=== PATIENT | male | born 1965 | race Caucasian/White ===

== ENCOUNTER 2023-04-11 10:59 | Outpatient (OUT) | payer OTHER, SELFPAY ==
[2023-04-11 11:26] LABS: Basophils Percent Auto 0.7 % (0.2-2.0); Eosinophils Absolute Auto 0.4 10^3/uL (0.0-0.7); Eosinophils Percent Auto 8.4 % (0.9-7.0); Hematocrit 41.4 % (42.0-54.0); Hemoglobin 13.7 g/dL (14.0-18.0); Immature Granulocytes Abs Auto 0.01 10^3/uL (0.00-0.03); Immature Granulocytes Pct Auto 0.2 % (0.0-0.5); Lymphocytes Absolute Auto 1.4 10^3/uL (1.2-3.8); Lymphocytes Percent Auto 31.9 % (20.5-60.0); Mean Corpuscular HGB Conc 33.1 g/dL (29.9-35.2); Mean Corpuscular Hemoglobin 31.8 pg (25.9-34.0); Mean Corpuscular Volume 96.1 fL (80.0-94.0); Mean Platelet Volume 9.3 fL (9.5-13.5); Monocytes Absolute Auto 0.9 10^3/uL (0.3-0.8); Monocytes Percent Auto 20.1 % (1.7-12.0); Neutrophils Absolute Auto 1.7 10^3/uL (1.4-6.5); Neutrophils Percent Auto 38.7 % (43.0-75.0); Platelet Count 221 10^3/uL (150-450); Red Blood Count 4.31 10^6/uL (4.70-6.10); Red Cell Distribution Width 12.8 % (11.0-15.0); White Blood Count 4.3 10^3/uL (4.0-11.0)
[2023-04-11 12:05] LABS: Alanine Aminotransferase 42 U/L (16-63); Albumin Level 4.1 g/dL (3.4-5.0); Alkaline Phosphatase 135 U/L (46-116); Aspartate Amino Transferase 42 U/L (15-37); BUN Creatinine Ratio 13.7; Bilirubin Total 0.2 mg/dL (0.2-1.0); Calcium 9.4 mg/dL (8.5-10.1); Carbon Dioxide 31.5 mmol/L (21.0-32.0); Chloride 101 mmol/L (98-107); Estimated GFR (African America >60 (>=60); Estimated GFR (Non-African Ame >60 (>=60); Globulin 4.1 g/dL; Glucose 127 mg/dL (74-106); Potassium 3.5 mmol/L (3.5-5.1); Sodium 140 mmol/L (136-145); Thyroid Stimulating Hormone 0.505 uIU/mL (0.358-3.740); Total Protein 8.2 g/dL (6.4-8.2)
[2023-04-11 12:14] LABS: Prostate Specific Antigen Scrn 0.55 ng/mL (<=4.00)
== END 2023-04-11 11:00 ==
LOC: LAB 11:03
PROVIDERS: PCP Family Medicine; Visit Provider Family Medicine
DX: I10 Essential (primary) hypertension (principal); R53.83 Other fatigue; Z12.5 Encounter for screening for malignant neoplasm of prostate
CPT/HCPCS: 36415; 80053; 84439; 84443; 85025; G0103

== ENCOUNTER 2023-06-22 15:00 | Emergency (ER) | payer OTHER, SELFPAY ==
[2023-06-22] VITALS (12 sets, daily range): BP systolic 163–193; BP diastolic 104–114; PULSE 72–91; RESP 8–24; TEMP 36.8; O2SAT 94–98; BMI 21.2
--- NOTE | 2023-06-22 15:19 | ECG_ITS ---
[facility] Test Date: 2023-06-22 Pat Name: WILMER PASTRANA Department: Room: - Gender: Male Medical Coding Manager: : 1965 Requested By: EDEN CONROY Order Number: [id number] Reading MD: GERSON WALL Measurements Intervals [place] Rate: 78 P: 80 MO: 194 QRS: -35 QRSD: 94 T: 61 QT: 384 QTc: 417 Interpretive Statements 1100 Sinus rhythm 7200 Abnormal left axis deviation 9130 borderline ECG No previous ECG available for comparison Electronically Signed On 06-23-2023 7:11:00 EDT by GERSON WALL
--- NOTE | 2023-06-22 15:20 | ED.GENADUL1 ---
HPI - General Adult General Chief complaint: Nausea/Vomiting/Diarrhea Stated complaint: VOMITING/NAUSEA/SWEATY/CLAMMY Time Seen by Provider: 06/22/23 15:12 Source: patient Mode of arrival: walk-in History of Present Illness HPI narrative: patient is a 57-year-old male who presents the emergency department for a one-day history of nausea and vomiting. Patient states yesterday he developed multiple episodes of emesis, he is unable to hold anything down, he denies diarrhea. He states he has some abdominal discomfort when he vomits but no severe abdominal pain. He believes he may have had acid reflux many years ago but does not take any medications for this. He has not had any objective fevers but states he feels very hot and sweaty when he vomits. He has no complaints of upper respiratory symptoms, chest pain or shortness of breath. No sick contacts in the home. He reports decreased urination due to decreased oral intake but denies any dysuria or hematuria. Related Data Previous Rx's Medication Instructions Recorded famotidine 20 mg tablet (Pepcid) 20 mg PO BID #10 tabs 06/22/23 ondansetron 4 mg disintegrating 4 mg PO Q6H PRN nausea and 06/22/23 tablet vomiting #12 tabs Allergies Allergy/AdvReac Type Severity Reaction Status Date / Time No Known Drug Allergies Allergy Verified 06/22/23 15:06 Review of Systems ROS Constitutional Denies: fever or chills Ears, nose, mouth, and throat Denies: throat pain Cardiovascular Denies: chest pain Respiratory Denies: shortness of breath or cough Gastrointestinal Reports: nausea and vomiting; Denies: abdominal pain or diarrhea Musculoskeletal Denies: back pain Integumentary/Breast Denies: rash Neurological Denies: headache Hematologic/Lymphatic Denies: easy bruising Exam Narrative Exam Narrative: Gen.: Awake, alert, in no distress Head: Normocephalic, atraumatic ENT: Moist mucous membranes Respiratory: No respiratory distress, lungs clear bilaterally Cardio: Regular rate and rhythm Gastrointestinal: Abdomen is soft, nondistended and nontender to palpation Extremities: Moves extremities equally Psych: Normal mood and affect Neuro: No focal neuro deficit Skin: Warm, dry, intact Constitutional Vital Signs, click to edit/add: Last Vital Signs Temp 98.2 F 06/22/23 15:06 Pulse 72 06/22/23 17:00 Resp 10 L 06/22/23 17:00 BP 184/111 H 06/22/23 17:00 Pulse Ox 94 L 06/22/23 15:50 O2 Del Method Room Air 06/22/23 15:06 Course Vital Signs Vital signs: Vital Signs Temperature 98.2 F 06/22/23 15:06 Pulse Rate 88 06/22/23 15:06 Respiratory Rate 16 06/22/23 15:06 Blood Pressure 184/110 H 06/22/23 15:06 Pulse Oximetry 98 06/22/23 15:06 Oxygen Delivery Method Room Air 06/22/23 15:06 Temperature 98.2 F 06/22/23 15:06 Pulse Rate 72 06/22/23 17:00 Respiratory Rate 10 L 06/22/23 17:00 Blood Pressure 184/111 H 06/22/23 17:00 Pulse Oximetry 94 L 06/22/23 15:50 Oxygen Delivery Method Room Air 06/22/23 15:06 Medical Decision Making MDM Narrative Medical decision making narrative: lab studies, EKG, x-rays obtained. Patient was treated with IV fluids, Zofran. He had no complaints of abdominal pain in the Emergency Room. He was noted to continue to have hypertension, he was treated with IV labetalol was given a dose of his regular oxycodone as he has had trouble keeping his medications for his chronic back pain down. Blood pressure on recheck is 153/102. Patient reports feeling much better and was able to tolerate ice chips and sips of water with no feelings of nausea or dry heaving. EKG, troponin and lab studies are unremarkable. X-rays with no evidence of bowel obstruction. Patient discharged home with treatment for nausea and vomiting and possible gastritis with Pepcid and Zofran. Follow-up with PCP and return to the Emergency Room if symptoms change or worsen. Patient and family at bedside in agreement with treatment plan. It was recommended to follow a clear liquid diet over the next 24-48 hours. Medical Records Medical records reviewed: Yes I reviewed the patient's medical records Lab Data Lab results reviewed: Yes I reviewed the patient's lab results Labs: Lab Results 06/22/23 Range/Units 15:26 WBC 7.6 (4.0-11.0) 10^3/uL RBC 4.67 L (4.70-6.10) 10^6/uL Hgb 14.8 (14.0-18.0) g/dL Hct 42.5 (42.0-54.0) % MCV 91.0 (80.0-94.0) fL MCH 31.7 (25.9-34.0) pg MCHC 34.8 (29.9-35.2) g/dL RDW 12.2 (11.0-15.0) % Plt Count 288 (150-450) 10^3/uL MPV 9.5 (9.5-13.5) fL Neut % (Auto) 74.7 (43.0-75.0) % Lymph % (Auto) 14.1 L (20.5-60.0) % [place] % (Auto) 10.4 (1.7-12.0) % Eos % (Auto) 0.1 L (0.9-7.0) % Baso % (Auto) 0.4 (0.2-2.0) % Neut # (Auto) 5.7 (1.4-6.5) 10^3/uL Lymph # (Auto) 1.1 L (1.2-3.8) 10^3/uL [place] # (Auto) 0.8 (0.3-0.8) 10^3/uL Eos # (Auto) 0.0 (0.0-0.7) 10^3/uL Baso # (Auto) 0.0 (0.0-0.1) 10^3/uL Abs Immat Gran (auto) 0.02 (0.00-0.03) 10^3/uL Imm/Tot Granulo (auto) 0.3 (0.0-0.5) % Sodium 138 (136-145) mmol/L Potassium 4.0 (3.5-5.1) mmol/L Chloride 99 (98-107) mmol/L Carbon Dioxide 32.5 H (21.0-32.0) mmol/L Anion Gap 10.5 BUN 14.0 (7.0-18.0) mg/dL Creatinine 1.22 (0.70-1.30) mg/dL Est GFR ( Amer) >60 (>=60) Est GFR (Non-Af Amer) >60 (>=60) BUN/Creatinine Ratio 11.5 Glucose 154 H (74-106) mg/dL Lactate 1.1 (0.4-2.0) mmol/L Calcium 9.5 (8.5-10.1) mg/dL Total Bilirubin 0.5 (0.2-1.0) mg/dL AST 32 (15-37) U/L ALT 40 (16-63) U/L Alkaline Phosphatase 116 (46-116) U/L Troponin I High Sens 6.6 (4.0-76.1) pg/mL Total Protein 8.7 H (6.4-8.2) g/dL Albumin 4.7 (3.4-5.0) g/dL Globulin 4.0 g/dL Albumin/Globulin Ratio 1.2 Lipase 46.0 L (73.0-393.0) U/L Imaging Data Abdominal x-ray: Attestation: I have reviewed the pertinent imaging results. Radiologist's impression: Procedure: XR acute abdomen series EXAM: XR acute abdomen series HISTORY: Nausea and vomiting COMPARISON: None. TECHNIQUE: Chest X-ray AP, 1 view and 2 views of the abdomen FINDINGS: Support devices: None. Lungs/pleura: No consolidation, effusion, or pneumothorax. Heart and mediastinum: Normal contours. Bones: No acute abnormality identified. Bowel: Unremarkable bowel gas pattern. No bowel dilatation. No gross pneumoperitoneum on exam of limited sensitivity for that finding. IMPRESSION: No bowel obstruction. Electronically authenticated by: KEON ROSE Date: 06/22/2023 16:22 ECG Data Attestation: I personally reviewed and interpreted this ECG as follows: (normal sinus rhythm at a rate of seventy-eight, no acute ST elevation or ectopy. EKG reviewed by attending physician) Discharge Plan Discharge Chief Complaint: Nausea/Vomiting/Diarrhea Clinical Impression: Gastritis, Nausea and vomiting Patient Disposition: Home, Self-Care Time of Disposition Decision: 17:36 Condition: Good Prescriptions / Home Meds: New famotidine [Pepcid] 20 mg tablet 20 mg PO BID Qty: 10 0RF ondansetron 4 mg tablet,disintegrating 4 mg PO Q6H PRN (Reason: nausea and vomiting) Qty: 12 0RF Instructions: Acute Nausea and Vomiting (DC) Stand Alone Forms: Portal Instructions Referrals: Itzel Nair MD [Primary Care Provider] - 1 week
[2023-06-22] MEDS: 0.9 % SODIUM CHLORIDE 1,000 ML 999 ML IV (15:30)
[2023-06-22] MEDS: FAMOTIDINE/PF 20 MG/2 ML VIAL IV (15:30)
[2023-06-22] MEDS: ONDANSETRON PF 4 MG/2 ML VIAL IV (15:30)
--- NOTE | 2023-06-22 16:02 | XR_ITS ---
The [address] [address] Patient Name: WILMER PASTRANA MRN: [id number] date: 1965 Sex: M Assigned Patient Location: ER Current Patient Location: ER Accession/Order Number: [id number] Exam Date: 06/22/2023 15:58 Report Date: 06/22/2023 16:22 At the request of: ESTRELLITA ZAMAN Procedure: XR acute abdomen series EXAM: XR acute abdomen series HISTORY: Nausea and vomiting COMPARISON: None. TECHNIQUE: Chest X-ray AP, 1 view and 2 views of the abdomen FINDINGS: Support devices: None. Lungs/pleura: No consolidation, effusion, or pneumothorax. Heart and mediastinum: Normal contours. Bones: No acute abnormality identified. Bowel: Unremarkable bowel gas pattern. No bowel dilatation. No gross pneumoperitoneum on exam of limited sensitivity for that finding. XR/XR acute abdomen series IMPRESSION: No bowel obstruction. Electronically authenticated by: KEON ORSE Date: 06/22/2023 16:22
[2023-06-22 16:06] LABS: Basophils Percent Auto 0.4 % (0.2-2.0); Eosinophils Percent Auto 0.1 % (0.9-7.0); Hematocrit 42.5 % (42.0-54.0); Hemoglobin 14.8 g/dL (14.0-18.0); Immature Granulocytes Abs Auto 0.02 10^3/uL (0.00-0.03); Immature Granulocytes Pct Auto 0.3 % (0.0-0.5); Lymphocytes Absolute Auto 1.1 10^3/uL (1.2-3.8); Lymphocytes Percent Auto 14.1 % (20.5-60.0); Mean Corpuscular HGB Conc 34.8 g/dL (29.9-35.2); Mean Corpuscular Hemoglobin 31.7 pg (25.9-34.0); Mean Platelet Volume 9.5 fL (9.5-13.5); Monocytes Absolute Auto 0.8 10^3/uL (0.3-0.8); Monocytes Percent Auto 10.4 % (1.7-12.0); Neutrophils Absolute Auto 5.7 10^3/uL (1.4-6.5); Neutrophils Percent Auto 74.7 % (43.0-75.0); Platelet Count 288 10^3/uL (150-450); Red Blood Count 4.67 10^6/uL (4.70-6.10); Red Cell Distribution Width 12.2 % (11.0-15.0); White Blood Count 7.6 10^3/uL (4.0-11.0)
[2023-06-22 16:20] LABS: Alanine Aminotransferase 40 U/L (16-63); Albumin Globulin Ratio 1.2; Albumin Level 4.7 g/dL (3.4-5.0); Alkaline Phosphatase 116 U/L (46-116); Anion Gap 10.5; Aspartate Amino Transferase 32 U/L (15-37); BUN Creatinine Ratio 11.5; Bilirubin Total 0.5 mg/dL (0.2-1.0); Calcium 9.5 mg/dL (8.5-10.1); Carbon Dioxide 32.5 mmol/L (21.0-32.0); Chloride 99 mmol/L (98-107); Estimated GFR (African America >60 (>=60); Estimated GFR (Non-African Ame >60 (>=60); Glucose 154 mg/dL (74-106); Sodium 138 mmol/L (136-145); Total Protein 8.7 g/dL (6.4-8.2); Troponin I High Sensitivity 6.6 pg/mL (4.0-76.1)
[2023-06-22 16:21] LABS: Lactate/Lactic Acid 1.1 mmol/L (0.4-2.0)
[2023-06-22] MEDS: LABETALOL HCL 20 MG/4 ML SYRINGE 10 MG IVP (16:47)
== END 2023-06-22 17:47 | disposition home or self-care (01) ==
PROVIDERS: Physician Assistant; Emergency Provider Emergency Medicine; PCP Family Medicine
DX: K29.70 Gastritis, unspecified, without bleeding (principal)
CPT/HCPCS: 36415; 74022; 80053; 83605; 83690; 84484; 85025; 93005; 96374; 96375; 99285

== ENCOUNTER 2024-09-07 11:20 | Outpatient (OUT) | payer MEDICARE, SELFPAY ==
[2024-09-07 11:51] LABS: Basophils Absolute Auto 0.1 10^3/uL (0.0-0.1); Basophils Percent Auto 1.6 % (0.2-2.0); Eosinophils Absolute Auto 0.5 10^3/uL (0.0-0.7); Eosinophils Percent Auto 10.9 % (0.9-7.0); Hematocrit 39.4 % (42.0-54.0); Hemoglobin 13.3 g/dL (14.0-18.0); Lymphocytes Absolute Auto 1.9 10^3/uL (1.2-3.8); Lymphocytes Percent Auto 37.2 % (20.5-60.0); Mean Corpuscular HGB Conc 33.8 g/dL (29.9-35.2); Mean Corpuscular Hemoglobin 30.1 pg (25.9-34.0); Mean Corpuscular Volume 89.1 fL (80.0-94.0); Mean Platelet Volume 9.4 fL (9.5-13.5); Monocytes Absolute Auto 0.7 10^3/uL (0.3-0.8); Monocytes Percent Auto 14.5 % (1.7-12.0); Neutrophils Absolute Auto 1.8 10^3/uL (1.4-6.5); Neutrophils Percent Auto 35.8 % (43.0-75.0); Platelet Count 311 10^3/uL (150-450); Red Blood Count 4.42 10^6/uL (4.70-6.10)
[2024-09-07 12:50] LABS: Alanine Aminotransferase 26 U/L (16-63); Albumin Globulin Ratio 1.2; Albumin Level 4.3 g/dL (3.4-5.0); Alkaline Phosphatase 105 U/L (46-116); Anion Gap 10.6; Aspartate Amino Transferase 25 U/L (15-37); BUN Creatinine Ratio 13.6; Bilirubin Total 0.4 mg/dL (0.2-1.0); Calcium 9.5 mg/dL (8.5-10.1); Carbon Dioxide 33.4 mmol/L (21.0-32.0); Chloride 103 mmol/L (98-107); Estimated GFR (African America >60 (>=60 mL/min/1.73m^2); Estimated GFR (Non-African Ame >60 (>=60 mL/min/1.73m^2); Globulin 3.7 g/dL; Glucose 115 mg/dL (74-106); Sodium 143 mmol/L (136-145)
[2024-09-08 04:08] LABS: Testosterone 556 ng/dL (264-916)
== END 2024-09-07 11:21 | disposition home or self-care (01) ==
LOC: LAB 11:23
PROVIDERS: PCP Family Medicine; Visit Provider Family Medicine
DX: R53.83 Other fatigue (principal); R10.13 Epigastric pain; I10 Essential (primary) hypertension; R11.2 Nausea with vomiting, unspecified
CPT/HCPCS: 36415; 80053; 83690; 84403; 85025

== ENCOUNTER 2025-01-03 11:34 | Outpatient (OUT) | payer MEDICARE, SELFPAY ==
--- OUTSIDE RECORDS SUMMARY | 2025-01-03 11:52 | XMS_ITS | CCD ---
Author Organization [facility] Care Team Providers Care Object Oriented Developer Name Role Phone Manan Watson Unavailable FRANCES STRONG Attending Unavailable FRANCES STRONG Admitting Unavailable Unavailable Primary Care Provider UnavailEden Burrell MD Primary Care Provider Unavailable Primary Care Provider UnavailPUNEET Ac Referring Unavailable DEBRA, PUNEET Referring Unavailable DUGLAS FRYE Referring Unavailable PUNEET BLAIR MD Attending Unavailable PUNEET BLAIR Referring Unavailable PUNEET BLAIR Referring Unavailable DEBRA, PUNEET Referring Unavailable PUNEET BLAIR Referring Unavailable Manan Watson Admitting Unavailable Manan Watson Attending Unavailable Eden Conroy Primary Care Unavailable Eden Conroy Unavailable MISC, DR FREEMAN Admitting Unavailable MISC, DR FREEMAN Attending Unavailable RAFIQ, DR EDEN Lujan Primary Care Unavailable RAFIQ, DR EDEN Lujan Primary Care Unavailable PAY ., DR MENDOZA Admitting Unavailable PAY ., DR MENDOZA Attending Unavailable ROBERT .HEBER Consulting Unavailable RAFIQ, DR EDEN Lujan Primary Care Unavailable JOSE GRAMAJO Admitting Unavailable AMADOU Burns, JOSE Attending Unavailable MARNI VALENCIA Consulting Unavailable JOSE GRAMAJO Consulting Unavailable MISC, DR FREEMAN Admitting Unavailable MISC, DR FREEMAN Attending Unavailable RAFIQ, DR EDEN Lujan Primary Care Unavailable MISC, DR FREEMAN Consulting Unavailable RAFIQ, DR EDEN Lujan Admitting Unavailable CONROY, DR EDEN Lujan Attending Unavailable RAFIQ, DR EDEN Lujan Primary Care Unavailable RAFIQ, DR EDEN Lujan Consulting Unavailable EDEN CONROY Referring Unavailable WALT WEST Attending Unavailable WALT WEST Admitting Unavailable EDEN CONROY Primary Care Unavailable PUNEET BLAIR Referring Unavailable PUNEET BLAIR Attending Unavailable EDEN CONROY Primary Care Unavailable EDEN CONROY Primary Care Unavailable BINA JEROME Attending Unavailable CONROY, EDEN Primary Care Unavailable CHANELL HART Referring Unavailable CONSULT, SURGERY - ORTHOPAEDICS Consulting Unavailable NURYSNicolePAO NICOLAS Mosley Referring Unavailable CHANELL HART Attending Unavailable ELSY MAURER Admitting Unavailable CONROY, EDEN Primary Care Unavailable SELF, SELF Referring Unavailable BRETT, WALT Dias Attending Unavailable BINA JEROME Attending Unavailable BINA JEROME Referring Unavailable CONROY, EDEN Primary Care Unavailable TA, BINA Purvis Attending Unavailable BINA JEROME Referring Unavailable CONROY, EDEN Primary Care Unavailable CONROY, EDEN Primary Care Unavailable CONROY, EDEN Referring Unavailable WEST, WALT Dias Attending Unavailable CONROY, EDEN Primary Care Unavailable CONROY, EDEN Primary Care Unavailable CONROY, EDEN Referring Unavailable WEST, WALT Dias Attending Unavailable CONROY, EDEN Primary Care Unavailable SELF, SELF Referring Unavailable WEST, WALT Dias Attending Unavailable TA, BINA Purvis Attending Unavailable CONROY, EDEN Primary Care Unavailable SELF, SELF Referring Unavailable CONROY, EDEN Primary Care Unavailable CONROY, EDEN Primary Care Unavailable CONROY, EDEN Referring Unavailable WEST, WALT Dias Attending Unavailable CONROY, EDEN Primary Care Unavailable SELF, SELF Referring Unavailable WEST, WALT Dias Attending Unavailable CONROY, EDEN Primary Care Unavailable CONROY, EDEN Primary Care Unavailable SELF, SELF Referring Unavailable WEST, WALT Dias Attending Unavailable CONROY, EDEN Primary Care Unavailable BINA JEROME Attending Unavailable TA, BINA uPrvis Referring Unavailable CONROY, EDEN Primary Care Unavailable CONROY, EDEN Primary Care Unavailable CONSULT, GENERAL MEDICINE Consulting BINA Wise Attending Unavailable BINA JEROME Admitting Unavailable BINA JEROME Referring Unavailable CONROY, EDEN Primary Care Unavailable CONROY, EDEN Referring Unavailable BRETT, WALT Dias Admitting Unavailable BRETT, WALT Dias Attending Unavailable CONROY, EDEN Primary Care Unavailable CONROY, EDEN Primary Care Unavailable CONROY, EDEN Primary Care Unavailable CONROY, EDEN Primary Care Unavailable RADHA RABAGO Referring Unavailable CONSULT, GENERAL MEDICINE Consulting BINA Wise Admitting Unavailable BINA JEROME Attending Unavailable CONROY, EDEN Primary Care Unavailable Conroy Eden OROSCO Primary Care Provider Allergies Allergy Classification Reported Allergen(s) Allergy Type Date of Onset Reaction(s) Facility (1 source) DULoxetine Drug Allergy [address] [place] [address] Repository (8 sources) DULoxetine Drug Allergy Unknown [facility] Other (2 sources) patient allergy list reviewed by nurse or physicia Propensity to adverse reactions Comment:Done [facility] Other (2 sources) Allergies Reconciled Propensity to adverse reactions Unknown [facility] Other Medications Current Medications Medication Drug Class(es) Dates Sig (Normalized) Sig (Original) acetaminophen 325 mg / oxyCODONE hydrochloride 5 mg oral tablet (20 sources) Opioid Agonist Start: 03-04-2023 take 1 tablet by mouth every six hours as needed oxyCODONE-Acetami nophen 5-325 MG TAKE 1 TABLET BY MOUTH EVERY 6 HOURS NEEDED for 30 February, Active Start: 11-23-2021 End: 12-16-2023 take 1 tablet by mouth every eight hours as needed for pain Oxycodone-Acetaminophen (Percocet) 5-325 mg tablet Discontinued 1 TAB PO Q8H as needed for pain 6 2 November 23, 2021 December 16, 2023 11:54am Start: 11-06-2021 End: 11-23-2021 take 1 tablet by mouth every four to six hours as needed for pain Oxycodone-Acetaminophen 5-325 mg Tablet Discontinued 1 TAB PO EVERY 4-6 HOURS as needed for Pain 70 November 06, 2021 November 23, 2021 10:15am Start: 11-03-2021 End: 01-04-2023 take 1 tablet by mouth every six hours as needed for pain Oxycodone-Acetaminophen 5-325 mg tablet Discontinued 1 TAB PO Q6H as needed for Pain November 03, 2021 12:00am November 23, 2021 10:15am take 1 tablet by catherine th once oxyCODONE-acetaminophen (PERCOCET) 10-32 5 mg per tablet Take 1 tablet by mouth. Active alteplase 2 MG Recon Soln (5 sources) Start: 10-01-2022 alteplase 2 MG Recon Soln 2 mg by Intracatheter route once as needed for Catheter Clearance (For an occluded line) for up to 1 dose. 1 Each 0 10/01/2022 Active ascorbic acid 500 mg / ferrous sulfate 525 mg / folic acid 0.8 mg extended release oral tablet (7 sources) Vitamin C Start: 08-06-2022 take 1 tablet by mouth once daily FoliTab 500 105-500-0.8 MG Tab CR Take 1 tablet by mouth daily. 0 08/06/2022 Active B Complex Vitamins (Vitamin B-Complex) tablet (5 sources) B Complex Vitami ns (Vitamin B-Complex) tablet Take by mouth. 0 Active cephalexin 500 mg oral capsule (1 source) Cephalosporin Antibacterial Start: 09-06-2022 End: 09-13-2022 take 1 capsule by mouth every six hours cephALEXin 500 MG capsule Take 1 capsule by mouth every 6 hours for 7 days. 28 capsule 0 09/06/2022 09/13/2022 Active cholecalciferol 0.05 mg oral tablet (9 sources) Vitamin D Start: 10-02-2022 End: 11-01-2022 take 1 tablet by mouth once daily cholecalciferol 50 MCG (2000 UNIT) tablet Take 1 tablet by mouth daily. 30 tablet 0 10/02/2022 Active ergocalciferol 0.01 mg oral tablet (7 sources) Provitamin D2 Compound Start: 11-03-2021 take 1 tablet by mouth once daily Ergocalciferol (Vitamin D2) (Vitamin D2) 10 mcg (400 unit) Tablet Active 10 MCG PO Daily November 03, 2021 12:00am ferrous sulfate 250 mg extended release oral tablet (1 source) take 1 tablet by mouth once daily at breakfast ferrous sulfate 250 mg (50 mg iron) tablet extended release Take 500 mg by mouth daily with breakfast. Active folic acid 0.4 mg / vitamin b12 0.5 mg oral tablet (7 sources) Vitamin B12 Start: 11-03-2021 take 1 tablet by mouth once daily Vitamin G40-Wqsml Acid 500-400 mcg Tablet Active 1 TAB PO Daily November 03, 2021 12:00am 1 ml heparin sodium, porcine 5000 unt/ml injection (1 source) Unfractionated Heparin, Anti-coagulant Start: 08-19-2022 inject 1 mL by subcutaneous injection every eight hours heparin sodium,porcine (heparin, porcine,) 5,000 unit/mL injection Inject 1 mL (5,000 Units total) under the skin every 8 (eight) hours. 08/19/2022 Active ibuprofen 600 mg oral tablet (5 sources) Nonsteroidal Anti-inflammatory Drug Start: 01-03-2023 End: 01-11-2023 take 1 tablet by mouth every six hours as needed Ibuprofen 600 MG tablet Take 1 tablet by mouth every 6 hours as needed for mild pain for up to 7 days. 28 tablet 0 01/04/2023 Active losartan potassium 50 mg oral tablet (20 sources) Angiotensin 2 Receptor Doc Start: 12-16-2023 End: 12-22-2023 take 1 tablet by mouth once daily Losartan 50 mg tablet Active 50 MG PO Daily December 22, 2023 1:44pm FreeTextSi tablet Orally Once a day; Note: Source Status: Start; Refills: 3; Provider: Rafiq Robbins ( ) Start: 01-05-2023 take 1 tablet by catherine th every twenty-four hours Losartan Potassium 50 MG 1 tablet Orally Once a day for 30 days Dec, Active meloxicam 15 mg oral tablet (3 sources) Nonsteroidal Anti-inflammatory Drug Start: 09-03-2024 take 1 tablet by mouth once daily Meloxicam 15 mg tablet Active 15 MG PO Daily September 03, 2024 12:00am MEPILEX BORDER DRESSING (5 sources) Start: 11-26-2022 MEPILEX BORDER DRESSING Apply 1 each topically every three days 10 patch 0 11/26/2022 Active Start: 11-24-2022 MEPILEX BORDER DRESSING Apply 1 Each topically every 3 days. 10 Application 0 11/24/2022 Active methylPREDNISolone 4 mg oral tablet (1 source) Corticosteroid Start: 11-16-2021 Medrol 4 MG as directed Orally for 6 days Oct, Active naloxone hydrochloride 40 mg/ml nasal spray (6 sources) Opioid Antagonist Start: 10-01-2022 End: 10-01-2023 naloxone 4 MG/0.1ML 1 spray by Nasal route As directed PRN for Opioid Reversal. [place] into the nose as directed. Call 911. If no response in 2 minutes use a new nasal spray in other nostril. Repeat until help arrives. 2 Each 0 10/01/2022 10/01/2023 Active omeprazole 20 mg delayed release oral capsule (1 source) Proton Pump Inhibitor Start: 09-07-2024 take 1 capsule by mouth once daily Omeprazole 20 mg capsule,delayed release(DR/EC) Active 20 MG PO Daily September 07, 2024 12:00am Selenium 200 MCG tablet (9 sources) Start: 10-04-2022 take 1 tablet by mouth once daily Selenium 200 MCG tablet Take 1 tablet by mouth daily. 30 tablet 0 10/04/2022 Active Start: 10-04-2022 End: 11-03-2022 take 1 tablet by mouth once daily Selenium 200 MCG tablet Take 1 tablet by mouth daily. 30 tablet 0 10/04/2022 11/03/2022 Active sulfamethoxazole 800 mg / trimethoprim 160 mg oral tablet (9 sources) Dihydrofolate Reductase Inhibitor Antibacterial, Sulfonamide Antimicrobial Start: 11-02-2022 End: 02-02-2023 take 1 tablet by mouth twice daily Sulfamethoxazole-trimethoprim 800-160 MG per tablet Take 1 tablet by mouth 2 times daily for 7 days. 14 tablet 0 01/26/2023 02/02/2023 Active tiZANidine 4 mg oral tablet (20 sources) Central alpha-2 Adrenergic Agonist Start: 07-16-2024 End: 08-29-2024 take 1 tablet by mouth at bedtime as needed Tizanidine 4 mg tablet Active 0 .ROUTE .COMPLEX August 29, 2024 10:28am TAKE 1 TABLET BY MOUTH AT BEDTIME NEEDED Start: 03-22-2024 End: 07-16-2024 take 1 tablet by mouth once daily at bedtime as needed Tizanidine 4 mg tablet Discontinued 4 MG PO Daily at bedtime as needed for muscle spasticity June 14, 2024 1:35pm July 16, 2024 12:10pm trihexyphenidyl hydrochloride 2 mg oral tablet (1 source) Start: 08-19-2022 take 1 tablet by mouth in the morning, then take 1 tablet by mouth at mealtime trihexyphenidyL (ARTANE) 2 mg tablet Take 1 tablet (2 mg total) by mouth in the morning and 1 tablet (2 mg total) in the evening. Take with meals. 08/19/2022 Active vancomycin 500 mg injection (3 sources) Glycopeptide Antibacterial Start: 10-01-2022 End: 11-03-2022 take 1500 mg intravenously every twelve hours vancomycin injection 1,500 mg by Intravenous route every 12 hours. 1,500 mg per dose, IV infusion every 12 hours. *diluent and final concentration at discretion of receiving pharmacy* 66 Each 0 10/01/2022 11/03/2022 Active vitamin a 19401 unt oral capsule (9 sources) Vitamin A Start: 10-02-2022 take 2 capsules by mouth once daily vitamin A 3 MG (44229 UT) capsule Take 2 capsules by mouth daily for 5 days. 10 capsule 0 10/02/2022 Active Vitamin B Complex (1 source) b complex vitami ns tablet Take by mouth. Active vitamin e 90 mg oral capsule (7 sources) Start: 11-03-2021 take 1 capsule by mouth once daily Vitamin E 200 unit Capsule Active 200 UNIT PO Daily November 03, 2021 12:00am zinc sulfate 220 mg oral capsule (9 sources) Start: 10-02-2022 End: 11-01-2022 take 1 capsule by mouth once daily before breakfast zinc sulfate 220 MG capsule Take 1 capsule by mouth every morning before breakfast. 30 capsule 0 10/02/2022 Active Completed/Discontinued Medications Medication Drug Class(es) Dates Sig (Normalized) Sig (Original) acetaminophen 325 mg oral tablet (11 sources) Start: 01-03-2023 End: 01-04-2023 take 1 tablet by mouth every four hours as needed 650 mg, Oral, EVERY 4 HOURS NEEDED, 6 doses, Starting on Tue01/03/23 at 1201, Until Tue01/04/23 at 1353, Mild Pain Administer as first line for mild pain. If pain unrelieved one hour after administration may administer ibuprofen if ordered. Post-op/Post-Proc Start: 10-01-2022 End: 01-04-2023 take 2 tablets by mouth every four hours acetaminophen 325 MG tablet Take 2 tablets by mouth every 4 hours. 0 10/01/2022 01/04/2023 Discontinued (Stop Taking at Discharge) Start: 08-19-2022 End: 08-27-2022 acetaminophen (TYLENOL) tabl et 975 mg acetaminophen 325 mg / HYDROcodone bitartrate 5 mg oral tablet (1 source) Opioid Agonist Start: 09-06-2022 End: 09-06-2022 take 1 tablet by mouth every four hours as needed hydroCODone-acetaminophen 5-325 MG tablet Indications: S/P cervical spinal fusion Take 1 tablet by mouth every 4 hours as needed for up to 7 days. 42 tablet 0 09/06/2022 09/06/2022 Discontinued ALPRAZolam 0.25 mg oral tablet (17 sources) Benzodiazepine Start: 05-03-2024 End: 09-07-2024 take 1 tablet by mouth three times daily as needed for anxiety Alprazolam 0.25 mg tablet Discontinued 0.25 MG PO Three times daily as needed for anxiety 12 05May 03, 2024 1:59pm May 14, 2024 8:04am aluminum hydroxide 40 mg/ml / magnesium hydroxide 40 mg/ml / simethicone 4 mg/ml oral suspension (2 sources) Start: 01-03-2023 End: 01-04-2023 take 30 mL by mouth every six hours as needed 30 mL, Oral, EVERY 6 HOURS NEEDED, Starting on Tue01/03/23 at 1201, Until Tue01/04/23 at 1353, Indigestion Per 5 mL is equivalent to: (Alum-Mag Hydroxide 200-225 mg and Simethicone 20 mg) and (Alum-Mag Hydroxide 200-200 mg and Simethicone 20 mg) Post-op/Post-Proc Start: 08-19-2022 End: 08-27-2022 take 30 mL by mouth every six hours as needed 30 mL, Oral, EVERY 6 HOURS NEEDED, Starting on Ирина 08/19/22 at 1702, Until Tue08/27/22 at 1414, Indigestion Per 5 mL is equivalent to: (Alum-Mag Hydroxide 200-225 mg and Simethicone 20 mg) and (Alum-Mag Hydroxide 200-200 mg and Simethicone 20 mg) amLODIPine 5 mg oral tablet (20 sources) Dihydropyridine Calcium Channel Doc Start: 03-12-2024 End: 08-14-2024 take 1 tablet by mouth once daily Amlodipine 5 mg tablet Discontinued 0 .ROUTE .COMPLEX June 27, 2024 7:23am August 14, 2024 9:07pm TAKE 1 TABLET BY MOUTH ONCE DAILY Start: 12-16-2023 End: 03-12-2024 take 1 tablet by mouth once daily Amlodipine 5 mg tablet Discontinued 5 MG PO Daily December 22, 2023 1:44pm March 12, 2024 2:03pm FreeTextSi tablet Orally Once a day; Note: Source Status: Start; Provider: Rafiq Lujan Start: 11-28-2023 take 1 tablet by catherine th every twenty-four hours amLODIPine Besylate 5 MG 1 tablet Orally Once a day for 30 day(s) Aug, Active Start: 10-02-2022 End: 11-01-2022 take 1 tablet by mouth once daily amLODIPine 2.5 MG tablet Take 1 tablet by mouth daily. 30 tablet 0 10/02/2022 Active Start: 08-19-2022 take 1 tablet by catherine th in the morning amLODIPine (NORVASC) 10 mg tablet Take 1 tablet (10 mg total) by mouth in the morning. 08/19/2022 Active bisacodyl 10 mg rectal suppository (1 source) Stimulant Laxative Start: 01-03-2023 End: 01-04-2023 take 10 mg rectal route once daily as needed for constipation 10 mg, Rectal, DAILY NEEDED, Starting on Tue01/03/23 at 1201, Until Tue01/04/23 at 1353, Constipation 1st Line, Post-op/Post-Proc calcium chloride 0.0014 meq/ml / potassium chloride 0.004 meq/ml / sodium chloride 0.103 meq/ml / sodium lactate 0.028 meq/ml injectable solution (2 sources) Start: 01-03-2023 End: 01-04-2023 Intravenous, at 50 mL/hr, CONTINUOUS, Starting on Tue01/03/23 at 1000, Until Tue01/04/23 at 1353, Post-op/Post-Proc Start: 01-03-2023 End: 01-03-2023 Lactated ringers IV solution ceFAZolin 2000 mg injection (1 source) Cephalosporin Antibacterial Start: 08-21-2022 End: 08-24-2022 take 2 g intravenously every eight hours 2 g, Intravenous, Administer over 30 Minutes, EVERY 8 HOURS NON-STANDARD, First dose on 08/21/22 at 1930, Until Discontinued cyclobenzaprine hydrochloride 10 mg oral tablet (1 source) Muscle Relaxant Start: 08-23-2022 End: 08-24-2022 cyclobenzaprine (FLEXERIL) tablet 10 mg diazePAM 5 mg oral tablet (20 sources) Benzodiazepine Start: 10-31-2022 take 1 tablet by mouth twice daily as needed diazePAM 5 mg TAKE 1 TABLET BY MOUTH TWICE DAILY NEEDED for 5 Oct, Not-Taking/PRN Start: 10-01-2022 take 1 tablet by catherine th every eight hours as needed for muscle spasms diazepam 5 MG tablet Indications: S/P spinal surgery Take 1 tablet by mouth every 8 hours as needed for Muscle spasms (Hold for sedation.) for up to 7 days. 21 tablet 0 10/01/2022 Active Start: 08-24-2022 End: 08-27-2022 take 1 tablet by mouth every eight hours as needed diazepam (VALIUM) tablet 5 mg Start: 08-21-2022 End: 08-21-2022 diazepam (VALIUM) tablet 5 m g Start: 11-06-2021 End: 01-22-2024 take 1 tablet by mouth four times daily as needed for muscle spasms Diazepam 5 mg Tablet Discontinued 5 MG PO Four times daily as needed for Muscle Spasm 40 10 November 06, 2021 12:00am January 22, 2024 8:34pm docusate sodium 100 mg oral capsule (2 sources) Start: 01-03-2023 End: 01-04-2023 Docusate (COLACE) capsule doxycycline hyclate 100 mg oral capsule (8 sources) Tetracycline-cl ass Drug Start: 11-02-2022 End: 01-31-2023 take 1 capsule by mouth twice daily doxycycline hyclate 100 MG capsule Take 1 capsule by mouth 2 times daily. 60 capsule 2 11/02/2022 01/26/2023 Discontinued (Therapy completed) 0.4 ml enoxaparin sodium 100 mg/ml prefilled syringe (7 sources) Low Molecular Weight Heparin Start: 01-04-2023 End: 01-04-2023 inject 40 mg by subcutaneous injection every twenty-four hours 40 mg, Subcutaneous, EVERY 24 HOURS, First dose on Tue01/04/23 at 0000, Until Discontinued Indications: DVT/PE prophylaxis, Post-op/Post-Proc Start: 10-02-2022 End: 11-01-2022 inject 0.4 mL by subcutaneous injection once daily Enoxaparin Sodium 40 MG/0.4ML injection Indications: DVT/PE prophylaxis Inject 0.4 mL under the skin daily. 12 mL 0 10/02/2022 Active Start: 08-19-2022 End: 08-23-2022 Enoxaparin Sodium (LOVENOX) injection 40 mg gabapentin 600 mg oral tablet (20 sources) Anti-epileptic Agent Start: 02-20-2024 End: 03-22-2024 take 1 tablet by mouth three times daily Gabapentin 600 mg tablet Discontinued 0 .ROUTE .COMPLEX 90 February 20, 2024 3:00pm March 22, 2024 12:26pm TAKE 1 TABLET BY MOUTH THREE TIMES DAILY FOR 30 DAYS Start: 12-16-2023 End: 02-20-2024 take 1 tablet by mouth three times daily Gabapentin 600 mg tablet Discontinued 600 MG PO Three times daily December 16, 2023 12:00am February 20, 2024 3:00pm FreeTextSig: TAKE 1 TABLET BY MOUTH THREE TIMES DAILY for 30 days; Note: Source Status: Start; Refills: 2; Qty: 90 Tablet; Provider: Rafiq Robbins ( ) Start: 01-03-2023 End: 01-04-2023 take 600 mg by mouth three times daily 600 mg, Oral, 3 TIMES DAILY, First dose on Tue01/03/23 at 1400, Until Discontinued, Post-op/Post-Proc Start: 12-09-2022 take 1 tablet by catherine th three times daily gabapentin 600 MG tablet Take 1 tablet by mouth 3 times daily. 0 12/09/2022 Active Start: 10-01-2022 take 1 capsule by mo uth three times daily gabapentin 100 MG capsule Take 1 capsule by mouth 3 times daily for 7 days. 21 capsule 0 10/01/2022 Active Start: 08-27-2022 End: 09-26-2022 take 2 capsules by mouth three times daily gabapentin 100 MG capsule Take 2 capsules by mouth 3 times daily. 180 capsule 0 08/27/2022 09/26/2022 Active Start: 08-21-2022 End: 08-27-2022 gabapentin (NEURONTIN) capsu le 100 mg Start: 08-21-2022 End: 08-21-2022 gabapentin (NEURONTIN) capsu le 300 mg guaiFENesin 20 mg/ml oral solution (1 source) Start: 08-20-2022 End: 08-27-2022 take 200 mg by mouth every six hours as needed guaiFENesin (ROBITUSSIN) oral solution 200 mg 1 ml haloperidol 5 mg/ml injection (1 source) Typical Antipsychotic Start: 08-21-2022 End: 08-21-2022 haloperidol lactate (HALDOL) injection 5 mg 1 ml hydrALAZINE hydrochloride 20 mg/ml injection (2 sources) Arteriolar Vasodilator Start: 01-03-2023 End: 01-04-2023 take 5 mg intravenously every six hours as needed hydrALAZINE (APRESOLINE) injection 5 mg Start: 08-22-2022 End: 08-27-2022 take 1 tablet by mouth every eight hours as needed hydrALAZINE (APRESOLINE) tablet 25 mg 1 ml HYDROmorphone hydrochloride 1 mg/ml cartridge (2 sources) Opioid Agonist Start: 08-25-2022 End: 08-25-2022 HYDROmorphone (DILAUDID) injection 0.5 mg Start: 08-22-2022 End: 08-22-2022 HYDROmorphone (DILAUDID) inj ection 0.5 mg HYDROmorphone (DILAUDID) injection 0.5 mg (1 source) Start: 08-26-2022 End: 08-27-2022 take 0.5 mg intravenously every six hours as needed HYDROmorphone (DILAUDID) injection 0.5 mg hydrOXYzine hydrochloride 10 mg oral tablet (1 source) Antihistamine Start: 08-20-2022 End: 08-27-2022 hydrOXYzine hcl (ATARAX) tablet 10 mg labetalol hydrochloride 5 mg/ml injectable solution (1 source) beta-Adrenergic Doc Start: 01-03-2023 End: 01-04-2023 take 10 mg intravenously every six hours as needed Labetalol (NORMODYNE) injection 10 mg Magnesium Oxide (1 source) Start: 08-19-2022 End: 08-27-2022 magnesium oxide (MAG-OX) tablet 800 mg melatonin 3 mg oral tablet (1 source) Start: 08-19-2022 End: 08-27-2022 take 6 mg by mouth once daily at bedtime as needed 6 mg, Oral, DAILY AT BEDTIME NEEDED, Starting on Ирина 08/19/22 at 1702, Until Tue08/27/22 at 1414, Insomnia ondansetron 4mg/2ml (ZOFRAN) injection 4 mg (1 source) Start: 08-19-2022 End: 08-27-2022 take 4 mg intravenously every six hours as needed ondansetron 4mg/2ml (ZOFRAN) injection 4 mg Ondansetron 4mg/2ml (ZOFRAN) injection 4 mg (1 source) Start: 01-03-2023 End: 01-04-2023 take 4 mg intravenously every six hours as needed Ondansetron 4mg/2ml (ZOFRAN) injection 4 mg oxyCODONE hydrochloride 5 mg oral tablet (20 sources) Opioid Agonist Start: 05-23-2024 End: 08-22-2024 take 1 tablet by mouth twice daily as needed for pain Oxycodone 5 mg tablet Discontinued 5 MG PO Twice daily as needed for pain 60 July 23, 2024 August 22, 2024 7:18am Start: 04-23-2024 End: 04-23-2024 take 1 tablet by mouth twice daily as needed for pain Oxycodone 5 mg tablet Discontinued 5 MG PO Twice daily as needed for pain 60 April 23, 2024 April 23, 2024 8:49am Start: 02-16-2024 End: 05-23-2024 take 1 tablet by mouth twice daily as needed for pain Oxycodone 5 mg tablet Discontinued 5 MG PO Twice daily as needed for pain 60 March 22, 2024 April 23, 2024 7:32am Start: 01-16-2024 End: 02-15-2024 take 1 tablet by mouth twice daily as needed for pain Oxycodone 5 mg tablet Discontinued 5 MG PO Twice daily as needed for pain 60 January 16, 2024 February 15, 2024 9:31am Start: 12-16-2023 End: 01-16-2024 take 1 tablet by mouth three times daily as needed for pain Oxycodone 5 mg tablet Discontinued 5 MG PO Three times daily as needed for pain 90 December 22, 2023 January 16, 2024 1:49pm Start: 11-17-2023 take 1 tablet by catherine th three times daily as needed oxyCODONE HCl 5 MG 1 tablet as needed Orally tid prn for 30 days Oct, Active Start: 10-19-2023 take 1 tablet by catherine th three times daily as needed oxyCODONE HCl 5 MG 1 tablet as needed Orally tid prn for 30 days Sep, Active Start: 09-19-2023 take 1 tablet by catherine th three times daily as needed oxyCODONE HCl 10 MG 1 tablet as needed Orally tid prn Aug, Active Start: 08-19-2023 take 1 tablet by catherine th three times daily as needed oxyCODONE HCl 10 MG 1 tablet as needed Orally tid prn for 30 days Jul, Active Start: 07-22-2023 take 1 tablet by catherine th three times daily as needed oxyCODONE HCl 10 MG 1 tablet as needed Orally tid prn for 30 days Jun, Active Start: 06-24-2023 take 1 tablet by catherine th three times daily as needed oxyCODONE HCl 10 MG 1 tablet as needed Orally tid prn for 30 days Due around 04/26Jun, Active Start: 05-26-2023 take 1 tablet by catherine three times daily as needed oxyCODONE HCl 10 MG 1 tablet as needed Orally tid prn for 30 days Due around 04/26May, Active Start: 04-22-2023 take 1 tablet by catherine three times daily as needed oxyCODONE HCl 10 MG 1 tablet as needed Orally tid prn for 30 days Due around 04/26Mar, Active Start: 03-28-2023 Start: 02-25-2023 take 1 tablet by catherine th every six hours oxyCODONE HCl 10 MG 1 tablet as needed Orally every 6 hrs for 30 days February, Active Start: 01-27-2023 take 1 tablet by catherine th every six hours oxyCODONE HCl 10 MG 1 tablet as needed Orally every 6 hrs for 30 days Jan, Active Start: 01-04-2023 End: 01-04-2023 take 1 tablet by mouth every six hours as needed for pain oxyCODONE 5 MG tablet Indications: Wound of back, unspecified laterality, sequela Take 1 tablet by mouth every 6 hours as needed for Severe Pain for up to 5 days. 12 tablet 0 01/04/2023 01/04/2023 Discontinued (Stop Taking at Discharge) Start: 01-03-2023 End: 01-04-2023 take 1 tablet by mouth every three hours as needed 5 mg, Oral, EVERY 3 HOURS NEEDED, Starting on Tue01/03/23 at 1201, Until Tue01/04/23 at 1353, Severe Pain, Post-op/Post-Proc Start: 12-02-2022 take 1 tablet by catherine th every four hours as needed oxyCODONE HCl 10 MG 1 tablet Orally every 4 hours, as needed for 30 days Dec, Active Start: 10-01-2022 take 1 tablet by catherine th every four hours as needed for pain, then take 4 tablets by mouth once daily as needed for pain oxyCODONE 15 MG tablet Indications: S/P spinal surgery Take 1 tablet by mouth every 4 hours as needed for Moderate Pain or Severe Pain (Hold for sedation. Max 4 tabs per day.) for up to 7 days. 28 tablet 0 10/01/2022 Active Start: 08-27-2022 End: 08-31-2022 take 1 tablet by mouth every four hours as needed oxyCODONE 30 MG tablet Indications: Spinal stenosis of cervical region Take 1 tablet by mouth every 4 hours as needed for up to 4 days. 24 tablet 0 08/27/2022 Active Start: 08-26-2022 End: 08-27-2022 take 1 tablet by mouth every four hours as needed oxyCODONE HCl (ROXICODONE) tablet 10 mg Start: 08-22-2022 End: 08-24-2022 take 1 tablet by mouth every four hours as needed oxyCODONE HCl (ROXICODONE) tablet 10 mg Start: 08-19-2022 End: 08-22-2022 take 1 tablet by mouth every four hours as needed oxyCODONE (ROXICODONE) tablet 5 mg petrolatum 1 mg/mg topical ointment (1 source) Start: 08-26-2022 End: 08-27-2022 hydrophil petrolatum-mineral oil (AQUAPHOR) ointment 1 Application phenol 14 mg/ml mouthwash (1 source) Start: 01-03-2023 End: 01-04-2023 1-2 spray, Mouth/Throat, NEEDED, Starting on Tue01/03/23 at 1201, Until Tue01/04/23 at 1353, Sore Throat Patient may self-administer. Post-op/Post-Proc polyethylene glycol 3350 [id number] mg powder for oral solution (1 source) Osmotic Laxative Start: 08-22-2022 End: 08-27-2022 polyethylene glycol (MIRALAX) packet 17 g Potassium Chloride (1 source) Start: 08-19-2022 End: 08-27-2022 potassium chloride (K-DUR) tablet ER 40-60 mEq pregabalin 100 mg oral capsule (16 sources) Start: 11-03-2021 End: 01-16-2024 take 1 capsule by mouth twice daily Pregabalin 100 mg capsule Discontinued 100 MG PO Twice daily November 03, 2021 12:00am January 16, 2024 1:33pm take 1 capsule by mouth every tw elve hours Lyrica 50 MG 1 capsule Orally Twice a day Active Prochlorperazine (COMPAZINE) injection 10 mg (1 source) Start: 01-03-2023 End: 01-04-2023 take 10 mg intravenously every six hours as needed Prochlorperazine (COMPAZINE) injection 10 mg sennosides, long-term 8.6 mg oral tablet (2 sources) Start: 01-03-2023 End: 01-04-2023 take 8.6 mg by mouth once daily at dinner 8.6 mg, Oral, DAILY WITH DINNER, First dose on 01/03/23 at 1700, Until Discontinued, Post-op/Post-Proc Start: 08-19-2022 End: 08-27-2022 senna (SENOKOT) tablet 8.6 m g 1000 ml sodium chloride 9 mg/ml injection (1 source) Start: 08-19-2022 End: 08-27-2022 Intravenous, at 20 mL/hr, NEEDED, Starting on Tue08/19/22 at 1701, Until Tue08/27/22 at 1414, Carrier Fluid - See Admin. Inst 250mL 0.9NS to be used as carrier fluid for intermittent small volume or piggyback medication administration as needed. Infusion rate of the carrier fluid should be set at 20 mL/hr unless the rate as the intermittent medication is less than 20 mL/hr. For intermittent medications with a rate less than 20 mL/hr set the carrier fluid at that rate of the intermittent or piggy back medication. Problems Active Problems Problem Classification Problem Date Documented Da te Episodic/Chronic Abdominal pain (2 sources) Epigastric pain; Translations: [Epigastric pain] 09-07-2024 Episodic Alcohol-related disorders (14 sources) Alcohol dependence; Translations: [Alcohol dependence, uncomplicated] Chronic Anxiety disorders (12 sources) Anxiety state; Translations: [Anxiety state, unspecified] Onset: 05-01-2019 05-03-2024 Chronic Bacterial infection; unspecified site (4 sources) Other staphylococcus as the cause of diseases classified elsewhere; Translations: [Other staphylococcus as the cause of diseases classified elsewhere] Onset: 10-19-2022 Episodic Chronic obstructive pulmonary disease and bronchiectasis (3 sources) Bronchitis, not specified as acute or chronic; Translations: [Bronchitis] Onset: 08-10-2022 Episodic E Codes: Fall (14 sources) Fall; Translations: [Unspecified fall, initial encounter] Episodic Esophageal disorders (2 sources) Esophageal reflux finding; Translations: [Esophageal reflux] Onset: 10-13-2015 Chronic Essential hypertension (20 sources) Essential hypertension; Translations: [Essential (primary) hypertension] Chronic Malaise and fatigue (7 sources) Other fatigue; Translations: [Fatigue] Onset: 08-13-2022 Episodic Miscellaneous mental health disorders (2 sources) Psychosexual dysfunction with inhibited sexual excitement; Translations: [Psychosexual dysfunction associated with inhibited sexual excitement] Onset: 08-14-2015 Chronic Miscellaneous mental health disorders (2 sources) Other symptoms and signs involving emotional state; Translations: [Emotional state finding] Episodic Mood disorders (2 sources) Dysthymic disorder; Translations: [Dysthymia] Onset: 11-08-2016 Chronic Nausea and vomiting (20 sources) Vomiting; Translations: [Vomiting, unspecified] 09-07-2024 Episodic Nonmalignant breast conditions (2 sources) Lump in left breast; Translations: [Unspecified lump in the left breast, unspecified quadrant] Episodic Nutritional deficiencies (2 sources) Deficiency of other specified B group vitamins; Translations: [Vitamin B deficiency] Episodic Open wounds of head; neck; and trunk (10 sources) Traumatic and/or non-traumatic injury of back; Translations: [Unspecified open wound of unspecified back wall of thorax without penetration into thoracic cavity, sequela] Onset: 09-21-2022 Episodic Other acquired deformities (20 sources) Scoliosis of lumbar spine; Translations: [Other forms of scoliosis, lumbar region] Chronic Other acquired deformities (1 source) Other forms of scoliosis, lumbar region Onset: 09-25-2021 Resolved: 09-25-2021 Chronic Other acquired deformities (20 sources) Lumbar spondylolisthesis; Translations: [Spondylolisthesis, lumbar region] Episodic Other acquired deformities (20 sources) Spondylolisthesis; Translations: [Spondylolisthesis, lumbosacral region] Episodic Other aftercare (2 sources) Encounter for therapeutic drug level monitoring; Translations: [Encounter for therapeutic drug level monitoring] Onset: 10-14-2022 Episodic Other aftercare (2 sources) Other usp (current) drug therapy; Translations: [Other terminal clerk (current) drug therapy] Onset: 10-11-2022 Episodic Other aftercare (2 sources) Patient encounter status; Translations: [Encounter for other specified surgical aftercare] Episodic Other circulatory disease (1 source) Elevated blood-pressure reading, without diagnosis of hypertension; Translations: [Elevated blood-pressure reading, without diagnosis of hypertension] Episodic Other circulatory disease (1 source) Elevated blood-pressure reading without diagnosis of hypertension; Translations: [Elevated blood-pressure reading, without diagnosis of hypertension] Episodic Other connective tissue disease (2 sources) History of cervical spine fusion; Translations: [Arthrodesis status] Episodic Other connective tissue disease (2 sources) Neuralgia and neuritis, unspecified; Translations: [NEURALGIA AND NEURITIS UNSPECIFIED] Onset: 08-07-2022 Episodic Other connective tissue disease (4 sources) Spasm; Translations: [Other muscle spasm] Onset: 02-02-2016 Episodic Other connective tissue disease (1 source) Cramp and spasm; Translations: [Cramp and spasm] Episodic Other connective tissue disease (1 source) Neuralgia; Translations: [Neuralgia and neuritis, unspecified] Episodic Other connective tissue disease (7 sources) Muscle pain; Translations: [Myalgia, unspecified site] 10-05-2023 Episodic Comment on above: Problem List clean-u p per request of Phys. EHR Cmte Other gastrointestinal disorders (20 sources) Diarrhea; Translations: [Diarrhea, unspecified] Episodic Other hereditary and degenerative nervous system conditions (1 source) Essential tremor; Translations: [Essential tremor] Onset: 05-02-2018 Chronic Other hereditary and degenerative nervous system conditions (1 source) Essential tremor; Translations: [Essential tremor] Onset: 05-02-2018 Chronic Other male genital disorders (1 source) Male erectile dysfunction, unspecified; Translations: [Male erectile dysfunction, unspecified] Chronic Other male genital disorders (1 source) Impotence of organic origin; Translations: [Male erectile dysfunction, unspecified] Chronic Other nervous system disorders (14 sources) Spinal cord disease; Translations: [Disease of spinal cord, unspecified] Onset: 08-19-2022 Chronic Other nervous system disorders (14 sources) Chronic pain; Translations: [Other chronic pain] Chronic Other nervous system disorders (1 source) Other chronic pain; Translations: [OTHER CHRONIC PAIN] Onset: 08-12-2022 Chronic Other non-traumatic joint disorders (1 source) Pain in right knee; Translations: [Pain in right knee] Episodic Other non-traumatic joint disorders (2 sources) Shoulder joint pain; Translations: [Pain in left shoulder] Episodic Other non-traumatic joint disorders (1 source) Arthralgia of the lower leg; Translations: [Pain in right knee] Episodic Other nutritional; endocrine; and metabolic disorders (1 source) Body mass index (BMI) 19.9 or less, adult; Translations: [Body mass index (BMI) 19 or less, adult] Episodic Other nutritional; endocrine; and metabolic disorders (1 source) Body mass index less than 20; Translations: [Body mass index (BMI) 19.9 or less, adult] Episodic Other screening for suspected conditions (not mental disorders or infectious disease) (3 sources) Encounter for screening for malignant neoplasm of prostate; Translations: [ENC SCREEN MALIG NEOPLASM PROSTATE] Onset: 08-07-2022 Episodic Other skin disorders (1 source) Bilateral localized swelling of lower legs; Translations: [Localized swelling, mass and lump, lower limb, bilateral] Episodic Other skin disorders (1 source) Disorder of the skin and subcutaneous tissue, unspecified; Translations: [Disorder of the skin and subcutaneous tissue, unspecified] Episodic Other skin disorders (1 source) Disorder of skin and/or subcutaneous tissue; Translations: [Disorder of the skin and subcutaneous tissue, unspecified] Episodic Residual codes; unclassified (16 sources) Tobacco user; Translations: [Tobacco use] Episodic Residual codes; unclassified (1 source) Body mass index (BMI) 22.0-22.9, adult; Translations: [Body mass index (BMI) 22.0-22.9, adult] Episodic Residual codes; unclassified (1 source) Tobacco use; Translations: [Tobacco use] Episodic Residual codes; unclassified (3 sources) Normal body mass index; Translations: [Body mass index (BMI) 20.0-20.9, adult] Episodic Spondylosis; intervertebral disc disorders; other back problems (20 sources) Intervertebral disc disorder of cervical region with myelopathy; Translations: [Cervical disc disorder with myelopathy, cervicothoracic region] Onset: 11-16-2021 Resolved: 12-16-2021 Chronic Spondylosis; intervertebral disc disorders; other back problems (20 sources) Cervical disc prolapse with radiculopathy; Translations: [Cervical disc disorder with radiculopathy, unspecified cervical region] Onset: 07-11-2015 Resolved: 10-30-2021 Episodic Comment on above: Problem List clean-u p per request of Phys. EHR Cmte Substance-related disorders (1 source) Nicotine dependence, cigarettes, uncomplicated; Translations: [NICOTINE DEPEND CIGARETTES UNCOMP] Onset: 08-10-2022 Chronic Unclassified (1 source) M50.10 - Cervical disc disorder with radiculopathy, unspecified cervical region; Translations: [M50.10 - Cervical disc disorder with radiculopathy, unspecified cervical region] Onset: 12-16-2021 Unclassified (3 sources) LOW BACK PAIN, UNSPECIFIED; Translations: [LOW BACK PAIN, UNSPECIFIED] Onset: 08-12-2022 Unclassified (1 source) COUGH, UNSPECIFIED; Translations: [COUGH, UNSPECIFIED] Onset: 08-10-2022 Unclassified (2 sources) S/P cervical spinal fusion Onset: 12-16-2022 Unclassified (2 sources) Post Op Visit; Translations: [Post Op Visit] Onset: 11-24-2022 Unclassified (1 source) Special screening for malignant neoplasm of prostate; Translations: [Special screening for malignant neoplasm of prostate] Onset: 08-22-2018 Unclassified (1 source) Routine general medical examination at health care facility; Translations: [Routine general medical examination at health care facility] Onset: 02-02-2016 Past or Other Problems Problem Classification Problem Date Documented Date Episodic/Chronic Acute bronchitis (2 sources) Acute bronchitis; Translations: [Acute bronchitis, unspecified] Onset: 07-11-2015 Episodic Complications of surgical procedures or medical care (20 sources) Disruption of internal operation (surgical) wound, not elsewhere classified, initial encounter; Translations: [Postoperative wound infection] Onset: 09-21-2022 Episodic Fluid and electrolyte disorders (14 sources) Disorder of electrolytes; Translations: [Other disorders of electrolyte and fluid balance, not elsewhere classified] Onset: 08-20-2022 Episodic Inflammatory conditions of male genital organs (2 sources) Acute prostatitis; Translations: [Acute prostatitis] Onset: 08-22-2018 Episodic Other acquired deformities (1 source) Spondylolisthesis, lumbosacral region Onset: 09-25-2021 Resolved: 09-25-2021 Episodic Other aftercare (2 sources) 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; Translations: [skilled nursing (current) use of antibiotics] Onset: 12-09-2022 Episodic Other connective tissue disease (1 source) Other muscle spasm; Translations: [OTHER MUSCLE SPASM] Onset: 08-10-2022 Episodic Other connective tissue disease (2 sources) Arthrodesis status; Translations: [Arthrodesis status] Onset: 12-09-2022 Episodic Other connective tissue disease (1 source) Spasm of muscle; Translations: [Spasm of muscle] Onset: 02-02-2016 Episodic Other infections; including parasitic (13 sources) Disorder due to infection; Translations: [Unspecified infectious disease] Onset: 09-22-2022 Episodic Other infections; including parasitic (4 sources) Unspecified infectious disease; Translations: [Unspecified infectious disease] Onset: 09-21-2022 Episodic Other lower respiratory disease (1 source) Other nonspecific abnormal finding of lung field; Translations: [OTH NONSPECIFIC ABN FIND LNG FIELD] Onset: 08-10-2022 Episodic Other male genital disorders (2 sources) Hemospermia; Translations: [Hematospermia] Onset: 08-22-2018 Episodic Other non-traumatic joint disorders (4 sources) Pain in right hip; Translations: [PAIN IN RIGHT HIP] Onset: 08-08-2022 Episodic Other non-traumatic joint disorders (2 sources) Arthralgia of the pelvic region and thigh; Translations: [Pain in joint, pelvic region and thigh] Onset: 05-02-2018 Episodic Other upper respiratory infections (2 sources) Acute recurrent maxillary sinusitis; Translations: [Acute maxillary sinusitis] Onset: 12-02-2017 Episodic Residual codes; unclassified (2 sources) Other specified postprocedural states; Translations: [Other specified postprocedural states] Onset: 12-28-2022 Episodic Unclassified (9 sources) Onset: 08-27-2022 Resolved: 12-21-2022 08-27-2022 Unclassified (1 source) LOW BACK PAIN, UNSPECIFIED; Translations: [LOW BACK PAIN, UNSPECIFIED] Onset: 08-11-2022 Results Test Name Value Interpretation Reference Range Facil ity NICOTINE AND METABOLITES,SER UMon 01-04-2023 Cotinine [Mass/Vol] 279 ng/mL High NINF - 3.0 ng/mL [facility] Comment on above: ADDITIONAL INFORMATION This test was developed and its performance characteristics determined by [facility] in a manner consistent with CLIA requirements. This test has not been cleared or approved by the U.S. Food and Drug Administration. Test Performed by: [facility] [address] [place] [address] [address] [employer] Helper: Jan Muñoz M.D. Ph.D.; CLIA# [id number] Interpretation and review of laboratory results Abnormal [facility] Nicotine [Mass/Vol] 3.5 ng/mL High NINF - 3.0 ng/mL [facility] PLATELET COUNTon 01-04-2023 Platelet mean volume (Bld) [Entitic vol] 9.1 fL Normal 8.7-12.3 [facility] Comment on above: Performed By: #### P LAT ####[facility] (DEFAULT)[address] [place] [address] Platelets (Bld) [#/Vol] 259 10*3/uL Normal 146-337 [facility] Comment on above: Performed By: #### P LAT ####[facility] (DEFAULT)[address] [place] [address] Interpretation and review of laboratory results Normal [facility] Platelet mean volume (Bld) [Entitic vol] 9.1 fL 8.7 - 12.3 fL [facility] Platelets (Bld) [#/Vol] 259 10*3/uL 146 - 337 K/uL [facility] ACID FAST CULTURE, TISSUEon 01-03-2023 Bacteria identified Cx Nom (Unsp spec) NO GROWTH DAY 42 OF 42 Normal [facility] Comment on above: Performed By: #### DEEPA LEVINE, HFP #### [facility] (DEFAULT) [address] [place] [address] Fluorochrome Stain No acid Fast Bacillus Seen Normal [facility] Comment on above: Performed By: #### DEEPA LEVINE, HFP #### [facility] (DEFAULT) [address] [place] [address] ANAEROBE CULTUREon 3 Bacteria identified Cx Nom (Unsp spec) No anaerobic growth Normal [facility] Comment on above: Order Comment: Colle ct fluids or tissues in a sterile container. If collecting swabs, must be collected in a Port-A-Cul tube. Performed By: #### DEEPA LEVINE, HFP #### [facility] (DEFAULT) [address] [place] [address] BACTERIAL CULTURE AND DIRECT SMEAR, LESION, TISSUE, DEVICEon 01-03-2023 Bacteria identified Cx Nom (Unsp spec) NO GROWTH DAY 2 OF 2 Normal [facility] Comment on above: Performed By: #### DEEPA LEVINE, HFP #### [facility] (DEFAULT) [address] [place] [address] Microscopic observation Gram stain Nom (Unsp spec) Normal [facility] Comment on above: Result Comment: Neut rophils, None Red Blood Cells Present No organisms seen Performed By: #### DEEPA LEVINE, HFP #### [facility] (DEFAULT) [address] [place] [address] CONTINUOUS CARDIAC MONITORIN G STRIPon 01-03-2023 [facility] CONTINUOUS CARDIAC MONITORIN G STRIPOrdered By: Unassigned Pacs on 01-03-2023 [facility] Work Phone: FUNGUS CULTUREon 01-03-2023 Bacteria identified Cx Nom (Unsp spec) NO GROWTH DAY 28 OF 28 Normal [facility] Comment on above: Performed By: #### M GO, CHM7, HFP #### [facility] (DEFAULT) [address] [address] NICOTINE AND METABOLITES,SER UMon 01-03-2023 COTININE 279 ng/mL High <3.0 [facility] Comment on above: Result Comment: ADDITIONAL INFORMATION This test was developed and its performance characteristics determined by [facility] in a manner consistent with CLIA requirements. This test has not been cleared or approved by the U.S. Food and Drug Administration. Test Performed by: [place] [address] [address] [employer] Helper: Jan Muñoz M.D. Ph.D.; CLIA# [id number] Performed By: #### T YPEC #### [facility] (DEFAULT) [address] [place] [id number] NICOTINE 3.5 ng/mL High <3.0 [facility] Comment on above: Performed By: #### T YPEC #### [facility] (DEFAULT) [address] [address] MRI SPINE CERVICAL WITH AND WITHOUT CONTRASTon 12-21-2022 MRI SPINE CERVICAL WITH AND WITHOUT CONTRAST EXAM: MRI SPINE CERVICAL WITH AND WITHOUT CONTRAST, 12/21/2022 05:50 AM COMPARISON: No prior studies available for comparison. CLINICAL INDICATIONS: 57 years Male eval for evidence of abscess posteriorly; RELEVANT CLINICAL HISTORY: TECHNIQUE: A series of sagittal and axial multisequence images of the cervical spine were obtained both before and after intravenous administration of gadolinium-based contrast using standard protocol. CONTRAST: gadoterate Meglumine (DOTAREM) 5 MMOL/10ML injection 1-80 mL; Route of Administration: Intravenous; Dose: 13 mL. FINDINGS: Postoperative changes are noted with anterior fusion extending from C3 to C7. Disc spaces are noted at C3-C4, C4-C5, C5-C6 and intervertebral graft at C6-C7. Posterior decompression is noted. Posterior fusion extending from C5 to T2 level. No cord signal abnormality is identified. The craniocervical junction is intact. The visualized part of the posterior fossa is unremarkable. Tiny rim enhancing fluid collection in the dorsal soft tissues of the thoracic spine at T2 and T3 level measuring approximately 33 mm in length and 2 mm in thickness. The collection demonstrates a connection to the skin surface. No evidence of extension into the spinal canal. C2-C3: Uncovertebral and facet hypertrophic changes causing moderate right neural foramina narrowing. No central canal stenosis. C3-C4: Uncovertebral and facet hypertrophic changes causing bilateral severe neural foramina narrowing. No central canal stenosis. C4-C5: Uncovertebral and facet hypertrophic changes causing bilateral mild neural foramina narrowing. No central canal stenosis. C5-C6: No evidence of spinal stenosis and neural foramina narrowing. C6-C7 and C7-T1: No evidence of spinal stenosis or neural foramina narrowing. IMPRESSION: Postoperative changes are noted with anterior fusion extending from C3 to C7. Disc spaces are noted at C3-C4, C4-C5, C5-C6 and intervertebral graft at C6-C7. Posterior decompression is noted. Posterior fusion extending from C5 to T2 level. Tiny rim enhancing fluid collection in the dorsal soft tissues of the thoracic spine at T2 and T3 level measuring approximately 33 mm in length and 2 mm in thickness. The collection demonstrates a connection to the skin surface. No evidence of extension into the spinal canal. This could be secondary due to infection. Normal [facility] CBC AND ELECTRONIC DIFFon Basophils (Bld) [#/Vol] 0.09 10*3/uL Normal 0.00-0.09 [facility] Comment on above: Performed By: #### X M #### [facility] (DEFAULT) [address] [place] [address] Basophils/100 WBC (Bld) 1.0 % Normal [facility] Comment on above: Performed By: #### X M #### [facility] (DEFAULT) [address] [place] [address] 71566 DIFF STATUS Electronic Differential Normal [facility] Comment on above: Performed By: #### X M #### [facility] (DEFAULT) [address] [place] [address] 52106 Eosinophils (Bld) [#/Vol] 0.55 10*3/uL High 0.00-0.48 [facility] Comment on above: Performed By: #### X M #### [facility] (DEFAULT) [address] [place] [address] 66735 Eosinophils/100 WBC (Bld) 6.2 % Normal [facility] Comment on above: Performed By: #### X M #### [facility] (DEFAULT) [address] [place] [address] 79002 Hematocrit (Bld) [Volume fraction] 40.8 % Normal 39.6-48.8 [facility] Comment on above: Performed By: #### X M #### [facility] (DEFAULT) [address] [place] [address] 49493 Hemoglobin (Bld) [Mass/Vol] 13.5 g/dL Normal 13.4-16.8 [facility] Comment on above: Performed By: #### X M #### [facility] (DEFAULT) [address] [place] [address] 35405 Immature Grans % 0.2 % Normal [facility] Comment on above: Performed By: #### X M #### [facility] (DEFAULT) [address] [place] [address] 58236 Immature Grans Absolute < Normal <=0.07 [facility] Comment on above: Performed By: #### X M #### [facility] (DEFAULT) [address] [place] [address] 29300 Lymphocytes (Bld) [#/Vol] 2.52 10*3/uL Normal 0.83-3.57 [facility] Comment on above: Performed By: #### X M #### [facility] (DEFAULT) [address] [place] [address] 58468 Lymphocytes/100 WBC (Bld) 28.3 % Normal [facility] Comment on above: Performed By: #### X M #### [facility] (DEFAULT) [address] [place] [address] 63478 MCV (RBC) [Entitic vol] 91.9 fL Normal 79.0-94.5 [facility] Comment on above: Performed By: #### X M #### [facility] (DEFAULT) [address] [place] [address] 80092 Mean Cell Hgb 30.4 pg Normal 26.1-33.3 [facility] Comment on above: Performed By: #### X M #### [facility] (DEFAULT) [address] [place] [address] 68102 Mean Cell Hgb Conc 33.1 g/dL Normal 31.9-36.5 [facility] Comment on above: Performed By: #### X M #### [facility] (DEFAULT) [address] [place] [address] 06711 Monocytes (Bld) [#/Vol] 1.04 10*3/uL High 0.24-0.93 [facility] Comment on above: Performed By: #### X M #### [facility] (DEFAULT) [address] [place] [address] 84733 Monocytes/100 WBC (Bld) 11.7 % Normal [facility] Comment on above: Performed By: #### X M #### [facility] (DEFAULT) [address] [place] [address] 33092 Nucleated RBC 0.0 /100 WBC Normal <=0.[address] [facility] Comment on above: Performed By: #### X M #### [facility] (DEFAULT) [address] [place] [address] 45075 Platelet mean volume (Bld) [Entitic vol] 9.1 fL Normal 8.7-12.3 [facility] Comment on above: Performed By: #### X M #### [facility] (DEFAULT) [address] 7[address]83 Platelets (Bld) [#/Vol] 268 10*3/uL Normal 146-337 [facility] Comment on above: Performed By: #### X M #### [facility] (DEFAULT) [address] 34179 RBC (Bld) [#/Vol] 4.44 10*6/uL Normal 4.38-5.83 [facility] Comment on above: Performed By: #### X M #### [facility] (DEFAULT) [address] 17705 RBC Distribution 13.4 % Normal 10.9-14.3 [facility] Comment on above: Performed By: #### X M #### [facility] (DEFAULT) [address] 82954 Segs + Bands Auto 52.6 % Normal [facility] Comment on above: Performed By: #### X M #### [facility] (DEFAULT) [address] 12367 Segs + Bands,Absolute Auto 4.69 K/uL Normal 1.57-6.19 [facility] Comment on above: Performed By: #### X M #### [facility] (DEFAULT) [address] [address]208 WBC (Bld) [#/Vol] 8.91 10*3/uL Normal 3.73-10.10 [facility] Comment on above: Performed By: #### X M #### [facility] (DEFAULT) [address] 6[address] CHEM 7 (LYTES,BUN,CREA,GLUC) on 12-20-2022 Anion gap [Moles/Vol] 15 mmol/L Normal 7-17 [facility] Comment on above: Performed By: #### S CRSB #### [facility] (DEFAULT) [address] [place] [address] 61822 Chloride [Moles/Vol] 101 mmol/L Normal 98-108 [facility] Comment on above: Performed By: #### S CRSB #### [facility] (DEFAULT) [address] [place] [address] 85586 CO2 [Moles/Vol] 29 mmol/L Normal 21-[address] [facility] Comment on above: Performed By: #### S CRSB #### [facility] (DEFAULT) [address] [place] [address] 85217 Creatinine [Mass/Vol] 1.16 mg/dL Normal 0.70-1.30 [facility] Comment on above: Performed By: #### S CRSB #### [facility] (DEFAULT) [address] [place] [address] 59422 GFR/1.73 sq M.predicted among non-blacks MDRD (S/P/Bld) [Vol rate/Area] 74 mL/min/{1.73_m2} Normal >=60 [facility] Comment on above: Result Comment: Repo rted eGFR is based on the CKD-EPI 2020 equation using creatinine, age, and sex. Performed By: #### S CRSB #### [facility] (DEFAULT) [address] [place] [address] 21805 Glucose [Mass/Vol] 99 mg/dL Normal 70-99 [facility] Comment on above: Performed By: #### S CRSB #### [facility] (DEFAULT) [address] [place] [address] 44966 Osmolality [Osmolality] 295 mosm/kg Normal 278-305 [facility] Comment on above: Performed By: #### S CRSB #### [facility] (DEFAULT) [address] [place] [address] 25771 Potassium [Moles/Vol] 5.0 mmol/L Normal 3.5-5.0 [facility] Comment on above: Performed By: #### S CRSB #### [facility] (DEFAULT) [address] [place] [address] 71287 Sodium [Moles/Vol] 140 mmol/L Normal 135-145 [facility] Comment on above: Performed By: #### S CRSB #### [facility] (DEFAULT) [address] [place] [address] 53922 Urea nitrogen [Mass/Vol] 15 mg/dL Normal 7-25 [facility] Comment on above: Performed By: #### S CRSB #### [facility] (DEFAULT) [address] [place] [address] 78538 Urea nitrogen/Creatinine [Mass ratio] 13 mg/mg Normal [facility] Comment on above: Performed By: #### S CRSB #### [facility] (DEFAULT) [address] [place] [address] 96698 CBC AND ELECTRONIC DIFFon Basophils (Bld) [#/Vol] 0.04 10*3/uL Normal 0.00-0.09 [facility] Comment on above: Performed By: #### X M #### [facility] (DEFAULT) [address] [place] [address] 82248 Basophils/100 WBC (Bld) 0.5 % Normal [facility] Comment on above: Performed By: #### X M #### [facility] (DEFAULT) [address] [place] [address] 06242 DIFF STATUS Electronic Differential Normal [facility] Comment on above: Performed By: #### X M #### [facility] (DEFAULT) [address] [place] [address] 56380 Eosinophils (Bld) [#/Vol] 0.36 10*3/uL Normal 0.00-0.48 [facility] Comment on above: Performed By: #### X M #### [facility] (DEFAULT) [address] [place] [address] 30762 Eosinophils/100 WBC (Bld) 4.9 % Normal [facility] Comment on above: Performed By: #### X M #### [facility] (DEFAULT) [address] 8[address]32 Hematocrit (Bld) [Volume fraction] 39.8 % Normal 39.6-48.8 [facility] Comment on above: Performed By: #### X M #### [facility] (DEFAULT) [address] 74041 Hemoglobin (Bld) [Mass/Vol] 13.1 g/dL Low 13.4-16.8 [facility] Comment on above: Performed By: #### X M #### [facility] (DEFAULT) [address] 50038 Immature Grans % 0.3 % Normal [facility] Comment on above: Performed By: #### X M #### [facility] (DEFAULT) [address] 14798 Immature Grans Absolute < Normal <=0.07 [facility] Comment on above: Performed By: #### X M #### [facility] (DEFAULT) [address] 21870 Lymphocytes (Bld) [#/Vol] 1.86 10*3/uL Normal 0.83-3.57 [facility] Comment on above: Performed By: #### X M #### [facility] (DEFAULT) [address] 52864 Lymphocytes/100 WBC (Bld) 25.3 % Normal [facility] Comment on above: Performed By: #### X M #### [facility] (DEFAULT) [address] 74314 MCV (RBC) [Entitic vol] 91.9 fL Normal 79.0-94.5 [facility] Comment on above: Performed By: #### X M #### [facility] (DEFAULT) [address] 19717 Mean Cell Hgb 30.3 pg Normal 26.1-33.3 [facility] Comment on above: Performed By: #### X M #### [facility] (DEFAULT) [address] 05572 Mean Cell Hgb Conc 32.9 g/dL Normal 31.9-36.5 [facility] Comment on above: Performed By: #### X M #### [facility] (DEFAULT) [address] 68187 Monocytes (Bld) [#/Vol] 0.87 10*3/uL Normal 0.24-0.93 [facility] Comment on above: Performed By: #### X M #### [facility] (DEFAULT) [address] 40150 Monocytes/100 WBC (Bld) 11.9 % Normal [facility] Comment on above: Performed By: #### X M #### [facility] (DEFAULT) [address] 39250 Nucleated RBC 0.0 /100 WBC Normal <=0.[address] [facility] Comment on above: Performed By: #### X M #### [facility] (DEFAULT) [address] 83699 Platelet mean volume (Bld) [Entitic vol] 9.2 fL Normal 8.7-12.3 [facility] Comment on above: Performed By: #### X M #### [facility] (DEFAULT) [address] 76965 Platelets (Bld) [#/Vol] 277 10*3/uL Normal 146-337 [facility] Comment on above: Performed By: #### X M #### [facility] (DEFAULT) [address] 81864 RBC (Bld) [#/Vol] 4.33 10*6/uL Low 4.38-5.83 [facility] Comment on above: Performed By: #### X M #### [facility] (DEFAULT) [address] [place] [address] 11473 RBC Distribution 13.6 % Normal 10.9-14.3 [facility] Comment on above: Performed By: #### X M #### [facility] (DEFAULT) [address] [place] [address] 94487 Segs + Bands Auto 57.1 % Normal [facility] Comment on above: Performed By: #### X M #### [facility] (DEFAULT) [address] [place] [address] 67085 Segs + Bands,Absolute Auto 4.19 K/uL Normal 1.57-6.19 [facility] Comment on above: Performed By: #### X M #### [facility] (DEFAULT) [address] [place] [address] 77966 WBC (Bld) [#/Vol] 7.34 10*3/uL Normal 3.73-10.10 [facility] Comment on above: Performed By: #### X M #### [facility] (DEFAULT) [address] [place] [address] 86838 CHEM 7 (LYTES,BUN,CREA,GLUC) on 12-19-2022 Anion gap [Moles/Vol] 11 mmol/L Normal 7-17 [facility] Comment on above: Performed By: #### T YPEC #### [facility] (DEFAULT) [address] [place] [address] 33584 Chloride [Moles/Vol] 101 mmol/L Normal 98-108 [facility] Comment on above: Performed By: #### T YPEC #### [facility] (DEFAULT) [address] [place] [address] 36666 CO2 [Moles/Vol] 33 mmol/L High 21-[address] [facility] Comment on above: Performed By: #### T YPEC #### [facility] (DEFAULT) [address] [place] [address] 60503 Creatinine [Mass/Vol] 1.12 mg/dL Normal 0.70-1.30 [facility] Comment on above: Performed By: #### T YPEC #### [facility] (DEFAULT) [address] 35293 GFR/1.73 sq M.predicted among non-blacks MDRD (S/P/Bld) [Vol rate/Area] 78 mL/min/{1.73_m2} Normal >=60 [facility] Comment on above: Result Comment: Repo rted eGFR is based on the CKD-EPI 2020 equation using creatinine, age, and sex. Performed By: #### T YPEC #### [facility] (DEFAULT) [address] 8[address]99 Glucose [Mass/Vol] 105 mg/dL High 70-99 [facility] Comment on above: Performed By: #### T YPEC #### [facility] (DEFAULT) [address] 5[address]4 Osmolality [Osmolality] 295 mosm/kg Normal 278-305 [facility] Comment on above: Performed By: #### T YPEC #### [facility] (DEFAULT) [address] 22099 Potassium [Moles/Vol] 4.5 mmol/L Normal 3.5-5.0 [facility] Comment on above: Performed By: #### T YPEC #### [facility] (DEFAULT) [address] 31209 Sodium [Moles/Vol] 140 mmol/L Normal 135-145 [facility] Comment on above: Performed By: #### T YPEC #### [facility] (DEFAULT) [address] 32926 Urea nitrogen [Mass/Vol] 16 mg/dL Normal 7-25 [facility] Comment on above: Performed By: #### T YPEC #### [facility] (DEFAULT) [address] 55406 Urea nitrogen/Creatinine [Mass ratio] 14 mg/mg Normal [facility] Comment on above: Performed By: #### T YPEC #### [facility] (DEFAULT) [address] [place] [address] 39157 SEDIMENTATION RATE, AUTOMATE Don 12-19-2022 ESR Westergren 8 mm/hr Normal <20 [facility] Comment on above: Performed By: #### L [id number] #### [facility] (DEFAULT) [address] [address] ALBUMINon 12-18-2022 Albumin [Mass/Vol] 4.7 g/dL Normal 3.5-5.0 [facility] Comment on above: Performed By: #### X M #### [facility] (DEFAULT) [address] [place] [address] 10315 C REACTIVE PROTEINon 023 CRP [Mass/Vol] 4.22 mg/L Normal <10.00 [facility] Comment on above: Performed By: #### X M #### [facility] (DEFAULT) [address] [place] [address] 99444 CBC AND ELECTRONIC DIFFon Basophils (Bld) [#/Vol] 0.07 10*3/uL Normal 0.00-0.09 [facility] Comment on above: Performed By: #### L [id number] #### [facility] (DEFAULT) [address] [place] [address] 05329 Basophils/100 WBC (Bld) 1.1 % Normal [facility] Comment on above: Performed By: #### L [id number] #### [facility] (DEFAULT) [address] [address] DIFF STATUS Electronic Differential Normal [facility] Comment on above: Performed By: #### L [id number] #### [facility] (DEFAULT) [address] [place] [address] 64648 Eosinophils (Bld) [#/Vol] 0.49 10*3/uL High 0.00-0.48 [facility] Comment on above: Performed By: #### L [id number] #### [facility] (DEFAULT) [address] 55083 Eosinophils/100 WBC (Bld) 7.6 % Normal [facility] Comment on above: Performed By: #### L [id number] #### [facility] (DEFAULT) [address] [address]409 Hematocrit (Bld) [Volume fraction] 41.2 % Normal 39.6-48.8 [facility] Comment on above: Performed By: #### L AB980 #### [facility] (DEFAULT) [address] 80647 Hemoglobin (Bld) [Mass/Vol] 13.7 g/dL Normal 13.4-16.8 [facility] Comment on above: Performed By: #### L AB980 #### [facility] (DEFAULT) [address] 54372 Immature Grans % 0.2 % Normal [facility] Comment on above: Performed By: #### L [id number] #### [facility] (DEFAULT) [address] 95966 Immature Grans Absolute < Normal <=0.07 [facility] Comment on above: Performed By: #### L [id number] #### [facility] (DEFAULT) [address] 55999 Lymphocytes (Bld) [#/Vol] 2.65 10*3/uL Normal 0.83-3.57 [facility] Comment on above: Performed By: #### L AB980 #### [facility] (DEFAULT) [address] 24456 Lymphocytes/100 WBC (Bld) 40.9 % Normal [facility] Comment on above: Performed By: #### L [id number] #### [facility] (DEFAULT) [address] [address] MCV (RBC) [Entitic vol] 91.4 fL Normal 79.0-94.5 [facility] Comment on above: Performed By: #### L [id number] #### [facility] (DEFAULT) [address] 06357 Mean Cell Hgb 30.4 pg Normal 26.1-33.3 [facility] Comment on above: Performed By: #### L AB980 #### [facility] (DEFAULT) [address] 99836 Mean Cell Hgb Conc 33.3 g/dL Normal 31.9-36.5 [facility] Comment on above: Performed By: #### L [id number] #### [facility] (DEFAULT) [address] 09863 Monocytes (Bld) [#/Vol] 0.85 10*3/uL Normal 0.24-0.93 [facility] Comment on above: Performed By: #### L AB980 #### [facility] (DEFAULT) [address] 45602 Monocytes/100 WBC (Bld) 13.1 % Normal [facility] Comment on above: Performed By: #### L [id number] #### [facility] (DEFAULT) [address] 34464 Nucleated RBC 0.0 /100 WBC Normal <=0.[address] [facility] Comment on above: Performed By: #### L [id number] #### [facility] (DEFAULT) [address] 96922 Platelet mean volume (Bld) [Entitic vol] 9.3 fL Normal 8.7-12.3 [facility] Comment on above: Performed By: #### L [id number] #### [facility] (DEFAULT) [address] 75525 Platelets (Bld) [#/Vol] 301 10*3/uL Normal 146-337 [facility] Comment on above: Performed By: #### L [id number] #### [facility] (DEFAULT) [address] [place] [address] 31296 RBC (Bld) [#/Vol] 4.51 10*6/uL Normal 4.38-5.83 [facility] Comment on above: Performed By: #### L [id number] #### [facility] (DEFAULT) [address] [place] [address] 74009 RBC Distribution 13.6 % Normal 10.9-14.3 [facility] Comment on above: Performed By: #### L [id number] #### [facility] (DEFAULT) [address] [place] [address] 26643 Segs + Bands Auto 37.1 % Normal [facility] Comment on above: Performed By: #### L [id number] #### [facility] (DEFAULT) [address] [place] [address] 36354 Segs + Bands,Absolute Auto 2.41 K/uL Normal 1.57-6.19 [facility] Comment on above: Performed By: #### L [id number] #### [facility] (DEFAULT) [address] [place] [address] 06951 WBC (Bld) [#/Vol] 6.48 10*3/uL Normal 3.73-10.10 [facility] Comment on above: Performed By: #### L [id number] #### [facility] (DEFAULT) [address] [place] [address] 36689 CHEM 7 (LYTES,BUN,CREA,GLUC) on 12-18-2022 Anion gap [Moles/Vol] 14 mmol/L Normal 7-17 [facility] Comment on above: Performed By: #### S CRSB #### [facility] (DEFAULT) [address] [place] [address] 49416 Chloride [Moles/Vol] 98 mmol/L Normal 98-108 [facility] Comment on above: Performed By: #### S CRSB #### [facility] (DEFAULT) [address] [place] [address] 12095 CO2 [Moles/Vol] 29 mmol/L Normal 21-[address] [facility] Comment on above: Performed By: #### S CRSB #### [facility] (DEFAULT) [address] 0[address]31 Creatinine [Mass/Vol] 1.17 mg/dL Normal 0.70-1.30 [facility] Comment on above: Performed By: #### S CRSB #### [facility] (DEFAULT) [address] [address] GFR/1.73 sq M.predicted among non-blacks MDRD (S/P/Bld) [Vol rate/Area] 74 mL/min/{1.73_m2} Normal >=60 [facility] Comment on above: Result Comment: Repo rted eGFR is based on the CKD-EPI 2020 equation using creatinine, age, and sex. Performed By: #### S CRSB #### [facility] (DEFAULT) [address] [address] Glucose [Mass/Vol] 102 mg/dL High 70-99 [facility] Comment on above: Performed By: #### S CRSB #### [facility] (DEFAULT) [address] [address]67 Osmolality [Osmolality] 289 mosm/kg Normal 278-305 [facility] Comment on above: Performed By: #### S CRSB #### [facility] (DEFAULT) [address] [address]132 Potassium [Moles/Vol] 4.3 mmol/L Normal 3.5-5.0 [facility] Comment on above: Performed By: #### S CRSB #### [facility] (DEFAULT) [address] 80342 Sodium [Moles/Vol] 137 mmol/L Normal 135-145 [facility] Comment on above: Performed By: #### S CRSB #### [facility] (DEFAULT) [address] [place] [address] 54950 Urea nitrogen [Mass/Vol] 16 mg/dL Normal 7-25 [facility] Comment on above: Performed By: #### S CRSB #### [facility] (DEFAULT) [address] [place] [address] 02568 Urea nitrogen/Creatinine [Mass ratio] 14 mg/mg Normal [facility] Comment on above: Performed By: #### S CRSB #### [facility] (DEFAULT) [address] [place] [address] 81643 PREALBUMINon 12-18-2022 Prealbumin [Mass/Vol] 34 mg/dL Normal 17-34 [facility] Comment on above: Performed By: #### S CRSB #### [facility] (DEFAULT) [address] [place] [address] 19921 TYPE AND SCREENon 12-18-2022 ABO/RH(D) TYPE Positive Normal [facility] Comment on above: Performed By: #### X M #### [facility] (DEFAULT) [address] [place] [address] 29628 US NECK SOFT TISSUEon 2022 US NECK SOFT TISSUE EXAM: US NECK SOFT TISSUE, 12/18/2022 11:31 AM CLINICAL INDICATIONS: Evaluate posterior neck/upper back for fluid collection in area of wound dehiscence COMPARISON: No prior studies available for comparison. TECHNIQUE: Real-time, grayscale ultrasound evaluation of the posterior neck was performed in transverse and longitudinal orientations using a high-resolution linear array transducer. Color Doppler was utilized to assess vascular flow. FINDINGS: There is an ill-defined hypoechoic focal area in the subcutaneous tissues of the posterior neck in the area of interest measuring approximately 4.1 x 1.1 x 0.7 cm in maximum dimensions. This extends up to the skin surface towards the midline. Internal echogenic foci within this hypoechoic area could represent air pockets. This hypoechoic area likely represent phlegmonous changes or a resolving collection/abscess. Some subcutaneous edema and increased vascularity in the vicinity is seen. IMPRESSION: 1. Irregular hypoechoic focal area in the soft tissues of the posterior neck extending into the skin surface likely represent phlegmonous changes or resolving collection/abscess. Some associated subcutaneous edema and increased vascularity possibly reactive Normal [facility] ALBUMINon 12-17-2022 Albumin [Mass/Vol] 5.0 g/dL Normal 3.5-5.0 [facility] Comment on above: Performed By: #### L [id number] #### [facility] (DEFAULT) [address] [address] CBC AND ELECTRONIC DIFFon Basophils (Bld) [#/Vol] 0.04 10*3/uL Normal 0.00-0.09 [facility] Comment on above: Performed By: #### X M #### [facility] (DEFAULT) [address] [address] Basophils/100 WBC (Bld) 0.7 % Normal [facility] Comment on above: Performed By: #### X M #### [facility] (DEFAULT) [address] [address] DIFF STATUS Electronic Differential Normal [facility] Comment on above: Performed By: #### X M #### [facility] (DEFAULT) [address] [address] Eosinophils (Bld) [#/Vol] 0.32 10*3/uL Normal 0.00-0.48 [facility] Comment on above: Performed By: #### X M #### [facility] (DEFAULT) [address] [address] Eosinophils/100 WBC (Bld) 5.7 % Normal [facility] Comment on above: Performed By: #### X M #### [facility] (DEFAULT) [address] [address] Hematocrit (Bld) [Volume fraction] 40.5 % Normal 39.6-48.8 [facility] Comment on above: Performed By: #### X M #### [facility] (DEFAULT) [address] [address] Hemoglobin (Bld) [Mass/Vol] 13.5 g/dL Normal 13.4-16.8 [facility] Comment on above: Performed By: #### X M #### [facility] (DEFAULT) [address] [address] Immature Grans % 0.2 % Normal [facility] Comment on above: Performed By: #### X M #### [facility] (DEFAULT) [address] [address] Immature Grans Absolute < Normal <=0.07 [facility] Comment on above: Performed By: #### X M #### [facility] (DEFAULT) [address] [address] Lymphocytes (Bld) [#/Vol] 1.47 10*3/uL Normal 0.83-3.57 [facility] Comment on above: Performed By: #### X M #### [facility] (DEFAULT) [address] [address] Lymphocytes/100 WBC (Bld) 26.0 % Normal [facility] Comment on above: Performed By: #### X M #### [facility] (DEFAULT) [address] [address] MCV (RBC) [Entitic vol] 91.8 fL Normal 79.0-94.5 [facility] Comment on above: Performed By: #### X M #### [facility] (DEFAULT) [address] [address] Mean Cell Hgb 30.6 pg Normal 26.1-33.3 [facility] Comment on above: Performed By: #### X M #### [facility] (DEFAULT) [address] [address] Mean Cell Hgb Conc 33.3 g/dL Normal 31.9-36.5 [facility] Comment on above: Performed By: #### X M #### [facility] (DEFAULT) [address] [place] [address] Monocytes (Bld) [#/Vol] 0.80 10*3/uL Normal 0.24-0.93 [facility] Comment on above: Performed By: #### X M #### [facility] (DEFAULT) [address] [place] [address] Monocytes/100 WBC (Bld) 14.2 % Normal [facility] Comment on above: Performed By: #### X M #### [facility] (DEFAULT) [address] [place] [address] Nucleated RBC 0.0 /100 WBC Normal <=0.[address] [facility] Comment on above: Performed By: #### X M #### [facility] (DEFAULT) [address] [place] [address] Platelet mean volume (Bld) [Entitic vol] 9.4 fL Normal 8.7-12.3 [facility] Comment on above: Performed By: #### X M #### [facility] (DEFAULT) [address] [place] [address] Platelets (Bld) [#/Vol] 299 10*3/uL Normal 146-337 [facility] Comment on above: Performed By: #### X M #### [facility] (DEFAULT) [address] [place] [address] RBC (Bld) [#/Vol] 4.41 10*6/uL Normal 4.38-5.83 [facility] Comment on above: Performed By: #### X M #### [facility] (DEFAULT) [address] [place] [address] RBC Distribution 13.6 % Normal 10.9-14.3 [facility] Comment on above: Performed By: #### X M #### [facility] (DEFAULT) [address] [place] [address] Segs + Bands Auto 53.2 % Normal [facility] Comment on above: Performed By: #### X M #### [facility] (DEFAULT) [address] [place] [address] Segs + Bands,Absolute Auto 3.01 K/uL Normal 1.57-6.19 [facility] Comment on above: Performed By: #### X M #### [facility] (DEFAULT) [address] [place] [address] WBC (Bld) [#/Vol] 5.65 10*3/uL Normal 3.73-10.10 [facility] Comment on above: Performed By: #### X M #### [facility] (DEFAULT) [address] [address] CHEM 7 (LYTES,BUN,CREA,GLUC) on 12-17-2022 Anion gap [Moles/Vol] 13 mmol/L Normal 7-17 [facility] Comment on above: Performed By: #### L [id number] #### [facility] (DEFAULT) [address] [place] [address] Chloride [Moles/Vol] 98 mmol/L Normal 98-108 [facility] Comment on above: Performed By: #### L [id number] #### [facility] (DEFAULT) [address] [place] [address] CO2 [Moles/Vol] 29 mmol/L Normal 21-[address] [facility] Comment on above: Performed By: #### L [id number] #### [facility] (DEFAULT) [address] [place] [address] Creatinine [Mass/Vol] 1.24 mg/dL Normal 0.70-1.30 [facility] Comment on above: Performed By: #### L AB980 #### [facility] (DEFAULT) [address] [address] GFR/1.73 sq M.predicted among non-blacks MDRD (S/P/Bld) [Vol rate/Area] 69 mL/min/{1.73_m2} Normal >=60 [facility] Comment on above: Result Comment: Repo rted eGFR is based on the CKD-EPI 2020 equation using creatinine, age, and sex. Performed By: #### L [id number] #### [facility] (DEFAULT) [address] [address] Glucose [Mass/Vol] 119 mg/dL High 70-99 [facility] Comment on above: Performed By: #### L AB980 #### [facility] (DEFAULT) [address] [address] Osmolality [Osmolality] 289 mosm/kg Normal 278-305 [facility] Comment on above: Performed By: #### L [id number] #### [facility] (DEFAULT) [address] [address] Potassium [Moles/Vol] 4.3 mmol/L Normal 3.5-5.0 [facility] Comment on above: Performed By: #### L [id number] #### [facility] (DEFAULT) [address] [place] [address] Sodium [Moles/Vol] 136 mmol/L Normal 135-145 [facility] Comment on above: Performed By: #### L [id number] #### [facility] (DEFAULT) [address] [address] Urea nitrogen [Mass/Vol] 18 mg/dL Normal 7-25 [facility] Comment on above: Performed By: #### L [id number] #### [facility] (DEFAULT) [address] [place] [address] Urea nitrogen/Creatinine [Mass ratio] 15 mg/mg Normal [facility] Comment on above: Performed By: #### L [id number] #### [facility] (DEFAULT) [address] [address] NICOTINE SCREEN URINEon 11-25 Nicotine (Cotinine) Negative Normal Cutoff: 500 ng/m L [facility] Comment on above: Performed By: #### N ICOTU ####[facility] (DEFAULT)[address] [place] [address] Nicotine (Cotinine) Negative Normal Cutoff: 500 ng/m L [facility] Comment on above: Performed By: #### N ICOTU ####[facility] (DEFAULT)[address] [address] PREALBUMINon 12-17-2022 Prealbumin [Mass/Vol] 35 mg/dL High 17-34 [facility] Comment on above: Performed By: #### L [id number] #### [facility] (DEFAULT) [address] [address] PROTEIN TOTALon 12-17-2022 Protein [Mass/Vol] 8.0 g/dL Normal 6.4-8.3 [facility] Comment on above: Performed By: #### L [id number] #### [facility] (DEFAULT) [address] [address] PT,INR,PTTon 12-17-2022 aPTT Coag (Bld) [Time] 28.1 s Normal 24.0-34.3 [facility] Comment on above: Performed By: #### S CRSB #### [facility] (DEFAULT) [address] [address] INR Coag (PPP) [Relative time] 1.0 {INR} Normal 0.9-1.1 [facility] Comment on above: Performed By: #### S CRSB #### [facility] (DEFAULT) [address] [address] PT Coag (PPP) [Time] 13.1 s Normal 11.9-14.2 [facility] Comment on above: Performed By: #### S CRSB #### [facility] (DEFAULT) [address] [address] SCREEN: MRSA/MSSAon 12-17-19 23 Methicillin Resistant S. Aureus By Pcr Negative Normal Negative [facility] Comment on above: Order Comment: Anter ior nares:1 -2 cm (less than 1/2 inch) from inside each nostril. This test was performed using a real time PCR assay. Results should be interpreted in conjunction with other clinical and laboratory findings. A positive result does not necessarily indicate the presence of viable organism. This test should not be used as a test of cure. For E-swab specimens, this test was developed and its performance characteristics determined by the Clinical Microbiology Laboratory at [facility]. It has not been cleared or approved by the FDA.The laboratory is regulated under CLIA as qualified to perform high-complexity testing. This test is used for clinical purposes. It should not be regarded as investigational or for research. Performed By: #### S CRSB #### [facility] (DEFAULT) [address] [address] Staphylococcus Aureus By Pcr Negative Normal Negative [facility] Comment on above: Order Comment: Anter ior nares:1 -2 cm (less than 1/2 inch) from inside each nostril. This test was performed using a real time PCR assay. Results should be interpreted in conjunction with other clinical and laboratory findings. A positive result does not necessarily indicate the presence of viable organism. This test should not be used as a test of cure. For E-swab specimens, this test was developed and its performance characteristics determined by the [facility] at [facility]. It has not been cleared or approved by the FDA.The laboratory is regulated under CLIA as qualified to perform high-complexity testing. This test is used for clinical purposes. It should not be regarded as investigational or for research. Performed By: #### S CRSB #### [facility] (DEFAULT) [address] [address] C REACTIVE PROTEINon 023 CRP [Mass/Vol] 3.12 mg/L Normal <10.00 [facility] Comment on above: Performed By: #### M GO, CHM7, HFP #### [facility] (DEFAULT) [address] [address] CRP High sensitivity method [Mass/Vol] 3.12 mg/L NINF - 10.00 mg/L [facility] COMPREHENSIVE METABOLIC PANE En 12-09-2022 Albumin [Mass/Vol] 4.6 g/dL Normal 3.5-5.0 [facility] Comment on above: Performed By: #### M DEEPA MARTINEZ, HFP #### [facility] (DEFAULT) [address] [place] [address] ALP [Catalytic activity/Vol] 92 U/L Normal 32-126 [facility] Comment on above: Performed By: #### DEEPA LEVINE, HFP #### [facility] (DEFAULT) [address] [place] [address] ALT [Catalytic activity/Vol] 16 U/L Normal 10-52 [facility] Comment on above: Performed By: #### DEEPA LEVINE, HFP #### [facility] (DEFAULT) [address] [place] [address] Anion gap [Moles/Vol] 12 mmol/L Normal 7-17 [facility] Comment on above: Performed By: #### DEEPA LEVINE, HFP #### [facility] (DEFAULT) [address] [place] [address] AST [Catalytic activity/Vol] 23 U/L Normal 10-39 [facility] Comment on above: Performed By: #### XENIA LEVINE7, HFP #### [facility] (DEFAULT) [address] [place] [address] Bilirubin [Mass/Vol] 0.3 mg/dL Normal <1.5 [facility] Comment on above: Performed By: #### Hyun MARTINEZ CHM7, HFP #### [facility] (DEFAULT) [address] [place] [address] Calcium [Mass/Vol] 9.9 mg/dL Normal 8.6-10.5 [facility] Comment on above: Performed By: #### Hyun MARTINEZ CHM7, HFP #### [facility] (DEFAULT) [address] [place] [address] Chloride [Moles/Vol] 98 mmol/L Normal 98-108 [facility] Comment on above: Performed By: #### DEEPA LEVINE, HFP #### [facility] (DEFAULT) [address] [place] [address] CO2 [Moles/Vol] 32 mmol/L High 21-[address] [facility] Comment on above: Performed By: #### DEEPA LEVINE, HFP #### [facility] (DEFAULT) [address] [place] [address] Creatinine [Mass/Vol] 1.33 mg/dL High 0.70-1.30 [facility] Comment on above: Performed By: #### DEEPA LEVINE, HFP #### [facility] (DEFAULT) [address] [place] [address] GFR/1.73 sq M.predicted among non-blacks MDRD (S/P/Bld) [Vol rate/Area] 63 mL/min/{1.73_m2} Normal >=60 [facility] Comment on above: Result Comment: Repo rted eGFR is based on the CKD-EPI 2020 equation using creatinine, age, and sex. Performed By: #### DEEPA LEVINE, HFP #### [facility] (DEFAULT) [address] [place] [address] Glucose [Mass/Vol] 103 mg/dL High 70-99 [facility] Comment on above: Performed By: #### DEEPA LEVINE, HFP #### [facility] (DEFAULT) [address] [place] [address] Osmolality [Osmolality] 290 mosm/kg Normal 278-305 [facility] Comment on above: Performed By: #### DEEPA LEVINE, HFP #### [facility] (DEFAULT) [address] [place] [address] Potassium [Moles/Vol] 4.8 mmol/L Normal 3.5-5.0 [facility] Comment on above: Performed By: #### DEEPA LEVINE, HFP #### [facility] [address] [place] [address] Protein [Mass/Vol] 7.4 g/dL Normal 6.4-8.3 [facility] Comment on above: Performed By: #### M LAVELL MARTINEZM7, HFP #### [facility] (DEFAULT) [address] [place] [address] Sodium [Moles/Vol] 137 mmol/L Normal 135-145 [facility] Comment on above: Performed By: #### M JUAN CHM7, HFP #### [facility] (DEFAULT) [address] [place] [address] Urea nitrogen [Mass/Vol] 16 mg/dL Normal 7-25 [facility] Comment on above: Performed By: #### M LAVELL MARTINEZM7, HFP #### [facility] (DEFAULT) [address] [place] [address] Urea nitrogen/Creatinine [Mass ratio] 12 mg/mg Normal [facility] Comment on above: Performed By: #### M LAVELL MARTINEZM7, HFP #### [facility] (DEFAULT) [address] [place] [address] No Panel Informationon 12-09 Interpretation and review of laboratory results Normal [facility] PREALBUMINon 12-09-2022 Prealbumin [Mass/Vol] 28 mg/dL Normal 17-34 [facility] Comment on above: Performed By: #### M LAVELL MARTINEZM7, HFP #### [facility] (DEFAULT) [address] [place] [address] Prealbumin [Mass/Vol] 28 mg/dL 17 - 34 mg/dL [facility] SEDIMENTATION RATE, AUTOMATE Don 12-09-2022 ESR Westergren 3 mm/hr Normal <20 [facility] Comment on above: Performed By: #### X M #### [facility] (DEFAULT) [address] [place] [address] SEDIMENTATION RATE, AUTOMATE DOrdered By: Tammy Iyer on 12-09-2022 ESR (Bld) [Velocity] 3 mm/h NINF [facility] Interpretation and review of laboratory results Normal [facility] XR Cervical spine 2 Viewson 12-09-2022 IMPRESSION: Stable postsurgical cervical spine with anterior C3-C7 fusion posterior C5-T2 fusion. No hardware failure. I personally viewed and interpreted these images and I have reviewed and approved this report. OLOGY EXAM: XR SPINE CERVICAL 3 VIEWS , 12/09/2022 12:28 PM COMPARISON: Cervical radiograph August 22, 2022, scoliosis radiograph August 12, 2022 CLINICAL INDICATIONS: postop RELEVANT CLINICAL HISTORY: M54.2:Neck pain FINDINGS: 3 images obtained. Postoperative changes from prior anterior C3-C7 fusion with intervertebral spacers at C3-C4, C4-5, C5-C6, and intervertebral graft at C6-7. Posterior fusion from C5 to T2 with stable orthopedic hardware. Posterior decompression noted. Alignment is anatomic. No new osseous abnormality. Mild degeneration of C2-C3 with minimal retrolisthesis. RADIOLOGY Puneet Alvarado MD - 12/09/2022 EXAM: XR SPINE CERVICAL 3 VIEWS , 12/09/2022 12:28 PM COMPARISON: Cervical radiograph August 22, 2022, scoliosis radiograph August 12, 2022 CLINICAL INDICATIONS: postop RELEVANT CLINICAL HISTORY: M54.2:Neck pain FINDINGS: 3 images obtained. Postoperative changes from prior anterior C3-C7 fusion with intervertebral spacers at C3-C4, C4-5, C5-C6, and intervertebral graft at C6-7. Posterior fusion from C5 to T2 with stable orthopedic hardware. Posterior decompression noted. Alignment is anatomic. No new osseous abnormality. Mild degeneration of C2-C3 with minimal retrolisthesis. IMPRESSION IMPRESSION: Stable postsurgical cervical spine with anterior C3-C7 fusion posterior C5-T2 fusion. No hardware failure. I personally viewed and interpreted these images and I have reviewed and approved this report. [facility] Radiology Study observation (narrative) [facility] XR Cervical spine 2 ViewsOrd ered By: Puneet Alvarado on 12-09-2022 [facility] Work Phone: XR SPINE CERVICAL 2 VIEWSon 12-09-2022 XR SPINE CERVICAL 2 VIEWS EXAM: XR SPINE CERVICAL 3 VIEWS , 12/09/2022 12:28 PM COMPARISON: Cervical radiograph August 22, 2022, scoliosis radiograph August 12, 2022 CLINICAL INDICATIONS: postop RELEVANT CLINICAL HISTORY: M54.2:Neck pain FINDINGS: 3 images obtained. Postoperative changes from prior anterior C3-C7 fusion with intervertebral spacers at C3-C4, C4-5, C5-C6, and intervertebral graft at C6-7. Posterior fusion from C5 to T2 with stable orthopedic hardware. Posterior decompression noted. Alignment is anatomic. No new osseous abnormality. Mild degeneration of C2-C3 with minimal retrolisthesis. IMPRESSION: Stable postsurgical cervical spine with anterior C3-C7 fusion posterior C5-T2 fusion. No hardware failure. I personally viewed and interpreted these images and I have reviewed and approved this report. Normal [facility] CRPon 11-18-2022 CRP [Mass/Vol] mg/L Normal <=1.0 [facility] Comment on above: Performed By: #### C TATE, CMP ####[facility] [id number] [place] [address]DrKaty Aguilar PROF 14(COMP METB)on 023 Albumin [Mass/Vol] 4.5 g/dL Normal 3.4-5.0 [facility] Comment on above: Performed By: #### C RP, CMP ####[facility] [id number] [place] [phone] Aguilar Albumin/Globulin [Mass ratio] 1.3 {ratio} Normal [place] Comment on above: Performed By: #### C TATE, CMP ####[facility] [id number] [place] [phone]. Heidi Aguilar ALP [Catalytic activity/Vol] 106 U/L Normal 46-116 [place] Comment on above: Performed By: #### C RP, CMP ####[facility] [id number] [place] [phone]. Heidi Aguilar ALT [Catalytic activity/Vol] 34 U/L Normal 16-63 [facility] Comment on above: Performed By: #### C RP, CMP ####[facility] [id number] [place] [address]Dr. Heidi Aguilar Anion gap [Moles/Vol] 14.1 mmol/L Normal [place] Comment on above: Performed By: #### C RP, CMP ####[facility] [id number] [place] [phone]. Heidi Aguilar AST [Catalytic activity/Vol] 31 U/L Normal 15-37 [place] Comment on above: Performed By: #### C RP, CMP ####[facility] [id number] [place] [address]Dr. Heidi Aguilar Bilirubin [Mass/Vol] 0.3 mg/dL Normal 0.2-1.0 [place] Comment on above: Performed By: #### C RP, CMP ####[facility] [id number] [place] [address]Dr. Heidi Aguilar Calcium [Mass/Vol] 9.6 mg/dL Normal 8.5-10.1 [facility] Comment on above: Performed By: #### C RP, CMP ####[facility] [id number] [place] [phone]. Heidi Aguilar Chloride [Moles/Vol] 99 mmol/L Normal 98-107 [place] Comment on above: Performed By: #### C RP, CMP ####[facility] [id number] [place], [place] [address]Dr. Elizabethalex Aguilar CO2 [Moles/Vol] 30.1 mmol/L Normal 21.0-32.0 [facility] Comment on above: Performed By: #### C RP, CMP ####[facility] [id number] [place] [phone]. Heidi Aguilar Creatinine [Mass/Vol] 1.21 mg/dL Normal 0.70-1.30 [place] Comment on above: Performed By: #### C RP, CMP ####[facility] [id number] [place] [phone]. Heidi Aguilar EGFR-AF SINGAPOREAN >60 Normal >=60 [facility] Comment on above: Performed By: #### C RP, CMP ####[facility] [id number] [place] [phone]. Heidi Aguilar EGFR-NON AF [place]INGAPOREAN >60 Normal >=60 [place] Comment on above: Performed By: #### C RP, CMP ####[facility] [id number] [place] [address]Dr. Heidi Aguilar Globulin (S) [Mass/Vol] 3.5 g/dL Normal [place] Comment on above: Performed By: #### C RP, CMP ####[facility] [id number] [place] [address]Dr. Heidi Aguilar Glucose [Mass/Vol] 117 mg/dL Critically high 74-106 [facility] Comment on above: Performed By: #### C RP, CMP ####[facility] [id number] [place] [id number]. Heidi Aguilar Potassium [Moles/Vol] 4.2 mmol/L Normal 3.5-5.1 [facility] Comment on above: Performed By: #### C RP, CMP ####[facility] [id number] [place] [id number]. Heidi Aguilar Protein [Mass/Vol] 8.0 g/dL Normal 6.4-8.2 [facility] Comment on above: Performed By: #### C RP, CMP ####[facility] [id number] [place] [id number]. Heidi Aguilar Sodium [Moles/Vol] 139 mmol/L Normal 136-145 [facility] Comment on above: Performed By: #### C RP, CMP ####[facility] [id number] [place], [place] [address]Ux. Heidi Aguilar Urea nitrogen [Mass/Vol] 14.0 mg/dL Normal 7.0-18.0 [place] Comment on above: Performed By: #### C RP, CMP ####[facility] [id number] [place], [place] [address]Dg. Heidi Aguilar Urea nitrogen/Creatinine [Mass ratio] 11.6 mg/mg Normal [place] Comment on above: Performed By: #### C RP, CMP ####[facility] [id number] [place], [place] [address]Za. Heidi Aguilar [facility] mm/hr Normal <=20 [place] Comment on above: Performed By: #### S EDR #### [facility] [address] [place], [place] [address] Dr. Heidi Aguilar Basic Metabolic Panelon Anion gap [Moles/Vol] 9 mmol/L 9 - 17 mmol/L [facility] [employer] Calcium [Mass/Vol] 9.9 mg/dL 8.6 - 10.4 mg/dL [facility] Chloride [Moles/Vol] 99 mmol/L 98 - 107 mmol/L [facility] CO2 [Moles/Vol] 29 mmol/L 20 - 31 mmol/L [facility] Creatinine [Mass/Vol] 0.88 mg/dL 0.70 - 1.20 mg/dL [facility] GFR/1.73 sq M.predicted MDRD (S/P/Bld) [Vol rate/Area] - PINF [facility] Comment on above: Effective Jul 26, 2022 These results are not intended for use in patients <18 years of age. eGFR results are calculated without a race factor using the 2020 CKD-EPI equation. Careful clinical correlation is recommended, particularly when comparing to results calculated using previous equations. The CKD-EPI equation is less accurate in patients with extremes of muscle mass, extra-renal metabolism of creatine, excessive creatine ingestion, or following therapy that affects renal tubular secretion. Glucose [Mass/Vol] 114 mg/dL High 70 - 99 mg/dL [facility] Interpretation and review of laboratory results Abnormal [facility] Potassium [Moles/Vol] 4.3 mmol/L 3.7 - 5.3 mmol/L [facility] Sodium [Moles/Vol] 137 mmol/L 135 - 144 mmol/L [facility] Urea nitrogen (BldV) [Mass/Vol] 20 mg/dL 6 - 20 mg/dL [facility] Urea nitrogen/Creatinine (Bld) [Mass ratio] 23 High 9 - 20 [facility] Basic Metabolic Profon 11-01 Anion gap [Moles/Vol] 9 mmol/L Normal 9-17 [facility] Comment on above: Performed By: #### V BENJY MCFADDEN, CDP #### [facility] [address] [place] [address] [address] [employer] Helper: Walt Haro MD BUN/CRE Ratio 23 High 9-20 [facility] Comment on above: Performed By: #### V BENJY MCFADDEN, CDP #### [facility] [address] [place] [address] [address] [employer] Helper: Walt Haro MD Calcium [Mass/Vol] 9.9 mg/dL Normal 8.6-10.4 [facility] Comment on above: Performed By: #### V BENJY MCFADDEN, CDP #### [facility] [address] [place] [address] [address] [employer] Helper: Walt Haro MD Chloride [Moles/Vol] 99 mmol/L Normal 98-107 [facility] Comment on above: Performed By: #### V BOGDAN BMP, CDP #### [facility] [address] [place] [address] [address] [employer] Helper: Walt Haro MD CO2 [Moles/Vol] 29 mmol/L Normal 20-31 [facility] Comment on above: Performed By: #### V BOGDAN BMP, CDP #### [facility] [address] [place] [address] [address] [employer] Helper: Walt Haro MD Creatinine [Mass/Vol] 0.88 mg/dL Normal 0.70-1.20 [facility] Comment on above: Performed By: #### V BENJY MCFADDEN, CDP #### [facility] [address] [place] [address] [address] [employer] Helper: Walt Haro MD GFR/1.73 sq M.predicted among non-blacks MDRD (S/P/Bld) [Vol rate/Area] mL/min/{1.73_m2} Normal >60 [facility] Comment on above: Result Comment: Effective Jul 26, 2022 These results are not intended for use in patients <18 years of age. eGFR results are calculated without a race factor using the 2020 CKD-EPI equation. Careful clinical correlation is recommended, particularly when comparing to results calculated using previous equations. The CKD-EPI equation is less accurate in patients with extremes of muscle mass, extra-renal metabolism of creatine, excessive creatine ingestion, or following therapy that affects renal tubular secretion. Performed By: #### V BENJY MCFADDEN, CDP #### [address] [place] [address] [address] [employer] Helper: Walt Haro MD Glucose [Mass/Vol] 114 mg/dL High 70-99 [facility] Comment on above: Performed By: #### V BENJY MCFADDEN, CDP #### [facility] [address] [place] [address] [address] [employer] Helper: Walt Haro MD Potassium [Moles/Vol] 4.3 mmol/L Normal 3.7-5.3 [facility] Comment on above: Performed By: #### V BENJY MCFADDEN, CDP #### [facility] [address] [place] [address] [address] [employer] Helper: Walt Haro MD Sodium [Moles/Vol] 137 mmol/L Normal 135-144 [facility] Comment on above: Performed By: #### V NCR, BMP, CDP #### [facility] [address] [place] [address] [address] [employer] Helper: Walt Haro MD Urea nitrogen [Mass/Vol] 20 mg/dL Normal 6-20 [facility] Comment on above: Performed By: #### V BENJY MCFADDEN CDP #### [facility] [address] [place] [address] [address] [employer] Helper: Walt Haro MD CBC with Auto Differentialon 11-01-2022 Absolute Eos # 0.46 High [place] [facility] Absolute Immature Granulocyte [facility] Absolute Lymph # 1.70 [facility] Absolute [place] # 0.96 [facility] Basophils (Bld) [#/Vol] 0.08 10*3/uL [facility] Basophils/100 WBC (Bld) 1 % 0 - 2 % [facility] Eosinophils/100 WBC (Bld) 6 % High 1 - 4 % [facility] Hematocrit (Bld) [Volume fraction] 37.4 % Low 40.7 - 50.3 % [facility] Hemoglobin (Bld) [Mass/Vol] 12.8 g/dL Low 13.0 - 17.0 g/dL [facility] Immature granulocytes/100 WBC (Bld) 0 % 0 [facility] Interpretation and review of laboratory results Abnormal [facility] Lymphocytes/100 WBC (Bld) 24 % 24 - 43 % [facility] MCH (RBC) [Entitic mass] 32.2 pg 25.2 - 33.5 pg [facility] MCHC (RBC) [Mass/Vol] 34.2 g/dL 28.4 - 34.8 g/dL [facility] MCV (RBC) [Entitic vol] 94.2 fL 82.6 - 102.9 fL [facility] Monocytes/100 WBC (Bld) 13 % High 3 - 12 % [facility] NRBC Automated 0.0 0.0 per 100 WBC [facility] S [facility] Platelet distribution width (Bld) [Ratio] 13.3 % 11.8 - 14.4 % [facility] Platelet mean volume (Bld) [Entitic vol] 9.3 fL 8.1 - 13.5 fL [facility] Platelets (Bld) [#/Vol] 308 10*3/uL [facility] RBC (Bld) [#/Vol] 3.97 10*6/uL Low 4.21 - 5.77 m/uL [facility] Segmented neutrophils/100 WBC (Bld) 56 % 36 - 65 % [facility] Segs Absolute 3.98 [facility] WBC (Bld) [#/Vol] 7.2 10*3/uL [facility] CBC with Diffon 11-01-2022 Abs. Basophil 0.08 k/uL Normal 0.00-0.20 [facility] Comment on above: Performed By: #### V BENJY MCFADDEN, CDP #### [facility] [address] [place] [address] Dr. [place] [address] [employer]per: Walt Haro MD Abs.Imm.Granulocyte <0.03 Normal 0.00-0.30 [facility] Comment on above: Performed By: #### V BENJY MCFADDEN, CDP #### [address] [place] [address] Street [employer] Helper: Walt Haro MD Abs.Neutrophil (Seg) 3.98 k/uL Normal 1.50-8.10 [facility] Comment on above: Performed By: #### V BENJY MCFADDEN, CDP #### [address] [place] [address] Street [employer] Helper: Walt Haro MD Basophils/100 WBC (Bld) 1 % Normal 0-2 [facility] Comment on above: Performed By: #### V BENJY MCFADDEN, CDP #### [address] [place] [address] [address] [employer] Helper: Walt Haro MD Eosinophils (Bld) [#/Vol] 0.46 10*3/uL High 0.00-0.44 [facility] Comment on above: Performed By: #### V BENJY MCFADDEN, CDP #### [facility] [address] [place] [address] [place] [address] [address] [employer] Helper: Walt Haro MD Eosinophils/100 WBC (Bld) 6 % High 1-4 [facility] Comment on above: Performed By: #### V BENJY MCFADDEN, CDP #### [address] [place], [place] [address] [address] [employer] Helper: Walt Haro MD Erythrocyte distribution width (RBC) [Ratio] 13.3 % Normal 11.8-14.4 [facility] Comment on above: Performed By: #### V BENJY MCFADDEN, CDP #### [address] [place] [address] [address] [employer] Helper: Walt Haro MD Hematocrit (Bld) [Volume fraction] 37.4 % Low 40.7-50.3 [facility] Comment on above: Performed By: #### V BENJY MCFADDEN, CDP #### [address] [place], [place] [address] [address] [employer] Helper: Walt Haro MD Hemoglobin (Bld) [Mass/Vol] 12.8 g/dL Low 13.0-17.0 [facility] Comment on above: Performed By: #### V BENJY MCFADDEN, CDP #### [address] [place], [place] [address] [address] [employer] Helper: Walt Haro MD Immature granulocytes/100 WBC (Bld) 0 % Normal 0 [facility] Comment on above: Performed By: #### V BENJY MCFADDEN, CDP #### [address] [place] [address] [address] [employer] Helper: Walt Haro MD Lymphocytes (Bld) [#/Vol] 1.70 10*3/uL Normal 1.10-3.70 [facility] Comment on above: Performed By: #### V BOGDAN BMP, CDP #### [facility] [address] [place], [place] [address] [address] [employer] Helper: Walt Haro MD Lymphocytes/100 WBC (Bld) 24 % Normal 24-43 [facility] Comment on above: Performed By: #### V BENJY MCFADDEN, CDP #### [facility] [address] [place], [facility] [employer] Helper: Walt Haro MD MCH (RBC) [Entitic mass] 32.2 pg Normal 25.2-33.5 [facility] Comment on above: Performed By: #### V BENJY MCFADDEN, CDP #### [facility] [address] [place] [id number] [address] [employer] Helper: Walt Haro MD MCHC (RBC) [Mass/Vol] 34.2 g/dL Normal 28.4-34.8 [facility] Comment on above: Performed By: #### V BENJY MCFADDEN, CDP #### [address] [place], [facility] [employer] Helper: Walt Haro MD MCV (RBC) [Entitic vol] 94.2 fL Normal 82.6-102.9 [facility] Comment on above: Performed By: #### V BENJY MCFADDEN, CDP #### [address] [place], [place] [address] [address] [employer] Helper: Walt Haro MD Monocytes (Bld) [#/Vol] 0.96 10*3/uL Normal 0.10-1.20 [facility] Comment on above: Performed By: #### V BENJY MCFADDEN, CDP #### [facility] [address] [place] [address] [address] [employer] Helper: Walt Haro MD Monocytes/100 WBC (Bld) 13 % High 3-12 [facility] Comment on above: Performed By: #### V BENJY MCFADDEN, CDP #### [facility] [address] [place] [address] [address] [employer] Helper: Walt Haro MD Neutrophil (Seg) 56 % Normal 36-65 [facility] Comment on above: Performed By: #### V BENJY MCFADDEN, CDP #### [facility] [address] [place], [place] [address] [address] [employer] Helper: Walt Haro MD NRBC Automated 0.0 per 100 WBC Normal 0.0 [facility] Comment on above: Performed By: #### V BENJY MCFADDEN, CDP #### [facility] [address] [place], [facility] [employer] Helper: Walt Haro MD Platelet mean volume (Bld) [Entitic vol] 9.3 fL Normal 8.1-13.5 [facility] Comment on above: Performed By: #### V BENJY MCFADDEN, CDP #### [address] [place], [facility] [employer] Helper: Walt Haro MD Platelets (Bld) [#/Vol] 308 10*3/uL Normal 138-453 [facility] Comment on above: Performed By: #### V BENJY MCFADDEN, CDP #### [address] [place], [place] [address] Street [employer] Helper: Walt Haro MD RBC (Bld) [#/Vol] 3.97 10*6/uL Low 4.21-5.77 [facility] Comment on above: Performed By: #### V BENJY MCFADDEN, CDP #### [address] [place], [place] [address] Street [employer] Helper: Walt Haro MD WBC (Bld) [#/Vol] 7.2 10*3/uL Normal 3.5-11.3 [facility] Comment on above: Performed By: #### V BENJY MCFADDEN, CDP #### [address] [place] [address] [address] [employer] Helper: Walt Haro MD Vancomycin Level, Randomon 0 11-01-2022 Vancomycin Rm 19.8 ug/mL [facility] Comment on above: Reference Ranges Peak: 30 - 40 Trough: 10 - 20 [facility] Vancomycin,Randomon 11-01-19 23 Vancomycin 19.8 ug/mL Normal [facility] Comment on above: Result Comment: Reference Ranges Peak: 30 - 40 Trough: 10 - 20 Performed By: #### V NCR, BMP, CDP #### [facility] [address] [place] [address] [address] [employer] Helper: Walt Haro MD Basic Metabolic Panelon Anion gap [Moles/Vol] 11 mmol/L 9 - 17 mmol/L [facility] Calcium [Mass/Vol] 9.1 mg/dL 8.6 - 10.4 mg/dL [facility] Chloride [Moles/Vol] 103 mmol/L 98 - 107 mmol/L [facility] CO2 [Moles/Vol] 27 mmol/L 20 - 31 mmol/L [facility] Creatinine [Mass/Vol] 0.82 mg/dL 0.70 - 1.20 mg/dL [facility] GFR/1.73 sq M.predicted MDRD (S/P/Bld) [Vol rate/Area] - PINF [facility] Comment on above: Effective Jul 26, 2022 These results are not intended for use in patients <18 years of age. eGFR results are calculated without a race factor using the 2020 CKD-EPI equation. Careful clinical correlation is recommended, particularly when comparing to results calculated using previous equations. The CKD-EPI equation is less accurate in patients with extremes of muscle mass, extra-renal metabolism of creatine, excessive creatine ingestion, or following therapy that affects renal tubular secretion. Glucose [Mass/Vol] 120 mg/dL High 70 - 99 mg/dL [facility] Interpretation and review of laboratory results Abnormal [facility] Potassium [Moles/Vol] 3.5 mmol/L Low 3.7 - 5.3 mmol/L [facility] Sodium [Moles/Vol] 141 mmol/L 135 - 144 mmol/L [facility] Urea nitrogen (BldV) [Mass/Vol] 12 mg/dL 6 - 20 mg/dL [facility] Urea nitrogen/Creatinine (Bld) [Mass ratio] 15 9 - 20 [facility] Basic Metabolic Profon 10-26 Anion gap [Moles/Vol] 11 mmol/L Normal 9-17 [facility] Comment on above: Performed By: #### V BENJY TAYLOR, CDP #### [facility] [address] [place], [place] [id number] [employer] Helper: Walt Haro MD BUN/CRE Ratio 15 Normal 9-20 [facility] Comment on above: Performed By: #### V BENJY TAYLOR, CDP #### [facility] [address] [place], [place] [address] [employer] Helper: Walt Haro MD Calcium [Mass/Vol] 9.1 mg/dL Normal 8.6-10.4 [facility] Comment on above: Performed By: #### V BENJY TAYLOR, CDP #### [facility] [address] [place] [address] [address] [employer] Helper: Walt Haro MD Chloride [Moles/Vol] 103 mmol/L Normal 98-107 [facility] Comment on above: Performed By: #### V BENJY TAYLOR, CDP #### [facility] [address] [place], [place] [address] [address] [employer] Helper: Walt Haro MD CO2 [Moles/Vol] 27 mmol/L Normal 20-31 [facility] Comment on above: Performed By: #### V BENJY TAYLOR, CDP #### [facility] [address] [place] [address] [address] [employer] Helper: Walt Haro MD Creatinine [Mass/Vol] 0.82 mg/dL Normal 0.70-1.20 [facility] Comment on above: Performed By: #### V BENJY TAYLOR, CDP #### [facility] [address] [place], [place] [address] [address] [employer] Helper: Walt Haro MD GFR/1.73 sq M.predicted among non-blacks MDRD (S/P/Bld) [Vol rate/Area] mL/min/{1.73_m2} Normal >60 [facility] Comment on above: Result Comment: Effective Jul 26, 2022 These results are not intended for use in patients <18 years of age. eGFR results are calculated without a race factor using the 2020 CKD-EPI equation. Careful clinical correlation is recommended, particularly when comparing to results calculated using previous equations. The CKD-EPI equation is less accurate in patients with extremes of muscle mass, extra-renal metabolism of creatine, excessive creatine ingestion, or following therapy that affects renal tubular secretion. Performed By: #### V BENJY TAYLOR, CDP #### [facility] [address] [place], [place] [id number] [employer] Helper: Walt Haro MD Glucose [Mass/Vol] 120 mg/dL High 70-99 [facility] Comment on above: Performed By: #### V BENJY TAYLOR, CDP #### [facility] [address] [place], [place] [address] [employer] Helper: Walt Haro MD Potassium [Moles/Vol] 3.5 mmol/L Low 3.7-5.3 [facility] Comment on above: Performed By: #### V BENJY TAYLOR, CDP #### [facility] [address] [place], [place] [id number] [address] [employer] Helper: Walt Haro MD Sodium [Moles/Vol] 141 mmol/L Normal 135-144 [facility] Comment on above: Performed By: #### V BENJY TAYLOR, CDP #### [facility] [address] [place], [place] [address] [employer] Helper: Walt Haro MD Urea nitrogen [Mass/Vol] 12 mg/dL Normal 6-20 [facility] Comment on above: Performed By: #### V NCT, BMP, CDP #### [facility] [address] [place] [address] [address] [employer] Helper: Walt Haro MD CBC with Auto Differentialon 10-26-2022 Absolute Eos # 0.60 High [facility] Absolute Lymph # 1.90 [facility] Absolute [place] # 0.80 [facility] Basophils (Bld) [#/Vol] 0.10 10*3/uL [facility] Basophils/100 WBC (Bld) 1 % 0 - 2 % [facility] Differential Type YES [facility] Eosinophils/100 WBC (Bld) 9 % High 0 - 5 % [facility] Hematocrit (Bld) [Volume fraction] 37.4 % Low 41 - 53 % [facility] Hemoglobin (Bld) [Mass/Vol] 12.2 g/dL Low 13.5 - 17.5 g/dL [facility] Interpretation and review of laboratory results Abnormal [facility] Lymphocytes/100 WBC (Bld) 27 % 13 - 44 % [facility] MCH (RBC) [Entitic mass] 30.7 pg 26 - 34 pg [facility] MCHC (RBC) [Mass/Vol] 32.6 g/dL 31 - 37 g/dL [facility] MCV (RBC) [Entitic vol] 94.2 fL 80 - 100 fL [facility] Monocytes/100 WBC (Bld) 12 % High 5 - 9 % [facility] Platelet distribution width (Bld) [Ratio] 14.2 % 12.1 - 15.2 % [facility] Platelets (Bld) [#/Vol] 368 10*3/uL [facility] RBC (Bld) [#/Vol] 3.97 10*6/uL Low 4.5 - 5.9 m/uL [facility] Segmented neutrophils/100 WBC (Bld) 51 % 39 - 75 % [facility] Segs Absolute 3.50 [facility] WBC (Bld) [#/Vol] 7.0 10*3/uL [facility] CBC with Diffon 10-26-2022 Abs. Basophil 0.10 k/uL Normal 0.0-0.2 [facility] Comment on above: Performed By: #### V BENJY TAYLOR, CDP #### [facility] [address] [place] [address] [address] [employer] Helper: Walt Haro MD Abs.Neutrophil (Seg) 3.50 k/uL Normal 2.1-6.5 [facility] Comment on above: Performed By: #### V BENJY TAYLOR, CDP #### [facility] [address] [place] [address] [address] [employer] Helper: Walt Haro MD Auto Diff Performed YES Normal [facility] Comment on above: Performed By: #### V BENJY TAYLOR, CDP #### [facility] [address] [place] [address] [address] [employer] Helper: Walt Haro MD Basophils/100 WBC (Bld) 1 % Normal 0-2 [facility] Comment on above: Performed By: #### V BENJY TAYLOR, CDP #### [facility] [address] [place] [address] [address] [employer] Helper: Walt Haro MD Eosinophils (Bld) [#/Vol] 0.60 10*3/uL High 0.0-0.4 [facility] Comment on above: Performed By: #### V BENJY TAYLOR, CDP #### [facility] [address] [place] [address] [address] [employer] Helper: Walt Haro MD Eosinophils/100 WBC (Bld) 9 % High 0-5 [facility] Comment on above: Performed By: #### V BENJY TAYLOR, CDP #### [facility] [address] [place], [place] [address] [employer] Helper: Walt Haro MD Erythrocyte distribution width (RBC) [Ratio] 14.2 % Normal 12.1-15.2 [facility] Comment on above: Performed By: #### V BENJY TAYLOR, CDP #### [facility] [address] [place] [phone] [employer] Helper: Walt Haro MD Hematocrit (Bld) [Volume fraction] 37.4 % Low 41-53 [facility] Comment on above: Performed By: #### V BENJY TAYLOR, CDP #### [facility] [address] [place] [phone] [employer] Helper: Walt Haro MD Hemoglobin (Bld) [Mass/Vol] 12.2 g/dL Low 13.5-17.5 [facility] Comment on above: Performed By: #### V BENJY TAYLOR, CDP #### [facility] [address] [place] [phone] [employer] Helper: Walt Haro MD Lymphocytes (Bld) [#/Vol] 1.90 10*3/uL Normal 1.0-4.8 [facility] Comment on above: Performed By: #### V BENJY TAYLOR, CDP #### [facility] [address] [place] [address] [address] [employer] Helper: Walt Haro MD Lymphocytes/100 WBC (Bld) 27 % Normal 13-44 [facility] Comment on above: Performed By: #### V BENJY TAYLOR, CDP #### [facility] [phone] [employer] Helper: Walt Haro MD MCH (RBC) [Entitic mass] 30.7 pg Normal 26-34 [facility] Comment on above: Performed By: #### V BENJY TAYLOR, CDP #### [facility] [address] [place] [address] [address] [employer] Helper: Walt Haro MD MCHC (RBC) [Mass/Vol] 32.6 g/dL Normal 31-37 [facility] Comment on above: Performed By: #### V CLAUDIA BMP, CDP #### [facility] [address] [place], [place] [phone] Street [employer] Helper: Walt Haro MD MCV (RBC) [Entitic vol] 94.2 fL Normal 80-100 [facility] Comment on above: Performed By: #### V CLAUDIA, BMP, CDP #### [facility] [address] [place], [place] [phone] Street [employer] Helper: Walt Haro MD Monocytes (Bld) [#/Vol] 0.80 10*3/uL Normal 0.0-1.0 [facility] Comment on above: Performed By: #### V BENJY TAYLOR, CDP #### [facility] [address] [place] [address] (869) [address] [employer] Helper: Walt Haro MD Monocytes/100 WBC (Bld) 12 % High 5-9 [facility] Comment on above: Performed By: #### V CLAUDIA BMP, CDP #### [facility] [address] [place] [address] [phone] [address] [employer] Helper: Walt Haro MD Neutrophil (Seg) 51 % Normal 39-75 [facility] Comment on above: Performed By: #### V CLAUDIA BMP, CDP #### [facility] [address] [place] [address] [phone] [address] [employer] Helper: Walt Haro MD Platelets (Bld) [#/Vol] 368 10*3/uL Normal 140-450 [facility] Comment on above: Performed By: #### V CLAUDIA, BMP, CDP #### [facility] [address] [place] [address] [phone] [address] [employer] Helper: Walt Haro MD RBC (Bld) [#/Vol] 3.97 10*6/uL Low 4.5-5.9 [facility] Comment on above: Performed By: #### V NCT, BMP, CDP #### [facility] [address] [place] [address] [address] [employer] Helper: Walt Haro MD WBC (Bld) [#/Vol] 7.0 10*3/uL Normal 3.5-11.0 [facility] Comment on above: Performed By: #### V BENJY TAYLOR, CDP #### [facility] [address] [place] [address] [address] [employer] Helper: Walt Haro MD Vancomycin Level, Troughon 0 10-26-2022 Vancomycin Tr 19.4 ug/mL 10.0 - 20.0 ug/mL [facility] Comment on above: Higher trough serum vancomycin concentrations of 15-20 ug/mL are recommended for complicated infections such as bacteremia, endocarditis, osteomyelitis, meningitis, and hospital acquired pneumonia. Vancomycin Trough Date last dose UNK^Unknown^L [facility] Vancomycin Trough Dose amount Unknown [facility] Vancomycin Trough Time last dose UNK^Unknown^L [facility] Vancomycin Troughon 10-26-19 Vancomycin Trough 19.4 ug/mL Normal 10.0-20.0 [facility] Comment on above: Result Comment: High er trough serum vancomycin concentrations of 15-20 ug/mL are recommended for complicated infections such as bacteremia, endocarditis, osteomyelitis, meningitis, and hospital acquired pneumonia. Performed By: #### V BENJY TAYLOR, CDP #### [facility] [address] [place] [address] [address] [employer]per: Walt Haro MD Date last dose, Unknown Normal [facility] Comment on above: Performed By: #### V BENJY TAYLOR, CDP #### [facility] [address] [place] [address] [address] [employer] Helper: Walt Haro MD Dose amount, Unknown Normal [facility] Comment on above: Performed By: #### V BENJY TAYLOR, CDP #### [facility] [address] [place] [address] [address] [employer] Helper: Walt Haro MD Time last dose, Unknown Normal [facility] Comment on above: Performed By: #### V NCT, BMP, CDP #### [facility] [address] [place] [address] [address] [employer] Helper: Walt Haro MD Basic Metabolic Panelon 12-2 Anion gap [Moles/Vol] 11 mmol/L 9 - 17 mmol/L [facility] Calcium [Mass/Vol] 10.2 mg/dL 8.6 - 10.4 mg/dL [facility] Chloride [Moles/Vol] 102 mmol/L 98 - 107 mmol/L [facility] CO2 [Moles/Vol] 29 mmol/L 20 - 31 mmol/L [facility] Creatinine [Mass/Vol] 0.85 mg/dL 0.70 - 1.20 mg/dL [facility] GFR/1.73 sq M.predicted MDRD (S/P/Bld) [Vol rate/Area] - PINF [facility] Comment on above: Effective Jul 26, 2022 These results are not intended for use in patients <18 years of age. eGFR results are calculated without a race factor using the 2020 CKD-EPI equation. Careful clinical correlation is recommended, particularly when comparing to results calculated using previous equations. The CKD-EPI equation is less accurate in patients with extremes of muscle mass, extra-renal metabolism of creatine, excessive creatine ingestion, or following therapy that affects renal tubular secretion. Glucose [Mass/Vol] 120 mg/dL High 70 - 99 mg/dL [facility] Interpretation and review of laboratory results Abnormal [facility] Potassium [Moles/Vol] 4.0 mmol/L 3.7 - 5.3 mmol/L [facility] Sodium [Moles/Vol] 142 mmol/L 135 - 144 mmol/L [facility] Urea nitrogen (BldV) [Mass/Vol] 14 mg/dL 6 - 20 mg/dL [facility] Urea nitrogen/Creatinine (Bld) [Mass ratio] 16 9 - 20 [facility] Basic Metabolic Profon 10-19 Anion gap [Moles/Vol] 11 mmol/L Normal 9-17 [facility] Comment on above: Performed By: #### V CLAUDIA, BMP, CDP #### [facility] [address] [place], [place] [phone] Street [employer] Helper: Walt Haro MD BUN/CRE Ratio 16 Normal 9-20 [facility] Comment on above: Performed By: #### V CLAUDIA, BMP, CDP #### [facility] [address] [place], [place] [phone] Street [employer] Helper: Walt Haro MD Calcium [Mass/Vol] 10.2 mg/dL Normal 8.6-10.4 [facility] Comment on above: Performed By: #### V BENJY TAYLOR, CDP #### [facility] [address] [place], [place] [phone] Street [employer] Helper: Walt Haro MD Chloride [Moles/Vol] 102 mmol/L Normal 98-107 [facility] Comment on above: Performed By: #### V BENJY TAYLOR, CDP #### [facility] [address] [place], [place] [phone] Street [employer] Helper: Walt Haro MD CO2 [Moles/Vol] 29 mmol/L Normal 20-31 [facility] Comment on above: Performed By: #### V BENJY TAYLOR, CDP #### [facility] [address] [place], [place] [phone] Street [employer] Helper: Walt Haro MD Creatinine [Mass/Vol] 0.85 mg/dL Normal 0.70-1.20 [facility] Comment on above: Performed By: #### V BENJY TAYLOR, CDP #### [facility] [address] [place], [place] [phone] Street [employer] Helper: Walt Haro MD GFR/1.73 sq M.predicted among non-blacks MDRD (S/P/Bld) [Vol rate/Area] mL/min/{1.73_m2} Normal >60 [facility] Comment on above: Result Comment: Effective Jul 26, 2022 These results are not intended for use in patients <18 years of age. eGFR results are calculated without a race factor using the 2020 CKD-EPI equation. Careful clinical correlation is recommended, particularly when comparing to results calculated using previous equations. The CKD-EPI equation is less accurate in patients with extremes of muscle mass, extra-renal metabolism of creatine, excessive creatine ingestion, or following therapy that affects renal tubular secretion. Performed By: #### V BENJY TAYLOR, CDP #### [facility] [address] [place] [address] [address] [employer]per: Walt Haro MD Glucose [Mass/Vol] 120 mg/dL High 70-99 [facility] Comment on above: Performed By: #### V BENJY TAYLOR, CDP #### [facility] [address] [place], [place] [phone] Street [employer] Helper: Walt Haro MD Potassium [Moles/Vol] 4.0 mmol/L Normal 3.7-5.3 [facility] Comment on above: Performed By: #### V BENJY TAYLOR, CDP #### [facility] [address] [place] [address] [place] [address] [address] [employer]per: Walt Haro MD Sodium [Moles/Vol] 142 mmol/L Normal 135-144 [facility] Comment on above: Performed By: #### V BENJY TAYLOR, CDP #### [facility] [address] [place], [facility] [employer] Helper: Walt Haro MD Urea nitrogen [Mass/Vol] 14 mg/dL Normal 6-20 [facility] Comment on above: Performed By: #### V BENJY TAYLOR, CDP #### [facility] [address] [place] [address] [address] [employer] Helper: Walt Haro MD CBC with Auto Differentialon 10-19-2022 Absolute Eos # 0.33 [facility] Absolute Immature Granulocyte [facility] Absolute Lymph # 1.93 [facility] Absolute [place] # 0.99 [facility] Basophils (Bld) [#/Vol] 0.08 10*3/uL [facility] Interpretation and review of laboratory results Abnormal [facility] NRBC Automated 0.0 0.0 per 100 WBC [facility] Platelet distribution width (Bld) [Ratio] 12.6 % 11.8 - 14.4 % [facility] Segmented neutrophils/100 WBC (Bld) 55 % 36 - 65 % [facility] Segs Absolute 4.05 [facility] CBC with Diffon 10-19-2022 Abs. Basophil 0.08 k/uL Normal 0.00-0.20 [facility] Comment on above: Performed By: #### V BENJY TAYLOR, CDP #### [facility] [address] [place] [address] [place] [address] [address] [employer] Helper: Walt Haro MD Abs.Imm.Granulocyte <0.03 Normal 0.00-0.30 [facility] Comment on above: Performed By: #### V BENJY TAYLOR, CDP #### [address] [place] [address] Street [employer] Helper: Walt Haro MD Abs.Neutrophil (Seg) 4.05 k/uL Normal 1.50-8.10 [facility] Comment on above: Performed By: #### V BENJY TAYLOR, CDP #### [address] [place] [address] [address] [employer] Helper: Walt Haro MD Eosinophils (Bld) [#/Vol] 0.33 10*3/uL Normal 0.00-0.44 [facility] Comment on above: Performed By: #### V BENJY TAYLOR, CDP #### [address] [place] [phone] Street [employer] Helper: Walt Haro MD Erythrocyte distribution width (RBC) [Ratio] 12.6 % Normal 11.8-14.4 [facility] Comment on above: Performed By: #### V NCT, BMP, CDP #### [address] [place], [place] [phone] Street [employer] Helper: Walt Haro MD Lymphocytes (Bld) [#/Vol] 1.93 10*3/uL Normal 1.10-3.70 [facility] Comment on above: Performed By: #### V NCT, BMP, CDP #### [address] [place], [facility] [employer] Helper: Walt Haro MD Monocytes (Bld) [#/Vol] 0.99 10*3/uL Normal 0.10-1.20 [facility] Comment on above: Performed By: #### V CLAUDIA, BMP, CDP #### [address] [place] [address] [address] [employer] Helper: Walt Haro MD Neutrophil (Seg) 55 % Normal 36-65 [facility] Comment on above: Performed By: #### V CLAUDIA, BMP, CDP #### [address] [place] [address] [address] [employer] Helper: Walt Haro MD NRBC Automated 0.0 per 100 WBC Normal 0.0 [facility] Comment on above: Performed By: #### V CLAUDIA, BMP, CDP #### [address] [place], [facility] [employer] Helper: Walt Haro MD Basophils/100 WBC (Bld) 1 % Normal 0-2 [facility] Comment on above: Performed By: #### V NCT, BMP, CDP #### [address] [place] [address] [address] [employer] Helper: Walt Haro MD Eosinophils/100 WBC (Bld) 5 % High 1-4 [facility] Comment on above: Performed By: #### V NCT, BMP, CDP #### [address] [place] [phone] [address] [employer] Helper: Walt Haro MD Hematocrit (Bld) [Volume fraction] 36.9 % Low 40.7-50.3 [facility] Comment on above: Performed By: #### V BENJY TAYLOR, CDP #### [address] [place], [place] [phone] Street [employer] Helper: Walt Haro MD Hemoglobin (Bld) [Mass/Vol] 12.3 g/dL Low 13.0-17.0 [facility] Comment on above: Performed By: #### V BENJY TAYLOR, CDP #### [address] [place], [place] [phone] Street [employer] Helper: Walt Haro MD Immature granulocytes/100 WBC (Bld) 0 % Normal 0 [facility] Comment on above: Performed By: #### V BENJY TAYLOR, CDP #### [address] [place] [phone] Street [employer] Helper: Walt Haro MD Lymphocytes/100 WBC (Bld) 26 % Normal 24-43 [facility] Comment on above: Performed By: #### V BENJY TAYLOR, CDP #### [address] [place], [place] [phone] Street [employer] Helper: Walt Haro MD MCH (RBC) [Entitic mass] 30.8 pg Normal 25.2-33.5 [facility] Comment on above: Performed By: #### V BENJY TAYLOR, CDP #### [address] [place] [address] [address] [employer] Helper: Walt Haro MD MCHC (RBC) [Mass/Vol] 33.3 g/dL Normal 28.4-34.8 [facility] Comment on above: Performed By: #### V BENJY TAYLOR, CDP #### [address] [place], [place] [phone] Street [employer] Helper: Walt Haro MD MCV (RBC) [Entitic vol] 92.5 fL Normal 82.6-102.9 [facility] Comment on above: Performed By: #### V BENJY TAYLOR, CDP #### [address] [place] [address] [address] [employer] Helper: Walt Haro MD Monocytes/100 WBC (Bld) 13 % High 3-12 [facility] Comment on above: Performed By: #### V BENJY TAYLOR, CDP #### [address] [place] [address] [address] [employer] Helper: Walt Haro MD Platelet mean volume (Bld) [Entitic vol] 9.1 fL Normal 8.1-13.5 [facility] Comment on above: Performed By: #### V BENJY TAYLOR, CDP #### [address] [place], [facility] [employer] Helper: Walt Haro MD Platelets (Bld) [#/Vol] 410 10*3/uL Normal 138-453 [facility] Comment on above: Performed By: #### V BENJY TAYLOR, CDP #### [address] [place] [address] [address] [employer] Helper: Walt Haro MD RBC (Bld) [#/Vol] 3.99 10*6/uL Low 4.21-5.77 [facility] Comment on above: Performed By: #### V BENJY TAYLOR, CDP #### [address] [place] [address] [address] [employer] Helper: Walt Haro MD WBC (Bld) [#/Vol] 7.4 10*3/uL Normal 3.5-11.3 [facility] Comment on above: Performed By: #### V BENJY TAYLOR, CDP #### [address] [place] [address] [address] [employer] Helper: Walt Haro MD Vancomycin Level, Troughon 1 12-20-2021 Vancomycin Tr 20 ug/mL 10.0 - 20.0 ug/mL [facility] Comment on above: Higher trough serum vancomycin concentrations of 15-20 ug/mL are recommended for complicated infections such as bacteremia, endocarditis, osteomyelitis, meningitis, and hospital acquired pneumonia. [facility] Vancomycin Troughon 10-19-20 Vancomycin Trough 20.0 ug/mL Normal 10.0-20.0 [facility] Comment on above: Result Comment: High er trough serum vancomycin concentrations of 15-20 ug/mL are recommended for complicated infections such as bacteremia, endocarditis, osteomyelitis, meningitis, and hospital acquired pneumonia. Performed By: #### V NCT, BMP, CDP #### [facility] [address] [place] [address] [address] [employer] Helper: Walt Haro MD Basic Metabolic Panelon 09-24 Anion gap [Moles/Vol] 12 mmol/L 9 - 17 mmol/L [facility] Calcium [Mass/Vol] 10.1 mg/dL 8.6 - 10.4 mg/dL [facility] Chloride [Moles/Vol] 100 mmol/L 98 - 107 mmol/L [facility] CO2 [Moles/Vol] 27 mmol/L 20 - 31 mmol/L [facility] Creatinine [Mass/Vol] 0.82 mg/dL 0.70 - 1.20 mg/dL [facility] GFR/1.73 sq M.predicted MDRD (S/P/Bld) [Vol rate/Area] - PINF [facility] Comment on above: Effective Jul 26, 2022 These results are not intended for use in patients <18 years of age. eGFR results are calculated without a race factor using the 2020 CKD-EPI equation. Careful clinical correlation is recommended, particularly when comparing to results calculated using previous equations. The CKD-EPI equation is less accurate in patients with extremes of muscle mass, extra-renal metabolism of creatine, excessive creatine ingestion, or following therapy that affects renal tubular secretion. Glucose [Mass/Vol] 155 mg/dL High 70 - 99 mg/dL [facility] Interpretation and review of laboratory results Abnormal [facility] Potassium [Moles/Vol] 3.8 mmol/L 3.7 - 5.3 mmol/L [facility] Sodium [Moles/Vol] 139 mmol/L 135 - 144 mmol/L [facility] Urea nitrogen (BldV) [Mass/Vol] 11 mg/dL 6 - 20 mg/dL [facility] Urea nitrogen/Creatinine (Bld) [Mass ratio] 13 9 - 20 [facility] Basic Metabolic Profon 10-14 Anion gap [Moles/Vol] 12 mmol/L Normal 9-17 [facility] Comment on above: Performed By: #### V CLAUDIA, BMP, CDP #### [facility] [address] [place] [address] [address] [employer] Helper: Walt Haro MD BUN/CRE Ratio 13 Normal 9- [facility] Comment on above: Performed By: #### V CLAUDIA BMP, CDP #### [facility] [address] [place], [place] [phone] Street [employer] Helper: Walt Haro MD Calcium [Mass/Vol] 10.1 mg/dL Normal 8.6-10.4 [facility] Comment on above: Performed By: #### V CLAUDIA BMP, CDP #### [facility] [address] [place], [place] [phone] Street [employer] Helper: Walt Haro MD Chloride [Moles/Vol] 100 mmol/L Normal 98-107 [facility] Comment on above: Performed By: #### V NCT, BMP, CDP #### [facility] [address] [place], [place] [phone] Street [employer] Helper: Walt Haro MD CO2 [Moles/Vol] 27 mmol/L Normal 20-31 [facility] Comment on above: Performed By: #### V NCT, BMP, CDP #### [facility] [address] [place] [address] [address] [employer] Helper: Walt Haro MD Creatinine [Mass/Vol] 0.82 mg/dL Normal 0.70-1.20 [facility] Comment on above: Performed By: #### V BENJY TAYLOR, CDP #### [facility] [address] [place] [address] [address] [employer] Helper: Walt Haro MD GFR/1.73 sq M.predicted among non-blacks MDRD (S/P/Bld) [Vol rate/Area] mL/min/{1.73_m2} Normal >60 [facility] Comment on above: Result Comment: Effective Jul 26, 2022 These results are not intended for use in patients <18 years of age. eGFR results are calculated without a race factor using the 2020 CKD-EPI equation. Careful clinical correlation is recommended, particularly when comparing to results calculated using previous equations. The CKD-EPI equation is less accurate in patients with extremes of muscle mass, extra-renal metabolism of creatine, excessive creatine ingestion, or following therapy that affects renal tubular secretion. Performed By: #### V BENJY TAYLOR, CDP #### [facility] [address] [place] [address] [address] [employer] Helper: Walt Haro MD Glucose [Mass/Vol] 155 mg/dL High 70-99 [facility] Comment on above: Performed By: #### V BENJY TAYLOR, CDP #### [facility] [address] [place] [address] [address] [employer] Helper: Walt Haro MD Potassium [Moles/Vol] 3.8 mmol/L Normal 3.7-5.3 [facility] Comment on above: Performed By: #### V BENJY TAYLOR, CDP #### [facility] [address] [place] [address] [address] [employer] Helper: Walt Haro MD Sodium [Moles/Vol] 139 mmol/L Normal 135-144 [facility] Comment on above: Performed By: #### V BENJY TAYLOR, CDP #### [facility] [address] [place], [place] [phone] Street [employer] Helper: Walt Haor MD Urea nitrogen [Mass/Vol] 11 mg/dL Normal 6-20 [facility] Comment on above: Performed By: #### V BENJY TAYLOR, CDP #### [facility] [address] [place], [place] [address] [address] [employer] Helper: Walt Haro MD Vancomycin Level, Troughon 1 12-15-2021 Vancomycin Tr 19.7 ug/mL 10.0 - 20.0 ug/mL [facility] Comment on above: Higher trough serum vancomycin concentrations of 15-20 ug/mL are recommended for complicated infections such as bacteremia, endocarditis, osteomyelitis, meningitis, and hospital acquired pneumonia. [facility] Vancomycin Troughon 10-14-20 Vancomycin Trough 19.7 ug/mL Normal 10.0-20.0 [facility] Comment on above: Result Comment: High er trough serum vancomycin concentrations of 15-20 ug/mL are recommended for complicated infections such as bacteremia, endocarditis, osteomyelitis, meningitis, and hospital acquired pneumonia. Performed By: #### V BENJY TAYLOR, CDP #### [facility] [address] [place] [address] [place] [address] [address] [employer] Helper: Walt Haro MD Basic Metabolic Panelon 12- Anion gap [Moles/Vol] 7 mmol/L Low 9 - 17 mmol/L [facility] Calcium [Mass/Vol] 9.7 mg/dL 8.6 - 10.4 mg/dL [facility] Chloride [Moles/Vol] 97 mmol/L Low 98 - 107 mmol/L [facility] CO2 [Moles/Vol] 32 mmol/L High 20 - 31 mmol/L [facility] Creatinine [Mass/Vol] 0.96 mg/dL 0.70 - 1.20 mg/dL [facility] GFR/1.73 sq M.predicted MDRD (S/P/Bld) [Vol rate/Area] - PINF [facility] Comment on above: Effective Jul 26, 2022 These results are not intended for use in patients <18 years of age. eGFR results are calculated without a race factor using the 2020 CKD-EPI equation. Careful clinical correlation is recommended, particularly when comparing to results calculated using previous equations. The CKD-EPI equation is less accurate in patients with extremes of muscle mass, extra-renal metabolism of creatine, excessive creatine ingestion, or following therapy that affects renal tubular secretion. Glucose [Mass/Vol] 177 mg/dL High 70 - 99 mg/dL [facility] Interpretation and review of laboratory results Abnormal [facility] Potassium [Moles/Vol] 4.0 mmol/L 3.7 - 5.3 mmol/L [facility] Sodium [Moles/Vol] 136 mmol/L 135 - 144 mmol/L [facility] Urea nitrogen (BldV) [Mass/Vol] 10 mg/dL 6 - 20 mg/dL [facility] Urea nitrogen/Creatinine (Bld) [Mass ratio] 10 9 - 20 [facility] Basic Metabolic Profon 10-11 Anion gap [Moles/Vol] 7 mmol/L Low 9-17 [facility] Comment on above: Performed By: #### V BENJY TAYLOR, CDP #### [facility] [address] [place] [address] [place] [address] Street [employer] Helper: Walt Haro MD BUN/CRE Ratio 10 Normal -20 [facility] Comment on above: Performed By: #### V BENJY TAYLOR, CDP #### [facility] [address] [place] [address] [place] [address] [address] [employer] Helper: Walt Haro MD Calcium [Mass/Vol] 9.7 mg/dL Normal 8.6-10.4 [facility] Comment on above: Performed By: #### V BENJY TAYLOR, CDP #### [facility] [address] [place] [address] [address] [employer] Helper: Walt Haro MD Chloride [Moles/Vol] 97 mmol/L Low 98-107 [facility] Comment on above: Performed By: #### V EBNJY TAYLOR, CDP #### [facility] [address] [place] [address] [address] [employer] Helper: Walt Haro MD CO2 [Moles/Vol] 32 mmol/L High 20-31 [facility] Comment on above: Performed By: #### V BENJY TAYLOR, CDP #### [facility] [address] [place] [address] [address] [employer] Helper: Walt Haro MD Creatinine [Mass/Vol] 0.96 mg/dL Normal 0.70-1.20 [facility] Comment on above: Performed By: #### V BENJY TAYLOR, CDP #### [facility] [address] [place] [address] [address] [employer] Helper: Walt Haro MD GFR/1.73 sq M.predicted among non-blacks MDRD (S/P/Bld) [Vol rate/Area] mL/min/{1.73_m2} Normal >60 [facility] Comment on above: Result Comment: Effective Jul 26, 2022 These results are not intended for use in patients <18 years of age. eGFR results are calculated without a race factor using the 2020 CKD-EPI equation. Careful clinical correlation is recommended, particularly when comparing to results calculated using previous equations. The CKD-EPI equation is less accurate in patients with extremes of muscle mass, extra-renal metabolism of creatine, excessive creatine ingestion, or following therapy that affects renal tubular secretion. Performed By: #### V BENJY TAYLOR, CDP #### [facility] [address] [place] [address] [address] [employer]per: Walt Haro MD Glucose [Mass/Vol] 177 mg/dL High 70-99 [facility] Comment on above: Performed By: #### V BENJY TAYLOR, CDP #### [facility] [address] [place] [address] [address] [employer] Helper: Walt Haro MD Potassium [Moles/Vol] 4.0 mmol/L Normal 3.7-5.3 [facility] Comment on above: Performed By: #### V BENJY TAYLOR, CDP #### [facility] [address] [place] [address] [address] [employer] Helper: Walt Haro MD Sodium [Moles/Vol] 136 mmol/L Normal 135-144 [facility] Comment on above: Performed By: #### V BENJY TAYLOR, CDP #### [facility] [address] [place] [address] [address] [employer] Helper: Walt Haro MD Urea nitrogen [Mass/Vol] 10 mg/dL Normal 6-20 [facility] Comment on above: Performed By: #### V BENJY TAYLOR, CDP #### [facility] [address] [place] [address] [address] [employer] Helper: Walt Haro MD CBC with Auto Differentialon 10-11-2022 Absolute Eos # 0.61 High [place] [facility] Absolute Immature Granulocyte 0.03 [facility] Absolute Lymph # 1.27 [facility] Absolute [place] # 1.09 [facility] Basophils (Bld) [#/Vol] 0.05 10*3/uL [facility] Basophils/100 WBC (Bld) 1 % 0 - 2 % [facility] Eosinophils/100 WBC (Bld) 6 % High 1 - 4 % [facility] Hematocrit (Bld) [Volume fraction] 31.2 % Low 40.7 - 50.3 % [facility] Hemoglobin (Bld) [Mass/Vol] 10.5 g/dL Low 13.0 - 17.0 g/dL [facility] Immature granulocytes/100 WBC (Bld) 0 % 0 [facility] Interpretation and review of laboratory results Abnormal [facility] Lymphocytes/100 WBC (Bld) 13 % Low 24 - 43 % [facility] MCH (RBC) [Entitic mass] 32.4 pg 25.2 - 33.5 pg [facility] MCHC (RBC) [Mass/Vol] 33.7 g/dL 28.4 - 34.8 g/dL [facility] MCV (RBC) [Entitic vol] 96.3 fL 82.6 - 102.9 fL [facility] Monocytes/100 WBC (Bld) 11 % 3 - 12 % [facility] NRBC Automated 0.0 0.0 per 100 WBC [facility] Platelet distribution width (Bld) [Ratio] 12.2 % 11.8 - 14.4 % [facility] Platelet mean volume (Bld) [Entitic vol] 9.7 fL 8.1 - 13.5 fL [facility] Platelets (Bld) [#/Vol] 401 10*3/uL [facility] RBC (Bld) [#/Vol] 3.24 10*6/uL Low 4.21 - 5.77 m/uL [facility] Segmented neutrophils/100 WBC (Bld) 69 % High 36 - 65 % [facility] Segs Absolute 6.64 [facility] WBC (Bld) [#/Vol] 9.7 10*3/uL [facility] CBC with Diffon 10-11-2022 Abs. Basophil 0.05 k/uL Normal 0.00-0.20 [facility] Comment on above: Performed By: #### C BENJY GRAYSON, VNCT #### [address] [place] [address] Street [employer]per: Walt Haro MD Abs.Imm.Granulocyte 0.03 k/uL Normal 0.00-0.30 [facility] Comment on above: Performed By: #### C BENJY GRAYSON, VNCT #### [facility] [address] [place], [place] [address] [address] [employer]per: Walt Haro MD Abs.Neutrophil (Seg) 6.64 k/uL Normal 1.50-8.10 [facility] Comment on above: Performed By: #### C BENJY GRAYSON, VNCT #### [address] [place], [place] [address] Street [employer]per: Walt Haro MD Basophils/100 WBC (Bld) 1 % Normal 0-2 [facility] Comment on above: Performed By: #### C DP, BMP, VNCT #### [address] [place], [place] [address] Street [employer]per: Walt Haro MD Eosinophils (Bld) [#/Vol] 0.61 10*3/uL High 0.00-0.44 [facility] Comment on above: Performed By: #### C DP, BMP, VNCT #### [address] [place], [place] [address] [address] [employer]per: Walt Haro MD Eosinophils/100 WBC (Bld) 6 % High 1-4 [facility] Comment on above: Performed By: #### C DP, BMP, VNCT #### [address] [place], [place] [phone] Street [employer] Helper: Walt Haro MD Erythrocyte distribution width (RBC) [Ratio] 12.2 % Normal 11.8-14.4 [facility] Comment on above: Performed By: #### C DP, BMP, VNCT #### [address] [place] [address] [address] [employer] Helper: Walt Haro MD Hematocrit (Bld) [Volume fraction] 31.2 % Low 40.7-50.3 [facility] Comment on above: Performed By: #### C DP, BMP, VNCT #### [address] [place], [place] [address] [address] [employer]per: Walt Haro MD Hemoglobin (Bld) [Mass/Vol] 10.5 g/dL Low 13.0-17.0 [facility] Comment on above: Performed By: #### C DP, BMP, VNCT #### [address] [place] [address] [address] [employer] Helper: Walt Haro MD Immature granulocytes/100 WBC (Bld) 0 % Normal 0 [facility] Comment on above: Performed By: #### C DP, BMP, VNCT #### [facility] [address] [place] [address] [address] [employer] Helper: Walt Haro MD Lymphocytes (Bld) [#/Vol] 1.27 10*3/uL Normal 1.10-3.70 [facility] Comment on above: Performed By: #### C DP, BMP, VNCT #### [facility] [address] [place] [address] [address] [employer] Helper: Walt Haro MD Lymphocytes/100 WBC (Bld) 13 % Low 24-43 [facility] Comment on above: Performed By: #### C KENAN BMP, VNCT #### [address] [place] [id number] [employer] Helper: Walt Haro MD MCH (RBC) [Entitic mass] 32.4 pg Normal 25.2-33.5 [facility] Comment on above: Performed By: #### C BENJY GRAYSON, VNCT #### [address] [place] [phone] Street [employer] Helper: Walt Haro MD MCHC (RBC) [Mass/Vol] 33.7 g/dL Normal 28.4-34.8 [facility] Comment on above: Performed By: #### C BENJY GRAYSON, VNCT #### [address] [place], [facility] [employer]per: Walt Haro MD MCV (RBC) [Entitic vol] 96.3 fL Normal 82.6-102.9 [facility] Comment on above: Performed By: #### C KENAN BMP, VNCT #### [facility] [address] [place], [place] [address] [address] [employer] Helper: Walt Haro MD Monocytes (Bld) [#/Vol] 1.09 10*3/uL Normal 0.10-1.20 [facility] Comment on above: Performed By: #### C DP, BMP, VNCT #### [facility] [address] [place] [address] [address] [employer] Helper: Walt Haro MD Monocytes/100 WBC (Bld) 11 % Normal 3-12 [facility] Comment on above: Performed By: #### C DP, BMP, VNCT #### [facility] [address] [place], [facility] [employer]per: Walt Haro MD Neutrophil (Seg) 69 % High 36-65 [facility] Comment on above: Performed By: #### C DP, BMP, VNCT #### [address] [place], [facility] [employer]per: Walt Haro MD NRBC Automated 0.0 per 100 WBC Normal 0.0 [facility] Comment on above: Performed By: #### C DP, BMP, VNCT #### [address] [place] [address] [address] [employer] Helper: Walt Haro MD Platelet mean volume (Bld) [Entitic vol] 9.7 fL Normal 8.1-13.5 [facility] Comment on above: Performed By: #### C DP, BMP, VNCT #### [address] [place], [place] [address] [address] [employer] Helper: Walt Haro MD Platelets (Bld) [#/Vol] 401 10*3/uL Normal 138-453 [facility] Comment on above: Performed By: #### C DP, BMP, VNCT #### [address] [place], [place] [address]382 ([address] [employer]per: Walt Haro MD RBC (Bld) [#/Vol] 3.24 10*6/uL Low 4.21-5.77 [facility] Comment on above: Performed By: #### C DP, BMP, VNCT #### [facility] [address] [place], [place] [phone] [address] [employer] Helper: Walt Haro MD WBC (Bld) [#/Vol] 9.7 10*3/uL Normal 3.5-11.3 [facility] Comment on above: Performed By: #### C BNEJY GRAYSON, VNCT #### [facility] [address] [place] [address] [address] [employer] Helper: Walt Haro MD Vancomycin Level, Troughon 1 12-12-2021 Vancomycin Tr 14.9 ug/mL 10.0 - 20.0 ug/mL [facility] Comment on above: Higher trough serum vancomycin concentrations of 15-20 ug/mL are recommended for complicated infections such as bacteremia, endocarditis, osteomyelitis, meningitis, and hospital acquired pneumonia. [facility] Vancomycin Troughon 10-11-20 Vancomycin Trough 14.9 ug/mL Normal 10.0-20.0 [facility] Comment on above: Result Comment: High er trough serum vancomycin concentrations of 15-20 ug/mL are recommended for complicated infections such as bacteremia, endocarditis, osteomyelitis, meningitis, and hospital acquired pneumonia. Performed By: #### V BENJY TAYLOR, CDP #### [address] [place] [address] [address] [employer] Helper: Walt Haro MD BUN & Creatinineon Creatinine [Mass/Vol] 0.86 mg/dL 0.70 - 1.20 mg/dL [facility] GFR/1.73 sq M.predicted MDRD (S/P/Bld) [Vol rate/Area] - PINF [facility] Comment on above: Effective Jul 26, 2022 These results are not intended for use in patients <18 years of age. eGFR results are calculated without a race factor using the 2020 CKD-EPI equation. Careful clinical correlation is recommended, particularly when comparing to results calculated using previous equations. The CKD-EPI equation is less accurate in patients with extremes of muscle mass, extra-renal metabolism of creatine, excessive creatine ingestion, or following therapy that affects renal tubular secretion. Urea nitrogen (BldV) [Mass/Vol] 18 mg/dL 6 - 20 mg/dL [facility] BUN + Creatinineon Creatinine [Mass/Vol] 0.86 mg/dL Normal 0.70-1.20 [facility] Comment on above: Performed By: #### ANTONINO PECK, BUNCRT #### [facility] [address] [place] [address] [address] [employer] Helper: Walt Haro MD GFR/1.73 sq M.predicted among non-blacks MDRD (S/P/Bld) [Vol rate/Area] mL/min/{1.73_m2} Normal >60 [facility] Comment on above: Result Comment: Effective Jul 26, 2022 These results are not intended for use in patients <18 years of age. eGFR results are calculated without a race factor using the 2020 CKD-EPI equation. Careful clinical correlation is recommended, particularly when comparing to results calculated using previous equations. The CKD-EPI equation is less accurate in patients with extremes of muscle mass, extra-renal metabolism of creatine, excessive creatine ingestion, or following therapy that affects renal tubular secretion. Performed By: #### ANTONINO PECK, BUNCRT #### [facility] [address] [place] [address] [address] [employer] Helper: Walt Haro MD Urea nitrogen [Mass/Vol] 18 mg/dL Normal 6-20 [facility] Comment on above: Performed By: #### ANTONINO PECK, BUNCRT #### [facility] [address] [place] [address] [address] [employer] Helper: Walt Haro MD Electrolyte Panelon 10-07-20 Anion gap [Moles/Vol] 7 mmol/L Low 9 - 17 mmol/L [facility] Chloride [Moles/Vol] 98 mmol/L 98 - 107 mmol/L [facility] CO2 [Moles/Vol] 31 mmol/L 20 - 31 mmol/L [facility] Interpretation and review of laboratory results Abnormal [facility] Potassium [Moles/Vol] 4.2 mmol/L 3.7 - 5.3 mmol/L [facility] Sodium [Moles/Vol] 136 mmol/L 135 - 144 mmol/L [facility] Electrolyteson 10-07-2022 Anion gap [Moles/Vol] 7 mmol/L Low 9-17 [facility] Comment on above: Performed By: #### L YTE, VNCT, BUNCRT #### [facility] [address] [place] [address] [address] [employer] Helper: Walt Haro MD Chloride [Moles/Vol] 98 mmol/L Normal 98-107 [facility] Comment on above: Performed By: #### L ACACIA VNCT, BUNCRT #### [facility] [address] [place] [address] [address] [employer] Helper: Walt Haro MD CO2 [Moles/Vol] 31 mmol/L Normal 20-31 [facility] Comment on above: Performed By: #### L ACACIA, VNCT, BUNCRT #### [facility] [address] [place] [phone] [employer] Helper: Walt Haro MD Potassium [Moles/Vol] 4.2 mmol/L Normal 3.7-5.3 [facility] Comment on above: Performed By: #### L ACACIA VNCT, BUNCRT #### [facility] [address] [place] [phone] [employer] Helper: Walt Haro MD Sodium [Moles/Vol] 136 mmol/L Normal 135-144 [facility] Comment on above: Performed By: #### L YTTai, VNCT, BUNCRT #### [facility] [address] [place] [phone] [employer] Helper: Walt Haro MD No Panel Informationon 10-07 [facility] Vancomycin Level, Troughon 1 12-08-2021 Vancomycin Tr 13.6 ug/mL 10.0 - 20.0 ug/mL [facility] Comment on above: Higher trough serum vancomycin concentrations of 15-20 ug/mL are recommended for complicated infections such as bacteremia, endocarditis, osteomyelitis, meningitis, and hospital acquired pneumonia. Vancomycin Trough Date last dose [id number] [facility] Vancomycin Trough Dose amount 1500 [facility] Comment on above: CORRECTED ON 10/07 A T 1125: PREVIOUSLY REPORTED 2000 Vancomycin Trough Time last dose 1999 [facility] Comment on above: CORRECTED ON 10/07 A T 1125: PREVIOUSLY REPORTED 1500 [facility] Vancomycin Troughon 10-07-20 Vancomycin Trough 13.6 ug/mL Normal 10.0-20.0 [facility] Comment on above: Result Comment: High er trough serum vancomycin concentrations of 15-20 ug/mL are recommended for complicated infections such as bacteremia, endocarditis, osteomyelitis, meningitis, and hospital acquired pneumonia. Performed By: #### L YTE, VNCT, BUNCRT #### [facility] [address] [place] [phone] [employer] Helper: Walt Haro MD Dose amount, 1500 [facility] Comment on above: Result Comment: JOSE MARIA ECTED ON 10/07 AT 1125: PREVIOUSLY REPORTED 2000 Performed By: #### L YTE, VNCT, BUNCRT #### [facility] [address] [place], [place] [address] [address] [employer] Helper: Walt Haro MD Time last dose, 1999 [facility] Comment on above: Result Comment: JOSE MARIA ECTED ON 10/07 AT 1125: PREVIOUSLY REPORTED 1500 Performed By: #### L YTE, VNCT, BUNCRT #### [facility] [address] [place], [place] [phone] [employer] Helper: Walt Haro MD Date last dose, 194100 [facility] Comment on above: Performed By: #### Tamika YTE, VNCT, BUNCRT #### [facility] [address] [place], [place] [phone] [address] [employer] Helper: Walt Haro MD Basic Metabolic Panelon 09-23 Anion gap [Moles/Vol] 7 mmol/L Low 9 - 17 mmol/L [facility] Calcium [Mass/Vol] 9.6 mg/dL 8.6 - 10.4 mg/dL [facility] Chloride [Moles/Vol] 102 mmol/L 98 - 107 mmol/L [facility] CO2 [Moles/Vol] 29 mmol/L 20 - 31 mmol/L [facility] Creatinine [Mass/Vol] 0.6 mg/dL Low 0.70 - 1.20 mg/dL [facility] GFR/1.73 sq M.predicted MDRD (S/P/Bld) [Vol rate/Area] - PINF [facility] Comment on above: Effective Jul 26, 2022 These results are not intended for use in patients <18 years of age. eGFR results are calculated without a race factor using the 2020 CKD-EPI equation. Careful clinical correlation is recommended, particularly when comparing to results calculated using previous equations. The CKD-EPI equation is less accurate in patients with extremes of muscle mass, extra-renal metabolism of creatine, excessive creatine ingestion, or following therapy that affects renal tubular secretion. Glucose [Mass/Vol] 98 mg/dL 70 - 99 mg/dL [facility] Interpretation and review of laboratory results Abnormal [facility] Potassium [Moles/Vol] 4.1 mmol/L 3.7 - 5.3 mmol/L [facility] Sodium [Moles/Vol] 138 mmol/L 135 - 144 mmol/L [facility] Urea nitrogen (BldV) [Mass/Vol] 15 mg/dL 6 - 20 mg/dL [facility] Urea nitrogen/Creatinine (Bld) [Mass ratio] 25 High 9 - 20 [facility] Basic Metabolic Profon 10-04 Anion gap [Moles/Vol] 7 mmol/L Low 9-17 [facility] Comment on above: Performed By: #### C DP, BMP, VNCT #### [facility] [address] [place] [address] [address] [employer] Helper: Walt Haro MD BUN/CRE Ratio 25 High 9-20 [facility] Comment on above: Performed By: #### C DP, BMP, VNCT #### [facility] [address] [place], [place] [address] Street [employer] Helper: Walt Haro MD Calcium [Mass/Vol] 9.6 mg/dL Normal 8.6-10.4 [facility] Comment on above: Performed By: #### C DP, BMP, VNCT #### [facility] [address] [place], [place] [address] [address] [employer] Helper: Walt Haro MD Chloride [Moles/Vol] 102 mmol/L Normal 98-107 [facility] Comment on above: Performed By: #### C DP BMP, VNCT #### [facility] [address] [place] [address] [place] [place], [place] [address]83 [address] [employer] Helper: Walt Haro MD CO2 [Moles/Vol] 29 mmol/L Normal 20-31 [facility] Comment on above: Performed By: #### C KENAN BMP, VNCT #### [address] [place], [place] [address] [address] [employer] Helper: Walt Haro MD Creatinine [Mass/Vol] 0.60 mg/dL Low 0.70-1.20 [facility] Comment on above: Performed By: #### C KENAN BMP, VNCT #### [facility] [address] [place] [address] Dr[address] [place], [place] [address] [address] [employer] Helper: Walt Haro MD GFR/1.73 sq M.predicted among non-blacks MDRD (S/P/Bld) [Vol rate/Area] mL/min/{1.73_m2} Normal >60 [facility] Comment on above: Result Comment: Effective Jul 26, 2022 These results are not intended for use in patients <18 years of age. eGFR results are calculated without a race factor using the 2020 CKD-EPI equation. Careful clinical correlation is recommended, particularly when comparing to results calculated using previous equations. The CKD-EPI equation is less accurate in patients with extremes of muscle mass, extra-renal metabolism of creatine, excessive creatine ingestion, or following therapy that affects renal tubular secretion. Performed By: #### C BENJY GRAYSON, VNCT #### [facility] [address] [place], [place] [address] [address] [employer] Helper: Walt Haro MD Glucose [Mass/Vol] 98 mg/dL Normal 70-99 [facility] Comment on above: Performed By: #### C BENJY GRAYSON, VNCT #### [facility] [address] [place] [address] [address] [employer] Helper: Walt Haro MD Potassium [Moles/Vol] 4.1 mmol/L Normal 3.7-5.3 [facility] Comment on above: Performed By: #### C BENJY GRAYSON, VNCT #### [address] [place] [phone] [employer] Helper: Walt Haro MD Sodium [Moles/Vol] 138 mmol/L Normal 135-144 [facility] Comment on above: Performed By: #### C BENJY GRAYSON, VNCT #### [address] [place] [address] [address] [employer] Helper: Walt Haro MD Urea nitrogen [Mass/Vol] 15 mg/dL Normal 6-20 [facility] Comment on above: Performed By: #### C BENJY GRAYSON, VNCT #### [facility] [address] [place], [place] [address] [address] [employer] Helper: Walt Haro MD CBC with Auto Differentialon 10-04-2022 Absolute Eos # 0.84 High [place] [facility] Absolute Immature Granulocyte 0.04 [facility] Absolute Lymph # 2.22 [facility] Absolute [place] # 1.14 [facility] Basophils (Bld) [#/Vol] 0.10 10*3/uL [facility] Interpretation and review of laboratory results Abnormal [facility] NRBC Automated 0.0 0.0 per 100 WBC [facility] Platelet distribution width (Bld) [Ratio] 11.9 % 11.8 - 14.4 % [facility] Segmented neutrophils/100 WBC (Bld) 49 % 36 - 65 % [facility] Segs Absolute 4.20 [facility] CBC with Diffon 10-04-2022 Abs. Basophil 0.10 k/uL Normal 0.00-0.20 [facility] Comment on above: Performed By: #### C DP, BMP, VNCT #### [address] [place] [id number] Street [employer] Serv[employer] Helper: Walt Haro MD Abs.Imm.Granulocyte 0.04 k/uL Normal 0.00-0.30 [facility] Comment on above: Performed By: #### C DP, BMP, VNCT #### [address] [place], [place] [address] [address] [employer] Helper: Walt Haro MD Abs.Neutrophil (Seg) 4.20 k/uL Normal 1.50-8.10 [facility] Comment on above: Performed By: #### C DP, BMP, VNCT #### [address] [place] [address] Street [employer] Helper: Walt Haro MD Eosinophils (Bld) [#/Vol] 0.84 10*3/uL High 0.00-0.44 [facility] Comment on above: Performed By: #### C DP, BMP, VNCT #### [address] [place] [id number] Street [employer] Servicer Helper: Walt Haro MD Erythrocyte distribution width (RBC) [Ratio] 11.9 % Normal 11.8-14.4 [facility] Comment on above: Performed By: #### C DP, BMP, VNCT #### [address] [place] [id number] Street [employer] Serv[employer] Helper: Walt Haro MD Lymphocytes (Bld) [#/Vol] 2.22 10*3/uL Normal 1.10-3.70 [facility] Comment on above: Performed By: #### C DP, BMP, VNCT #### [address] [place] [address] Street [employer] Helper: Walt Haro MD Monocytes (Bld) [#/Vol] 1.14 10*3/uL Normal 0.10-1.20 [facility] Comment on above: Performed By: #### C DP, BMP, VNCT #### [address] [place] [id number] Street [employer] Servicer Helper: Walt Haro MD Neutrophil (Seg) 49 % Normal 36-65 [facility] Comment on above: Performed By: #### C DP, BMP, VNCT #### [address] [place], [facility] Street [employer] Helper: Walt Haro MD NRBC Automated 0.0 per 100 WBC Normal 0.0 [facility] Comment on above: Performed By: #### C DP, BMP, VNCT #### [address] [place], [place] [id number] Street [employer] Helper: Walt Haro MD Basophils/100 WBC (Bld) 1 % Normal 0-2 [facility] Comment on above: Performed By: #### C DP, BMP, VNCT #### [address] [place] [address] Street [employer] Helper: Walt Haro MD Eosinophils/100 WBC (Bld) 10 % High 1-4 [facility] Comment on above: Performed By: #### C DP, BMP, VNCT #### [address] [place], [place] [id number] Street [employer] Servicer Helper: Walt Haro MD Hematocrit (Bld) [Volume fraction] 32.8 % Low 40.7-50.3 [facility] Comment on above: Performed By: #### C DP, BMP, VNCT #### [address] [place] [address] Street [employer] Serv[employer] Helper: Walt Haro MD Hemoglobin (Bld) [Mass/Vol] 11.0 g/dL Low 13.0-17.0 [facility] Comment on above: Performed By: #### C DP, BMP, VNCT #### [address] [place] [address] Street [employer] Serv[employer] Helper: Walt Haro MD Immature granulocytes/100 WBC (Bld) 1 % High 0 [facility] Comment on above: Performed By: #### C DP, BMP, VNCT #### [address] [place] [address] Street [employer] Serv[employer] Helper: Walt Haro MD Lymphocytes/100 WBC (Bld) 26 % Normal 24-43 [facility] Comment on above: Performed By: #### C DP, BMP, VNCT #### [address] [place] [id number] Street [employer] Servicer Helper: Walt Haro MD MCH (RBC) [Entitic mass] 32.1 pg Normal 25.2-33.5 [facility] Comment on above: Performed By: #### C DP, BMP, VNCT #### [address] [place], [facility] Street [employer] Helper: Walt Haro MD MCHC (RBC) [Mass/Vol] 33.5 g/dL Normal 28.4-34.8 [facility] Comment on above: Performed By: #### C DP, BMP, VNCT #### [address] [place] [address] Street [employer] Serv[employer] Helper: Walt Haro MD MCV (RBC) [Entitic vol] 95.6 fL Normal 82.6-102.9 [facility] Comment on above: Performed By: #### C DP, BMP, VNCT #### [address] [place], [place] [id number] Street [employer] Serv[employer] Helper: Walt Haro MD Monocytes/100 WBC (Bld) 13 % High 3-12 [facility] Comment on above: Performed By: #### C DP, BMP, VNCT #### [address] [place], [facility] Street [employer] Helper: Walt Haro MD Platelet mean volume (Bld) [Entitic vol] 9.2 fL Normal 8.1-13.5 [facility] Comment on above: Performed By: #### C DP, BMP, VNCT #### [address] [place] [address] Street [employer] Helper: Walt Haro MD Platelets (Bld) [#/Vol] 410 10*3/uL Normal 138-453 [facility] Comment on above: Performed By: #### C DP, BMP, VNCT #### [address] [place], [place] [id number] Street [employer] Helper: Walt Haro MD RBC (Bld) [#/Vol] 3.43 10*6/uL Low 4.21-5.77 [facility] Comment on above: Performed By: #### C DP, BMP, VNCT #### [address] [place], [place] [id number] Street [employer] Helper: Walt Haro MD WBC (Bld) [#/Vol] 8.5 10*3/uL Normal 3.5-11.3 [facility] Comment on above: Performed By: #### C DP, BMP, VNCT #### [address] [place], [place] [id number] Street [employer] Serv[employer] Helper: Walt Haro MD Vancomycin Level, Troughon 1 12-05-2021 Vancomycin Tr 12.6 ug/mL 10.0 - 20.0 ug/mL [facility] Comment on above: Higher trough serum vancomycin concentrations of 15-20 ug/mL are recommended for complicated infections such as bacteremia, endocarditis, osteomyelitis, meningitis, and hospital acquired pneumonia. [facility] Vancomycin Troughon 10-04-20 Vancomycin Trough 12.6 ug/mL Normal 10.0-20.0 [facility] Comment on above: Result Comment: High er trough serum vancomycin concentrations of 15-20 ug/mL are recommended for complicated infections such as bacteremia, endocarditis, osteomyelitis, meningitis, and hospital acquired pneumonia. Performed By: #### C DP, BMP, VNCT #### [facility] [address] [place] [address] Street [employer] Serv[employer] Helper: Walt Haro MD CREATININE SERUMon Creatinine [Mass/Vol] 0.66 mg/dL Low 0.70-1.30 [facility] Comment on above: Performed By: #### X M #### [facility] (DEFAULT) [address] [address] eGFR, CKD-EPI, Male > Normal >=60 [facility] Comment on above: Result Comment: Repo rted eGFR is based on the CKD-EPI 2020 equation using creatinine, age, and sex. Performed By: #### X M #### [facility] (DEFAULT) [address] [address] CBC AND ELECTRONIC DIFFon Basophils (Bld) [#/Vol] 0.07 10*3/uL Normal 0.00-0.09 [facility] Comment on above: Performed By: #### S CRSB #### [facility] (DEFAULT) [address] [address] Basophils/100 WBC (Bld) 0.8 % Normal [facility] Comment on above: Performed By: #### S CRSB #### [facility] (DEFAULT) [address] [address] DIFF STATUS Electronic Differential Normal [facility] Comment on above: Performed By: #### S CRSB #### [facility] (DEFAULT) [address] [address] Eosinophils (Bld) [#/Vol] 1.50 10*3/uL High 0.00-0.48 [facility] Comment on above: Performed By: #### S CRSB #### [facility] (DEFAULT) [address] [address] Eosinophils/100 WBC (Bld) 17.1 % Normal [facility] Comment on above: Performed By: #### S CRSB #### [facility] (DEFAULT) [address] [address] Hematocrit (Bld) [Volume fraction] 31.5 % Low 39.6-48.8 [facility] Comment on above: Performed By: #### S CRSB #### [facility] (DEFAULT) [address] [address] Hemoglobin (Bld) [Mass/Vol] 10.9 g/dL Low 13.4-16.8 [facility] Comment on above: Performed By: #### S CRSB #### [facility] (DEFAULT) [address] [address] Immature Grans % 0.2 % Normal [facility] Comment on above: Performed By: #### S CRSB #### [facility] (DEFAULT) [address] [address] Immature Grans Absolute < Normal <=0.07 [facility] Comment on above: Performed By: #### S CRSB #### [facility] (DEFAULT) [address] [address] Lymphocytes (Bld) [#/Vol] 1.89 10*3/uL Normal 0.83-3.57 [facility] Comment on above: Performed By: #### S CRSB #### [facility] (DEFAULT) [address] [address] Lymphocytes/100 WBC (Bld) 21.6 % Normal [facility] Comment on above: Performed By: #### S CRSB #### [facility] (DEFAULT) [address] [address] MCV (RBC) [Entitic vol] 93.2 fL Normal 79.0-94.5 [facility] Comment on above: Performed By: #### S CRSB #### [facility] (DEFAULT) [address] [address] Mean Cell Hgb 32.2 pg Normal 26.1-33.3 [facility] Comment on above: Performed By: #### S CRSB #### [facility] (DEFAULT) [address] [address] Mean Cell Hgb Conc 34.6 g/dL Normal 31.9-36.5 [facility] Comment on above: Performed By: #### S CRSB #### [facility] (DEFAULT) [address] [address] Monocytes (Bld) [#/Vol] 1.19 10*3/uL High 0.24-0.93 [facility] Comment on above: Performed By: #### S CRSB #### [facility] (DEFAULT) [address] [address] Monocytes/100 WBC (Bld) 13.6 % Normal [facility] Comment on above: Performed By: #### S CRSB #### [facility] (DEFAULT) [address] [address] Nucleated RBC 0.0 /100 WBC Normal <=0.[address] [facility] Comment on above: Performed By: #### S CRSB #### [facility] (DEFAULT) [address] [address] Platelet mean volume (Bld) [Entitic vol] 9.1 fL Normal 8.7-12.3 [facility] Comment on above: Performed By: #### S CRSB #### [facility] (DEFAULT) [address] [place] [address] Platelets (Bld) [#/Vol] 330 10*3/uL Normal 146-337 [facility] Comment on above: Performed By: #### S CRSB #### [facility] (DEFAULT) [address] [place] [address] RBC (Bld) [#/Vol] 3.38 10*6/uL Low 4.38-5.83 [facility] Comment on above: Performed By: #### S CRSB #### [facility] (DEFAULT) [address] [place] [address] RBC Distribution 11.9 % Normal 10.9-14.3 [facility] Comment on above: Performed By: #### S CRSB #### [facility] (DEFAULT) [address] [place] [address] Segs + Bands Auto 46.7 % Normal [facility] Comment on above: Performed By: #### S CRSB #### [facility] (DEFAULT) [address] [place] [address] Segs + Bands,Absolute Auto 4.08 K/uL Normal 1.57-6.19 [facility] Comment on above: Performed By: #### S CRSB #### [facility] (DEFAULT) [address] [place] [address] WBC (Bld) [#/Vol] 8.75 10*3/uL Normal 3.73-10.10 [facility] Comment on above: Performed By: #### S CRSB #### [facility] (DEFAULT) [address] [address] CHEM 6 (LYTES, BUN CREA)on 1 12-01-2021 Anion gap [Moles/Vol] 14 mmol/L Normal 7-17 [facility] Comment on above: Performed By: #### S CRSB #### [facility] (DEFAULT) [address] [place] [address] Chloride [Moles/Vol] 98 mmol/L Normal 98-108 [facility] Comment on above: Performed By: #### S CRSB #### [facility] (DEFAULT) [address] [place] [address] CO2 [Moles/Vol] 29 mmol/L Normal 21-[address] [facility] Comment on above: Performed By: #### S CRSB #### [facility] (DEFAULT) [address] [place] [address] Creatinine [Mass/Vol] 0.74 mg/dL Normal 0.70-1.30 [facility] Comment on above: Performed By: #### S CRSB #### [facility] (DEFAULT) [address] [place] [address] eGFR, CKD-EPI, Male > Normal >=60 [facility] Comment on above: Result Comment: Repo rted eGFR is based on the CKD-EPI 2020 equation using creatinine, age, and sex. Performed By: #### S CRSB #### [facility] (DEFAULT) [address] [place] [address] Potassium [Moles/Vol] 4.3 mmol/L Normal 3.5-5.0 [facility] Comment on above: Performed By: #### S CRSB #### [facility] (DEFAULT) [address] [place] [address] Sodium [Moles/Vol] 137 mmol/L Normal 135-145 [facility] Comment on above: Performed By: #### S CRSB #### [facility] (DEFAULT) [address] [place] [address] Urea nitrogen [Mass/Vol] 13 mg/dL Normal 7-25 [facility] Comment on above: Performed By: #### S CRSB #### [facility] (DEFAULT) [address] [place] [address] Urea nitrogen/Creatinine [Mass ratio] 18 mg/mg Normal [facility] Comment on above: Performed By: #### S CRSB #### [facility] (DEFAULT) [address] [place] [address] CREATININE SERUMon 2 Creatinine [Mass/Vol] 0.76 mg/dL Normal 0.70-1.30 [facility] Comment on above: Performed By: #### L [id number] #### [facility] (DEFAULT) [address] [address] eGFR, CKD-EPI, Male > Normal >=60 [facility] Comment on above: Result Comment: Repo rted eGFR is based on the CKD-EPI 2020 equation using creatinine, age, and sex. Performed By: #### L [id number] #### [facility] (DEFAULT) [address] [place] [address] CREATININE SERUMon 2 Creatinine [Mass/Vol] 0.69 mg/dL Low 0.70-1.30 [facility] Comment on above: Performed By: #### X M #### [facility] (DEFAULT) [address] [address] eGFR, CKD-EPI, Male > Normal >=60 [facility] Comment on above: Result Comment: Repo rted eGFR is based on the CKD-EPI 2020 equation using creatinine, age, and sex. Performed By: #### X M #### [facility] (DEFAULT) [address] [address] PLATELET COUNTon 09-29-2022 Platelet mean volume (Bld) [Entitic vol] 9.6 fL Normal 8.7-12.3 [facility] Comment on above: Performed By: #### S CRSB #### [facility] (DEFAULT) [address] [address] Platelets (Bld) [#/Vol] 369 10*3/uL High 146-337 [facility] Comment on above: Performed By: #### S CRSB #### [facility] (DEFAULT) [address] [place] [address] ACID FAST CULTUREon 09-28-20 22 Bacteria identified Cx Nom (Unsp spec) NO GROWTH DAY 42 OF 42 Normal [facility] Comment on above: Performed By: #### L [id number] #### [facility] (DEFAULT) [address] [place] [address] Fluorochrome Stain No acid Fast Bacillus Seen Normal [facility] Comment on above: Performed By: #### L [id number] #### [facility] (DEFAULT) [address] [place] [address] ANAEROBE CULTUREon 2 Bacteria identified Cx Nom (Unsp spec) No anaerobic growth Normal [facility] Comment on above: Order Comment: Colle ct fluids or tissues in a sterile container. If collecting swabs, must be collected in a Port-A-Cul tube. Performed By: #### DEEPA LEVINE, HFP #### [facility] (DEFAULT) [address] [place] [address] BACTERIAL CULTURE AND DIRECT SMEAR, LESION, TISSUE, DEVICEon 09-28-2022 Bacteria identified Cx Nom (Unsp spec) NO GROWTH DAY 2 OF 2 Normal [facility] Comment on above: Performed By: #### DEEPA LEVINE, HFP #### [facility] (DEFAULT) [address] [place] [address] Microscopic observation Gram stain Nom (Unsp spec) Normal [facility] Comment on above: Result Comment: Neut rophils, Rare Red Blood Cells Present No organisms seen Performed By: #### DEEPA LEVINE, HFP #### [facility] (DEFAULT) [address] [place] [address] BASIC METABOLIC PANELon Anion gap [Moles/Vol] 13 mmol/L Normal 7-17 [facility] Comment on above: Performed By: #### T YPEC #### [facility] (DEFAULT) [address] [place] [address] Calcium [Mass/Vol] 9.7 mg/dL Normal 8.6-10.5 [facility] Comment on above: Performed By: #### T YPEC #### [facility] (DEFAULT) [address] [address] Chloride [Moles/Vol] 97 mmol/L Low 98-108 [facility] Comment on above: Performed By: #### T YPEC #### [facility] (DEFAULT) [address] [place] [address] CO2 [Moles/Vol] 31 mmol/L Normal 21-[address] [facility] Comment on above: Performed By: #### T YPEC #### [facility] (DEFAULT) [address] [address] Creatinine [Mass/Vol] 0.87 mg/dL Normal 0.70-1.30 [facility] Comment on above: Performed By: #### T YPEC #### [facility] (DEFAULT) [address] [place] [address] eGFR, CKD-EPI, Male > Normal >=60 [facility] Comment on above: Result Comment: Repo rted eGFR is based on the CKD-EPI 2020 equation using creatinine, age, and sex. Performed By: #### T YPEC #### [facility] (DEFAULT) [address] [place] [address] Glucose [Mass/Vol] 111 mg/dL High 70-99 [facility] Comment on above: Performed By: #### T YPEC #### [facility] (DEFAULT) [address] [place] [address] Osmolality [Osmolality] 288 mosm/kg Normal 278-305 [facility] Comment on above: Performed By: #### T YPEC #### [facility] (DEFAULT) [address] [address] Potassium [Moles/Vol] 4.5 mmol/L Normal 3.5-5.0 [facility] Comment on above: Performed By: #### T YPEC #### [facility] (DEFAULT) [address] [place] [address] Sodium [Moles/Vol] 136 mmol/L Normal 135-145 [facility] Comment on above: Performed By: #### T YPEC #### [facility] (DEFAULT) [address] [place] [address] Urea nitrogen [Mass/Vol] 16 mg/dL Normal 7-25 [facility] Comment on above: Performed By: #### T YPEC #### [facility] (DEFAULT) [address] [place] [address] Urea nitrogen/Creatinine [Mass ratio] 18 mg/mg Normal [facility] Comment on above: Performed By: #### T YPEC #### [facility] (DEFAULT) [address] [address] CBC,PLATELETSon 09-28-2022 Hematocrit (Bld) [Volume fraction] 33.3 % Low 39.6-48.8 [facility] Comment on above: Performed By: #### T YPEC #### [facility] (DEFAULT) [address] [address] Hemoglobin (Bld) [Mass/Vol] 11.1 g/dL Low 13.4-16.8 [facility] Comment on above: Performed By: #### T YPEC #### [facility] (DEFAULT) [address] [address] MCV (RBC) [Entitic vol] 94.6 fL High 79.0-94.5 [facility] Comment on above: Performed By: #### T YPEC #### [facility] (DEFAULT) [address] [address] Mean Cell Hgb 31.5 pg Normal 26.1-33.3 [facility] Comment on above: Performed By: #### T YPEC #### [facility] (DEFAULT) [address] [place] [address] Mean Cell Hgb Conc 33.3 g/dL Normal 31.9-36.5 [facility] Comment on above: Performed By: #### T YPEC #### [facility] (DEFAULT) [address] [address] Platelet mean volume (Bld) [Entitic vol] 9.2 fL Normal 8.7-12.3 [facility] Comment on above: Performed By: #### T YPEC #### [facility] (DEFAULT) [address] [address] Platelets (Bld) [#/Vol] 288 10*3/uL Normal 146-337 [facility] Comment on above: Performed By: #### T YPEC #### [facility] (DEFAULT) [address] [address] RBC (Bld) [#/Vol] 3.52 10*6/uL Low 4.38-5.83 [facility] Comment on above: Performed By: #### T YPEC #### [facility] (DEFAULT) [address] [address] RBC Distribution 11.9 % Normal 10.9-14.3 [facility] Comment on above: Performed By: #### T YPEC #### [facility] (DEFAULT) [address] [address] WBC (Bld) [#/Vol] 6.65 10*3/uL Normal 3.73-10.10 [facility] Comment on above: Performed By: #### T YPEC #### [facility] (DEFAULT) [address] [address] FUNGUS CULTUREon 09-28-2022 Bacteria identified Cx Nom (Unsp spec) NO GROWTH DAY 28 OF Normal [facility] Comment on above: Performed By: #### M GO, CHM7, HFP #### [facility] (DEFAULT) [address] [address] PROTIME-INRon 09-28-2022 INR Coag (PPP) [Relative time] 1.0 {INR} Normal 0.9-1.1 [facility] Comment on above: Performed By: #### X M #### [facility] (DEFAULT) [address] [address] PT Coag (PPP) [Time] 13.3 s Normal 11.9-14.2 [facility] Comment on above: Performed By: #### X M #### [facility] (DEFAULT) [address] [address] VANCOMYCIN LEVEL, TROUGH ([place] E DRUG LEVEL)on 09-27-2022 Vancomycin, Trough 15.8 mcg/mL Normal Therapeut ic Range: 10.0-20.0 mcg/mL [facility] Comment on above: Order Comment: Pleas e draw level at specified interval PRIOR to next dose. Performed By: #### V ANCTR ####[facility] (DEFAULT)[address] [place] [address] VANCOMYCIN LEVEL, TROUGH ([place] E DRUG LEVEL)on 09-25-2022 Vancomycin, Trough 13.5 mcg/mL Normal Therapeut ic Range: 10.0-20.0 mcg/mL [facility] Comment on above: Order Comment: Anter ior nares:1 -2 cm (less than 1/2 inch) from inside each nostril. This test was performed using a real time PCR assay. Results should be interpreted in conjunction with other clinical and laboratory findings. A positive result does not necessarily indicate the presence of viable organism. This test should not be used as a test of cure. For E-swab specimens, this test was developed and its performance characteristics determined by the Clinical Microbiology Laboratory at [facility]. It has not been cleared or approved by the FDA.The laboratory is regulated under CLIA as qualified to perform high-complexity testing. This test is used for clinical purposes. It should not be regarded as investigational or for research. Performed By: #### S CRSB #### [facility] (DEFAULT) [address] [address] ALBUMINon 09-24-2022 Albumin [Mass/Vol] 3.9 g/dL Normal 3.5-5.0 [facility] Comment on above: Performed By: #### T YPEC #### [facility] (DEFAULT) [address] [place] [address] CBC AND ELECTRONIC DIFFon Basophils (Bld) [#/Vol] 0.06 10*3/uL Normal 0.00-0.09 [facility] Comment on above: Performed By: #### L [id number] ####[facility] (DEFAULT)[address] [place] [address] Basophils/100 WBC (Bld) 0.7 % Normal [facility] Comment on above: Performed By: #### L [id number] ####[facility] (DEFAULT)[address] [place] [address] DIFF STATUS Electronic Differential Normal [facility] Comment on above: Performed By: #### L [id number] ####[facility] (DEFAULT)[address] [place] [address] Eosinophils (Bld) [#/Vol] 0.87 10*3/uL High 0.00-0.48 [facility] Comment on above: Performed By: #### L [id number] ####[facility] (DEFAULT)[address] [place] [address] Eosinophils/100 WBC (Bld) 10.8 % Normal [facility] Comment on above: Performed By: #### L [id number] ####[facility] (DEFAULT)[address] [place] [address] Hematocrit (Bld) [Volume fraction] 37.6 % Low 39.6-48.8 [facility] Comment on above: Performed By: #### L [id number] ####[facility] (DEFAULT)[address] [place] [address]38 Hemoglobin (Bld) [Mass/Vol] 12.5 g/dL Low 13.4-16.8 [facility] Comment on above: Performed By: #### L AB980 ####[facility] (DEFAULT)[address] [place] [address] Immature Grans % 0.2 % Normal [facility] Comment on above: Performed By: #### L [id number] ####[facility] (DEFAULT)[address] [place] [address] Immature Grans Absolute < Normal <=0.07 [facility] Comment on above: Performed By: #### L [id number] ####[facility] (DEFAULT)[address] [place] [address] Lymphocytes (Bld) [#/Vol] 1.99 10*3/uL Normal 0.83-3.57 [facility] Comment on above: Performed By: #### L AB980 ####[facility] (DEFAULT)[address] [place] [address] Lymphocytes/100 WBC (Bld) 24.8 % Normal [facility] Comment on above: Performed By: #### L [id number] ####[facility] (DEFAULT)[address] [place] [address] MCV (RBC) [Entitic vol] 95.4 fL High 79.0-94.5 [facility] Comment on above: Performed By: #### L AB980 ####[facility] (DEFAULT)[address] [place] [address] Mean Cell Hgb 31.7 pg Normal 26.1-33.3 [facility] Comment on above: Performed By: #### L AB980 ####[facility] (DEFAULT)[address] [place] [address] Mean Cell Hgb Conc 33.2 g/dL Normal 31.9-36.5 [facility] Comment on above: Performed By: #### L [id number] ####[facility] (DEFAULT)[address] [place] [address] Monocytes (Bld) [#/Vol] 1.27 10*3/uL High 0.24-0.93 [facility] Comment on above: Performed By: #### L AB980 ####[facility] (DEFAULT)[address] [place] [address] Monocytes/100 WBC (Bld) 15.8 % Normal [facility] Comment on above: Performed By: #### L [id number] ####[facility] (DEFAULT)[address] [place] [address] Nucleated RBC 0.0 /100 WBC Normal <=0.[address] [facility] Comment on above: Performed By: #### L AB980 ####[facility] (DEFAULT)[address] [place] [address] Platelet mean volume (Bld) [Entitic vol] 8.9 fL Normal 8.7-12.3 [facility] Comment on above: Performed By: #### L [id number] ####[facility] (DEFAULT)[address] [place] [address] Platelets (Bld) [#/Vol] 249 10*3/uL Normal 146-337 [facility] Comment on above: Performed By: #### L [id number] ####[facility] (DEFAULT)[address] [place] [address] RBC (Bld) [#/Vol] 3.94 10*6/uL Low 4.38-5.83 [facility] Comment on above: Performed By: #### L AB980 ####[facility] (DEFAULT)[address] [place] [address] RBC Distribution 12.2 % Normal 10.9-14.3 [facility] Comment on above: Performed By: #### L [id number] ####[facility] (DEFAULT)[address] [place] [address] Segs + Bands Auto 47.7 % Normal [facility] Comment on above: Performed By: #### L [id number] ####[facility] (DEFAULT)[address] [place] [address] Segs + Bands,Absolute Auto 3.81 K/uL Normal 1.57-6.19 [facility] Comment on above: Performed By: #### L [id number] ####[facility] (DEFAULT)[address] [place] [address] WBC (Bld) [#/Vol] 8.02 10*3/uL Normal 3.73-10.10 [facility] Comment on above: Performed By: #### L [id number] ####[facility] (DEFAULT)[address] [place] [address]85 CHEM 7 (LYTES,BUN,CREA,GLUC) on 09-24-2022 Anion gap [Moles/Vol] 12 mmol/L Normal 7-17 [facility] Comment on above: Performed By: #### X M #### [facility] (DEFAULT) [address] [place] [address] Chloride [Moles/Vol] 98 mmol/L Normal 98-108 [facility] Comment on above: Performed By: #### X M #### [facility] (DEFAULT) [address] [place] [address]31 CO2 [Moles/Vol] 31 mmol/L Normal 21-[address] [facility] Comment on above: Performed By: #### X M #### [facility] (DEFAULT) [address] [place] [address]659 Creatinine [Mass/Vol] 0.85 mg/dL Normal 0.70-1.30 [facility] Comment on above: Performed By: #### X M #### [facility] (DEFAULT) [address] [place] [address] eGFR, CKD-EPI, Male > Normal >=60 [facility] Comment on above: Result Comment: Repo rted eGFR is based on the CKD-EPI 2020 equation using creatinine, age, and sex. Performed By: #### X M #### [facility] (DEFAULT) [address] [place] [address] Glucose [Mass/Vol] 93 mg/dL Normal 70-99 [facility] Comment on above: Performed By: #### X M #### [facility] (DEFAULT) [address] [place] [address] Osmolality [Osmolality] 288 mosm/kg Normal 278-305 [facility] Comment on above: Performed By: #### X M #### [facility] (DEFAULT) [address] [place] [address]11 Potassium [Moles/Vol] 4.2 mmol/L Normal 3.5-5.0 [facility] Comment on above: Performed By: #### X M #### [facility] (DEFAULT) [address] [place] [address] 19808 Sodium [Moles/Vol] 137 mmol/L Normal 135-145 [facility] Comment on above: Performed By: #### X M #### [facility] (DEFAULT) [address] [place] [address] Urea nitrogen [Mass/Vol] 14 mg/dL Normal 7-25 [facility] Comment on above: Performed By: #### X M #### [facility] (DEFAULT) [address] [place] [address]1241 Urea nitrogen/Creatinine [Mass ratio] 16 mg/mg Normal [facility] Comment on above: Performed By: #### X M #### [facility] (DEFAULT) [address] [place] [address] VANCOMYCIN LEVEL, TROUGH (TX E DRUG LEVEL)on 09-24-2022 Vancomycin, Trough 10.5 mcg/mL Normal Therapeut ic Range: 10.0-20.0 mcg/mL [facility] Comment on above: Order Comment: Pleas e draw level at specified interval PRIOR to next dose. Performed By: #### V ANCTR ####[facility] (DEFAULT)[address] [address] ZINC, SERUMon 09-24-2022 ZINC, SERUM 72 mcg/dL Normal 60-106 [facility] Comment on above: Result Comment: ADDITIONAL INFORMATION This test was developed and its performance characteristics determined by [facility] in a manner consistent with CLIA requirements. This test has not been cleared or approved by the U.S. Food and Drug Administration. Test Performed by: [facility] [address] [place] [address] [address] [employer] Helper: Jan Muñoz M.D. Ph.D.; CLIA# [id number] Performed By: #### L [id number] #### [facility] (DEFAULT) [address] [address] ALBUMINon 09-23-2022 Albumin [Mass/Vol] 4.0 g/dL Normal 3.5-5.0 [facility] Comment on above: Performed By: #### T YPEC #### [facility] (DEFAULT) [address] [address] BLOOD CULTUREon 09-23-2022 Bacteria identified Cx Nom (Unsp spec) NO GROWTH DAY 5 OF 5 Normal [facility] Comment on above: Order Comment: 2 Bot tles (1 Set - consists of 1 Aerobic bottle and 1 Anaerobic bottle) -1st Peripheral DrawFor syringe method draw:If able to obtain adequate sample (20 ml) inoculate anaerobic bottle firstIf inadequate sample obtained (less than 20 ml) inoculate aerobic bottle firstFor vacutainer method draw: Fill aerobic bottle first, then anaerobicResults may be compromised due to volume of BACT\ALERT bottle exceeding 10mLs . The optimal blood volume is 8-10 mls per aerobic/anaerobic blood culture bottle. Performed By: #### M GO, CHM7, HFP #### [facility] (DEFAULT) [address] [address] Bacteria identified Cx Nom (Unsp spec) NO GROWTH DAY 5 OF 5 Normal [facility] Comment on above: Order Comment: 2 Bot tles (1 Set - consists of 1 Aerobic bottle and 1 Anaerobic bottle) -1st Peripheral DrawFor syringe method draw:If able to obtain adequate sample (20 ml) inoculate anaerobic bottle firstIf inadequate sample obtained (less than 20 ml) inoculate aerobic bottle firstFor vacutainer method draw: Fill aerobic bottle first, then anaerobic Performed By: #### M GO, CHM7, HFP #### [facility] (DEFAULT) [address] [address] CBC AND ELECTRONIC DIFFon Basophils (Bld) [#/Vol] 0.06 10*3/uL Normal 0.00-0.09 [facility] Comment on above: Performed By: #### S CRSB #### [facility] (DEFAULT) [address] [address] Basophils/100 WBC (Bld) 0.8 % Normal [facility] Comment on above: Performed By: #### S CRSB #### [facility] (DEFAULT) [address] [address] DIFF STATUS Electronic Differential Normal [facility] Comment on above: Performed By: #### S CRSB #### [facility] (DEFAULT) [address] [address] Eosinophils (Bld) [#/Vol] 0.38 10*3/uL Normal 0.00-0.48 [facility] Comment on above: Performed By: #### S CRSB #### [facility] (DEFAULT) [address] [address] Eosinophils/100 WBC (Bld) 5.1 % Normal [facility] Comment on above: Performed By: #### S CRSB #### [facility] (DEFAULT) [address] [address] Hematocrit (Bld) [Volume fraction] 36.8 % Low 39.6-48.8 [facility] Comment on above: Performed By: #### S CRSB #### [facility] (DEFAULT) [address] [address] Hemoglobin (Bld) [Mass/Vol] 12.4 g/dL Low 13.4-16.8 [facility] Comment on above: Performed By: #### S CRSB #### [facility] (DEFAULT) [address] [address] Immature Grans % 0.3 % Normal [facility] Comment on above: Performed By: #### S CRSB #### [facility] (DEFAULT) [address] [address] Immature Grans Absolute < Normal <=0.07 [facility] Comment on above: Performed By: #### S CRSB #### [facility] (DEFAULT) [address] [address] Lymphocytes (Bld) [#/Vol] 1.70 10*3/uL Normal 0.83-3.57 [facility] Comment on above: Performed By: #### S CRSB #### [facility] (DEFAULT) [address] [address] Lymphocytes/100 WBC (Bld) 22.8 % Normal [facility] Comment on above: Performed By: #### S CRSB #### [facility] (DEFAULT) [address] [address] MCV (RBC) [Entitic vol] 94.1 fL Normal 79.0-94.5 [facility] Comment on above: Performed By: #### S CRSB #### [facility] (DEFAULT) [address] [address] Mean Cell Hgb 31.7 pg Normal 26.1-33.3 [facility] Comment on above: Performed By: #### S CRSB #### [facility] (DEFAULT) [address] [address] Mean Cell Hgb Conc 33.7 g/dL Normal 31.9-36.5 [facility] Comment on above: Performed By: #### S CRSB #### [facility] (DEFAULT) [address] [address] Monocytes (Bld) [#/Vol] 1.07 10*3/uL High 0.24-0.93 [facility] Comment on above: Performed By: #### S CRSB #### [facility] (DEFAULT) [address] [address] Monocytes/100 WBC (Bld) 14.3 % Normal [facility] Comment on above: Performed By: #### S CRSB #### [facility] (DEFAULT) [address] [address] Nucleated RBC 0.0 /100 WBC Normal <=0.[address] [facility] Comment on above: Performed By: #### S CRSB #### [facility] (DEFAULT) [address] [address] Platelet mean volume (Bld) [Entitic vol] 9.1 fL Normal 8.7-12.3 [facility] Comment on above: Performed By: #### S CRSB #### [facility] (DEFAULT) [address] [address] Platelets (Bld) [#/Vol] 277 10*3/uL Normal 146-337 [facility] Comment on above: Performed By: #### S CRSB #### [facility] (DEFAULT) [address] [address] RBC (Bld) [#/Vol] 3.91 10*6/uL Low 4.38-5.83 [facility] Comment on above: Performed By: #### S CRSB #### [facility] (DEFAULT) [address] [address] RBC Distribution 12.2 % Normal 10.9-14.3 [facility] Comment on above: Performed By: #### S CRSB #### [facility] (DEFAULT) [address] [address] Segs + Bands Auto 56.7 % Normal [facility] Comment on above: Performed By: #### S CRSB #### [facility] (DEFAULT) [address] [place] [address] Segs + Bands,Absolute Auto 4.23 K/uL Normal 1.57-6.19 [facility] Comment on above: Performed By: #### S CRSB #### [facility] (DEFAULT) [address] [place] [address] WBC (Bld) [#/Vol] 7.46 10*3/uL Normal 3.73-10.10 [facility] Comment on above: Performed By: #### S CRSB #### [facility] (DEFAULT) [address] [place] [address] CHEM 7 (LYTES,BUN,CREA,GLUC) on 09-23-2022 Anion gap [Moles/Vol] 12 mmol/L Normal 7-17 [facility] Comment on above: Performed By: #### T YPEC #### [facility] (DEFAULT) [address] [place] [address]07 Chloride [Moles/Vol] 100 mmol/L Normal 98-108 [facility] Comment on above: Performed By: #### T YPEC #### [facility] (DEFAULT) [address] [place] [address]861 CO2 [Moles/Vol] 31 mmol/L Normal 21-[address] [facility] Comment on above: Performed By: #### T YPEC #### [facility] (DEFAULT) [address] [place] [address] Creatinine [Mass/Vol] 0.81 mg/dL Normal 0.70-1.30 [facility] Comment on above: Performed By: #### T YPEC #### [facility] (DEFAULT) [address] [place] [address] eGFR, CKD-EPI, Male > Normal >=60 [facility] Comment on above: Result Comment: Repo rted eGFR is based on the CKD-EPI 2020 equation using creatinine, age, and sex. Performed By: #### T YPEC #### [facility] (DEFAULT) [address] [address] Glucose [Mass/Vol] 114 mg/dL High 70-99 [facility] Comment on above: Performed By: #### T YPEC #### [facility] (DEFAULT) [address] [address] Osmolality [Osmolality] 290 mosm/kg Normal 278-305 [facility] Comment on above: Performed By: #### T YPEC #### [facility] (DEFAULT) [address] [address] Potassium [Moles/Vol] 4.0 mmol/L Normal 3.5-5.0 [facility] Comment on above: Performed By: #### T YPEC #### [facility] (DEFAULT) [address] [address] Sodium [Moles/Vol] 139 mmol/L Normal 135-145 [facility] Comment on above: Performed By: #### T YPEC #### [facility] (DEFAULT) [address] [address] Urea nitrogen [Mass/Vol] 8 mg/dL Normal 7-25 [facility] Comment on above: Performed By: #### T YPEC #### [facility] (DEFAULT) [address] [address] Urea nitrogen/Creatinine [Mass ratio] 10 mg/mg Normal [facility] Comment on above: Performed By: #### T YPEC #### [facility] (DEFAULT) [address] [address] NICOTINE AND METABOLITES,SER UMon 09-23-2022 COTININE 72 ng/mL High <3.0 [facility] Comment on above: Result Comment: ADDITIONAL INFORMATION This test was developed and its performance characteristics determined by [facility] in a manner consistent with CLIA requirements. This test has not been cleared or approved by the U.S. Food and Drug Administration. Test Performed by: [facility] [address] [place] [address] [address] [employer] Helper: Jan Muñoz M.D. Ph.D.; CLIA# [id number] Performed By: #### S CRSB #### [facility] (DEFAULT) [address] [address] NICOTINE <3.0 Normal <3.0 [facility] Comment on above: Performed By: #### S CRSB #### [facility] (DEFAULT) [address] [address] PREALBUMINon 09-23-2022 Prealbumin [Mass/Vol] 23 mg/dL Normal 17-34 [facility] Comment on above: Performed By: #### X M #### [facility] (DEFAULT) [address] [address] VITAMIN D (25-HYDROXY,TOTAL) on 09-23-2022 25-OH Vitamin D Total 37.8 ng/mL Normal 30.0-100.0 [facility] Comment on above: Order Comment: Vitam in D values have been shown to be falsely decreased in lipemic samples and should be interpreted with caution. Result Comment: <10 Deficiency 10-29 Insufficiency 30-100 Optimal Level >100 Possible Toxicity Performed By: #### X M #### [facility] (DEFAULT) [address] [address] ACID FAST CULTUREon 09-22-20 22 Bacteria identified Cx Nom (Unsp spec) NO GROWTH DAY 42 OF 42 Normal [facility] Comment on above: Performed By: #### M GO, CHM7, HFP #### [facility] (DEFAULT) [address] [address] Fluorochrome Stain No acid Fast Bacillus Seen Normal [facility] Comment on above: Performed By: #### M XENIA MARTINEZ7, HFP #### [facility] (DEFAULT) [address] [place] [address] Bacteria identified Cx Nom (Unsp spec) NO GROWTH DAY 42 OF 42 Normal [facility] Comment on above: Performed By: #### M LAVELL MARTINEZM7, HFP #### [facility] (DEFAULT) [address] [place] [address] Fluorochrome Stain No acid Fast Bacillus Seen Normal [facility] Comment on above: Performed By: #### XENIA LEVINE7, HFP #### [facility] (DEFAULT) [address] [place] [address] ACID FAST CULTURE, TISSUEon 09-22-2022 Bacteria identified Cx Nom (Unsp spec) NO GROWTH DAY 42 OF 42 Normal [facility] Comment on above: Performed By: #### DEEPA LEVINE, HFP #### [facility] (DEFAULT) [address] [place] [address] Fluorochrome Stain No acid Fast Bacillus Seen Normal [facility] Comment on above: Performed By: #### DEEPA LEVINE, HFP #### [facility] (DEFAULT) [address] [place] [address] ANAEROBE CULTUREon Bacteria identified Cx Nom (Unsp spec) Normal [facility] Comment on above: Order Comment: Colle ct fluids or tissues in a sterile container. If collecting swabs, must be collected in a Port-A-Cul tube. Result Comment: Grow th 3176 Light Growth Cutibacterium acnes Per request, Minocycline SUSCEPTIBILITY TESTING PERFORMED BY REFERENCE LAB. SEE SEPARATE REPORT AVAILABLE IN ELECTRONIC MEDICAL RECORD UNDER SUSCEPTIBILITY, AEROBIC BACTERIA sent 10/01/22. Performed By: #### DEEPA LEVINE, HFP #### [facility] (DEFAULT) [address] [place] [address] Bacteria identified Cx Nom (Unsp spec) Normal [facility] Comment on above: Order Comment: Colle ct fluids or tissues in a sterile container. If collecting swabs, must be collected in a Port-A-Cul tube. Result Comment: Grow th [address]176 Light Growth Cutibacterium acnes Performed By: #### DEEPA LEVINE, HFP #### [facility] (DEFAULT) [address] [place] [address] Result Comment: Grow th [address] Methicillin Resistant Staphylococcus epidermidis Refer to specimen [id number] for susceptibilities. Bacteria identified Cx Nom (Unsp spec) No anaerobic growth Normal [facility] Comment on above: Order Comment: Colle ct fluids or tissues in a sterile container. If collecting swabs, must be collected in a Port-A-Cul tube. Performed By: #### DEEPA LEVINE, HFP #### [facility] (DEFAULT) [address] [place] ANTIMICROBIAL SUSCEPTIBILITY , ANAEROBIC BACTERIA, IVY, VARIESon 09-22-2022 SUSCEPTIBILITY, ANAEROBIC, IVY SEE COMMENTS Abnormal [facility] Comment on above: Result Comment: SOUR CE: BACK, SOURCE DEEP WOUND TISSUE BACK ORGANISM CUTIBACTERIUM ACNES SUSCEPTIBILITY, ANAEROBIC, IVY FINAL CUTIBACTERIUM ACNES Organism identified by client. There are no established interpretive guidelines for agents reported without interpretations. Organism CUTIBACTERIUM ACNES Antibiotic IVY (mcg/mL) Interpretation Minocycline <=4 S=SUSCEPTIBLE I=INTERMEDIATE R=RESISTANT NS=NONSUSCEPTIBLE SDD=SUSCEPTIBLE DOSE DEPENDENT Test Performed by: [address] [address] [address] [employer] Helper: Jan Muñoz M.D. Ph.D.; CLIA# [id number] Performed By: #### DEEPA LEVINE, HFP #### [facility] (DEFAULT) [address] [place] [address] BACTERIAL CULTURE AND DIRECT SMEAR, LESION, TISSUE, DEVICEon 09-22-2022 Bacteria identified Cx Nom (Unsp spec) NO GROWTH DAY 2 OF 2 Normal [facility] Comment on above: Performed By: #### DEEPA LEVINE, HFP #### [facility] (DEFAULT) [address] [place] [address] Microscopic observation Gram stain Nom (Unsp spec) Normal [facility] Comment on above: Result Comment: Neut rophils, Rare Mononuclear cells present No organisms seen Performed By: #### DEEPA LEVINE, HFP #### [facility] (DEFAULT) [address] [place] [address] 63891 Clindamycin [Susceptibility] >= Resistant Susceptible <=0.5 ug/mL, Intermediate >.5 ug/mL, Resistant >2 ug/mL [facility] Comment on above: Performed By: #### DEEPA LEVINE, HFP #### [facility] (DEFAULT) [address] [place] [address] 95337 Daptomycin [Susceptibility] 0.5 ug/mL Invalid Interpretation Code Susceptible <=1 ug/mL, Nonsusceptible >1 ug/mL [facility] Comment on above: Performed By: #### DEEPA LEVINE, HFP #### [facility] (DEFAULT) [address] [place] [address] 05732 Microscopic observation Gram stain Nom (Unsp spec) Normal [facility] Comment on above: Result Comment: Neut rophils, None Red Blood Cells Present No organisms seen Performed By: #### DEEPA LEVINE, HFP #### [facility] (DEFAULT) [address] [place] [address] 16741 Oxacillin [Susceptibility] by Minimum inhibitory concentration (IVY) >= Resistant Susceptible <=0 ug/mL, Resistant >0 ug/mL [facility] Comment on above: Performed By: #### DEEPA LEVINE, HFP #### [facility] (DEFAULT) [address] [place] [address] 12236 Tetracycline [Susceptibility] >= Resistant Susceptible <=4 ug/mL, Intermediate >4 ug/mL, Resistant >8 ug/mL [facility] Comment on above: Performed By: #### DEEPA LEVINE, HFP #### [facility] (DEFAULT) [address] [place] [address] 35258 Trimethoprim+Sulfam ethoxazole [Susceptibility] <= Invalid Interpretation Code Susceptible <=40 ug/mL, Resistant >40 ug/mL [facility] Comment on above: Performed By: #### DEEPA LEVINE, HFP #### [facility] (DEFAULT) [address] [place] [address] 74935 Vancomycin [Susceptibility] 2 ug/mL Invalid Interpretation Code Susceptible <=4 ug/mL, Intermediate >4 ug/mL, Resistant >16 ug/mL [facility] Comment on above: Performed By: #### DEEPA LEVINE, HFP #### [facility] (DEFAULT) [address] [place] [address] 82537 Bacteria identified Cx Nom (Unsp spec) Normal [facility] Comment on above: Result Comment: Grow Staphylococcus epidermidis Recovered from anaerobe culture. Susceptibilities not routinely performed. Performed By: #### DEEPA LEVINE, HFP #### [facility] (DEFAULT) [address] [place] [address] 78963 Microscopic observation Gram stain Nom (Unsp spec) Normal [facility] Comment on above: Result Comment: Neut rophils, None Red Blood Cells Present No organisms seen Performed By: #### M GO, CHM7, HFP #### [facility] (DEFAULT) [address] [place] [address] 82934 CBC AND ELECTRONIC DIFFon Basophils (Bld) [#/Vol] 0.07 10*3/uL Normal 0.00-0.09 [facility] Comment on above: Performed By: #### L [id number] ####[facility] (DEFAULT)[address] [place] [address], [place] [address] Basophils/100 WBC (Bld) 0.9 % Normal [facility] Comment on above: Performed By: #### L [id number] ####[facility] (DEFAULT)[address] [place] [address], [place] [address] DIFF STATUS Electronic Differential Normal [facility] Comment on above: Performed By: #### L [id number] ####[facility] (DEFAULT)[address] [place] [address] 20889 Eosinophils (Bld) [#/Vol] 0.99 10*3/uL High 0.00-0.48 [facility] Comment on above: Performed By: #### L [id number] ####[facility] (DEFAULT)[address] [place] [address], [place] [address] Eosinophils/100 WBC (Bld) 13.4 % Normal [facility] Comment on above: Performed By: #### L [id number] ####[facility] (DEFAULT)[address] [place] [address], [place] [address] Hematocrit (Bld) [Volume fraction] 35.0 % Low 39.6-48.8 [facility] Comment on above: Performed By: #### L [id number] ####[facility] (DEFAULT)[address] [place] [address] 62126 Hemoglobin (Bld) [Mass/Vol] 12.0 g/dL Low 13.4-16.8 [facility] Comment on above: Performed By: #### L [id number] ####[facility] (DEFAULT)[address] [place] [address] Immature Grans % 0.3 % Normal [facility] Comment on above: Performed By: #### L [id number] ####[facility] (DEFAULT)[address] [place] [address] Immature Grans Absolute < Normal <=0.07 [facility] Comment on above: Performed By: #### L [id number] ####[facility] (DEFAULT)[address] [facility] [place] [address] Lymphocytes (Bld) [#/Vol] 1.84 10*3/uL Normal 0.83-3.57 [facility] Comment on above: Performed By: #### L [id number] ####[facility] (DEFAULT)[address] [place] [address] Lymphocytes/100 WBC (Bld) 24.8 % Normal [facility] Comment on above: Performed By: #### L [id number] ####[facility] (DEFAULT)[address] [place] [address] MCV (RBC) [Entitic vol] 93.1 fL Normal 79.0-94.5 [facility] Comment on above: Performed By: #### L [id number] ####[facility] (DEFAULT)[address] [place] [address] Mean Cell Hgb 31.9 pg Normal 26.1-33.3 [facility] Comment on above: Performed By: #### L [id number] ####[facility] (DEFAULT)[address] [place] [address] Mean Cell Hgb Conc 34.3 g/dL Normal 31.9-36.5 [facility] Comment on above: Performed By: #### L [id number] ####[facility] (DEFAULT)[address] [place] [address] Monocytes (Bld) [#/Vol] 1.04 10*3/uL High 0.24-0.93 [facility] Comment on above: Performed By: #### L [id number] ####[facility] (DEFAULT)[address] [place] [address] Monocytes/100 WBC (Bld) 14.0 % Normal [facility] Comment on above: Performed By: #### L [id number] ####[facility] (DEFAULT)[address] [place] [address] Nucleated RBC 0.0 /100 WBC Normal <=0.[address] [facility] Comment on above: Performed By: #### L [id number] ####[facility] (DEFAULT)[address] [place] [address] Platelet mean volume (Bld) [Entitic vol] 9.0 fL Normal 8.7-12.3 [facility] Comment on above: Performed By: #### L [id number] ####[facility] (DEFAULT)[address] [place] [address] Platelets (Bld) [#/Vol] 252 10*3/uL Normal 146-337 [facility] Comment on above: Performed By: #### L [id number] ####[facility] (DEFAULT)[address] [place] [address] RBC (Bld) [#/Vol] 3.76 10*6/uL Low 4.38-5.83 [facility] Comment on above: Performed By: #### L [id number] ####[facility] (DEFAULT)[address] [place] [address] RBC Distribution 12.0 % Normal 10.9-14.3 [facility] Comment on above: Performed By: #### L [id number] ####[facility] (DEFAULT)[address] [place] [address] Segs + Bands Auto 46.6 % Normal [facility] Comment on above: Performed By: #### L [id number] ####[facility] (DEFAULT)[address] [place] [address] 99045 Segs + Bands,Absolute Auto 3.45 K/uL Normal 1.57-6.19 [facility] Comment on above: Performed By: #### L [id number] ####[facility] (DEFAULT)[address] [place] [address] 16989 WBC (Bld) [#/Vol] 7.41 10*3/uL Normal 3.73-10.10 [facility] Comment on above: Performed By: #### L [id number] ####[facility] (DEFAULT)[address] [place] [address] 81535 CHEM 7 (LYTES,BUN,CREA,GLUC) on 09-22-2022 Anion gap [Moles/Vol] 13 mmol/L Normal 7-17 [facility] Comment on above: Performed By: #### X M #### [facility] (DEFAULT) [address] [place] [address] 62414 Chloride [Moles/Vol] 100 mmol/L Normal 98-108 [facility] Comment on above: Performed By: #### X M #### [facility] (DEFAULT) [address] [place] [address] 31567 CO2 [Moles/Vol] 29 mmol/L Normal 21-[address] [facility] Comment on above: Performed By: #### X M #### [facility] (DEFAULT) [address] [place] [address] 25754 Creatinine [Mass/Vol] 0.82 mg/dL Normal 0.70-1.30 [facility] Comment on above: Performed By: #### X M #### [facility] (DEFAULT) [address] [place] [address] 53621 eGFR, CKD-EPI, Male > Normal >=60 [facility] Comment on above: Result Comment: Repo rted eGFR is based on the CKD-EPI 2020 equation using creatinine, age, and sex. Performed By: #### X M #### [facility] (DEFAULT) [address] [place] [address] 72736 Glucose [Mass/Vol] 93 mg/dL Normal 70-99 [facility] Comment on above: Performed By: #### X M #### [facility] (DEFAULT) [address] [place] [address] 05548 Osmolality [Osmolality] 288 mosm/kg Normal 278-305 [facility] Comment on above: Performed By: #### X M #### [facility] (DEFAULT) [address] [place] [address] 13553 Potassium [Moles/Vol] 4.0 mmol/L Normal 3.5-5.0 [facility] Comment on above: Performed By: #### X M #### [facility] (DEFAULT) [address] [place] [address] 51062 Sodium [Moles/Vol] 138 mmol/L Normal 135-145 [facility] Comment on above: Performed By: #### X M #### [facility] (DEFAULT) [address] [place] [address] 79683 Urea nitrogen [Mass/Vol] 10 mg/dL Normal 7-25 [facility] Comment on above: Performed By: #### X M #### [facility] (DEFAULT) [address] [place] [address] 26446 Urea nitrogen/Creatinine [Mass ratio] 12 mg/mg Normal [facility] Comment on above: Performed By: #### X M #### [facility] (DEFAULT) [address] [place] [address] 49760 FUNGUS CULTUREon 09-22-2022 Bacteria identified Cx Nom (Unsp spec) NO GROWTH DAY 28 OF 28 Normal [facility] Comment on above: Performed By: #### M JUAN, CHM7, HFP #### [facility] (DEFAULT) [address] [place] [address] 51995 Bacteria identified Cx Nom (Unsp spec) NO GROWTH DAY 28 OF 28 Normal [facility] Comment on above: Performed By: #### M GO, CHM7, HFP #### [facility] (DEFAULT) [address] [address] Bacteria identified Cx Nom (Unsp spec) NO GROWTH DAY 28 OF 28 Normal [facility] Comment on above: Performed By: #### L [id number] #### [facility] (DEFAULT) [address] [address] CBC AND ELECTRONIC DIFFon Basophils (Bld) [#/Vol] 0.06 10*3/uL Normal 0.00-0.09 [facility] Comment on above: Performed By: #### T YPEC #### [facility] (DEFAULT) [address] [address] Basophils/100 WBC (Bld) 0.9 % Normal [facility] Comment on above: Performed By: #### T YPEC #### [facility] (DEFAULT) [address] [address] DIFF STATUS Electronic Differential Normal [facility] Comment on above: Performed By: #### T YPEC #### [facility] (DEFAULT) [address] [address] Eosinophils (Bld) [#/Vol] 0.94 10*3/uL High 0.00-0.48 [facility] Comment on above: Performed By: #### T YPEC #### [facility] (DEFAULT) [address] [address] Eosinophils/100 WBC (Bld) 13.6 % Normal [facility] Comment on above: Performed By: #### T YPEC #### [facility] (DEFAULT) [address] [address] Hematocrit (Bld) [Volume fraction] 33.1 % Low 39.6-48.8 [facility] Comment on above: Performed By: #### T YPEC #### [facility] (DEFAULT) [address] [address] Hemoglobin (Bld) [Mass/Vol] 11.3 g/dL Low 13.4-16.8 [facility] Comment on above: Performed By: #### T YPEC #### [facility] (DEFAULT) [address] [address] Immature Grans % 0.1 % Normal [facility] Comment on above: Performed By: #### T YPEC #### [facility] (DEFAULT) [address] [address] Immature Grans Absolute < Normal <=0.07 [facility] Comment on above: Performed By: #### T YPEC #### [facility] (DEFAULT) [address] [address] Lymphocytes (Bld) [#/Vol] 1.74 10*3/uL Normal 0.83-3.57 [facility] Comment on above: Performed By: #### T YPEC #### [facility] (DEFAULT) [address] [address] Lymphocytes/100 WBC (Bld) 25.3 % Normal [facility] Comment on above: Performed By: #### T YPEC #### [facility] (DEFAULT) [address] [address] MCV (RBC) [Entitic vol] 93.8 fL Normal 79.0-94.5 [facility] Comment on above: Performed By: #### T YPEC #### [facility] (DEFAULT) [address] [address] Mean Cell Hgb 32.0 pg Normal 26.1-33.3 [facility] Comment on above: Performed By: #### T YPEC #### [facility] (DEFAULT) [address] [address] Mean Cell Hgb Conc 34.1 g/dL Normal 31.9-36.5 [facility] Comment on above: Performed By: #### T YPEC #### [facility] (DEFAULT) [address] [place] [address] 60507 Monocytes (Bld) [#/Vol] 0.88 10*3/uL Normal 0.24-0.93 [facility] Comment on above: Performed By: #### T YPEC #### [facility] (DEFAULT) [address] [place] [address] 65935 Monocytes/100 WBC (Bld) 12.8 % Normal [facility] Comment on above: Performed By: #### T YPEC #### [facility] (DEFAULT) [address] [place] [address] 89312 Nucleated RBC 0.0 /100 WBC Normal <=0.[address] [facility] Comment on above: Performed By: #### T YPEC #### [facility] (DEFAULT) [address] [place] [address] 14904 Platelet mean volume (Bld) [Entitic vol] 8.9 fL Normal 8.7-12.3 [facility] Comment on above: Performed By: #### T YPEC #### [facility] (DEFAULT) [address] [place] [address] 61344 Platelets (Bld) [#/Vol] 256 10*3/uL Normal 146-337 [facility] Comment on above: Performed By: #### T YPEC #### [facility] (DEFAULT) [address] [place] [address] 18131 RBC (Bld) [#/Vol] 3.53 10*6/uL Low 4.38-5.83 [facility] Comment on above: Performed By: #### T YPEC #### [facility] (DEFAULT) [address] [place] [address] 00127 RBC Distribution 12.3 % Normal 10.9-14.3 [facility] Comment on above: Performed By: #### T YPEC #### [facility] (DEFAULT) [address] [place] [address] 97114 Segs + Bands Auto 47.3 % Normal [facility] Comment on above: Performed By: #### T YPEC #### [facility] (DEFAULT) [address] [place] [address] 50258 Segs + Bands,Absolute Auto 3.26 K/uL Normal 1.57-6.19 [facility] Comment on above: Performed By: #### T YPEC #### [facility] (DEFAULT) [address] [place] [address] 26085 WBC (Bld) [#/Vol] 6.89 10*3/uL Normal 3.73-10.10 [facility] Comment on above: Performed By: #### T YPEC #### [facility] (DEFAULT) [address] [place] [address] 57943 CHEM 7 (LYTES,BUN,CREA,GLUC) on 09-21-2022 Anion gap [Moles/Vol] 12 mmol/L Normal 7-17 [facility] Comment on above: Performed By: #### X M #### [facility] (DEFAULT) [address] [place] [address] 84541 Chloride [Moles/Vol] 100 mmol/L Normal 98-108 [facility] Comment on above: Performed By: #### X M #### [facility] (DEFAULT) [address] [place] [address] 11548 CO2 [Moles/Vol] 30 mmol/L Normal 21-[address] [facility] Comment on above: Performed By: #### X M #### [facility] (DEFAULT) [address] [place] [address] 38038 Creatinine [Mass/Vol] 0.83 mg/dL Normal 0.70-1.30 [facility] Comment on above: Performed By: #### X M #### [facility] (DEFAULT) [address] [place] [address] 28623 eGFR, CKD-EPI, Male > Normal >=60 [facility] Comment on above: Result Comment: Repo rted eGFR is based on the CKD-EPI 2020 equation using creatinine, age, and sex. Performed By: #### X M #### [facility] (DEFAULT) [address] [place] [address] 64242 Glucose [Mass/Vol] 112 mg/dL High 70-99 [facility] Comment on above: Performed By: #### X M #### [facility] (DEFAULT) [address] [place] [address] 12080 Osmolality [Osmolality] 289 mosm/kg Normal 278-305 [facility] Comment on above: Performed By: #### X M #### [facility] (DEFAULT) [address] [place] [address] 96080 Potassium [Moles/Vol] 3.7 mmol/L Normal 3.5-5.0 [facility] Comment on above: Performed By: #### X M #### [facility] (DEFAULT) [address] [place] [address] 89759 Sodium [Moles/Vol] 138 mmol/L Normal 135-145 [facility] Comment on above: Performed By: #### X M #### [facility] (DEFAULT) [address] [place] [address] 48290 Urea nitrogen [Mass/Vol] 11 mg/dL Normal 7-25 [facility] Comment on above: Performed By: #### X M #### [facility] (DEFAULT) [address] [place] [address] 55954 Urea nitrogen/Creatinine [Mass ratio] 13 mg/mg Normal [facility] Comment on above: Performed By: #### X M #### [facility] (DEFAULT) [address] [place] [address] 93145 PT,INR,PTTon 09-21-2022 aPTT Coag (Bld) [Time] 29.0 s Normal 24.0-34.3 [facility] Comment on above: Performed By: #### T YPEC #### [facility] (DEFAULT) [address] [place] [address] 07161 INR Coag (PPP) [Relative time] 1.0 {INR} Normal 0.9-1.1 [facility] Comment on above: Performed By: #### T YPEC #### [facility] (DEFAULT) [address] [address] PT Coag (PPP) [Time] 13.0 s Normal 11.9-14.2 [facility] Comment on above: Performed By: #### T YPEC #### [facility] (DEFAULT) [address] [address] SCREEN: MRSA/MSSAon 09-21-20 22 Methicillin Resistant S. Aureus By Pcr Negative Normal Negative [facility] Comment on above: Order Comment: Anter ior nares:1 -2 cm (less than 1/2 inch) from inside each nostril.This test was performed using a real time PCR assay. Results should be interpreted in conjunction with other clinical and laboratory findings. A positive result does not necessarily indicate the presence of viable organism. This test should not be used as a test of cure. For E-swab specimens, this test was developed and its performance characteristics determined by the [facility] Microbiology Laboratory at [facility]. It has not been cleared or approved by the FDA.The laboratory is regulated under CLIA as qualified to perform high-complexity testing. This test is used for clinical purposes. It should not be regarded as investigational or for research. Performed By: #### M GO, CHM7, HFP #### [facility] (DEFAULT) [address] [address] Staphylococcus Aureus By Pcr Negative Normal Negative [facility] Comment on above: Order Comment: Anter ior nares:1 -2 cm (less than 1/2 inch) from inside each nostril.This test was performed using a real time PCR assay. Results should be interpreted in conjunction with other clinical and laboratory findings. A positive result does not necessarily indicate the presence of viable organism. This test should not be used as a test of cure. For E-swab specimens, this test was developed and its performance characteristics determined by the [facility] at [facility]. It has not been cleared or approved by the FDA.The laboratory is regulated under CLIA as qualified to perform high-complexity testing. This test is used for clinical purposes. It should not be regarded as investigational or for research. Performed By: #### M JUAN, CHM7, [facility] #### [facility] (DEFAULT) [address] [place] [address] 76250 TYPE AND SCREENon 09-21-2022 ABO/RH(D) TYPE Positive Normal [facility] Comment on above: Performed By: #### X M #### [facility] (DEFAULT) [address] [place] [address] CHEM 6 (LYTES, BUN CREA)on 10-26-2021 Anion gap [Moles/Vol] 11 mmol/L Normal 7-17 [facility] Comment on above: Performed By: #### C HM6 #### [facility] (DEFAULT) [address] [place] [address] 7[address]18 Chloride [Moles/Vol] 92 mmol/L Low 98-108 [facility] Comment on above: Performed By: #### C HM6 #### [facility] (DEFAULT) [address] [place] [address] 70833 CO2 [Moles/Vol] 36 mmol/L High 21-[address] [facility] Comment on above: Performed By: #### C HM6 #### [facility] (DEFAULT) [address] [place] [address] 72034 Creatinine [Mass/Vol] 0.74 mg/dL Normal 0.70-1.30 [facility] Comment on above: Performed By: #### C HM6 #### [facility] (DEFAULT) [address] [place] [address] 27333 eGFR, CKD-EPI, Male > Normal >=60 [facility] Comment on above: Result Comment: Repo rted eGFR is based on the CKD-EPI 2020 equation using creatinine, age, and sex. Performed By: #### C HM6 #### [facility] (DEFAULT) [address] [place] [address] 52453 Potassium [Moles/Vol] 4.7 mmol/L Normal 3.5-5.0 [facility] Comment on above: Performed By: #### C HM6 #### [facility] (DEFAULT) [address] [place] [address] 14659 Sodium [Moles/Vol] 134 mmol/L Low 135-145 [facility] Comment on above: Performed By: #### C HM6 #### [facility] (DEFAULT) [address] [place] [address] 91621 Urea nitrogen [Mass/Vol] 18 mg/dL Normal 7-25 [facility] Comment on above: Performed By: #### C HM6 #### [facility] (DEFAULT) [address] [place] [address] Urea nitrogen/Creatinine [Mass ratio] 24 mg/mg Normal [facility] Comment on above: Performed By: #### C HM6 #### [facility] (DEFAULT) [address] [place] [address] 0[address] Anion gap [Moles/Vol] 11 mmol/L 7 - 17 mmol/L [facility] Chloride [Moles/Vol] 92 mmol/L Low 98 - 108 mmol/L [facility] CO2 [Moles/Vol] 36 mmol/L High 21 - 31 mmol/L [facility] Creatinine [Mass/Vol] 0.74 mg/dL 0.70 - 1.30 mg/dL [facility] GFR/1.73 sq M.predicted CKD-EPI (S/P/Bld) [Vol rate/Area] - PINF [facility] Comment on above: Reported eGFR is bas ed on the CKD-EPI 2020 equation using creatinine, age, and sex. Interpretation and review of laboratory results Abnormal [facility] Potassium [Moles/Vol] 4.7 mmol/L 3.5 - 5.0 mmol/L [facility] Sodium [Moles/Vol] 134 mmol/L Low 135 - 145 mmol/L [facility] Urea nitrogen [Mass/Vol] 18 mg/dL 7 - 25 mg/dL [facility] Urea nitrogen/Creatinine [Mass ratio] 24 mg/mg [facility] CBC,PLATELETSon 08-25-2022 Hematocrit (Bld) [Volume fraction] 34.4 % Low 39.6-48.8 [facility] Comment on above: Performed By: #### L [id number] #### [facility] (DEFAULT) [address] [place] [address] Hemoglobin (Bld) [Mass/Vol] 11.9 g/dL Low 13.4-16.8 [facility] Comment on above: Performed By: #### L [id number] #### [facility] (DEFAULT) [address] [address] MCV (RBC) [Entitic vol] 93.2 fL Normal 79.0-94.5 [facility] Comment on above: Performed By: #### L AB980 #### [facility] (DEFAULT) [address] [place] [address] 36936 Mean Cell Hgb 32.2 pg Normal 26.1-33.3 [facility] Comment on above: Performed By: #### L AB980 #### [facility] (DEFAULT) [address] [place] [address] 01298 Mean Cell Hgb Conc 34.6 g/dL Normal 31.9-36.5 [facility] Comment on above: Performed By: #### L [id number] #### [facility] (DEFAULT) [address] [place] [address] 23367 Platelet mean volume (Bld) [Entitic vol] 9.4 fL Normal 8.7-12.3 [facility] Comment on above: Performed By: #### L [id number] #### [facility] (DEFAULT) [address] [place] [address] Platelets (Bld) [#/Vol] 323 10*3/uL Normal 146-337 [facility] Comment on above: Performed By: #### L [id number] #### [facility] (DEFAULT) [address] [place] [address] 67579 RBC (Bld) [#/Vol] 3.69 10*6/uL Low 4.38-5.83 [facility] Comment on above: Performed By: #### L AB980 #### [facility] (DEFAULT) [address] [place] [address] 94700 RBC Distribution 11.6 % Normal 10.9-14.3 [facility] Comment on above: Performed By: #### L [id number] #### [facility] (DEFAULT) [address] [place] [address] 32930 WBC (Bld) [#/Vol] 8.96 10*3/uL Normal 3.73-10.10 [facility] Comment on above: Performed By: #### L [id number] #### [facility] (DEFAULT) [address] [place] [address] 68696 Erythrocyte distribution width (RBC) [Ratio] 11.6 % 10.9 - 14.3 % [facility] Hematocrit (Bld) [Volume fraction] 34.4 % Low 39.6 - 48.8 % [facility] Hemoglobin (Bld) [Mass/Vol] 11.9 g/dL Low 13.4 - 16.8 g/dL [facility] Interpretation and review of laboratory results Abnormal [facility] MCH (RBC) [Entitic mass] 32.2 pg 26.1 - 33.3 pg [facility] MCHC (RBC) [Mass/Vol] 34.6 g/dL 31.9 - 36.5 g/dL [facility] MCV (RBC) [Entitic vol] 93.2 fL 79.0 - 94.5 fL [facility] Platelet mean volume (Bld) [Entitic vol] 9.4 fL 8.7 - 12.3 fL [facility] Platelets (Bld) [#/Vol] 323 10*3/uL 146 - 337 K/uL [facility] RBC (Bld) [#/Vol] 3.69 10*6/uL Low [facility] WBC (Bld) [#/Vol] 8.96 10*3/uL 3.73 - 10.10 K/u L [facility] CHEM 6 (LYTES, BUN CREA)on 10-25-2021 Anion gap [Moles/Vol] 10 mmol/L Normal 7-17 [facility] Comment on above: Performed By: #### T YPEC #### [facility] (DEFAULT) [address] [place] [address] Chloride [Moles/Vol] 90 mmol/L Low 98-108 [facility] Comment on above: Performed By: #### T YPEC #### [facility] (DEFAULT) [address] [address] CO2 [Moles/Vol] 35 mmol/L High 21-[address] [facility] Comment on above: Performed By: #### T YPEC #### [facility] (DEFAULT) [address] [address] Creatinine [Mass/Vol] 0.70 mg/dL Normal 0.70-1.30 [facility] Comment on above: Performed By: #### T YPEC #### [facility] (DEFAULT) [address] [address] eGFR, CKD-EPI, Male > Normal >=60 [facility] Comment on above: Result Comment: Repo rted eGFR is based on the CKD-EPI 2020 equation using creatinine, age, and sex. Performed By: #### T YPEC #### [facility] (DEFAULT) [address] [address] Potassium [Moles/Vol] 3.9 mmol/L Normal 3.5-5.0 [facility] Comment on above: Performed By: #### T YPEC #### [facility] (DEFAULT) [address] [address] Sodium [Moles/Vol] 131 mmol/L Low 135-145 [facility] Comment on above: Performed By: #### T YPEC #### [facility] (DEFAULT) [address] [place] [address] Urea nitrogen [Mass/Vol] 14 mg/dL Normal 7-25 [facility] Comment on above: Performed By: #### T YPEC #### [facility] (DEFAULT) [address] [place] [address] Urea nitrogen/Creatinine [Mass ratio] 20 mg/mg Normal [facility] Comment on above: Performed By: #### T YPEC #### [facility] (DEFAULT) [address] [place] [address] Anion gap [Moles/Vol] 10 mmol/L 7 - 17 mmol/L [facility] Chloride [Moles/Vol] 90 mmol/L Low 98 - 108 mmol/L [facility] CO2 [Moles/Vol] 35 mmol/L High 21 - 31 mmol/L [facility] Creatinine [Mass/Vol] 0.70 mg/dL 0.70 - 1.30 mg/dL [facility] GFR/1.73 sq M.predicted CKD-EPI (S/P/Bld) [Vol rate/Area] - [facility] Comment on above: Reported eGFR is bas ed on the CKD-EPI 2020 equation using creatinine, age, and sex. Interpretation and review of laboratory results Abnormal [facility] Potassium [Moles/Vol] 3.9 mmol/L 3.5 - 5.0 mmol/L [facility] Sodium [Moles/Vol] 131 mmol/L Low 135 - 145 mmol/L [facility] Urea nitrogen [Mass/Vol] 14 mg/dL 7 - 25 mg/dL [facility] Urea nitrogen/Creatinine [Mass ratio] 20 mg/mg [facility] CBC,PLATELETSon 08-23-2022 Hematocrit (Bld) [Volume fraction] 36.1 % Low 39.6-48.8 [facility] Comment on above: Performed By: #### X M #### [facility] (DEFAULT) [address] [place] [address] Hemoglobin (Bld) [Mass/Vol] 12.7 g/dL Low 13.4-16.8 [facility] Comment on above: Performed By: #### X M #### [facility] (DEFAULT) [address] [place] [address] 12593 MCV (RBC) [Entitic vol] 93.3 fL Normal 79.0-94.5 [facility] Comment on above: Performed By: #### X M #### [facility] (DEFAULT) [address] [place] [address] 63678 Mean Cell Hgb 32.8 pg Normal 26.1-33.3 [facility] Comment on above: Performed By: #### X M #### [facility] (DEFAULT) [address] [place] [address] 86837 Mean Cell Hgb Conc 35.2 g/dL Normal 31.9-36.5 [facility] Comment on above: Performed By: #### X M #### [facility] (DEFAULT) [address] [place] [address] 14245 Platelet mean volume (Bld) [Entitic vol] 9.0 fL Normal 8.7-12.3 [facility] Comment on above: Performed By: #### X M #### [facility] (DEFAULT) [address] [place] [address] 89160 Platelets (Bld) [#/Vol] 273 10*3/uL Normal 146-337 [facility] Comment on above: Performed By: #### X M #### [facility] (DEFAULT) [address] [place] [address] 82360 RBC (Bld) [#/Vol] 3.87 10*6/uL Low 4.38-5.83 [facility] Comment on above: Performed By: #### X M #### [facility] (DEFAULT) [address] [place] [address] 37258 RBC Distribution 11.9 % Normal 10.9-14.3 [facility] Comment on above: Performed By: #### X M #### [facility] (DEFAULT) [address] [place] [address] 30358 WBC (Bld) [#/Vol] 13.39 10*3/uL High 3.73-10.10 [facility] Comment on above: Performed By: #### X M #### [facility] (DEFAULT) [address] [place] [address] Erythrocyte distribution width (RBC) [Ratio] 11.9 % 10.9 - 14.3 % [facility] Hematocrit (Bld) [Volume fraction] 36.1 % Low 39.6 - 48.8 % [facility] Hemoglobin (Bld) [Mass/Vol] 12.7 g/dL Low 13.4 - 16.8 g/dL [facility] Interpretation and review of laboratory results Abnormal [facility] MCH (RBC) [Entitic mass] 32.8 pg 26.1 - 33.3 pg [facility] MCHC (RBC) [Mass/Vol] 35.2 g/dL 31.9 - 36.5 g/dL [facility] MCV (RBC) [Entitic vol] 93.3 fL 79.0 - 94.5 fL [facility] Platelet mean volume (Bld) [Entitic vol] 9.0 fL 8.7 - 12.3 fL [facility] Platelets (Bld) [#/Vol] 273 10*3/uL 146 - 337 K/uL [facility] RBC (Bld) [#/Vol] 3.87 10*6/uL Low [facility] WBC (Bld) [#/Vol] 13.39 10*3/uL High 3.73 - 10.10 K/ uL [facility] CBC,PLATELETSon 08-22-2022 Hematocrit (Bld) [Volume fraction] 35.1 % Low 39.6-48.8 [facility] Comment on above: Performed By: #### L [id number] #### [facility] (DEFAULT) [address] [address] Hemoglobin (Bld) [Mass/Vol] 12.4 g/dL Low 13.4-16.8 [facility] Comment on above: Performed By: #### L [id number] #### [facility] (DEFAULT) [address] [address] MCV (RBC) [Entitic vol] 94.1 fL Normal 79.0-94.5 [facility] Comment on above: Performed By: #### L AB980 #### [facility] (DEFAULT) [address] [address] Mean Cell Hgb 33.2 pg Normal 26.1-33.3 [facility] Comment on above: Performed By: #### L AB980 #### [facility] (DEFAULT) [address] [address] Mean Cell Hgb Conc 35.3 g/dL Normal 31.9-36.5 [facility] Comment on above: Performed By: #### L AB980 #### [facility] (DEFAULT) [address] [address] Platelet mean volume (Bld) [Entitic vol] 9.5 fL Normal 8.7-12.3 [facility] Comment on above: Performed By: #### L AB980 #### [facility] (DEFAULT) [address] [address] Platelets (Bld) [#/Vol] 249 10*3/uL Normal 146-337 [facility] Comment on above: Performed By: #### L AB980 #### [facility] (DEFAULT) [address] [address] RBC (Bld) [#/Vol] 3.73 10*6/uL Low 4.38-5.83 [facility] Comment on above: Performed By: #### L AB980 #### [facility] (DEFAULT) [address] [place] [address] RBC Distribution 12.1 % Normal 10.9-14.3 [facility] Comment on above: Performed By: #### L AB980 #### [facility] (DEFAULT) [address] [place] [address] WBC (Bld) [#/Vol] 10.71 10*3/uL High 3.73-10.10 [facility] Comment on above: Performed By: #### L AB980 #### [facility] (DEFAULT) [address] [place] [address] Erythrocyte distribution width (RBC) [Ratio] 12.1 % 10.9 - 14.3 % [facility] Hematocrit (Bld) [Volume fraction] 35.1 % Low 39.6 - 48.8 % [facility] Hemoglobin (Bld) [Mass/Vol] 12.4 g/dL Low 13.4 - 16.8 g/dL [facility] Interpretation and review of laboratory results Abnormal [facility] MCH (RBC) [Entitic mass] 33.2 pg 26.1 - 33.3 pg [facility] MCHC (RBC) [Mass/Vol] 35.3 g/dL 31.9 - 36.5 g/dL [facility] MCV (RBC) [Entitic vol] 94.1 fL 79.0 - 94.5 fL [facility] Platelet mean volume (Bld) [Entitic vol] 9.5 fL 8.7 - 12.3 fL [facility] Platelets (Bld) [#/Vol] 249 10*3/uL 146 - 337 K/uL [facility] RBC (Bld) [#/Vol] 3.73 10*6/uL Low [facility] WBC (Bld) [#/Vol] 10.71 10*3/uL High 3.73 - 10.10 K/ uL [facility] CHEM 6 (LYTES, BUN CREA)on 1 Anion gap [Moles/Vol] 11 mmol/L Normal 7-17 [facility] Comment on above: Performed By: #### C HM6 ####[facility] (DEFAULT)[address] [facility] [place] [address] Chloride [Moles/Vol] 100 mmol/L Normal 98-108 [facility] Comment on above: Performed By: #### C HM6 ####[facility] (DEFAULT)[address] [facility] [place] [address] CO2 [Moles/Vol] 28 mmol/L Normal 21-[address] [facility] Comment on above: Performed By: #### C HM6 ####[facility] (DEFAULT)[address] [facility] [place] [address] Creatinine [Mass/Vol] 0.81 mg/dL Normal 0.70-1.30 [facility] Comment on above: Performed By: #### C HM6 ####[facility] (DEFAULT)[address] [place] [address] eGFR, CKD-EPI, Male >90 Normal >=60 [facility] Comment on above: Result Comment: Repo rted eGFR is based on the CKD-EPI 2020 equation using creatinine, age, and sex. Performed By: #### C HM6 ####[facility] (DEFAULT)[address] [facility] [place] [address] Potassium [Moles/Vol] 3.9 mmol/L Normal 3.5-5.0 [facility] Comment on above: Performed By: #### C HM6 ####[facility] (DEFAULT)[address] [place] [address] Sodium [Moles/Vol] 135 mmol/L Normal 135-145 [facility] Comment on above: Performed By: #### C HM6 ####[facility] (DEFAULT)[address] [place] [address] Urea nitrogen [Mass/Vol] 8 mg/dL Normal 7-25 [facility] Comment on above: Performed By: #### C HM6 ####[facility] (DEFAULT)[address] [place] [address] Urea nitrogen/Creatinine [Mass ratio] 10 mg/mg Normal [facility] Comment on above: Performed By: #### C HM6 ####[facility] (DEFAULT)[address] [place] [address] Anion gap [Moles/Vol] 11 mmol/L 7 - 17 [facility]/L [facility] Chlor[facility] [Moles/Vol] 100 mmol/L 98 - 108 mmol/L [facility] CO2 [Moles/Vol] 28 mmol/L 21 - 31 [facility] Creatinine [Mass/Vol] 0.81 mg/dL 0.70 - 1.30 mg/dL [facility] GFR/1.73 sq M.predicted CKD-EPI (S/P/Bld) [Vol rate/Area] - PINF [facility] Comment on above: Reported eGFR is bas ed on the CKD-EPI 2020 equation using creatinine, age, and sex. Potassium [Moles/Vol] 3.9 mmol/L 3.5 - 5.0 mmol/L [facility] Sodium [Moles/Vol] 135 mmol/L 135 - 145 mmol/L [facility] Urea nitrogen [Mass/Vol] 8 mg/dL 7 - 25 mg/dL [facility] Urea nitrogen/Creatinine [Mass ratio] 10 mg/[facility] Viewson 08-22-2022 IMPRESSION: Postoperative changes from posterior fusion C5-T2. No acute complication. OLOGY EXAM: XR SPINE CERVICAL 2 VIEWS VIEWS , 08/22/2022 13:37 PM COMPARISON: Scoliosis survey August 20, 2022 CLINICAL INDICATIONS: s/p posterior cervical fusion RELEVANT CLINICAL HISTORY: FINDINGS: 3 images obtained. Postoperative changes are evident within the posterior soft tissues. Surgical drain in place posteriorly. Status post posterior fusion extending from C5 through T2. Anterior fusion hardware is unchanged. Alignment is anatomic. No compression deformity. RADIOLOGY Rayshawn Sánchez MD - 08/22/2022 EXAM: XR SPINE CERVICAL 2 VIEWS VIEWS , 08/22/2022 13:37 PM COMPARISON: Scoliosis survey August 20, 2022 CLINICAL INDICATIONS: s/p posterior cervical fusion RELEVANT CLINICAL HISTORY: FINDINGS: 3 images obtained. Postoperative changes are evident within the posterior soft tissues. Surgical drain in place posteriorly. Status post posterior fusion extending from C5 through T2. Anterior fusion hardware is unchanged. Alignment is anatomic. No compression deformity. IMPRESSION IMPRESSION: Postoperative changes from posterior fusion C5-T2. No acute complication. [facility] Radiology Study observation (narrative) [facility] XR SPINE CERVICAL 2 VIEWSon 08-22-2022 XR SPINE CERVICAL 2 VIEWS EXAM: XR SPINE CERVICAL 2 VIEWS VIEWS , 08/22/2022 13:37 PM COMPARISON: Scoliosis survey August 20, 2022 CLINICAL INDICATIONS: s/p posterior cervical fusion RELEVANT CLINICAL HISTORY: FINDINGS: 3 images obtained. Postoperative changes are evident within the posterior soft tissues. Surgical drain in place posteriorly. Status post posterior fusion extending from C5 through T2. Anterior fusion hardware is unchanged. Alignment is anatomic. No compression deformity. IMPRESSION: Postoperative changes from posterior fusion C5-T2. No acute complication. Normal [facility] ABORH TYPE RECONFIRMATIONon 08-21-2022 ABO/RH(D) TYPE Positive Normal [facility] Comment on above: Performed By: #### T YPEC #### [facility] (DEFAULT) [address] [place] [address] ABO/RH(D) TYPE Positive [facility] CARDIAC RHYTHM (SCANNED)on [facility] CHEM 6 (LYTES, BUN CREA)on Anion gap [Moles/Vol] 15 mmol/L Normal 7-17 [facility] Comment on above: Performed By: #### C HM6 ####[facility] (DEFAULT)[address] [place] [address] Chloride [Moles/Vol] 100 mmol/L Normal 98-108 [facility] Comment on above: Performed By: #### C HM6 ####[facility] (DEFAULT)[address] [place] [address] CO2 [Moles/Vol] 23 mmol/L Normal 21-[address] [facility] Comment on above: Performed By: #### C HM6 ####[facility] (DEFAULT)[address] [place] [address] Creatinine [Mass/Vol] 0.68 mg/dL Low 0.70-1.30 [facility] Comment on above: Performed By: #### C HM6 ####[facility] (DEFAULT)[address] [place] [address] eGFR, CKD-EPI, Male >90 Normal >=60 [facility] Comment on above: Result Comment: Repo rted eGFR is based on the CKD-EPI 2020 equation using creatinine, age, and sex. Performed By: #### C HM6 ####[facility] (DEFAULT)[address] [place] [address] Potassium [Moles/Vol] 4.0 mmol/L Normal 3.5-5.0 [facility] Comment on above: Performed By: #### C HM6 ####[facility] (DEFAULT)[address] [facility] [place] [address] Sodium [Moles/Vol] 134 mmol/L Low 135-145 [facility] Comment on above: Performed By: #### C HM6 ####[facility] (DEFAULT)[address] [place] [address] Urea nitrogen [Mass/Vol] 12 mg/dL Normal 7-25 [facility] Comment on above: Performed By: #### C HM6 ####[facility] (DEFAULT)[address] [place] [address] Urea nitrogen/Creatinine [Mass ratio] 18 mg/mg Normal [facility] Comment on above: Performed By: #### C [facility] ####[facility] (DEFAULT)[address] [place] [address] Anion gap [Moles/Vol] 15 mmol/L 7 - 17 mmol/L [facility] Chloride [Moles/Vol] 100 mmol/L 98 - 108 mmol/L [facility] CO2 [Moles/Vol] 23 mmol/L 21 - 31 mmol/L [facility] Creatinine [Mass/Vol] 0.68 mg/dL Low 0.70 - 1.30 mg/dL [facility] GFR/1.73 sq M.predicted CKD-EPI (S/P/Bld) [Vol rate/Area] - PINF [facility] Comment on above: Reported eGFR is bas ed on the CKD-EPI 2020 equation using creatinine, age, and sex. Interpretation and review of laboratory results Abnormal [facility] Potassium [Moles/Vol] 4.0 mmol/L 3.5 - 5.0 mmol/L [facility] Sodium [Moles/Vol] 134 mmol/L Low 135 - 145 mmol/L [facility] Urea nitrogen [Mass/Vol] 12 mg/dL 7 - 25 mg/dL [facility] Urea nitrogen/Creatinine [Mass ratio] 18 mg/mg [facility] CBC,PLATELETSon 08-20-2022 Hematocrit (Bld) [Volume fraction] 40.3 % Normal 39.6-48.8 [facility] Comment on above: Performed By: #### [facility] ####[facility] (DEFAULT)[address] [place] [address] Hemoglobin (Bld) [Mass/Vol] 13.9 g/dL Normal 13.4-16.8 [facility] Comment on above: Performed By: #### [facility] [place] ####[facility] (DEFAULT)[address] [place] [address] MCV (RBC) [Entitic vol] 94.6 fL High 79.0-94.5 [facility] Comment on above: Performed By: #### H [facility] ####[facility] (DEFAULT)[address] [place] [address] Mean Cell Hgb 32.6 pg Normal 26.1-33.3 [facility] Comment on above: Performed By: #### H EMO[facility] ####[facility] (DEFAULT)[address] [place] [address] Mean Cell Hgb Conc 34.5 g/dL Normal 31.9-36.5 [facility] Comment on above: Performed By: #### H EMOGC ####[facility] (DEFAULT)[address] [place] [address] Platelet mean volume (Bld) [Entitic vol] 9.6 fL Normal 8.7-12.3 [facility] Comment on above: Performed By: #### H EMOGC ####[facility] (DEFAULT)[address] [place] [address] Platelets (Bld) [#/Vol] 228 10*3/uL Normal 146-337 [facility] Comment on above: Performed By: #### H EMOGC ####[facility] (DEFAULT)[address] [facility] [place] [address] RBC (Bld) [#/Vol] 4.26 10*6/uL Low 4.38-5.83 [facility] Comment on above: Performed By: #### H EMOGC ####[facility] (DEFAULT)[address] [place] [address] RBC Distribution 12.1 % Normal 10.9-14.3 [facility] Comment on above: Performed By: #### H EMOGC ####[facility] (DEFAULT)[address] [place] [address] WBC (Bld) [#/Vol] 9.81 10*3/uL Normal 3.73-10.10 [facility] Comment on above: Performed By: #### [facility] [place] ####[facility] (DEFAULT)[address] [place] [address] Erythrocyte distribution width (RBC) [Ratio] 12.1 % 10.9 - 14.3 % [facility] Hematocrit (Bld) [Volume fraction] 40.3 % 39.6 - 48.8 % [facility] Hemoglobin (Bld) [Mass/Vol] 13.9 g/dL 13.4 - 16.8 g/dL [facility] Interpretation and review of laboratory results Abnormal [facility] MCH (RBC) [Entitic mass] 32.6 pg 26.1 - 33.3 pg [facility] MCHC (RBC) [Mass/Vol] 34.5 g/dL 31.9 - 36.5 g/dL [facility] MCV (RBC) [Entitic vol] 94.6 fL High 79.0 - 94.5 fL [facility] Platelet mean volume (Bld) [Entitic vol] 9.6 fL 8.7 - 12.3 fL [facility] Platelets (Bld) [#/Vol] 228 10*3/uL 146 - 337 K/uL [facility] RBC (Bld) [#/Vol] 4.26 10*6/uL Low [facility] WBC (Bld) [#/Vol] 9.81 10*3/uL 3.73 - 10.10 K/u L [facility] CHEM 7 (LYTES,BUN,CREA,GLUC) on 08-20-2022 Anion gap [Moles/Vol] 12 mmol/L Normal 7-17 [facility] Comment on above: Performed By: #### M GO, CHM7, [facility] #### [facility] (DEFAULT) [address] [place] [address] Chloride [Moles/Vol] 95 mmol/L Low 98-108 [facility] Comment on above: Performed By: #### DEEPA LEVINE, HFP #### [facility] (DEFAULT) [address] [place] [address] CO2 [Moles/Vol] 31 mmol/L Normal 21-[address] [facility] Comment on above: Performed By: #### DEEPA LEVINE, HFP #### [facility] (DEFAULT) [address] [place] [address] Creatinine [Mass/Vol] 0.80 mg/dL Normal 0.70-1.30 [facility] Comment on above: Performed By: #### DEEPA LEVINE, HFP #### [facility] (DEFAULT) [address] [place] [address] eGFR, CKD-EPI, Male >90 Normal >=60 [facility] Comment on above: Result Comment: Repo rted eGFR is based on the CKD-EPI 2020 equation using creatinine, age, and sex. Performed By: #### DEEPA LEVINE, HFP #### [facility] (DEFAULT) [address] [place] [address] Glucose [Mass/Vol] 102 mg/dL High 70-99 [facility] Comment on above: Performed By: #### DEEPA LEVINE, HFP #### [facility] (DEFAULT) [address] [place] [address] Osmolality [Osmolality] 281 mosm/kg Normal 278-305 [facility] Comment on above: Performed By: #### DEEPA LEVINE, HFP #### [facility] (DEFAULT) [address] [place] [address] Potassium [Moles/Vol] 3.7 mmol/L Normal 3.5-5.0 [facility] Comment on above: Performed By: #### XENIA LEVINE7, HFP #### [facility] (DEFAULT) [address] [place] [address] Sodium [Moles/Vol] 134 mmol/L Low 135-145 [facility] Comment on above: Performed By: #### M XENIA MARTINEZ7, HFP #### [facility] (DEFAULT) [address] [place] [address] Urea nitrogen [Mass/Vol] 11 mg/dL Normal 7-25 [facility] Comment on above: Performed By: #### M XENIA MARTINEZ7, HFP #### [facility] (DEFAULT) [address] [place] [address] Urea nitrogen/Creatinine [Mass ratio] 14 mg/mg Normal [facility] Comment on above: Performed By: #### M DEEPA MARTINEZ, HFP #### [facility] (DEFAULT) [address] [place] [address] Anion gap [Moles/Vol] 12 mmol/L 7 - 17 mmol/L [facility] Chloride [Moles/Vol] 95 mmol/L Low 98 - 108 mmol/L [facility] CO2 [Moles/Vol] 31 mmol/L 21 - 31 mmol/L [facility] Creatinine [Mass/Vol] 0.80 mg/dL 0.70 - 1.30 mg/dL [facility] GFR/1.73 sq M.predicted CKD-EPI (S/P/Bld) [Vol rate/Area] - PINF [facility] Comment on above: Reported eGFR is bas ed on the CKD-EPI 2020 equation using creatinine, age, and sex. Glucose [Mass/Vol] 102 mg/dL High 70 - 99 mg/dL [facility] Interpretation and review of laboratory results Abnormal [facility] Osmolality Calc [Osmolality] 281 [facility] Potassium [Moles/Vol] 3.7 mmol/L 3.5 - 5.0 mmol/L [facility] Sodium [Moles/Vol] 134 mmol/L Low 135 - 145 mmol/L [facility] Urea nitrogen [Mass/Vol] 11 mg/dL 7 - 25 mg/dL [facility] Urea nitrogen/Creatinine [Mass ratio] 14 mg/mg [facility] HEPATIC FUNCTION PANELon Albumin [Mass/Vol] 4.3 g/dL Normal 3.5-5.0 [facility] Comment on above: Performed By: #### M JUAN CHM7, HFP #### [facility] (DEFAULT) [address] [place] [address] ALP [Catalytic activity/Vol] 123 U/L Normal 32-126 [facility] Comment on above: Performed By: #### M GO, CHM7, HFP #### [facility] (DEFAULT) [address] [place] [address] ALT [Catalytic activity/Vol] 31 U/L Normal 10-52 [facility] Comment on above: Performed By: #### M JUAN, CHM7, HFP #### [facility] (DEFAULT) [address] [place] [address] AST [Catalytic activity/Vol] 37 U/L Normal 10-39 [facility] Comment on above: Performed By: #### M GO, CHM7, HFP #### [facility] (DEFAULT) [address] [place] [address] Bilirubin [Mass/Vol] 0.4 mg/dL Normal <1.5 [facility] Comment on above: Performed By: #### M GO, CHM7, HFP #### [facility] (DEFAULT) [address] [place] [address] Bilirubin.indirect [Mass/Vol] 0.1 mg/dL Normal <0.3 [facility] Comment on above: Performed By: #### M GO, CHM7, HFP #### [facility] (DEFAULT) [address] [place] [address] Protein [Mass/Vol] 7.2 g/dL Normal 6.4-8.3 [facility] Comment on above: Performed By: #### M GO, CHM7, HFP #### [facility] (DEFAULT) [address] [place] [address]47 Albumin [Mass/Vol] 4.3 g/dL 3.5 - 5.0 g/dL [facility] ALP [Catalytic activity/Vol] 123 U/L 32 - 126 U/L [facility] ALT [Catalytic activity/Vol] 31 U/L 10 - 52 U/L [facility] AST [Catalytic activity/Vol] 37 U/L 10 - 39 U/L [facility] Bilirubin [Mass/Vol] 0.4 mg/dL NINF - 1.5 mg/dL [facility] Bilirubin.direct [Mass/Vol] 0.1 mg/dL NINF - 0.3 mg/dL [facility] Protein [Mass/Vol] 7.2 g/dL 6.4 - 8.3 g/dL [facility] MAGNESIUMon 08-20-2022 Magnesium [Mass/Vol] 2.1 mg/dL Normal 1.6-2.6 [facility] Comment on above: Performed By: #### M GO, CHM7, [facility] #### [facility] (DEFAULT) [address] [place] [address] Magnesium [Mass/Vol] 2.1 mg/dL 1.6 - 2.6 mg/dL [facility] No Panel Informationon 08-20 Interpretation and review of laboratory results Normal [facility] PT,INR,PTTon 08-20-2022 aPTT Coag (Bld) [Time] 27.5 s Normal 24.0-34.3 [facility] Comment on above: Performed By: #### X M #### [facility] (DEFAULT) [address] [place] [address] INR Coag (PPP) [Relative time] 0.9 {INR} Normal 0.9-1.1 [facility] Comment on above: Performed By: #### X M #### [facility] (DEFAULT) [address] [place] [address] PT Coag (PPP) [Time] 12.1 s Normal 11.9-14.2 [facility] Comment on above: Performed By: #### X M #### [facility] (DEFAULT) [address] [place] [address] aPTT Coag (PPP) [Time] 27.5 s [facility] INR Coag (Bld) [Relative time] 0.9 {INR} 0.9 - 1.1 [facility] Interpretation and review of laboratory results Normal [facility] PT Coag (PPP) [Time] 12.1 s [facility] SCREEN: MRSA/MSSAOrdered By: Karlene Banuelos on 08-20-2022 Interpretation and review of laboratory results Abnormal [facility] Methicillin Resistant S. Aureus By Pcr Negative Negative [facility] Staphylococcus Aureus By Pcr Positive Abnormal Negative [facility] This test was performed using a real time PCR assay. Results should be interpreted in conjunction with other clinical and laboratory findings. A positive result does not necessarily indicate the presence of viable organism. This test should not be used as a test of cure. For E-swab specimens, this test was developed and its performance characteristics determined by the Clinical Microbiology Laboratory at [facility]. It has not been cleared or approved by the FDA.The laboratory is regulated under CLIA as qualified to perform high-complexity testing. This test is used for clinical purposes. It should not be regarded as investigational or for research. [facility] SCREEN: MRSA/MSSAon 08-20-20 Methicillin Resistant S. Aureus By Pcr Negative Normal Negative [facility] Comment on above: Order Comment: Colle ct with an ESWAB - Anterior Nares for MRSA + MSSAThis test was performed using a real time PCR assay. Results should be interpreted in conjunction with other clinical and laboratory findings. A positive result does not necessarily indicate the presence of viable organism. This test should not be used as a test of cure. For E-swab specimens, this test was developed and its performance characteristics determined by the [facility] at [facility]. It has not been cleared or approved by the FDA.The laboratory is regulated under CLIA as qualified to perform high-complexity testing. This test is used for clinical purposes. It should not be regarded as investigational or for research. Performed By: #### XENIA LEVINE7, [facility] #### [facility] (DEFAULT) [address] [place] [address] Staphylococcus Aureus By Pcr Positive Abnormal Negative [facility] Comment on above: Order Comment: Colle ct with an ESWAB - Anterior Nares for MRSA + MSSAThis test was performed using a real time PCR assay. Results should be interpreted in conjunction with other clinical and laboratory findings. A positive result does not necessarily indicate the presence of viable organism. This test should not be used as a test of cure. For E-swab specimens, this test was developed and its performance characteristics determined by the [facility] at [facility]. It has not been cleared or approved by the FDA.The laboratory is regulated under CLIA as qualified to perform high-complexity testing. This test is used for clinical purposes. It should not be regarded as investigational or for research. Performed By: #### DEEPA LEVINE, [facility] #### [facility] (DEFAULT) [address] [place] [address]47 TYPE AND SCREENon 08-20-2022 ABO/RH(D) TYPE Positive Normal [facility] Comment on above: Performed By: #### L [id number] #### [facility] (DEFAULT) [address] [place] [address]153 ABO/RH(D) TYPE Positive [facility] XR SPINE SCOLIOSIS 2/3 VIEWS on 08-20-2022 XR SPINE SCOLIOSIS 2/3 VIEWS EXAM: XR SPINE SCOLIOSIS 2/3 VIEWS, 08/20/2022 15:33 PM COMPARISON: No prior studies available for comparison. CLINICAL INDICATIONS: standing RELEVANT CLINICAL HISTORY: FINDINGS: 12 images obtained. Thoracolumbar spine: 12 rib-bearing thoracic vertebral bodies and 5 lumbar vertebral bodies are identified. Dextroscoliosis of the lumbar spine measures 13 degrees. Straightening of the thoracic and lumbar curvatures. No compression deformity identified. 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 Pelvic Tilt: Slight left superior pelvic tilt measures approximately 6 mm. IMPRESSION: Straightening of the thoracic and lumbar curvatures. Slight dextroscoliosis of the lumbar spine. Minimal left superior pelvic tilt. Normal [facility] XR Thoracic and lumbar spine Views for scoliosison 08-20-2022 IMPRESSION: Straightening of the thoracic and lumbar curvatures. Slight dextroscoliosis of the lumbar spine. Minimal left superior pelvic tilt. OLOGY EXAM: XR SPINE SCOLIOSIS 2/3 VIEWS, 08/20/2022 15:33 PM COMPARISON: No prior studies available for comparison. CLINICAL INDICATIONS: standing RELEVANT CLINICAL HISTORY: FINDINGS: 12 images obtained. Thoracolumbar spine: 12 rib-bearing thoracic vertebral bodies and 5 lumbar vertebral bodies are identified. Dextroscoliosis of the lumbar spine measures 13 degrees. Straightening of the thoracic and lumbar curvatures. No compression deformity identified. 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 Pelvic Tilt: Slight left superior pelvic tilt measures approximately 6 mm. RADIOLOGY Rayshawn Sánchez MD - 08/20/2022 EXAM: XR SPINE SCOLIOSIS 2/3 VIEWS, 08/20/2022 15:33 PM COMPARISON: No prior studies available for comparison. CLINICAL INDICATIONS: standing RELEVANT CLINICAL HISTORY: FINDINGS: 12 images obtained. Thoracolumbar spine: 12 rib-bearing thoracic vertebral bodies and 5 lumbar vertebral bodies are identified. Dextroscoliosis of the lumbar spine measures 13 degrees. Straightening of the thoracic and lumbar curvatures. No compression deformity identified. 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 Pelvic Tilt: Slight left superior pelvic tilt measures approximately 6 mm. IMPRESSION IMPRESSION: Straightening of the thoracic and lumbar curvatures. Slight dextroscoliosis of the lumbar spine. Minimal left superior pelvic tilt. [facility] Radiology Study observation (narrative) [facility] XR Thoracic and lumbar spine Views for scoliosisOrdered By: Rayshawn Sánchez on 08-20-2022 [facility] Work Phone: CBC AUTO DIFFon 08-08-2022 BASO # 0.1 103/ul Normal 0.0-0.1 [facility] Comment on above: Performed By: #### C BC ####[facility] [address] [place] [address]Dr. Heidi Jeff Basophils/100 WBC (Bld) 1.4 % Normal 0.2-2.0 [facility] Comment on above: Performed By: #### C BC ####[facility] [address] [place] [address]Dr. Heidi Jeff EO # 0.3 103/ul Normal 0.0-0.7 [facility] Comment on above: Performed By: #### C BC ####[facility] [address] [place], [place] [address]Dr. Heidi Aguilar Eosinophils/100 WBC (Bld) 4.7 % Normal 0.9-7.0 [facility] Comment on above: Performed By: #### C BC ####[facility] [address] [place], [place] [address]Dr. Elizabethalex Aguilar Erythrocyte distribution width (RBC) [Ratio] 12.3 % Normal 11.0-15.0 [facility] Comment on above: Performed By: #### C BC ####[facility] [id number] [place], [place] [address]Dr. Elizabethalex Aguilar Hematocrit (Bld) [Volume fraction] 42.3 % Normal 42.0-54.0 [facility] Comment on above: Performed By: #### C BC ####[facility] [address] [place], [place] [address]Dr. Heidi Jeff Hemoglobin (Bld) [Mass/Vol] 14.4 g/dL Normal 14.0-18.0 [facility] Comment on above: Performed By: #### C BC ####[facility] [address] [place] [address]Dr. Heidi Aguilar IG # 0.01 10e3/ul Normal 0.00-0.03 [facility] Comment on above: Performed By: #### C BC ####[facility] [address] [place] [phone]. Elizabethalex Aguilar IG % 0.2 % Normal 0.0-0.5 [facility] Comment on above: Performed By: #### C BC ####[facility] [address] [place] [address]Dr. Heidi Jeff LYMPH # 1.6 103/ul Normal 1.2-3.8 [facility] Comment on above: Performed By: #### C BC ####[facility] [address] [place] [address]Dr. Elizabethalex Aguilar Lymphocytes/100 WBC (Bld) 26.9 % Normal 20.5-60.0 [facility] Comment on above: Performed By: #### C BC ####[facility] [address] [place] [address]Dr. Heidi Aguilar MANUAL DIFF REQ NO Normal [facility] Comment on above: Performed By: #### C BC ####[facility] [address] [place] [address]Dr. Heidi Jeff MCH (RBC) [Entitic mass] 33.0 pg Normal 25.9-34.0 [facility] Comment on above: Performed By: #### C BC ####[facility] [address] [place], [place] [address]Dr. Heidi Jeff MCHC (RBC) [Mass/Vol] 34.0 g/dL Normal 29.9-35.2 [facility] Comment on above: Performed By: #### C BC ####[facility] [address] [place] [address]Dr. Elizabethalex Aguilar MCV (RBC) [Entitic vol] 96.8 fL Critically high 80.0-94.0 [facility] Comment on above: Performed By: #### C BC ####[facility] [address] [place], [place] [address]Dr. Heidi Aguilar MONO # 0.8 103/ul Normal 0.3-0.8 [facility] Comment on above: Performed By: #### C BC ####[facility] [address] [place] [phone]. Heidi Aguilar Monocytes/100 WBC (Bld) 14.2 % Critically high 1.7-12.0 [facility] Comment on above: Performed By: #### C BC ####[facility] [address] [place] [address]Dr. Heidi Aguilar NEUT # 3.1 103/ul Normal 1.4-6.5 [facility] Comment on above: Performed By: #### C BC ####[facility] [address] [place] [address]Dr. Heidi Aguilar Neutrophils/100 WBC (Bld) 52.6 % Normal 43.0-75.0 [facility] Comment on above: Performed By: #### C BC ####[facility] [address] [place] [address]Dr. Heidi Aguilar Platelet mean volume (Bld) [Entitic vol] 8.5 fL Critically low 9.5-13.5 [facility] Comment on above: Performed By: #### C BC ####[facility] [address] [place] [address]Dr. Heidi Aguilar PLT 225 103/ul Normal 150-450 [facility] Comment on above: Performed By: #### C BC ####[facility] [address] [place], [place] [address]Dr. Heidi Aguilar RBC 4.37 106/ul Critically low 4.70-6.10 [facility] Comment on above: Performed By: #### C BC ####[facility] [address] [place], [place] [address]Dr. Heidi Aguilar WBC 5.9 103/ul Normal 4.0-11.0 [facility] Comment on above: Performed By: #### C BC ####[facility] [address] [place], [place] [address]Dr. Heidi Aguilar CRPon 08-08-2022 CRP [Mass/Vol] mg/L Normal <=1.0 The [facility] Comment on above: Performed By: #### C RP, BMP ####[facility] [address] [place], [place] [address]Dd. [address] CT LSPINE WO CONon 2 CT LSPINE WO CON EXAMINATION: CT LSPINE WO CON, 08/08/2022 12:28 PM EDT HISTORY: DORSALGIA, UNSPECIFIED COMPARISON: MRI lumbar spine 06/10/2017. TECHNIQUE: CT of the lumbar spine was performed without IV contrast. CT dose reduction technique was used, including Automated Exposure Control. FINDINGS: ENTRY LEVEL STAFF ACCOUNTANT RADIOGRAPH: Unremarkable. MINERALIZATION: Normal. VERTEBRAL BODIES: Normal in height with no acute compression fracture. DISC SPACES: Severe narrowing at L2-L3 and L4-L5 with vacuum phenomenon and osteophytic spurring as well as endplate sclerosis consistent with degenerative changes. This appears progressed compared to the MRI. This appears progressed at L2-L3 compared to the previous MRI but fairly stable at L4-L5. ALIGNMENT: Grade 1 anterolisthesis at L5-S1 measured at 7.5 mm. This is stable. POSTERIOR ELEMENTS: No spondylolysis at L5-S1, which is likely the etiology for the anterolisthesis. SPINAL CANAL/NEURAL FORAMEN: T12-L1: No stenosis. L1-L2: Disc bulge, mild canal stenosis and mild to moderate bilateral neural foraminal stenosis. L2-L3: Disc bulge with moderate to severe canal stenosis, moderate right and severe left neural foraminal stenosis. L3-L4: Disc bulge with moderate canal stenosis and severe bilateral neural foraminal stenosis. L4-5: Disc bulge, mild canal stenosis and severe bilateral neural foraminal stenosis. L5-S1: Moderate to severe bilateral neural foraminal stenosis VISUALIZED UPPER PELVIS: Unremarkable. SOFT TISSUES: Diffuse atherosclerotic calcification of the aorta. IMPRESSION: 1. No acute fracture or subluxation. 2. Multilevel degenerative changes as described above including moderate to severe neural foraminal stenosis at several levels , moderate to severe canal stenosis at L2-L3 and moderate canal stenosis at L3-L4. 3. Grade 1 anterolisthesis at L5-S1 secondary to bilateral spondylolysis. Electronically authenticated by: MARNI VALENCIA Date: 2022-08-08 14:[address] [place] [address] TSPINE WO CONon [address] T[address] WO CON CT THORACIC SPINE WITHOUT CONTRAST HISTORY: Right hip numbness, left shoulder pain. COMPARISON: Chest CT 05/28/[address] [facility] 06/06/2011. TECHNIQUE: Helical CT images were performed from the lower cervical spine through the upper lumbar spine without intravenous contrast. Dose reduction techniques were achieved by using automated exposure control and/or adjustment of mA and/or kV according to patient size and/or use of iterative reconstruction technique. FINDINGS: ENTRY LEVEL STAFF ACCOUNTANT RADIOGRAPH: Unremarkable. MINERALIZATION: Normal. VERTEBRAL BODIES: Normal in height with no acute compression fracture. DISC SPACES: Mild multilevel disc space narrowing and osteophytic spurring in the midthoracic spine consistent with degenerative changes. ALIGNMENT: Mild to moderate kyphosis. POSTERIOR ELEMENTS: Intact. SPINAL CANAL/NEURAL FORAMEN: No significant disc herniation, spinal canal or neural foraminal stenosis. SOFT TISSUES: Mild bilateral bronchial wall thickening suggestive of bronchitis. 4 mm right upper lobe pulmonary nodule, image 34 series 3 which appears stable compared to the previous chest CT from 05/28/2017. 2 mm left apical nodule on image 18 which is stable compared to a cervical spine CT from 06/06/2011. IMPRESSION: 1. No acute fracture or subluxation. 2. Mild degenerative changes. 3. Mild to moderate kyphosis. 4. Bronchial wall thickening suggestive of bronchitis, and stable benign pulmonary nodules. Electronically authenticated by: MARNI VALENCIA Date: 2022-08-08 14:00 Normal [facility] PROF CHEM 8 (BAS METB)on Anion gap [Moles/Vol] 6.2 mmol/L Normal [place] Comment on above: Performed By: #### C RP, BMP ####[facility] [id number] [place] [address]Dr. Heidi Aguilar Calcium [Mass/Vol] 8.9 mg/dL Normal 8.5-10.1 [facility] Comment on above: Performed By: #### C RP, BMP ####[facility] [id number] [place] [id number]. Heidi Aguilar Chloride [Moles/Vol] 102 mmol/L Normal 98-107 [place] Comment on above: Performed By: #### C RP, BMP ####[facility] [id number] [place] [id number]. Heidi Aguilar CO2 [Moles/Vol] 32.8 mmol/L Critically high 21.0-32.0 [place] Comment on above: Performed By: #### C RP, BMP ####[facility] [id number] [place] [id number]. Heidi Aguilar Creatinine [Mass/Vol] 0.91 mg/dL Normal 0.70-1.30 [place] Comment on above: Performed By: #### C RP, BMP ####[facility] [address] [place] [id number]. Heidi Aguilar EGFR-AF SINGAPOREAN >60 Normal >=60 [facility] Comment on above: Performed By: #### C RP, BMP ####[facility] [id number] [place] [id number]. Heidi Aguilar EGFR-NON AF SINGAPOREAN >60 Normal >=60 [place] Comment on above: Performed By: #### C RP, BMP ####[facility] [id number] [place] [id number]. Heidi Aguilar Glucose [Mass/Vol] 111 mg/dL Critically high 74-106 [facility] Comment on above: Performed By: #### C RP, BMP ####[facility] [address] [place] [id number]. Heidi Aguilar Potassium [Moles/Vol] 4.0 mmol/L Normal 3.5-5.1 [place] Comment on above: Performed By: #### C RP, BMP ####[facility] [address] [place] [id number]. Heidi Aguilar Sodium [Moles/Vol] 137 mmol/L Normal 136-145 [facility] Comment on above: Performed By: #### C RP, BMP ####[facility] [address] [place] [id number]. Heidi Aguilar Urea nitrogen [Mass/Vol] 13.0 mg/dL Normal 7.0-18.0 [place] Comment on above: Performed By: #### C RP, BMP ####[facility] [address] [place] [id number]. Heidi Aguilar Urea nitrogen/Creatinine [Mass ratio] 14.3 mg/mg Normal [place] Comment on above: Performed By: #### C RP, BMP ####[facility] [address] [place] [address]Dr. Heidi Aguilar SED RATE WESTERGRENon 2021 SED RATE 2 mm/hr Normal <=20 [place] Comment on above: Performed By: #### S EDR #### [facility] [address] [place] [address] Dr. Heidi Aguilar CBC AUTO DIFFon 08-04-2022 BASO # 0.1 103/ul Normal 0.0-0.1 [place] Comment on above: Performed By: #### C BC #### [facility] [address] [place] [address] Dr. Heidi Aguilar Basophils/100 WBC (Bld) 1.4 % Normal 0.2-2.0 [place] Comment on above: Performed By: #### C BC #### [facility] [address] [place] [address] Dr. Heidi Aguilar EO # 0.5 103/ul Normal 0.0-0.7 [place] Comment on above: Performed By: #### C BC #### [facility] [address] [place] [address] Dr. Heidi Aguilar Eosinophils/100 WBC (Bld) 7.8 % Critically high 0.9-7.0 [place] Comment on above: Performed By: #### C BC #### [facility] [address] [place] [address] Dr. Heidi Aguilar Erythrocyte distribution width (RBC) [Ratio] 12.2 % Normal 11.0-15.0 [place] Comment on above: Performed By: #### C BC #### [facility] [address] [place] [address] Dr. Heidi Aguilar Hematocrit (Bld) [Volume fraction] 42.0 % Normal 42.0-54.0 [place] Comment on above: Performed By: #### C BC #### [facility] [address] [place] [address] Dr. Heidi Aguilar Hemoglobin (Bld) [Mass/Vol] 14.1 g/dL Normal 14.0-18.0 [place] Comment on above: Performed By: #### C BC #### [facility] [address] [place] [address] Dr. Heidi Aguilar IG # 0.01 10e3/ul Normal 0.00-0.03 [place] Comment on above: Performed By: #### C BC #### [facility] [address] [place] [address] Dr. Heidi Aguilar IG % 0.2 % Normal 0.0-0.5 [place] Comment on above: Performed By: #### C BC #### [facility] [address] [place] [address] Dr. Heidi Aguilar LYMPH # 2.4 103/ul Normal 1.2-3.8 [place] Comment on above: Performed By: #### C BC #### [facility] [address] [place] [address] Dr. Heidi Aguilar Lymphocytes/100 WBC (Bld) 40.8 % Normal 20.5-60.0 [place] Comment on above: Performed By: #### C BC #### [facility] [address] [place] [address] Dr. Heidi Aguilar MANUAL DIFF REQ NO Normal [facility] Comment on above: Performed By: #### C BC #### [facility] [address] [place] [address] Dr. Heidi Aguilar MCH (RBC) [Entitic mass] 32.6 pg Normal 25.9-34.0 [place] Comment on above: Performed By: #### C BC #### [facility] [address] [place] [address] Dr. Heidi Aguilar MCHC (RBC) [Mass/Vol] 33.6 g/dL Normal 29.9-35.2 [place] Comment on above: Performed By: #### C BC #### [facility] [address] [place] [address] Dr. Heidi Aguilar MCV (RBC) [Entitic vol] 97.0 fL Critically high 80.0-94.0 [place] Comment on above: Performed By: #### C BC #### [facility] [address] [address] [address] Heidi Aguilar MONO # 0.9 103/ul Critically high 0.3-0.8 [facility] Comment on above: Performed By: #### C BC #### [facility] [address] [address] [address] Heidi Aguilar Monocytes/100 WBC (Bld) 15.6 % Critically high 1.7-12.0 [place] Comment on above: Performed By: #### C BC #### [facility] [address] [address] [address] Heidi Aguilar NEUT # 2.0 103/ul Normal 1.4-6.5 [place] Comment on above: Performed By: #### C BC #### [facility] [address] [place] [address] Dr. Heidi Aguilar Neutrophils/100 WBC (Bld) 34.2 % Critically low 43.0-75.0 [place] Comment on above: Performed By: #### C BC #### [facility] [address] [address] [address] Heidi Aguilar Platelet mean volume (Bld) [Entitic vol] 8.9 fL Critically low 9.5-13.5 [place] Comment on above: Performed By: #### C BC #### [facility] [address] [address] [address] Heidi Aguilar PLT 215 103/ul Normal 150-450 [facility] Comment on above: Performed By: #### C BC #### [facility] [address] [address] [address] Heidi Aguilar RBC 4.33 106/ul Critically low 4.70-6.10 [facility] Comment on above: Performed By: #### C BC #### [facility] [address] [address] [address] Heidi Aguilar WBC 5.9 103/ul Normal 4.0-11.0 [facility] Comment on above: Performed By: #### C BC #### [facility] [address] [address] [address] Heidi Aguilar LIPID PROFILEon 08-04-2022 CHOL-HDL RATIO NORM SEE BELOW Normal [facility] Comment on above: Result Comment: 3.3 - 4.4 LOW RISK 4.4 - 7.1 AVERAGE RISK 7.1 - 11.0 MODERATE RISK >11.0 HIGH RISK Performed By: #### C MP, LIPID, TSH #### [facility] [address] [address] [address] Heidi Aguilar Cholesterol [Mass/Vol] 132 mg/dL Normal <=200 [place] Comment on above: Performed By: #### C MP, LIPID, TSH #### [facility] [address] [address] [address] Heidi Aguilar Cholesterol in HDL [Mass/Vol] 70 mg/dL Critically high 40-60 [place] Comment on above: Performed By: #### C MP, LIPID, TSH #### [facility] [address] [address] [address] Heidi Aguilar Cholesterol in LDL [Mass/Vol] 39.8 mg/dL Normal [place] Comment on above: Performed By: #### C MP, LIPID, TSH #### [facility] [address] [address] [address] Heidi Aguilar Cholesterol.total/C holesterol in HDL [Mass ratio] 1.9 {ratio} Normal [place] Comment on above: Performed By: #### C MP, LIPID, TSH #### [facility] [address] [address] [address] Heidi Aguilar HDL NORMAL > or = 60 mg/dl - LOW CARDIOVASCULAR RISK <40 mg/dl - HIGH CARDIOVASCULAR RISK Normal [place] Comment on above: Performed By: #### C MP, LIPID, TSH #### [facility] [address] [place] [address] Dr. Heidi Aguilar LDL CALC NORMAL SEE BELOW Normal [facility] Comment on above: Result Comment: <100 mg/dl OPTIMAL 100 - 129 mg/dl NEAR OR ABOVE OPTIMAL 130 - 159 mg/dl BORDERLINE HIGH 160 - 189 mg/dl HIGH >190 mg/dl VERY HIGH Performed By: #### C MP, LIPID, TSH #### [facility] [address] [address] [address] Heidi Aguilar Triglyceride [Mass/Vol] 111 mg/dL Normal <=150 [place] Comment on above: Performed By: #### C MP, LIPID, TSH #### [facility] [address] [address] [address] Heidi Aguilar VLDL CALC 22.2 mg/dL Normal [place] Comment on above: Performed By: #### C MP, LIPID, TSH #### [facility] [address] [address] [address] Heidi Aguilar PROF 14(COMP METB)on 022 Albumin [Mass/Vol] 4.0 g/dL Normal 3.4-5.0 [facility] Comment on above: Performed By: #### C MP, LIPID, TSH #### [facility] [address] [place] [address] Dr. Heidi Aguilar Albumin/Globulin [Mass ratio] 1.2 {ratio} Normal [place] Comment on above: Performed By: #### C MP, LIPID, TSH #### [facility] [address] [place] [address] Dr. Heidi Aguilar ALP [Catalytic activity/Vol] 107 U/L Normal 46-116 [place] Comment on above: Performed By: #### C MP, LIPID, TSH #### [facility] [address] [place] [address] Dr. Heidi Aguilar ALT [Catalytic activity/Vol] 37 U/L Normal 16-63 [place] Comment on above: Performed By: #### C MP, LIPID, TSH #### [facility] [address] [place] [address] Dr. Heidi Aguilar Anion gap [Moles/Vol] 8.1 mmol/L Normal [place] Comment on above: Performed By: #### C MP, LIPID, TSH #### [facility] [address] [place] [address] Dr. Heidi Aguilar AST [Catalytic activity/Vol] 52 U/L Critically high 15-37 [place] Comment on above: Performed By: #### C MP, LIPID, TSH #### [facility] [address] [place] [address] Dr. Heidi Aguilar Bilirubin [Mass/Vol] 0.7 mg/dL Normal 0.2-1.0 [place] Comment on above: Performed By: #### C MP, LIPID, TSH #### [facility] [address] [place] [address] Dr. Heidi Aguilar Calcium [Mass/Vol] 9.0 mg/dL Normal 8.5-10.1 [facility] Comment on above: Performed By: #### C MP, LIPID, TSH #### [facility] [address] [place] [address] Dr. Heidi Aguilar Chloride [Moles/Vol] 101 mmol/L Normal 98-107 [place] Comment on above: Performed By: #### C MP, LIPID, TSH #### [facility] [address] [place] [address] Dr. Heidi Aguilar CO2 [Moles/Vol] 31.9 mmol/L Normal 21.0-32.0 [facility] Comment on above: Performed By: #### C MP, LIPID, TSH #### [facility] [address] [place] [address] Dr. Heidi Aguilar Creatinine [Mass/Vol] 0.97 mg/dL Normal 0.70-1.30 [place] Comment on above: Performed By: #### C MP, LIPID, TSH #### [facility] [address] [place] [address] Dr. Heidi Aguilar EGFR-AF SINGAPOREAN >60 Normal >=60 [facility] Comment on above: Performed By: #### C MP, LIPID, TSH #### [facility] [address] [place] [address] Dr. Heidi Aguilar EGFR-NON AF SINGAPOREAN >60 Normal >=60 [place] Comment on above: Performed By: #### C MP, LIPID, TSH #### [facility] [address] [place] [address] Dr. Heidi Aguilar Globulin (S) [Mass/Vol] 3.4 g/dL Normal [place] Comment on above: Performed By: #### C MP, LIPID, TSH #### [facility] [address] [place] [address] Dr. Heidi Aguilar Glucose [Mass/Vol] 93 mg/dL Normal 74-106 [facility] Comment on above: Performed By: #### C MP, LIPID, TSH #### [facility] [address] [place] [address] Dr. Heidi Aguilar Potassium [Moles/Vol] 5.0 mmol/L Normal 3.5-5.1 [place] Comment on above: Performed By: #### C MP, LIPID, TSH #### [facility] [address] [place] [address] Dr. Heidi Aguilar Protein [Mass/Vol] 7.4 g/dL Normal 6.4-8.2 [facility] Comment on above: Performed By: #### C MP, LIPID, TSH #### [facility] [address] [place] [address] Dr. Heidi Aguilar Sodium [Moles/Vol] 136 mmol/L Normal 136-145 [facility] Comment on above: Performed By: #### C MP, LIPID, TSH #### [facility] [address] [place] [address] Dr. Heidi Aguilar Urea nitrogen [Mass/Vol] 16.0 mg/dL Normal 7.0-18.0 [place] Comment on above: Performed By: #### C MP, LIPID, TSH #### [facility] [address] [place] [address] Dr. Heidi Aguilar Urea nitrogen/Creatinine [Mass ratio] 16.5 mg/mg Normal [place] Comment on above: Performed By: #### C MP, LIPID, TSH #### [facility] [address] [place] [address] Dr. Heidi Aguilar TSHon 08-04-2022 TSH 0.594 uIU/mL Normal 0.358-3.[address] [facility] Comment on above: Performed By: #### C MP, LIPID, TSH #### [facility] [address] [address] [address] Heidi Aguilar VIT B12 AND FOLATEon 022 Cobalamin (Vitamin B12) [Mass/Vol] 496.0 pg/mL Normal 193.0-986.0 [place] Comment on above: Performed By: #### B 12FOL, PSASC #### [facility] [address] [address] [address] Heidi Aguilar FOLATE 19.60 ng/mL Normal 8.60-58.90 [place] Comment on above: Performed By: #### B 12FOL, PSASC #### [facility] [address] [place] [address] Dr. Heidi Aguilar XR cervical spine 2Von 12-16 XR cervical spine 2V [facility] [place] [address] XRay Report Signed Patient: Issac Howell MR#: [id number] : 1965 Acct:[id number] Age/Sex: 56 / M ADM Date: 12/16/21 Loc: XD Room: Type: [facility] Attending Dr: Manan Watson MD Ordering Provider: Manan Watson MD Date of Service: 12/16/21 XR/XR cervical spine 2V: M50.10 Copies to: Manan Watson MD XR cervical spine 2V 12/16/2021 12:49 PM SIGNS AND SYMPTOMS: Follow-up cervical fusion. Left hand weakness. PROTOCOLS: Frontal and lateral graphs of the cervical spine COMPARISON: 08/27/2021 FINDINGS: There is anterior fusion from C3 through C7 with intervertebral fusion bodies. There is no hardware complication. No fracture or subluxation. The prevertebral soft tissues are within normal limits. XR/XR cervical spine 2V IMPRESSION: There is anterior fusion from C3 through C7 with intervertebral fusion bodies. There is no hardware complication. Impression dictated by: Ankit Villa M.D.12/16/2021 3:08 PM Dictation Location: [place] [address] Transcribed By: BERNABE 12/16/21 1508 Dictated By: Ankit Villa II, MD 12/16/21 1506 Signed By: 12/16/21 1508 Normal [facility] Vital Signs Date Time Vital Sign Value Performing Clinician Facility 09-07-2024 10:46-0500 Body height 173.99 cm [facility] 09-07-2024 10:46-0500 Body mass index (BMI) [Ratio] 20.9 kg/m2 [facility] 09-07-2024 10:46-0500 Body weight 63.5 kg [facility] 09-07-2024 10:46-0500 Diastolic blood pressure 92 mm[Hg] [facility] 09-07-2024 10:46-0500 Heart rate 92 /min [facility] 09-07-2024 10:46-0500 Systolic blood pressure 148 mm[Hg] [facility] 09-03-2024 09:32-0500 Body height 173.99 cm [facility] 09-03-2024 09:32-0500 Body mass index (BMI) [Ratio] 20.9 kg/m2 [facility] 09-03-2024 09:32-0500 Body weight 63.5 kg [facility] 09-03-2024 09:32-0500 Diastolic blood pressure 105 mm[Hg] [facility] 09-03-2024 09:32-0500 Heart rate 103 /min [facility] 09-03-2024 09:32-0500 Systolic blood pressure 158 mm[Hg] [facility] 06-26-2024 09:34-0400 Body height 173.99 cm [facility] 06-26-2024 09:34-0400 Body mass index (BMI) [Ratio] 20.2 kg/m2 [facility] 06-26-2024 09:34-0400 Body weight 61.23 kg [facility] 06-26-2024 09:34-0400 Diastolic blood pressure 79 mm[Hg] [facility] 06-26-2024 09:34-0400 Heart rate 68 /min [facility] 06-26-2024 09:34-0400 Systolic blood pressure 124 mm[Hg] [facility] 03-22-2024 13:02-0400 Body height 173.99 cm [facility] 03-22-2024 13:02-0400 Body mass index (BMI) [Ratio] 20.5 kg/m2 [facility] 03-22-2024 13:02-0400 Body weight 62.14 kg [facility] 03-22-2024 13:02-0400 Diastolic blood pressure 86 mm[Hg] [facility] 03-22-2024 13:02-0400 Heart rate 80 /min [facility] 03-22-2024 13:02-0400 Systolic blood pressure 136 mm[Hg] [facility] 01-16-2024 15:01-0400 Body height 173.99 cm [facility] 01-16-2024 14:22-0400 Body height 173.99 cm [facility] 01-16-2024 14:22-0400 Body mass index (BMI) [Ratio] 21 kg/m2 [facility] 01-16-2024 14:22-0400 Body weight 63.67 kg [facility] 01-16-2024 14:22-0400 Diastolic blood pressure 96 mm[Hg] [facility] 01-16-2024 14:22-0400 Heart rate 101 /min [facility] 01-16-2024 14:22-0400 Systolic blood pressure 180 mm[Hg] [facility] 12-22-2023 13:22-0500 Body height 173.99 cm [facility] 12-22-2023 13:22-0500 Body mass index (BMI) [Ratio] 21.7 kg/m2 [facility] 12-22-2023 13:22-0500 Body weight 65.77 kg [facility] 12-22-2023 13:22-0500 Diastolic blood pressure 100 mm[Hg] [facility] 12-22-2023 13:22-0500 Heart rate 73 /min [facility] 12-22-2023 13:22-0500 Systolic blood pressure 206 mm[Hg] [facility] 09-20-2023 13:45-0500 Body height 173.99 cm Eden Conroy Other [employer] Other 09-20-2023 13:45-0500 Body mass index (BMI) [Ratio] 21.81 kg/m2 Eden Conroy Other [facility] Other 09-20-2023 13:45-0500 Body weight 66.04 kg Eden Conroy Other [employer] Other 09-20-2023 13:45-0500 Diastolic blood pressure 91 mm[Hg] Eden Conroy Other [facility] Other 09-20-2023 13:45-0500 Systolic blood pressure 170 mm[Hg] Eden Conroy Other [facility] Other 04-11-2023 10:30-0400 Body height 173.99 cm Eden Conroy Other [facility] Other 04-11-2023 10:30-0400 Body mass index (BMI) [Ratio] 22.02 kg/m2 Eden Conroy Other [facility] Other 04-11-2023 10:30-0400 Body weight 66.68 kg Eden Conroy Other [facility] Other 04-11-2023 10:30-0400 Diastolic blood pressure 92 mm[Hg] Eden Conroy Other [employer] Other 04-11-2023 10:30-0400 Systolic blood pressure 162 mm[Hg] Eden Conroy Other [employer] Other 01-12-2023 12:02-0400 Body height 172.7 cm Walt West MD Work Phone: [facility] 01-12-2023 12:02-0400 Body mass index (BMI) [Ratio] 22.81 kg/m2 Walt West MD Work Phone: [facility] 01-12-2023 12:02-0400 Body weight 68.04 kg Walt West MD Work Phone: [facility] 01-12-2023 12:02-0400 Diastolic blood pressure 77 mm[Hg] Walt West MD Work Phone: [facility] 01-12-2023 12:02-0400 Heart rate 77 /min Walt West MD Work Phone: [facility] 01-12-2023 12:02-0400 SaO2% (BldA) [Mass fraction] 98 % Walt West MD Work Phone: [facility] 01-12-2023 12:02-0400 Systolic blood pressure 132 mm[Hg] Walt West MD Work Phone: [facility] 01-05-2023 11:45-0400 Body height 173.99 cm Eden Conroy Other [employer] Other 01-05-2023 11:45-0400 Body mass index (BMI) [Ratio] 23.37 kg/m2 Eden Conroy Other [employer] Other 01-05-2023 11:45-0400 Body weight 70.76 kg Eden Conroy Other [employer] Other 01-05-2023 11:45-0400 Diastolic blood pressure 72 mm[Hg] Eden Conroy Other [facility] Other 01-05-2023 11:45-0400 SaO2% (BldA) [Mass fraction] 96 % Eden Conroy Other [facility] Other 01-05-2023 11:45-0400 Systolic blood pressure 148 mm[Hg] Eden Conroy Other [facility] [email or web address] Other 01-04-2023 07:43-0400 Body temperature 98.29 [degF] Walt West MD Work Phone: [facility] 01-04-2023 07:43-0400 Diastolic blood pressure 88 mm[Hg] Walt West MD Work Phone: [facility] 01-04-2023 07:43-0400 Heart rate 75 /min Walt West MD Work Phone: [facility] 01-04-2023 07:43-0400 Respiratory rate 14 /min Walt West MD Work Phone: [facility] 01-04-2023 07:43-0400 SaO2% (BldA) [Mass fraction] 96 % Walt West MD Work Phone: [facility] 01-04-2023 07:43-0400 Systolic blood pressure 151 mm[Hg] Walt West MD Work Phone: [facility] 01-03-2023 05:23-0400 Body height 175.3 cm Walt West MD Work Phone: [facility] 01-03-2023 05:23-0400 Body mass index (BMI) [Ratio] 21.81 kg/m2 Walt West MD Work Phone: [facility] 01-03-2023 05:23-0400 Body weight 67 kg Walt West MD Work Phone: [facility] 12-09-2022 12:35-0500 Body height 177.8 cm Bina Jerome MD Work Phone: [facility] 12-09-2022 12:35-0500 Body mass index (BMI) [Ratio] 19.94 kg/m2 Bina Jerome MD Work Phone: [facility] 12-09-2022 12:35-0500 Body temperature 96.3 [degF] Bina Jerome MD Work Phone: [facility] 12-09-2022 12:35-0500 Body weight 63.05 kg Bina Jerome MD Work Phone: [facility] 12-09-2022 12:35-0500 Heart rate 67 /min Bina Jerome MD Work Phone: [facility] 12-09-2022 12:35-0500 SaO2% (BldA) [Mass fraction] 98 % Bina Jerome MD Work Phone: [facility] 11-24-2022 10:09-0500 Body height 177.8 cm Walt West MD Work Phone: [facility] 11-24-2022 10:09-0500 Body mass index (BMI) [Ratio] 19.94 kg/m2 Walt West MD Work Phone: [facility] 11-24-2022 10:09-0500 Body weight 63.05 kg Walt West MD Work Phone: [facility] 11-24-2022 10:09-0500 Diastolic blood pressure 101 mm[Hg] Walt West MD Work Phone: [facility] [facility] 11-24-2022 10:09-0500 Heart rate 85 /min Walt West MD Work Phone: [facility] 11-24-2022 10:09-0500 Respiratory rate 18 /min Walt West MD Work Phone: [facility] 11-24-2022 10:09-0500 Systolic blood pressure 152 mm[Hg] Walt West MD Work Phone: [facility] 11-02-2022 09:36-0500 Body height 177.8 cm Puneet Blair MD Work Phone: [facility] 11-02-2022 09:36-0500 Body mass index (BMI) [Ratio] 21.67 kg/m2 Puneet Blair MD Work Phone: [facility] 11-02-2022 09:36-0500 Body temperature 98.01 [degF] Puneet Blair MD Work Phone: [facility] 11-02-2022 09:36-0500 Body weight 68.49 kg Puneet Blair MD Work Phone: [facility] 11-02-2022 09:36-0500 Diastolic blood pressure 88 mm[Hg] Puneet Blair MD Work Phone: [facility] 11-02-2022 09:36-0500 Heart rate 72 /min Puneet Blair MD Work Phone: [facility] 11-02-2022 09:36-0500 SaO2% (BldA) [Mass fraction] 99 % Puneet Blair MD Work Phone: [facility] 11-02-2022 09:36-0500 Systolic blood pressure 126 mm[Hg] Puneet Blair MD Work Phone: [facility] 10-06-2022 14:00-0500 Body mass index (BMI) [Ratio] 22.3 kg/m2 Walt West MD Work Phone: [facility] 10-06-2022 14:00-0500 Body weight 68.49 kg Walt West MD Work Phone: [facility] 10-06-2022 14:00-0500 Diastolic blood pressure 84 mm[Hg] Walt West MD Work Phone: [facility] 10-06-2022 14:00-0500 Heart rate 88 /min Walt West MD Work Phone: [facility] 10-06-2022 14:00-0500 Systolic blood pressure 132 mm[Hg] Walt West MD Work Phone: [facility] 09-06-2022 14:24-0500 Body height 175.3 cm Bina Jerome MD Work Phone: [facility] 09-06-2022 14:24-0500 Body mass index (BMI) [Ratio] 19.94 kg/m2 Bina Jerome MD Work Phone: [facility] 09-06-2022 14:24-0500 Body temperature 96.8 [degF] Bina Jerome MD Work Phone: [facility] 09-06-2022 14:24-0500 Body weight 61.24 kg Bina Jerome MD Work Phone: [facility] 09-06-2022 14:24-0500 Heart rate 104 /min Bina Jerome MD Work Phone: [facility] 09-06-2022 14:24-0500 SaO2% (BldA) [Mass fraction] 97 % Bina Jerome MD Work Phone: [facility] 08-27-2022 11:24-0400 Body temperature 98.2 [degF] Elsy Maurer MD Work Phone: [facility] 08-27-2022 11:24-0400 Diastolic blood pressure 89 mm[Hg] Elsy Maurer MD Work Phone: [facility] 08-27-2022 11:24-0400 Heart rate 103 /min Elsy Maurer MD Work Phone: [facility] 08-27-2022 11:24-0400 Respiratory rate 16 /min Elsy Maurer MD Work Phone: [facility] 08-27-2022 11:24-0400 SaO2% (BldA) [Mass fraction] 96 % Elsy Maurer MD Work Phone: [facility] 08-27-2022 11:24-0400 Systolic blood pressure 149 mm[Hg] Elsy Maurer MD Work Phone: [facility] 08-19-2022 17:02-0400 Body height 175.3 cm Elsy Maurer MD Work Phone: [facility] 08-19-2022 13:56-0400 Body mass index (BMI) [Ratio] 18.19 kg/m2 Elsy Maurer MD Work Phone: [facility] 08-19-2022 13:56-0400 Body weight 55.88 kg Elsy Maurer MD Work Phone: [facility] 12-16-2021 13:30-0500 Body height 175.26 cm Manan Watson Other [employer] Other 12-16-2021 13:30-0500 Body mass index (BMI) [Ratio] 21.41 kg/m2 Manan Watson Other [facility] Other 12-16-2021 13:30-0500 Body weight 65.77 kg Manan Watson Other [facility] Other 11-16-2021 12:45-0500 Body height 175.26 cm Manan Watson Other [employer] Other 11-16-2021 12:45-0500 Body mass index (BMI) [Ratio] 21.41 kg/m2 Manan Watson Other [employer] Other 11-16-2021 12:45-0500 Body weight 65.77 kg Manan Rickettsatif Other [employer] Other 10-30-2021 11:45-0500 Body height 175.26 cm Manan Rickettsatif Other [employer] Other 10-30-2021 11:45-0500 Body mass index (BMI) [Ratio] 21.41 kg/m2 Manan Elsatif Other [facility] Other 10-30-2021 11:45-0500 Body weight 65.77 kg Manan Rickettsatif Other [facility] Other 09-25-2021 12:00-0500 Body height 175.26 cm Manan Watson Other [employer] Other 09-25-2021 12:00-0500 Body mass index (BMI) [Ratio] 21.41 kg/m2 Manan Rickettsatif Other [facility] Other 09-25-2021 12:00-0500 Body weight 65.77 kg Manan Rickettsatif Other [facility] Other 09-25-2021 12:00-0500 Diastolic blood pressure 76 mm[Hg] Manan Watson Other [employer] Other 09-25-2021 12:00-0500 Systolic blood pressure 124 mm[Hg] Manan Watson Other [employer] Other Encounters Encounter Date Encounter Type Care Provider Facility Start: 09-07-2024 End: 09-07-2024 [facility] Work Phone: Start: 09-07-2024 End: 09-07-2024 Patient encounter procedure [facility] Work Phone: Start: 09-03-2024 End: 09-03-2024 ambulatory [facility] Work Phone: Start: 09-03-2024 End: 09-03-2024 Patient encounter procedure [facility] Work Phone: Start: 06-26-2024 End: 06-26-2024 ambulatory [facility] Work Phone: Start: 06-26-2024 End: 06-26-2024 Patient encounter procedure [facility] Work Phone: Start: 05-04-2024 End: 05-07-2024 Telephone encounter [facility] Comment on above: NEW PATIENT REFERRAL Start: 05-03-2024 End: 05-03-2024 ambulatory [facility] Work Phone: Start: 05-03-2024 End: 05-03-2024 Patient encounter procedure [facility] Work Phone: Start: 03-22-2024 End: 03-22-2024 ambulatory [facility] Work Phone: Start: 03-22-2024 End: 03-22-2024 Patient encounter procedure [facility] Work Phone: Start: 01-16-2024 End: 01-16-2024 ambulatory [facility] Work Phone: Start: 01-16-2024 End: 01-16-2024 Patient encounter procedure [facility] Work Phone: Start: 01-13-2024 Non-patient / Non-visit [facility] Work Phone: Start: 12-22-2023 End: 12-22-2023 Patient encounter procedure [facility] Work Phone: Start: 12-16-2023 Non-patient / Non-visit [facility] Work Phone: Start: 11-16-2023 End: 11-16-2023 ambulatory Eden Rafiq Other [employer] Other Start: 11-16-2023 Telephone encounter Eden Conroy [facility] Start: 10-19-2023 End: 10-19-2023 ambulatory Eden Rafiq Other [employer] Other Start: 10-19-2023 Telephone encounter Eden Conroy [facility] Start: 09-20-2023 End: 09-20-2023 ambulatory Eden Rafiq Other [employer] Other Start: 09-20-2023 Office outpatient vi sit 15 minutes Eden Rafiq [facility] Start: 09-19-2023 End: 09-19-2023 ambulatory Eden Conroy Other [employer] Other Start: 09-19-2023 Telephone encounter Eden Conroy [facility] Start: 08-19-2023 End: 08-19-2023 ambulatory Eden Conroy Other [facility] Other Start: 08-19-2023 Telephone encounter Eden Conroy [facility] Start: 07-22-2023 End: 07-22-2023 ambulatory Eden Conroy Other [facility] Other Start: 07-22-2023 Telephone encounter Eden Conroy [facility] Start: 06-24-2023 End: 06-24-2023 ambulatory Eden Conroy Other [facility] Other Start: 06-24-2023 Telephone encounter Eden Conroy [facility] Start: 05-24-2023 End: 05-24-2023 ambulatory Eden Conroy Other [facility] Other Start: 05-24-2023 Telephone encounter Eden Conroy [facility] Start: 04-22-2023 End: 04-22-2023 ambulatory Eden Conroy Other [facility] Other Start: 04-22-2023 Telephone encounter Eden Conroy [facility] Start: 04-14-2023 End: 04-14-2023 ambulatory Eden Conroy Other [facility] Other Start: 04-14-2023 Telephone encounter Eden Conroy [facility] Start: 04-11-2023 End: 04-11-2023 ambulatory Eden Conroy Other [facility] Other Start: 04-11-2023 Office outpatient vi sit 15 minutes Eden Conroy [facility] Start: 03-28-2023 End: 03-28-2023 ambulatory Eden Conroy Other [employer] Other Start: 03-28-2023 Telephone encounter Eden Conroy [facility] Start: 02-25-2023 End: 02-25-2023 ambulatory Eden Conroy Other [employer] Other Start: 02-25-2023 Telephone encounter Eden Conroy [facility] Start: 02-23-2023 ambulatory EDEN CONROY Facility:[facility] Start: 02-23-2023 End: 02-23-2023 Office outpatient visit 15 minutes Walt West MD Work Phone: [facility] [place] Comment on above: Tobacco abuse (Prima ry Dx); Wound dehiscence Start: 01-26-2023 End: 01-26-2023 Postop follow up visit related to original px Walt West MD Work Phone: [facility] [place] Comment on above: Encounter for follow -up care involving plastic surgery (Primary Dx); Seroma of musculoskeletal structure after musculoskeletal system procedure Start: 01-26-2023 End: 01-26-2023 ambulatory SELF SELF [employer] Other Start: 01-26-2023 Telephone encounter Eden Rafiq [facility] Start: 01-13-2023 ambulatory EDEN CONROY Facility:[facility] Start: 01-12-2023 ambulatory EDEN RAFIQ Facility:[facility] Start: 01-12-2023 End: 01-12-2023 Postop follow up visit related to original px Walt West MD Work Phone: [facility] Comment on above: Encounter for follow -up care involving plastic surgery (Primary Dx); Wound dehiscence Start: 01-05-2023 End: 01-05-2023 ambulatory Eden Conroy Other [employer] Other Start: 01-05-2023 Office outpatient vi sit 15 minutes Eden Conroy [facility] Start: 01-03-2023 End: 01-04-2023 ambulatory EDEN RAFIQ Facility:[facility] Start: 01-03-2023 End: 01-04-2023 Evaluation and management of inpatient Walt West MD Work Phone: [facility] Comment on above: Back wound Start: 12-30-2022 End: 12-30-2022 ambulatory Eden Rafiq Other [employer] Other Start: 12-30-2022 Telephone encounter Eden Rafiq [facility] Start: 12-29-2022 ambulatory EDEN RAFIQ Facility:[facility] Start: 12-29-2022 End: 12-29-2022 Office outpatient visit 25 minutes Walt West MD Work Phone: [facility] [place] Comment on above: Wound dehiscence (Pr imary Dx); Cervical vertebral fusion Start: 12-28-2022 ambulatory EDEN CONROY Facility:[facility] Start: 12-27-2022 ambulatory EDEN CONROY Facility:[facility] Start: 12-24-2022 ambulatory EDEN CONROY Facility:[facility] Start: 12-17-2022 End: 02-28-2023 Evaluation and management of inpatient GENERAL MEDICINE CONSULT Facility:[facility] Start: 12-09-2022 ambulatory BINA JEROME Facil ity:[facility] Start: 12-09-2022 End: 12-09-2022 Patient encounter procedure Bina Jerome MD Work Phone: [facility] Comment on above: S/P cervical spinal fusion (Primary Dx) Start: 12-09-2022 End: 12-09-2022 Subsequent hospital visit by physician Bina Jerome MD Work Phone: [facility] Comment on above: Arrived Start: 12-01-2022 End: 12-01-2022 ambulatory Eden Conroy Other [employer] Other Start: 12-01-2022 Telephone encounter Eden Conroy [facility] Start: 11-24-2022 ambulatory SELF SELF Facility:[facility] Start: 11-24-2022 End: 11-24-2022 Postop follow up visit related to original px Walt West MD Work Phone: [facility] Comment on above: S/P flap graft (Prim francisca Dx); Cervical vertebral fusion Start: 11-23-2022 ambulatory EDEN CONROY Facility:[facility] Start: 11-18-2022 End: 11-19-[address] DOCTOR SUTTON Facility: Start: 11-11-2022 ambulatory EDEN CONROY Facility:[facility] Start: 11-09-2022 ambulatory EDEN CONROY Facility:[facility] Start: 11-03-2022 End: 11-03-2022 ambulatory Eden Conroy Other [employer] Other Start: 11-03-2022 Telephone encounter Eden Conroy [facility] Start: 11-02-2022 ambulatory PUNEET Mann ty:[facility] Start: 11-02-2022 End: 11-02-2022 Office outpatient visit 25 minutes Puneet Blair MD Work Phone: [facility] Comment on above: Surgical site infect ion (Primary Dx) Start: 11-01-2022 End: 11-02-2022 ambulatory [facility] Start: 11-01-2022 End: 11-01-2022 Subsequent hospital visit by physician [facility] Start: 10-26-2022 ambulatory PUNEET Alfredo [facility] Start: 10-26-2022 End: 10-26-2022 Subsequent hospital visit by physician YULIET [facility] Start: 10-20-2022 ambulatory EDEN CONROY Facility:[facility] Start: 10-19-2022 End: 10-20-2022 ambulatory [facility] Start: 10-19-2022 End: 10-19-2022 Subsequent hospital visit by physician [facility] Start: 10-14-2022 End: 10-15-2022 ambulatory [facility] Start: 10-14-2022 End: 10-14-2022 Subsequent hospital visit by physician [facility] Start: 10-13-2022 ambulatory EDEN CONROY Facility:[facility] Start: 10-13-2022 Adult health examination Deyanira Conroy Other [employer] Other Start: 10-13-2022 Encounter for genera l adult medical examination without abnormal findings Eden Conroy Other [employer] Other Start: 10-13-2022 End: 10-13-2022 Office outpatient visit 15 minutes Walt West MD Work Phone: [facility] [place] Comment on above: Infection (Primary D x); Localized swelling of both lower legs Start: 10-11-2022 End: 10-12-2022 ambulatory PUNEET OROSCO [facility] Start: 10-11-2022 End: 10-11-2022 Subsequent hospital visit by physician [facility] Start: 10-07-2022 End: 10-08-2022 ambulatory PUNEET [facility] Start: 10-07-2022 End: 10-07-2022 Subsequent hospital visit by physician YULIET [facility] Start: 10-06-2022 ambulatory EDEN CONROY Facility:[facility] Start: 10-06-2022 End: 10-06-2022 Postop follow up visit related to original px Walt West MD Work Phone: [facility] Comment on above: Infection (Primary D x) Start: 10-04-2022 End: 10-05-2022 ambulatory [facility] Start: 10-04-2022 End: 10-04-2022 Subsequent hospital visit by physician [facility] Start: 09-21-2022 End: 10-01-2022 Evaluation and management of inpatient RADHA Jonah RABAGO Facility:[facility] Start: 09-21-2022 ambulatory BINA JEROME Facil ity:[facility] Start: 09-06-2022 ambulatory BINA JEROME Facil ity:[facility] Start: 09-06-2022 End: 09-06-2022 Patient encounter procedure Bina Jerome MD Work Phone: [facility] Comment on above: S/P cervical spinal fusion (Primary Dx); Spinal stenosis of cervical region Start: 09-05-2022 ambulatory EEDN CONROY Facility:[facility] Start: 08-24-2022 Evaluation and manag ement of inpatient [facility] Start: 08-19-2022 End: 08-27-2022 Evaluation and management of inpatient SURGERY - ORTHOPAEDICS CONSULT Facility:[facility] Start: 08-19-2022 End: 08-27-2022 Evaluation and management of inpatient Elsy Maurer MD Work Phone: [id number] Comment on above: Myelopathy Start: 08-11-2022 End: 08-11-[address] EDEN CONROY Facility:[facility] Start: 08-08-2022 End: 08-08-[address] EDEN CONROY Facility:[facility] Start: 08-07-2022 Encounter for genera l adult medical examination without abnormal findings DR EDEN CONROY [place] Start: 08-04-2022 End: 08-05-[address] EDEN CONROY Facility:[facility] Start: 08-04-2022 End: 08-05-2022 Encounter for general adult medical examination without abnormal findings DR EDEN CONROY Facility:[facility] Start: 02-11-[address] DOCTOR SUTTON Facility :[facility] Start: 12-16-2021 End: 12-16-2021 ambulatory Manan Watson [facility] [email or web address] Other Start: 12-16-2021 Postop follow up vis it related to original px Manan Jamarcuskens [facility] Start: 11-16-2021 End: 11-16-2021 ambulatory Manan Oleabrandt Other [facility] [email or web address] Other Start: 11-16-2021 Postop follow up vis it related to original px Manan Jamarcuskens [facility] Start: 11-10-2021 End: 11-10-2021 ambulatory Manan Watson Other [facility] [email or web address] Other Start: 11-10-2021 Telephone encounter Manan Lott [facility] Start: 11-05-2021 [facility] Manan Watson [facility] Start: 11-05-2021 End: 11-05-2021 ambulatory Manan Watson Other [facility] [email or web address] Other Start: 10-30-2021 End: 10-30-2021 ambulatory Manan Jamarcusmarcellusbrandt Other [facility] [email or web address] Other Start: 10-30-2021 Office outpatient vi sit 15 minutes Manan Watson [facility] Start: 09-25-2021 End: 09-25-2021 ambulatory Manan Watson Other [facility] [email or web address] Other Start: 09-25-2021 Office outpatient vi sit 15 minutes Manan Watson [facility] Start: 09-09-2021 End: 09-09-2021 ambulatory Manan Watson Other [facility] [email or web address] Other Start: 09-09-2021 Telephone encounter Manan Lott [facility] Neurosurgery Procedures Date Procedure Procedure Detail Performing Clinician Start: 01-26-2023 Follow-up visit Follow-up WALT WEST Start: 01-04-2023 Blood count platelet automated Marcos Perez MD Work Phone: Start: 01-03-2023 CONTINUOUS CARDIAC MONITORING STRIP Other Other Start: 01-03-2023 Culture fngi mold/ye ast prsmptv oth xcpt blood Walt West MD Work Phone: Start: 01-03-2023 End: 01-03-2023 Adjnt tis trnsfr/reargmt any area 30.1-60 sq cm Walt West MD Work Phone: Start: 01-03-2023 End: 01-03-2023 Debridement muscle &/fascia ea addl 20 sq cm Walt West MD Work Phone: Start: 01-03-2023 CONTINUOUS CARDIAC MONITORING STRIP Other Other Start: 01-03-2023 Drug test def 1-7 classes Darcie Jeffery PA-C Work Phone: Start: 12-18-2022 Antibody screen EDEN CONROY Comment on above: Performed By: #### X M #### [facility] ([facility]) [address] [place] [address] Start: 12-09-2022 Radex spine cervical 2 or 3 views Bina Jerome MD Work Phone: Start: 11-01-2022 Basic metabolic pane l calcium total Puneet Blair MD Start: 11-01-2022 Drug screen quantita tive vancomycin Puneet Blair MD Start: 10-26-2022 Basic metabolic pane l calcium total Puneet Blair MD Start: 10-26-2022 Drug screen quantita tive vancomycin Puneet Blair MD Start: 10-19-2022 Basic metabolic pane l calcium total Puneet Blair MD Start: 10-19-2022 Drug screen quantita tive vancomycin Puneet Blair MD Start: 10-14-2022 Basic metabolic pane l calcium total Puneet Blair MD Start: 10-14-2022 Drug screen quantita tive vancomycin Puneet Blair MD Start: 10-11-2022 Basic metabolic pane l calcium total Puneet Blair MD Start: 10-11-2022 Drug screen quantita tive vancomycin Puneet Blair MD Start: 10-07-2022 Drug screen quantita tive vancomycin Puneet Blair MD Start: 10-07-2022 Electrolyte panel Rich Blair MD Start: 10-04-2022 Basic metabolic pane l calcium total Duglas Frye MD Work Phone: Start: 10-04-2022 Drug screen quantita tive vancomycin Duglas Frye MD Work Phone: Start: 09-21-2022 Antibody screen EDEN CONROY Comment on above: Performed By: #### X M #### [facility] ([facility]) [address] [place] [address] Start: 08-26-2022 Creatinine blood Mercy Rose MD Work Phone: Start: 08-25-2022 Creatinine blood Mercy Rose MD Work Phone: Start: 08-23-2022 Blood count complete automated Mercy Rose MD Work Phone: Start: 08-22-2022 Radex spine cervical 2 or 3 views Tono Petersen MD Work Phone: Start: 08-22-2022 Creatinine blood Mercy Rose MD Work Phone: Start: 08-21-2022 CARDIAC RHYTHM Other Ot her Start: 08-21-2022 End: 08-21-2022 FUSION POSTERIOR CERVICAL Bina pearl MD Work Phone: Start: 08-21-2022 ABORH TYPE RECONFIRMATION Stephanie STEWART Start: 08-21-2022 Creatinine blood Mercy Rose MD Work Phone: Start: 08-20-2022 End: 08-20-2022 Antibody screen Elsy Maurer MD Work Phone: Comment on above: Performed By: #### L [id number] #### [facility] (DEFAULT) [address] [place] [address] Start: 08-20-2022 Blood typing serologic abo Domenica Zhong MD Work Phone: Start: 08-20-2022 Radex entir thrc lmb r crv sac spi w/skull 2/3 vw Tono Ying MD Work Phone: Start: 08-20-2022 Iadna s aureus ampli fied probe tq Tono Petersen MD Work Phone: Start: 08-20-2022 Assay of magnesium Sanchez deedee Monreal MD Work Phone: Start: 08-20-2022 Hepatic function panel Steven Monreal MD Work Phone: Start: 08-04-[address] DOCTOR SUTTON Comment on above: Performed By: #### B [id number], PSASC #### [facility] [address] [place] [address] Dr. Heidi Aguilar Start: 08-22-2018 Screening for malign ant neoplasm of prostate Eden Conroy Other Start: 02-02-2016 General examination of patient Eden Conroy Other H/O: surgery S/P flap graft Walt West MD Work Phone: Screening for malign ant neoplasm of prostate Eden Conroy Other Plan of Treatment Date Care Activity Detail Author Start: 06-24-2024 Influenza vaccination Influenza Vacc ine [facility] Start: 03-22-2024 Patient referral [facility] Work Phone: Start: 08-18-2023 Adult BMI Screening Adult BMI Screen ing [facility] Start: 08-13-2023 Tobacco Screening Tobacco Screening [facility] Start: 06-24-2023 Influenza vaccination INFLUENZ A VACCINE (Season Ended) [facility] Start: 02-16-2023 End: 02-16-2023 Patient encounter procedure [facility] Start: 02-02-2023 End: 02-02-2023 Patient encounter procedure 02/02/2023 Office Visit Plastic Surgery Walt West MD [address] [place] [address] [facility] [place] Start: 01-26-2023 End: 01-26-2023 Patient encounter procedure 01/26/2023 Office Visit Plastic Surgery Walt eWst MD [address] [place] [address] [facility] [place] Start: 01-25-2023 End: 01-25-2023 Telemedicine consultation with patient 01/25/2023 Telemedicine Infectious Diseases Puneet Blair MD [address] [place] [id number] Infectious Diseases Care [facility] Outpatient Care Start: 01-12-2023 End: 01-12-2023 Patient encounter procedure 01/12/2023 Office Visit Plastic Surgery Walt West MD [address] [place] [address] [facility] [place] Start: 01-03-2023 End: 01-03-2023 Adjnt tis trnsfr/reargmt any area 30.1-60 sq cm TRANSFER/REARRANGEMENT ADJACENT TISSUE TRUNK Wound dehiscence 01/03/2023 7:00 AM EDT [facility] Start: 01-03-2023 End: 01-03-2023 Anesthesia consultation 01/03/2023 Anesthesia Event [facility] Start: 01-03-2023 End: 01-03-2023 Debridement muscle &/fascia ea addl 20 sq cm DEBRIDEMENT FASCIA MUSCLE ADD-ON PX Wound dehiscence 01/03/2023 7:00 AM EDT [facility] Start: 01-03-2023 End: 01-03-2023 Evaluation and management of inpatient [facility] Comment on above: Wound dehiscence DEBRIDEMENT FASCIA M USCLE ADD-ON PX Start: 01-03-2023 End: 01-03-2023 Musc myocutaneous/fasciocutan eous flap trunk FLAP MUSCLE/MYOCUTANEOUS/FASC IOCUTANEOUS TRUNK Wound dehiscence 01/03/2023 7:00 AM EDT [facility] Start: 12-14-2022 Evaluation and management of inpatient 12/14/2022 Hospital Encounter Administrative Bina Jerome MD [address] [place] [address] Request Brain and Spine Bed Start: 12-08-2022 End: 12-08-2022 Patient encounter procedure 12/08/2022 Office Visit Plastic Surgery Walt West MD [address] [place], [place] [id number] [facility] [place] Start: 11-30-2022 End: 11-30-2022 Patient encounter procedure 11/30/2022 Office Visit Multispecialty Bina Jerome MD [address] [place] [address] Spine Care Outpatient Care [facility] Start: 11-17-2022 End: 11-17-2022 Patient encounter procedure 11/17/2022 Office Visit Plastic Surgery Walt West MD [address] [place] [id number] [facility] [place] Start: 11-16-2022 End: 11-02-2023 Comprehensive metabolic 2000 panel - Serum or Plasma COMPREHENSIVE METABOLIC PANEL Lab Routine Surgical site infection Expected: 11/16/2022, Expires: 11/02/2023 [facility] Work Phone: Comment on above: Expected: 11/16/2022 , Expires: 11/02/2023 Start: 11-02-2022 End: 11-02-2023 C-reactive protein C REACTIVE PROTEIN Lab Routine Surgical site infection Expected: 11/02/2022, Expires: 11/02/2023 [facility] Comment on above: Expected: 11/02/2022 , Expires: 11/02/2023 Start: 11-02-2022 End: 11-02-2023 SEDIMENTATION RATE, AUTOMATED SEDIMENTATION RATE, AUTOMATED Lab Routine Surgical site infection Expected: 11/02/2022, Expires: 11/02/2023 [facility] Comment on above: Expected: 11/02/2022 , Expires: 11/02/2023 Start: 11-02-2022 End: 11-02-2022 Patient encounter procedure 11/02/2022 Office Visit Infectious Diseases Puneet Blair MD [address] [place], [place] [phone] [place] [id number] Infectious Diseases [facility] Outpatient Care Start: 10-27-2022 End: 10-13-2023 US.doppler Lower extremity vein - bilateral VASC DUPLEX VENOUS EXTREMITY LOWER BILATERAL Imaging Routine Localized swelling of both lower legs Expected: 10/27/2022, Expires: 10/13/2023 [facility] Comment on above: Expected: 10/27/2022 , Expires: 10/13/2023 Start: 10-27-2022 End: 10-27-2022 Patient encounter procedure 10/27/2022 Office Visit Plastic Surgery Walt West MD [address] [facility] [address] [place] [address] Plastic [facility] [place] Start: 10-04-2022 End: 10-04-2022 Patient encounter procedure 10/04/2022 Office Visit Multispecialty Bina Jerome MD [address] [place] [address] [address] [place] [address] Spine Care Outpatient Care [facility] Start: 06-24-2022 Influenza vaccination INFLUENZA VACC INE (#1) [facility] Start: 05-24-2022 Influenza vaccination Flu vaccine (# 1) [facility] Start: 2017 Administration of varicella zoster vaccine Zoster (Shingles) Vaccine (1 of 2) [facility] Start: 2017 Prostate specific antigen measurement PROSTATE CANCER SCREENING DISCUSSION [facility] Start: 2017 Zoster vaccine hzv l freddy for subcutaneous use ZOSTER (SHINGLES) VACCINE (1 of 2) [facility] Start: 2012 Screening for malign ant neoplasm of colon COLORECTAL CANCER SCREENING DISCUSSION [facility] Start: 2007 Lipid panel LIPID SCREENING [facility] Start: 1986 DTaP,Tdap and Td Vaccines (1 - Tdap) DTaP,Tdap and Td Vaccines (1 - Tdap) [facility] Start: 1986 DTaP/Tdap/Td vaccine (1 - Tdap) DTaP/Tdap/Td vaccine (1 - Tdap) [facility] Start: 1986 Third diphtheria, tetanus and acellular pertussis (DTaP) vaccination TDAP (ADULT) [facility] Start: 1985 Tetanus vaccination TETANUS [facility] Start: 1982 HIV screening HIV SCREENING DISCUSSI ON [facility] Start: 1979 Depression Screening Depression Scre ening [facility] Start: 1973 PNEUMOCOCCAL VACCINE SERIES (1 - PCV) PNEUMOCOCCAL VACCINE SERIES (1 - PCV) [facility] Start: 01-17-1968 COVID-19 VACCINE (#1) COVID-19 VACCI NE (#1) [facility] Start: 1967 Hepatitis C screening HEPATITI S C VIRUS SCREENING [facility] Start: 1967 Tetanus vaccination TETANUS [facility] ANAEROBE CULTURE [facility] Comment on above: Release Upon Traceein g for 1 Occurrences starting 01/03/2023 Bacteria identified in Unspecified specimen by Culture BACTERIAL CULTURE AND DIRECT SMEAR, LESION, TISSUE, DEVICE Microbiology Routine Wound dehiscence 01/03/2023 7:58 AM EDT [facility] Comprehensive metabo lic 2000 panel - Serum or Plasma [facility] Fungus identified in Unspecified specimen by Culture FUNGUS CULTURE Microbiology Routine Wound dehiscence 01/03/2023 7:58 AM EDT [facility] Mycobacterium sp identified in Tissue by Organism specific culture ACID FAST CULTURE, TISSUE Microbiology Routine Wound dehiscence 01/03/2023 7:58 AM EDT [facility] Patient referral [facility] Work Phone: End: 08-21-2022 RF Less than 1 hour [facility] Comment on above: One Time for 1 Occur rences starting 08/21/2022 until 08/21/2022 [facility] Payers Date Payer Category Payer Medicaid [employer] [facility] MEDICAID HMO [id number] 2022-Present [phone] [address] [place] [address] [id number] 2022 Medicare [employer] ADV[employer]AGE [id number] 2022-Present [phone] [address] [place] [address] [id number]. 7.3.299657.315 2022 Unknown [id number]. 1.13.172.2. 7.3.339758.315 2022 Unknown [id number] 2.840.1.649257.19 1967 Unknown [id number] 2.840.1.840973.3.579.2. 174 1967 Unknown [id number] 2.16840.1.910333.3.579.2. 174 1967 Unknown [id number] 2.16.840.1.144154.3.579.2. 173 1967 Unknown [id number] 2.16.840.1.330981.3.579.2. 173 1967 Unknown [id number] 2.16.840.1.679840.3.579.2. 173 1967 Unknown [id number] 2.16.840.1.235140.3.579.2. 173 1967 Unknown [id number] 2.16.840.1.906000.3.579.2. 173 1967 Unknown [id number] 2.16.840.1.254846.3.579.2. 593 1967 Unknown [id number] 2.16.840.1.318194.3.579.2. 593 1967 Unknown [id number] 2.16.840.1.772279.3.579.2. 593 1967 Unknown [id number] 2.16.840.1.648533.3.579.2. 593 1967 Unknown [id number] 2.840.1.805491.3.579.2. 593 1967 Unknown [id number] 2.16.840.1.367127.3.579.2. 594 1967 Unknown [id number] 2.16.840.1.017987.3.579.2. 594 1967 Unknown [id number] 2.16.840.1.823434.3.579.2. 594 1967 Unknown [id number] 2.16.840.1.180101.3.579.2. 594 1967 Unknown [id number] 2.16.840.1.725698.3.579.2. 594 1967 Unknown [id number] 2.16.840.1.043099.3.579.2. 594 1967 Unknown [id number] 2.16.840.1.189090.3.579.2. 594 1967 Unknown [id number] 2.16.840.1.739434.3.579.2. 594 1967 Unknown [id number] 2.16.840.1.890097.3.579.2. 594 1967 Unknown [id number] 2.16.840.1.305010.3.579.2. 594 1967 Unknown [id number] 2.16.840.1.236549.3.579.2. 594 1967 Unknown [id number] 2.16.840.1.690668.3.579.2. 594 1967 Unknown [id number] 2.16.840.1.920088.3.579.2. 594 1967 Unknown [id number] 2.16.840.1.779475.3.579.2. 594 1967 Unknown [id number] 2.16.840.1.674013.3.579.2. 594 1967 Unknown [id number] 2.16840.1.678541.3.579.2. 594 1967 Unknown [id number] 2.16.840.1.373128.3.579.2. 594 1967 Unknown [id number] 2.16.840.1.096546.3.579.2. 594 1967 Unknown [id number] 2.16.840.1.135753.3.579.2. 594 1967 Unknown [id number] 2.16.840.1.221594.3.579.2. 594 1967 Unknown [id number] 2.16.840.1.750738.3.579.2. 594 1967 Unknown [id number] 2.16.840.1.314271.3.579.2. 594 1967 Unknown [id number] 2.16.840.1.777316.3.579.2. 594 1967 Unknown [id number] 2.16.840.1.089033.3.579.2. 594 1967 Unknown [id number] 2.16.840.1.336417.3.579.2. 594 1967 Unknown [id number] 2.16.840.1.672996.3.579.2. 594 1967 Unknown [id number] 2.16.840.1.052963.3.579.2. 594 1967 Unknown [id number] 2.16.840.1.085882.3.579.2. 594 1959 Self-pay 1959 Unknown [id number] 2.16.840.1.002240.19 Medicare Medicare [id number] Private Health Insurance [id number] 2.16.840.1.917498.19 Unknown [id number] 2.16.840.1.982470.3.579.2. 531 Social History Date Type Detail Facility Start: 12-04-2020 End: 08-13-2022 Sex Assigned At Located Within [facility] [employer] Other Start: 08-13-2022 End: 08-19-2022 Tobacco smoking status [facility] Smokes tobacco daily [facility] History of tobacco use Cigarette Smoker [facility] Start: 08-19-2022 End: 09-06-2022 Tobacco use and exposure User of smokeless tobacco [facility] History of tobacco use Snuff User [facility] Start: 08-13-2022 End: 08-25-2022 Alcohol intake Current drinker of alcohol (finding) [facility] Start: 1965 Sex Assigned At Not on file [facility] Start: 08-09-2022 End: 01-03-2023 Exposure to SARS-CoV-2 (event) Not sure [facility] Start: 09-06-2022 Tobacco smoking status NHIS Ex-smoker [facility] Start: 11-23-2021 End: 11-23-2021 History of tobacco use Current smoker [facility] Tobacco smoking stat us [facility] Tobacco smoking consumption unknown [facility] Work Phone: Start: 09-26-2022 End: 12-29-2022 Exposure to SARS-CoV-2 (event) Unable to assess [facility] Start: 1965 Sex Assigned At Male [facility] Start: 09-03-2024 End: 09-07-2024 Sex Male (finding) [facility] History of tobacco use Cigar Smoker [facility] [employer] [facility] Start: 12-04-2020 End: 08-13-2022 Cigarettes smoked current (pack per day) - Reported 1 [employer] [facility] Start: 08-13-2022 Tobacco use and exposure Smokeless tobacco non-user [facility] Unknown [facility] Medical Equipment Procedure Code Equipment Code Equipment Origin al Text Equipment Identifier Dates Screw Set Ti T15 Std Spne Lck Cap Nst - [id number] Start: 08-21-2022 Spinal fixation plate, non-bioabsorbable ()[id number] FDA Start: 11-05-2021 Bone-screw inter nal spinal fixation system, non-sterile ()[id number] FDA Start: 11-05-2021 Bone-screw inter nal spinal fixation system, non-sterile ()[id number] FDA Start: 11-05-2021 Intervertebral-b jacobo internal spinal fixation system ()[id number] FDA Start: 11-05-2021 Goals Date Patient Goal Desired Activity /State Personal health goal Comment on above: Formatting of this n ote might be different from the original. Evaluation of progress towards goal: Pt will have a safe DC. Clinical Notes 09-25-2021 to 06-26-2024 Note Date & Type Note Facility 06-26-2024 Evaluation note Diagnosis Onset Date Resolution Lumbar radiculopathy, chronic acute June 26, 2 024 9:30am Spinal stenosis acute June 26, 2024 9:30am Uncontrolled hypertension acute June 26, 2 024 9:30am [facility] Work Phone: 1(230) 610-145009-03-2024 Evaluation note* Diagnosis Onset Date Resolution Status Admit Date Lumbar radiculopathy, chronic acute June 26, 2024 9:30am Spinal stenosis acute June 26, 2024 9:30am Uncontrolled hypertension acute June 26, 2024 9:30am Epigastric abdominal pain acute September 07, 2024 10:37am Essential (primary) hypertension acute September 07, 2 024 10:37am Fatigue acute September 07, 2024 10:37am Nausea and vomiting acute 2023 10:37am [facility] Work Phone: 1(856) 381-592207-12-2024 Miscellaneous Notes* Telephone Encounter - Ramona Casiano - 05/04/2024 9:21 AM EDT First Attempt Made from [employer]- Left Voicemail New patient referral received. Dx:Bilateral leg weakness [R29.898] Bilateral leg pain [M79.604, M79.605] Spinal stenosis of lumbar region, unspecified whether neurogenic claudication present [M48.061] Radiculopathy, lumbar region [M54.16]/ Referred by:Eden Conroy MD Referred to: Providers patient can see in clinic (Make sure if MARIO is listed the patient has not seen a Neurologist before): Please contact patient to schedule from referral, Thanks! PLEASE REVIEW PLAN OVER THE PHONE AND ADVISE PATIENT TO BRING UPDATED INSURANCE INFORMATION TO THEIR NEW PATIENT APPOINTMENT * Telephone Encounter - Queta Howard - 05/04/2024 9:21 AM EDT 2nd attempt: Ward Clerk attempted to contact patient and schedule a new patient appointment with our clinic, as we have received all the necessary information that we need to see them in clinic. Ward Clerk was unable to reach patient because of the following automated message: patient's number hasbeen changed or disconnected. Ward Clerk attempted calling twice and received the same message both times. [facility] Telephone encounter Note* Telephone Encounter - Ramona Casiano - 05/04/2024 9:21 AM EDT [facility] New [facility] received. Dx:Bilateral leg weakness [R29.898] Bilateral leg pain [M79.604, M79.605] Spinal stenosis of lumbar region, unspecified whether neurogenic claudication present [M48.061] Radiculopathy, lumbar region [M54.16]/ Referred by:Eden Conroy MD Referred to: Providers patient can see in clinic (Make sure if MARIO is listed the patient has not seen a Neurologist before): Please contact patient to schedule from referral, Thanks! PLEASE REVIEW PLAN OVER THE PHONE AND ADVISE PATIENT TO BRING UPDATED INSURANCE INFORMATION TO THEIR NEW PATIENT APPOINTMENT [facility]07-12-2024 Telephone encounter Note* Telephone Encounter - Queta Howard - 05/04/2024 9:21 AM EDT 2nd attempt: Ward Clerk attempted to contact patient and schedule a new patient appointment with our clinic, as we have received all the necessary information that we need to see them in clinic. Ward Clerk was unable to reach patient because of the following automated message: patient's number hasbeen changed or disconnected. Ward Clerk attempted calling twice and received the same message both times. [facility]01-24-2024 Evaluation note* Encounter Date Diagnosis Assessment Notes Treatment Notes Treatment Clinical Notes Oct, Cervical disc disorder at C4-C5 level with myelopathy (ICD-10 - M50.021) [facility] Other 12-27-2023 Evaluation note* Encounter Date Diagnosis Assessment Notes Treatment Notes Treatment Clinical Notes Sep, Cervical disc disorder at C4-C5 level with myelopathy (ICD-10 - M50.021) [facility] Other 11-28-2023 Evaluation note* Encounter Date Diagnosis Assessment Notes Treatment Notes Treatment Clinical Notes Aug, Essential (primary) hypertension (ICD-10 - I10) Uncontrolled on losartan. add norvasc for improved control. Aug, Cervical disc disorder at C4-C5 level with myelopathy (ICD-10 - M50.021) Reviewed OARRS. Due for refill end of Sep. Pt agrees to decrease dose at that time. [facility] Other 06-19-2023 Evaluation note* Encounter Date Diagnosis Assessment Notes Treatment Notes Treatment Clinical Notes Mar, Essential (primary) hypertension (ICD-10 - I10) Handwrote lab order for CBC, Chem 14, PSA and Free T4, TSH. Will get labs today Mar, Other fatigue (ICD-10 - R53.83) as above Mar, Screening PSA (prostate specific antigen) (ICD-10 - Z12.5) as above Mar, Cervical disc disorder at C4-C5 level with myelopathy (ICD-10 - M50.021) Agrees to decrease next rx to TID rather than QID. Reviewed OARRS report. f/u 3 months [facility] Other 06-19-2023 Evaluation note* Encounter Date Diagnosis Assessment Notes Treatment Notes Treatment Clinical Notes Mar, Essential (primary) hypertension (ICD-10 - I10) Handwrote lab order for CBC, Chem 14, PSA and Free T4, TSH. Will get labs today Discussed elevated blood pressure reading with patient and recommend to check blood pressure and report to primary care provider. There are major complications of untreated high blood pressure. Patient verbalized understanding and agreement with treatment plan. Mar, Other fatigue (ICD-10 - R53.83) as above, check labs take daily MVI Mar, Screening PSA (prostate specific antigen) (ICD-10 - Z12.5) as above Mar, Cervical disc disorder at C4-C5 level with myelopathy (ICD-10 - M50.021) Agrees to decrease next rx to TID rather than QID. Reviewed OARRS report. f/u 3 months [facility] Other 05-03-2023 History of Present illness Narrative* Rabia Wright MA - 02/23/2023 3:00 PM EDT Plastic Surgery Post-op Issac Howell ([id number]) 57 y.o. male presenting for a post-op visit. Vitals: Smoking Status Former Estimated body mass index is 22.81 kg/m as calculated from the following: Height as of 01/12/23: 1.727 m (5' 8 ). Weight as of 01/12/23: 68 kg (150 lb). Surgery: DEBRIDEMENT FASCIA MUSCLE ADD-ON PX DOS 01/03/23 Surgeon: Dr. West New concerns: none * Nargis Langston, AMA - 02/23/2023 3:00 PM EDT Plastic Surgery Outpatient Follow-up Note Subjective Issac Howell Is a 57 y.o. male here today for a follow-up appointment s/p I&D of cervical spine wound with closure on 01/03/23. Spine pain comes and goes, takes percocet-controlled by PCP. Does not think seroma recurred. Has no complaints today, hoping to get remaining sutures out. Has tried to decrease nicotine intake, but still using 1 can of snuff/week. Denies fevers, chills, SOB, nausea, vomiting, other signs of systemic infection. Objective There were no vitals filed for this visit. Gen: NAD Exam: Cervical spine incision intact except for 4 x 4 mm wound at site of a remaining suture. Sutures x 3 removed. Minimal drainage, no surrounding erythema. Non tender. No fluctuance. Assessment: patient has small dehiscence of cervical spine closure at similar location to last wound, but unlike previously this wound has almost no undermining and does not track deep, could heal on its own especially if patient abstains from nicotine. No sign of infection so will continue to monitor. Plan: Will use hydrofera blue dressing to wound to keep clean and encourage epithelialization. Change q3-5 days PRN when product turns white. Again stressed importance of decreasing nicotine use, to zero if possible Continue protein-rich diet. RTC in 2 weeks for follow up, or sooner if needed or wound is worsening. ---- Patient seen and evaluated with Physician Lockstitch Cup Setter Ivis. I agree with the findings, assessment and plan in her note. Please see below for any additions to the clinical findings, assessment and plan. Patient continues to use tobacco products and has a small superficial wound breakdown which measures under one centimeter. There is no exposed critical structures or hardware. There is also no evidence of collection or infection. Plan: - Will try to encourage this small wound to epithelialize with hydrofera blue - Again we discussed tobacco cessation - RTC in two weeks documented in this [facility]04-05-2023 History of Present illness Narrative* Rabia Wright MA - 01/26/2023 2:15 PM EDT Plastic Surgery Post-op Issac Howell ([id number]) 57 y.o. male presenting for a post-op visit. Vitals: Smoking Status Former Estimated body mass index is 22.81 kg/m as calculated from the following: Height as of 01/12/23: 1.727 m (5' 8 ). Weight as of 01/12/23: 68 kg (150 lb). Surgery: DEBRIDEMENT FASCIA MUSCLE ADD-ON PX DOS 01/03/23 Surgeon: Dr. West Dressings: bandaid New concerns: none documented in this [facility]03-22-2023 History of Present illness Narrative* Vicente Paez MA - 01/12/2023 11:45 AM EDT Date Drain 1 01/12/23 17ml 01/11/23 20 ml 01/10/23 13.5 ml Color Redish documented in this [facility]03-15-2023 Evaluation note * Encounter Date Diagnosis Assessment Notes Treatment Notes Treatment Clinical Notes Dec, Essential (primary) hypertension (ICD-10 - I10) new problem - will start med - discussed pain level and stress v. 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 Will call patient prior to further refills will consider going down in dose or frequency after the wound VAC is removed. Keep scheduled appointments with his surgeons. [facility] Other 03-14-2023 Note* Nursing Notes - Bina Brooks RN - 01/04/2023 11:34 AM EDT [facility] PCRM Discharge Note Patient discussed in medical rounds for discharge to home with wound vac and BRANT drain. PCRM met with the patient/family/spouse to discuss final discharge plan. Services for Discharge No JONEL or new DME needs Consults with Final Discharge Recommendations NA Lines/Tubes/Drains/Wounds/Supplies BRANT x1 - CHG dressing to remain in place. Wound vac to remain in place to upper back wound. No changes needed Removal at post surgical follow up 01/12 Medications No barriers anticipated in obtaining discharge medications. No prior authorizations anticipated. Reconciliation of medications to be completed by the medical team. Medication List START taking these medications Ibuprofen 600 MG TABS Commonly known as: MOTRIN Take 1 tablet by mouth every 6 hours as needed for mild pain for up to 7 days. CONTINUE taking these medications amLODIPine 2.5 MG TABS Commonly known as: NORVASC Take 1 tablet by mouth daily. cholecalciferol 50 MCG (2000 UNIT) TABS Commonly known as: VITAMIN D3 Take 1 tablet by mouth daily. doxycycline hyclate 100 MG CAPS Commonly known as: VIBRAMYCIN Take 1 capsule by mouth 2 times daily. gabapentin 600 MG TABS Commonly known as: NEURONTIN Selenium 200 MCG TABS Take 1 tablet by mouth daily. Sulfamethoxazole-trimethoprim 800-160 MG per tablet Commonly known as: BACTRIM DS Take 1 tablet by mouth 2 times daily. vitamin A 3 MG (87754 UT) CAPS Take 2 capsules by mouth daily for 5 days. Vitamin B-Complex TABS zinc sulfate 220 MG CAPS Commonly known as: ZINCATE Take 1 capsule by mouth every morning before breakfast. STOP taking these medications Acetaminophen 325 MG tablet Commonly known as: TYLENOL oxyCODONE-acetaminophen 5-325 MG per tablet Commonly known as: PERCOCET Where to Get Your Medications These medications were sent to [facility] [address], [address] [address] Hours: Tuesday through Tuesday 8am to 9pm, Tuesday and Tuesday 9am to 6pm Ibuprofen 600 MG TABS Durable Medical Equipment As physicians assistant Choice Was Patient Choice Provided: N/A Transportation Transportation will be provided by [employer]. Education Discharge education provided by the medical team and updated in the After Visit Summary. Brant drain care Follow Up(s) Any follow up requested by the medical team arranged. Appointments in the After Visit Summary. Future Appointments Provider Department Center 01/12/2023 11:45 AM Walt West Plastic [facility] [place] Arrive at: Arrive to 2nd Floor, Registration [address] [facility] 01/25/2023 9:00 AM Puneet Blair Infectious Diseases Care [facility] Outpatient Care Arrive at: THIS IS A VIDEO VISIT, DO NOT GO TO THE CLINIC. [facility] 02/16/2023 12:30 PM Radha Rabago Spine Care Outpatient Care [facility] Arrive at: Arrive to 1st Floor, [facility] Registration Desk [facility] Was Ambulatory PCRM added to the Care Team? No Was a handoff made to an Ambulatory PCRM? No The PCRM has updated the patient's nurse Elizabeth Whittaker RN regarding the final discharge plan. Category Reference: Low: 0% - 5% Medium - Low: 5.1% - 10% Medium - High: 10.1% - 16% High: 16.1% - 100% Readmission Risk Interventions Documented: N/A No other discharge needs have been identified at this time. This plan was developed in collaboration with the patient and caregiver/preferred decision maker. Patient and family are in agreement with final discharge plan. Please refer to AVS and medical record for additional information. Patient instructed to call with questions. PCRM will continue to follow with medical team for any additional discharge planning needs. CONNIE GreeneN RN Patient Care Mechanical Unit Repairer Orthopaedics and Plastic Surgery If any changes to this individualized plan of care during evening and weekend hours and assistance is needed, please page the ping pong table assembler PCRM at [phone]. 01/04/23 1125 Referral Information Arrived From operating room Final Discharge Planning Discharge Disposition Home Services at Discharge Wound/drain/line/ostomy-supplies CM/SW AVS Portion Completed Yes Plan Plan Patient to DC to home with wound vac in place and BRANT dressed with CHG tegaderm. All BRANT and PreVena tegaderms are connected. All dressing to remain intact until 01/12 follow up. Patient/Family In Agreement With Plan yes Plan Comments Spouse to assist as needed Transport Request Dispatcher Called Yes (Patient to DC with [facility] transport) Transfer Mode walker Mode of Transfer other (W/C Service/Police etc) ([facility] transportation) Accompanied By family member [facility]03-14-2023 Miscellaneous Notes* Nursing Notes - Bina Brooks RN - 01/04/2023 11:34 AM EDT [facility] Inpatient PCRM Discharge Note Patient discussed in medical rounds for discharge to home with wound vac and BRANT drain. PCRM met with the patient/family/spouse to discuss final discharge plan. Services for Discharge No JONEL or new DME needs Consults with Final Discharge Recommendations NA Lines/Tubes/Drains/Wounds/Supplies BRANT x1 - CHG dressing to remain in place. Wound vac to remain in place to upper back wound. No changes needed Removal at post surgical follow up 01/12 Medications No barriers anticipated in obtaining discharge medications. No prior authorizations anticipated. Reconciliation of medications to be completed by the medical team. Medication List START taking these medications Ibuprofen 600 MG TABS Commonly known as: MOTRIN Take 1 tablet by mouth every 6 hours as needed for mild pain for up to 7 days. CONTINUE taking these medications amLODIPine 2.5 MG TABS Commonly known as: NORVASC Take 1 tablet by mouth daily. cholecalciferol 50 MCG (2000 UNIT) TABS Commonly known as: VITAMIN D3 Take 1 tablet by mouth daily. doxycycline hyclate 100 MG CAPS Commonly known as: VIBRAMYCIN Take 1 capsule by mouth 2 times daily. gabapentin 600 MG TABS Commonly known as: NEURONTIN Selenium 200 MCG TABS Take 1 tablet by mouth daily. Sulfamethoxazole-trimethoprim 800-160 MG per tablet Commonly known as: BACTRIM DS Take 1 tablet by mouth 2 times daily. vitamin A 3 MG (59073 UT) CAPS Take 2 capsules by mouth daily for 5 days. Vitamin B-Complex TABS zinc sulfate 220 MG CAPS Commonly known as: ZINCATE Take 1 capsule by mouth every morning before breakfast. STOP taking these medications Acetaminophen 325 MG tablet Commonly known as: TYLENOL oxyCODONE-acetaminophen 5-325 MG per tablet Commonly known as: PERCOCET Where to Get Your Medications These medications were sent to [facility] [address], [address], [facility] Hours: Tuesday through Tuesday 8am to 9pm, Tuesday and Tuesday 9am to 6pm Ibuprofen 600 MG TABS Durable Medical Equipment As physicians assistant Choice Was Patient Choice Provided: N/A Transportation Transportation will be provided by [employer]. Education Discharge education provided by the medical team and updated in the After Visit Summary. Brant drain care Follow Up(s) Any follow up requested by the medical team arranged. Appointments in the After Visit Summary. Future Appointments Provider Department [place] 01/12/2023 11:45 AM Walt West Pl[facility] [place] Arrive at: Arrive to 2nd Floor, Registration [address] [facility] 01/25/2023 9:00 AM Puneet Blair Infectious Diseases Care [facility] Outpatient Care Arrive at: THIS IS A VIDEO VISIT, DO NOT GO TO THE CLINIC. [facility] 02/16/2023 12:30 PM Radha Rabago Spine Care Outpatient Care [facility] Arrive at: Arrive to 1st Floor, [facility] Registration Desk [facility] Was Ambulatory PCRM added to the Care Team? No Was a handoff made to an Ambulatory PCRM? No The PCRM has updated the patient's nurse Elizabeth Whittaker RN regarding the final discharge plan. Category Reference: Low: 0% - 5% Medium - Low: 5.1% - 10% Medium - High: 10.1% - 16% High: 16.1% - 100% Readmission Risk Interventions Documented: N/A No other discharge needs have been identified at this time. This plan was developed in collaboration with the patient and caregiver/preferred decision maker. Patient and family are in agreement with final discharge plan. Please refer to AVS and medical record for additional information. Patient instructed to call with questions. PCRM will continue to follow with medical team for any additional discharge planning needs. PIPO Greene RN Patient Care Mechanical Unit Repairer Orthopaedics and Plastic Surgery If any changes to this individualized plan of care during evening and weekend hours and assistance is needed, please page the ping pong table assembler PCRM at [phone]. 01/04/23 1125 Referral Information Arrived From operating room Final Discharge Planning Discharge Disposition Home Services at Discharge Wound/drain/line/ostomy-supplies CM/SW AVS Portion Completed Yes Plan Plan Patient to DC to home with wound vac in place and BRANT dressed with CHG tegaderm. All BRANT and PreVena tegaderms are connected. All dressing to remain intact until 01/12 follow up. Patient/Family In Agreement With Plan yes Plan Comments Spouse to assist as needed Transport Request Dispatcher Called Yes (Patient to DC with [facility] transport) Transfer Mode walker Mode of Transfer other (W/C Service/Police etc) ([facility] transportation) Accompanied By family member * Nursing Notes - Elizabeth Banks RN - 01/04/2023 7:10 AM EDT 0710: Report from LELA Bell 0859: Message sent: David Orr this is Elizabeth taking care of . Issac Howell in ERU. He would like something for heartburn before going home and does he have to change his BRANT dressing at home before the follow up appointment? 0900: Discharge education, handout, and materials provided and reviewed. Went over drain teaching with , all returned demonstration. Ibuprofen prescription will be picked up at outpatient pharmacy on the way out. Answered all questions, they verbalized understanding with no further question or needs at this time. Patient in no acute distress. Patient states has all belongings. 1015: IV was discontinued, catheter tip intact and dressing placed. 1125: Patient taken to car via wheelchair by HOUSE FELLOW, with belongings and supplies. * Plan of Care - Vero Rao RN - 01/03/2023 1:26 PM EDT Problem: Patient Care Overview Goal: Plan of Care Review Outcome: Ongoing Goal: Individualization & Mutuality Outcome: Ongoing Goal: Discharge Needs Assessment Outcome: Ongoing Goal: Interdisciplinary Rounds/Family Conf Outcome: Ongoing * Nursing Notes - Vero Rao RN - 01/03/2023 1:25 PM EDT 1205 Patient admitted to [email or web address] Brought over by HOUSE FELLOW. Vital signs obtained. Patients call moncada with inreach. Bed locked and in the lowest position. [address] Maldonado with plastic service 1 ERU 13 Issac Howell: Patients BP was 183/99 on this most recent check. He does not have any PRNS ordered. Would you like to treat this? Thanks [id number] Vero [address] Perez at the bedside. Changing the patients dressing. Patient would like to stay overnight. Per plastics team it is okay to change the patient to home previana wound vac before he discharges tomorrow. [address] Maldonado ERU 13 Issac Howell patients BP dropped to 173/98 after 5mg of hydralazine. Order is Q6 for SBP <160.Wasnt sure if you wanted to order something in addition [id number] Maldonado with plastics service 1 [id number] Amy Howell: Patients most recent BP 163/93. Order for 5mg of hydralizine given earlier, Saysfor SBP <160 Q6. Wasnt sure if you want to order something in addition? Or of you are comfortable with this BP. [id number] Vero * Plan of Care - Marcos Perez MD - 01/03/2023 9:06 AM EDT Plastic Surgery Plan of Care Note Issac Howell is a 57 y.o. male POD 0 s/p I&D of cervical spine wound with closure Post-op plan: Wound care: Incision closed with nylons and covered with prevena. Prevena to remain in place until follow-up Drain care: 1 BRANT drain - BRANT drain care: please record each BRANT drain output separately, stripe drain(s) every 2 hours, empty every 4 hours or when >50% full (order placed) - Please begin BRANT drain teaching, pt will d/c with drain(s) in place - Please do not remove BRANT drain(s) without discussing with Plastic Surgery service - BRANT drain exit sites must be dressed with intact biopatch/tegaderm at all times, replace prn (Biopatches are available from OR if not kept on floor) Activity/Showering: No showering while VAC in place Diet/IVF/Labs: ok for regular Anticipated discharge date POD0-1, pending pain control Follow-up: 01/12/23 * Brief Op Note - Marcos Perez MD - 01/03/2023 8:50 AM EDT Issac Howell ([id number]) PRE OPERATIVE DIAGNOSIS Wound dehiscence [T81.30XA] POST OPERATIVE DIAGNOSIS Post-Op Diagnosis Codes: * Wound dehiscence [T81.30XA] PROCEDURE PERFORMED Procedure(s) (LRB): DEBRIDEMENT FASCIA MUSCLE ADD-ON PX (Midline) TRANSFER/REARRANGEMENT ADJACENT TISSUE TRUNK (Midline) FLAP MUSCLE/MYOCUTANEOUS/FASCIOCUTANEOUS TRUNK (Midline) PRIMARY CLOSURE Yes INTRAOPERATIVE FINDINGS small cavity at base of wound completely excised SURGEON Surgeon(s) and Role: * Walt West MD - Primary ANESTHESIOLOGIST Anesthesiologist: Jon Corrales MD CONCRETE RUBBER: Eric Garcia APRN-CONCRETE RUBBER Student Nurse Right Of Way Manager: Sincere Sanchez SURGICAL STAFF Test And Research Reactor Operator: Meri Nuñez RN; Dayanara Nuñez RN Physician Lockstitch Cup Setter: Nargis Langston PA-C Relief Scrub: Mireille Lewis RN Scrub Person: Karley Bustillos Resident Assisting: Marcos Perez MD COMPLICATIONS None ESTIMATED BLOOD LOSS 10 ml SPECIMENS ID Type Source Tests Collected by Time Destination A : Seroma Cavity from wound Tissue TISSUE FUNGUS CULTURE, ACID FAST CULTURE, TISSUE, ANAEROBE CULTURE, BACTERIAL CULTURE AND DIRECT SMEAR, LESION, TISSUE, DEVICE Walt West MD 01/03/2023 [id number] Marcos Perez MD January 03, 2023 8:50 AM [facility] History of Present illness Narrative* Jose Lion - 01/04/2023 11:11 AM EDT Images from the original note were not included. [facility] ([facility] Delivery Note: The following medications were Delivered to the patient's bedside: [id number] to pt. Jose Seymour [place] Bedside Delivery: [phone] [place] Bedside Delivery: [phone] East: [phone] * Hernán Campos RPh,PharmD - 01/04/2023 9:05 AM EDT Images from the original note were not included. [facility] ([facility]) Note: [facility] received the following discharge prescription(s): Total cost is $0.00. I have reviewed the Discharge Rx Reconciliation Report. Discharge date was confirmed with the [facility] expected discharge date. The discharge prescription(s) will be Delivered to the patient on 01/04/2023. Hernán Campos RPh,PharmD [facility] [phone] Ariel [phone] [facility] [phone] Bedside delivery [phone] * Kirby Chester MD - 01/04/2023 7:19 AM EDT Plastic Surgery Daily Progress Note Assessment/Plan Issac Howell is a 57 y.o. male POD # 1 s/p I&D of cervical spine wound with closure Post-op plan: Wound care: Incision closed with nylons and covered with prevena. Prevena to remain in place until follow-up Drain care: 1 BRANT drain - BRANT drain care: please record each BRANT drain output separately, stripe drain(s) every 2 hours, empty every 4 hours or when >50% full (order placed) - Please begin BRANT drain teaching, pt will d/c with drain(s) in place - Please do not remove BRANT drain(s) without discussing with Plastic Surgery service - BRANT drain exit sites must be dressed with intact biopatch/tegaderm at all times, replace prn (Biopatches are available from OR if not kept on floor) Activity/Showering: No showering while VAC in place Diet/IVF/Labs: ok for regular Anticipated discharge date today Follow-up: 01/12/23 Last 24 Hours: No acute events overnight. Pain controlled with medications. Ambulating. Using incentive spirometer. Prevena holding suction. Patient interested in DC this AM. Physical Exam BP (!) 165/96 (BP Location: Left arm, BP Position: Lying) Pulse 96 Temp 98.8 F (37.1 C) (Oral) Resp 16 Ht 1.753 m (5' 9 ) Wt 67 kg (147 lb 11.2 oz) SpO2 96% BMI 21.81 kg/m Smoking Status Former GEN: laying in bed in NAD RESP: Breathing well on RA, equal chest rise, nonlabored CARDIO: RRR ABD: soft, nontender, nondistended BACK: Incisional vac in place, holding suction, no output in canister. No evidence of hematoma or other fluid collection. Skin flaps pink, warm, viable. EXT: Warm, SCDs on DRAINS: one drain with thin, SS drainage Laboratory Studies & Objective Data Temp: [97.5 F (36.4 C)-99.2 F (37.3 C)] 98.8 F (37.1 C) Pulse (Heart Rate): [61-96] 96 Resp Rate: [8-19] 16 BP: (140-183)/(75-110) 165/96 O2 Sat (%): [92 %-97 %] 96 % Oxygen Therapy O2 Sat (%): 96 % O2 Device: room air Fluid Management (24hrs): Intake/Output last 3 shifts: I/O last 3 completed shifts: In: 2805.1 [P.O.:1350; I.V.:1355.1; IV Piggyback:100] Out: 2890 [Urine:2825; Other:55] WBC/Hgb/Hct/Plts: --/--/--/259 (01/04 0350) JP1: 55 Kirby Chester MD Plastic Surgery team following: PS2. Please page appropriate Plastic Surgery team for questions or concerns [WebEx > Plastic Surgery > PS1, 2, or 3] * Kirby Chester MD - 01/03/2023 12:21 PM EDT Plastic Surgery Post Op Check Patient seen and examined in PACU >1hr from the end of the procedure. Doing well. Pain controlled - currently 06/02, just after he had switched beds. Denies nausea, vomiting, chest pain, shortness of breath. BP (!) 175/98 Pulse 73 Temp 98.2 F (36.8 C) (Oral) Resp 12 Ht 1.753 m (5' 9 ) Wt 67 kg (147 lb 11.2 oz) SpO2 97% BMI 21.81 kg/m Smoking Status Former GEN: laying in bed in NAD RESP: Breathing well on RA, equal chest rise, nonlabored CARDIO: RRR ABD: soft, nontender, nondistended BACK: Incisional vac in place, holding suction, no output in canister. No evidence of hematoma or other fluid collection. Skin flaps pink, warm, viable. EXT: Warm, SCDs on DRAINS: one drain with thin, SS drainage Doing well. Continue post-operative care as outlined in plan of care note. DC later this PM or tomorrow AM pending pain control Kirby Chester MD [facility] Note* Nursing Notes - Elizabeth Banks RN - 01/04/2023 7:10 AM EDT 0710: Report from LELA Bell 0862: Message sent: David Orr this is Elizabeth taking care of . Issac Howell in ERU. He would like something for heartburn before going home and does he have to change his BRANT dressing at home before the follow up appointment? 0900: Discharge education, handout, and materials provided and reviewed. Went over drain teaching with , all returned demonstration. Ibuprofen prescription will be picked up at outpatient pharmacy on the way out. Answered all questions, they verbalized understanding with no further question or needs at this time. Patient in no acute distress. Patient states has all belongings. 1015: IV was discontinued, catheter tip intact and dressing placed. 1125: Patient taken to car via wheelchair by HOUSE FELLOW, with belongings and supplies. [facility]03-13-[facility] Note* Plan of Care - Vero Rao RN - 01/03/2023 1:26 PM EDT Problem: Patient Care Overview Goal: Plan of Care Review Outcome: Ongoing Goal: Individualization & Mutuality Outcome: Ongoing Goal: Discharge Needs Assessment Outcome: Ongoing Goal: Interdisciplinary Rounds/Family Conf Outcome: Ongoing [facility]03-13-2023 Note* Nursing Notes - Vero Rao RN - 01/03/2023 1:25 PM EDT 1205 Patient admitted to [facility] [[email or web address] Brought over by HOUSE FELLOW. Vital signs obtained. Patients call moncada with inreach. Bed locked and in the lowest position. [address] Maldonado with plastic service 1 13 Issac Howell: Patients BP was 183/99 on this most recent check. He does not have any PRNS ordered. Would you like to treat this? Thanks [id number] Vero [address] Perez at the bedside. Changing the patients dressing. Patient would like to stay overnight. Per plastics team it is okay to change the patient to home previana wound vac before he discharges tomorrow. [address] Maldonado ERU 13 Issac Howell patients BP dropped to 173/98 after 5mg of hydralazine. Order is Q6 for SBP <160.Wasnt sure if you wanted to order something in addition [id number] [address] Maldonado with plastics service 1 [id number] Amy Howell: Patients most recent BP 163/93. Order for 5mg of hydralizine given earlier, Saysfor SBP <160 Q6. Wasnt sure if you want to order something in addition? Or of you are comfortable with this BP. [id number] Vero [facility]03-[facility] Hospital Discharge instructions* Discharge Instructions* Bina Brooks RN - 01/03/2023 9:48 AM EDT Images from the original note were not included. Discharge Instructions for Home Incisions Your incisions are closed with absorbable suture and have a wound vac. Leave the vac dressing on until you see Dr. West at your follow up appointment. Keep your incisions clean and dry. Check your incisions daily for signs of infection. These include redness, swelling, warmth, and white, thick, purulent drainage. Showering No showering while the wound vac is in place Do not submerge in a pool or tub for 3 weeks Pain Control Take tylenol, 975 mg, three times daily for 7 days. Take ibuporfen, 600 mg, four times daily for 7 days. You may continue to take your already prescribed oxycodone as needed for additional pain relief. Use this only when needed. Take colace as needed for constipation Do not drive or operate machinery if you are taking narcotic pain medication (like oxycodone). Home care and activity Take pain medicine as needed. Avoid heavy lifting and straining. Do not carry anything heavier than a gallon of milk. Do not do strenuous activity or excercise until your healthcare provider says its okay. Resume light daily activities like walking. Keep your incisions clean and dry. Eat normal meals as soon as you feel able. Stick to a healthy, well-balanced diet. Follow-up You have a follow up appointment scheduled on 01/12/[address] West Notify Your Doctor or Nurse if you have any of the following: Bleeding or bruising If you have bleeding, apply pressure to the site and hold the pressure firmly for 5 minutes. If thebleeding continues, apply pressure again and call 911. If the bleeding stopped, call your doctor toreport it. Call your doctor or nurse right away if you have increased bleeding from your site and increased bruising or a lump forms or gets larger under your skin at the site. Catheter or tube problems Call your doctor or nurse if you have problems with your tube or catheter such as it breaks or leaks, falls out, has drainage coming from around the tube site, and seems the suction devise is not working. Fever, Chills, or Flu Call your doctor or nurse if you have a temperature greater than 101 degrees F and/or chills. Unrelieved Pain Call your doctor or nurse if your pain gets worse or is not eased 1 hour after taking your pain medicine. Wound Infection Symptoms Call your doctor or nurse right away if you have signs of infection at you wound such as: -More pain around the wound -Change in the amount , color, and odor of drainage -The skin around the wound feels warm or has red streaks -The wound separates or opens up -You have a temperature greater than 101 Tubes: Leave drain dressing in place. -Your drain dressing is covered with antimicrobial CHG. It does not need to be changed prior to your follow up appointment. -DO NOT SHOWER WITH YOUR DRAIN OR WOUND VAC IN PLACE. Surgical Drains Empty, measure and record the amount of drainage twice daily, or more often, if needed. Call if: There is a sudden gush of fluid, if drainage looks very bloody, or if drainage becomes foul-smelling. Call if: leakage of fluid persists from drainage tube exit site(s), and if you are not able to clear the clots down tube. Call if drain will not hold suction. If you have two drains, ankit drainage amounts for drain A and drain B. Clean around the tube exit site with alcohol pad and apply Neosporin to skin around Tube insertion site. Gently squeeze drain tubing(s) starting near the skin and moving down the length of the tubing toward the drain collection device twice daily to keep clots loosened. Wear an old belt into the shower and pin your drain container to it. Follow these steps to empty the BRANT drain: Wash your hands with soap and water. Dry your hands and put on clean gloves. Place a waterproof pad or towel under the BRANT drain to soak up any spills. Place the bulb lower thanthe wound to prevent fluid from going back into your body. Check the bulb for any holes or cracks. Remove the plug at one side of the bulb and pour the fluid into a measuring container. Do not touch the tip of the spout with the mouth of the collection cup or anything else. This keepsgerms from getting inside the bulb and tubing. Clean the plug with a cotton ball dipped in alcohol,or an alcohol swab. Squeeze the bulb tightly while the plug is still off. Do not squeeze the bulb if the plug is in place. While the bulb is being squeezed, put the plug back to seal the bulb. If you cannot squeeze it and plug it at the same time, ask someone for help. You may also place the bulb on a hard surface, such as a table. Use your elbow or hand to press down hard on the bulb, and then stick the plug in it. Measure the amount of fluid that came out of the BRANT drain bulb. Write down the amount, color, and odor of the fluid, and the date and time that you collected it. Use a piece of paper, a notebook, or BRANT drainage chart to keep track of this information. Flush the fluid down the toilet. Throw all used supplies in the trash bag along with your gloves. Wash your hands after you are finished Activity: Please follow these instructions: You may perform the following activities: -Exercise as you are able. Do not do the following: -greensman such as vacuuming, or heavy cleaning -Strenuous physical sports or exercise -Lift, pull or move objects greater than 10 pounds -High impact actvities such as jumping jacks or running -Yard work including mowing and gardening Return to Driving: You may not return to driving at this time. Your doctor will discuss recommendations at your follow-up appointment. Bathing Restrictions: -You have a WOUND VAC DRESSING that should not get wet. Refer to your instructions for care details. Diet: Your doctor has recommended that you follow these diet instructions at home. Refer to the patient education materials you received during your hospital stay. If you would like more nutrition counseling, ask your doctor about making an appointment with an outpatient dietitian. No restrictions-usual diet -You are to resume your usual diet at home. Regular Diet to help you maintain your health and control your weight. Choose healthy fats and oils such ascanola or olive oils, and good sources of fiber and carbohydrates. Choose lean meats or vegetables proteins. Avoid adding salt to your foods. Increase daily intake of fruits and vegetables. Additional Contacts: Evening and Weekend Contacts If you have questions or concerns during evening, weekend, or holiday hours, please call: -[facility] at [phone]. [facility] transcribing operators supervisor at [phone] Ask the transcribing operators supervisor to page the on-call doctor for Plastic Surgery, the service that was responsible for your care while you were in the hospital. If you having an emergency, call 911. Surgery Follow-Up Your surgeon was Dr. Walt West. You can reach your surgeon's office at [phone]. Nurse Body Joiner CONNIE GreeneN RN Patient Care Mechanical Unit Repairer Orthopaedics and Plastic Surgery Date Drain # Drain# Comments AM PM AM PM ml Color: ml Color: ml Color: ml Color: ml Color: ml Color: ml Color: ml Color: ml Color: ml Color: ml Color: ml Color: ml Color: ml Color: ml Color: ml Color: ml Color: ml Color: ml Color: ml Color: ml Color: ml Color: ml Color: ml Color: ml Color: ml Color: ml Color: ml Color: ml Color: ml Color: ml Color: ml Color: ml Color: ml Color: ml Color: ml Color: ml Color: ml Color: ml Color: ml Color: ml Color: ml Color: ml Color: ml Color: ml Color: ml Color: ml Color: ml Color: ml Color: ml Color: ml Color: ml Color: ml Color: ml Color: ml Color: ml Color: ml Color: ml Color: ml Color: ml Color: Date Drain # Drain# Comments AM PM AM PM ml Color: ml Color: ml Color: ml Color: ml Color: ml Color: ml Color: ml Color: ml Color: ml Color: ml Color: ml Color: ml Color: ml Color: ml Color: ml Color: ml Color: ml Color: ml Color: ml Color: ml Color: ml Color: ml Color: ml Color: ml Color: ml Color: ml Color: ml Color: ml Color: ml Color: ml Color: ml Color: ml Color: ml Color: ml Color: ml Color: ml Color: ml Color: ml Color: ml Color: ml Color: ml Color: ml Color: ml Color: ml Color: ml Color: ml Color: ml Color: ml Color: ml Color: ml Color: ml Color: ml Color: ml Color: ml Color: ml Color: ml Color: ml Color: ml Color: ml Color: Date Drain # Drain# Comments AM PM AM PM ml Color: ml Color: ml Color: ml Color: ml Color: ml Color: ml Color: ml Color: ml Color: ml Color: ml Color: ml Color: ml Color: ml Color: ml Color: ml Color: ml Color: ml Color: ml Color: ml Color: ml Color: ml Color: ml Color: ml Color: ml Color: ml Color: ml Color: ml Color: ml Color: ml Color: ml Color: ml Color: ml Color: ml Color: ml Color: ml Color: ml Color: ml Color: ml Color: ml Color: ml Color: ml Color: ml Color: ml Color: ml Color: ml Color: ml Color: ml Color: ml Color: ml Color: ml Color: ml Color: ml Color: ml Color: ml Color: ml Color: ml Color: ml Color: ml Color: ml Color: Date Drain # Drain# Comments AM PM AM PM ml Color: ml Color: ml Color: ml Color: ml Color: ml Color: ml Color: ml Color: ml Color: ml Color: ml Color: ml Color: ml Color: ml Color: ml Color: ml Color: ml Color: ml Color: ml Color: ml Color: ml Color: ml Color: ml Color: ml Color: ml Color: ml Color: ml Color: ml Color: ml Color: ml Color: ml Color: ml Color: ml Color: ml Color: ml Color: ml Color: ml Color: ml Color: ml Color: ml Color: ml Color: ml Color: ml Color: ml Color: ml Color: ml Color: ml Color: ml Color: ml Color: ml Color: ml Color: ml Color: ml Color: ml Color: ml Color: ml Color: ml Color: ml Color: ml Color: ml Color: Date Drain # Drain# Comments AM PM AM PM ml Color: ml Color: ml Color: ml Color: ml Color: ml Color: ml Color: ml Color: ml Color: ml Color: ml Color: ml Color: ml Color: ml Color: ml Color: ml Color: ml Color: ml Color: ml Color: ml Color: ml Color: ml Color: ml Color: ml Color: ml Color: ml Color: ml Color: ml Color: ml Color: ml Color: ml Color: ml Color: ml Color: ml Color: ml Color: ml Color: ml Color: ml Color: ml Color: ml Color: ml Color: ml Color: ml Color: ml Color: ml Color: ml Color: ml Color: ml Color: ml Color: ml Color: ml Color: ml Color: ml Color: ml Color: ml Color: ml Color: ml Color: ml Color: ml Color: ml Color: documented in this [facility]03-13-2023 Nurse Surgical operation note* Rashel Li RN - 01/03/2023 9:09 AM EDT 0855 [facility] with side rails up x2 with HOB >30 degrees, accompanied by Anesthesiologist: Jon Corrales MD CONCRETE RUBBER: Eric Garcia APRN-CONCRETE RUBBER Student Nurse Right Of Way Manager: Sincere Sanchez. Patient placed on monitors, VSS. Report received from anesthesia. Patient assessed, see assessment. 0930 Dr Corrales at the bedside. Ok per MD patient to be discharged from PACU with systolic BP of 170 and under.No further orders received. 0948 Ok per anesthesia patient to be discharged to OBS unit. No further orders received. 1107 fam updated. 1150 ISBAR report given to roby Pham RN. All questions answered. 1200 Patient transported to floor by bed, side rails up x 4, per Corey, HOUSE FELLOW. OBS RN to call fam at the bedside. [facility]03-13-2023 Nurse Note* Rashel Li RN - 01/03/2023 9:09 AM EDT 0855 Patient arrives in [facility] PACU from OR via gurney with side rails up x2 with HOB >30 degrees, accompanied by Anesthesiologist: Jon Corrales MD CONCRETE RUBBER: Eric Garcia APRN-CONCRETE RUBBER Student Nurse Right Of Way Manager: Sincere Sanchez. Patient placed on monitors, VSS. Report received from anesthesia. Patient assessed, see assessment. 0930 Dr Corrales at the bedside. Ok per patient to be discharged from PACU with systolic BP of 170 and under.No further orders received. 0948 Ok per anesthesia patient to be discharged to OBS unit. No further orders received. 1107 fam updated. 1150 ISBAR report given to roby Pham RN. All questions answered. 1200 Patient transported to floor by bed, side rails up x 4, per Corey, HOUSE FELLOW. OBS RN to call fam at the bedside. * Dayanara Nuñez RN - 01/03/2023 8:53 AM EDT Mepilex dressing applied to lower bony prominence in ASU Report received from ASU operating room specialist notified of start time at 0749 via [facility] text/page system Yellow sheet sent to PACU Notified PACU charge of patient arrival time. Patient transported to PACU by anesthesia, side rails up x2 Report given to PACU, no further questions * Luisa Jiménez RN - 01/03/2023 5:41 AM EDT Pt denies any history of chemo, radiation, stroke, or diabetes. Pt does have rods and screws in neck and back. [facility]* Plan of Care - Marcos Perez MD - 01/03/2023 9:06 AM EDT Plastic Surgery Plan of Care Note Issac Howell is a 57 y.o. male POD 0 s/p I&D of cervical spine wound with closure Post-op plan: Wound care: Incision closed with nylons and covered with prevena. Prevena to remain in place until follow-up Drain care: 1 BRANT drain - BRANT drain care: please record each BRANT drain output separately, stripe drain(s) every 2 hours, empty every 4 hours or when >50% full (order placed) - Please begin BRANT drain teaching, pt will d/c with drain(s) in place - Please do not remove BRANT drain(s) without discussing with Plastic Surgery service - BRANT drain exit sites must be dressed with intact biopatch/tegaderm at all times, replace prn (Biopatches are available from OR if not kept on floor) Activity/Showering: No showering while VAC in place Diet/IVF/Labs: ok for regular Anticipated discharge date POD0-1, pending pain control Follow-up: 01/12/23 [facility] Work Phone: 1(572) 704-400503-13-2023 Nurse Surgical operation note* Dayanara Nuñez RN - 01/03/2023 8:53 AM EDT Mepilex dressing applied to lower bony prominence in ASU Report received from ASU operating room specialist notified of start time at 0749 via [facility] text/page system Yellow sheet sent to PACU Notified PACU charge of patient arrival time. Patient transported to PACU by anesthesia, side rails up x2 Report given to PACU, no further questions [facility]* Brief Op Note - Marcos Perez MD - 01/03/2023 8:50 AM EDT Issac Howell ([id number]) PRE OPERATIVE DIAGNOSIS Wound dehiscence [T81.30XA] POST OPERATIVE DIAGNOSIS Post-Op Diagnosis Codes: * Wound dehiscence [T81.30XA] PROCEDURE PERFORMED Procedure(s) (LRB): DEBRIDEMENT FASCIA MUSCLE ADD-ON PX (Midline) TRANSFER/REARRANGEMENT ADJACENT TISSUE TRUNK (Midline) FLAP MUSCLE/MYOCUTANEOUS/FASCIOCUTANEOUS TRUNK (Midline) PRIMARY CLOSURE Yes INTRAOPERATIVE FINDINGS small cavity at base of wound completely excised SURGEON Surgeon(s) and Role: * Walt West MD - Primary ANESTHESIOLOGIST Anesthesiologist: Jon Corrales MD CONCRETE RUBBER: Eric Garcia APRN-CONCRETE RUBBER Student Nurse Right Of Way Manager: Sincere Sanchez SURGICAL STAFF [employer] Reactor Operator: Meri Nuñez RN; Dayanara Nuñez RN Physician Lockstitch Cup Setter: Nargis Langston PA-C Relief Scrub: Mireille Lewis RN Scrub Person: Karley Bustillos Resident Assisting: Marcos Perez MD COMPLICATIONS None ESTIMATED BLOOD LOSS 10 ml SPECIMENS ID Type Source Tests Collected by Time Destination A : Seroma Cavity from wound Tissue TISSUE FUNGUS CULTURE, ACID FAST CULTURE, TISSUE, ANAEROBE CULTURE, BACTERIAL CULTURE AND DIRECT SMEAR, LESION, TISSUE, DEVICE Walt West MD 01/03/2023 [id number] Marcos Perez MD January 03, 2023 8:50 AM [facility] Attending History and physical note* Walt West MD - 01/03/2023 6:32 AM EDT Plastic Surgery Attending I have personally seen and examined Issac Howell. I have reviewed their H&P from 12/29/22. The patient denies any changes in their health status since the previous H&P. Remains abstinentfrom nicotine products. Their physical exam is unchanged since the previous H&P. The patient is suitable for the following planned procedure(s): Debridement of midline cervical wound, closure with possible bilateral fasciocutaneous advancement flaps with possible paraspinal muscle flaps For each procedure, I reviewed the incisions/scars, duration, recovery time, and postoperative restrictions. When applicable, I discussed hospitalization, dressing changes, drains, and donor site morbidity. Risks that were discussed include surgical (bleeding, infection, hematoma, seroma, wound breakdown,need for further surgery, pain, numbness, weakness, asymmetry, cosmetic deformity, injury to structures) and medical (heart attack, pneumonia, DVT/PE, ). When applicable, I discussed partial/complete graft or flap loss. All of the patient's questions/concerns were addressed. The patient understands all of these things, wishes to proceed. The consent form was again reviewed. Walt West MD Source Note - Nargis Langston PA-C - 12/29/2022 9:30 AM EST Plastic and Reconstructive Surgery H&P HPI: Mr. Howell is a 57 y.o. male PMHx tobacco use, alcohol use disorder, longstanding cervical spine degenerative disease and spinal stenosis (s/p C4-C7 ACDF in 2006 and C5-T1 cervical decompression and fusion 08/21/[address] Jerome). This most recent fusion was complicated by superficial dehiscence requiring a washout and debridement with orthopedic surgery on 09/22/2022, cultures grew MRSE and cutibacterium acne. The patient was treated with 6 weeks of Vancomycin followed by suppressive therapy. He then underwent closure with elevation and advancement of bilateral paraspinal muscle flaps on 09/28/[address] West, and cultures taken during this operation were negative. Admitted 12/17/2022 to orthopedic surgery due to a wound dehiscence, present x 1 week. Was still chewing tobacco earlier that month, but reports after signs of a small ulceration at our plastic surgery clinic visit, he stopped completely and has now been almost 4 weeks without chewing tobacco or replacement nicotine products. Is drinking Ensure Max Protein several times daily and wants to do everything possible to ensure he can definitively heal from this. They present preoperatively for planned: debridement midline back wound with adjacent tissue rearrangement, possible muscle flap, possible wound vac placement Scheduled for: 01/03/2023 at [facility] The following changes in health status or surgical plan are noted since the patient was last seen: - as per HPI, patient admitted for dehiscence in November without ortho plans for intervention - nicotine use has stopped per patient, nutrition labs appropriate Review of Systems: No F/C. No CP/SOB. Past Medical History: Diagnosis Date Chronic pain Degenerative arthritis of spine Spinal stenosis Past Surgical History: Procedure Laterality Date FLAP MUSCLE/MYOCUTANEOUS/FASCIOCUTANEOUS TRUNK Bilateral 09/28/2022 Laterality: Bilateral; Surgeon: Walt West MD; Location: [facility] MAIN [facility] I&D POSTOPERATIVE WOUND Midline 09/22/2022 Laterality: Midline; Surgeon: Bina Jerome MD; Location: [facility] MAIN OR FUSION POSTERIOR CERVICAL Midline 08/21/2022 Laterality: Midline; Surgeon: Bina Jerome MD; Location: [facility] MAIN OR ARTHROSCOPY KNEE W/ MENISCUS REPAIR Right CERVICAL FUSION C3-6 and C6-7 by report ROTATOR CUFF REPAIR Right No Known Allergies Outpatient Medications Prior to Visit Medication Sig Dispense Refill acetaminophen 325 MG tablet Take 2 tablets by mouth every 4 hours. 0 amLODIPine 2.5 MG tablet Take 1 tablet by mouth daily. 30 tablet 0 B Complex Vitamins (Vitamin B-Complex) tablet Take by mouth. cholecalciferol 50 MCG (2000 UNIT) tablet Take 1 tablet by mouth daily. 30 tablet 0 doxycycline hyclate 100 MG capsule Take 1 capsule by mouth 2 times daily. 60 capsule 2 gabapentin 600 MG tablet Take 1 tablet by mouth 3 times daily. oxyCODONE-acetaminophen 5-325 MG per tablet Take 2 tablets by mouth every 6 hours as needed for Moderate Pain or Severe Pain. Selenium 200 MCG tablet Take 1 tablet by mouth daily. 30 tablet 0 Sulfamethoxazole-trimethoprim 800-160 MG per tablet Take 1 tablet by mouth 2 times daily. 60 tablet2 vitamin A 3 MG (98079 UT) capsule Take 2 capsules by mouth daily for 5 days. 10 capsule 0 zinc sulfate 220 MG capsule Take 1 capsule by mouth every morning before breakfast. 30 capsule 0 No facility-administered medications prior to visit. Social History Tobacco Use Smoking status: Former Types: Cigarettes Smokeless tobacco: Current Types: Snuff Vaping Use Vaping Use: Former Substance Use Topics Alcohol use: Yes Alcohol/week: 5.0 - 6.0 standard drinks Types: 5 - 6 Cans of beer per week Drug use: Not Currently Types: Marijuana Comment: Medical marijuana Family History Problem Relation Age of Onset Hypertension Mother Hypertension Father Negative for problems with anesthesia, surgery, bleeding, or wound healing problems. Physical Examination vitals were not taken for this visit. Estimated body mass index is 20.66 kg/m as calculated from the following: Height as of 12/17/22: 1.753 m (5' 9 ). Weight as of 12/17/22: 63.5 kg (139 lb 14.4 oz). General: NAD, well appearing HEENT: NC/AT, CN 2-12 grossly intact, wearing a mask Chest: unlabored breathing on room air Back: midline cervical spine incision clean and dry and largely intact with wound at mid-point of incision. Wound measures < 1 cm but undermines 1.5 cm from 10:00-2:00. Scant serous drainage, no erythema or other signs of infection or fluid collection. Bony prominences easily palpable under thinperi-incisional skin, no other skin changes or breakdown. Assessment, Plan Dr. West and I reviewed the planned procedure with the patient. I reviewed the incisions/scars, duration, recovery time, postoperative restrictions, and follow-up. Risks that were discussed include surgical (bleeding, infection, hematoma, seroma, delayed wound healing or dehiscence, need for further surgery, pain, injury to surrounding structures, sensation changes, asymmetry, unfavorable scar appearance, donor site morbidity) and medical (heart attack, pneumonia, DVT/PE, ). All of the patient's questions/concerns were addressed. The patient understands all of these things, wishes to proceed, and signed the consent form with Dr. West. [facility] Work Phone: 1(922) 817-505003-13-2023 History and physical note* Walt West MD - 01/03/2023 6:32 AM EDT Plastic Surgery Attending I have personally seen and examined Issac Howell. I have reviewed their H&P from 12/29/22. The patient denies any changes in their health status since the previous H&P. Remains abstinentfrom nicotine products. Their physical exam is unchanged since the previous H&P. The patient is suitable for the following planned procedure(s): Debridement of midline cervical wound, closure with possible bilateral fasciocutaneous advancement flaps with possible paraspinal muscle flaps For each procedure, I reviewed the incisions/scars, duration, recovery time, and postoperative restrictions. When applicable, I discussed hospitalization, dressing changes, drains, and donor site morbidity. Risks that were discussed include surgical (bleeding, infection, hematoma, seroma, wound breakdown,need for further surgery, pain, numbness, weakness, asymmetry, cosmetic deformity, injury to structures) and medical (heart attack, pneumonia, DVT/PE, ). When applicable, I discussed partial/complete graft or flap loss. All of the patient's questions/concerns were addressed. The patient understands all of these things, wishes to proceed. The consent form was again reviewed. Walt West MD Source Note - Nargis Langston PA-C - 12/29/2022 9:30 AM EST Plastic and Reconstructive Surgery H&P HPI: Mr. Howell is a 57 y.o. male PMHx tobacco use, alcohol use disorder, longstanding cervical spine degenerative disease and spinal stenosis (s/p C4-C7 ACDF in 2006 and C5-T1 cervical decompression and fusion 08/21/[address] Jerome). This most recent fusion was complicated by superficial dehiscence requiring a washout and debridement with orthopedic surgery on 09/22/2022, cultures grew MRSE and cutibacterium acne. The patient was treated with 6 weeks of Vancomycin followed by suppressive therapy. He then underwent closure with elevation and advancement of bilateral paraspinal muscle flaps on 09/28/[address] West, and cultures taken during this operation were negative. Admitted 12/17/2022 to orthopedic surgery due to a wound dehiscence, present x 1 week. Was still chewing tobacco earlier that month, but reports after signs of a small ulceration at our plastic surgery clinic visit, he stopped completely and has now been almost 4 weeks without chewing tobacco or replacement nicotine products. Is drinking Ensure Max Protein several times daily and wants to do everything possible to ensure he can definitively heal from this. They present preoperatively for planned: debridement midline back wound with adjacent tissue rearrangement, possible muscle flap, possible wound vac placement Scheduled for: 01/03/2023 at [facility] The following changes in health status or surgical plan are noted since the patient was last seen: - as per HPI, patient admitted for dehiscence in November without ortho plans for intervention - nicotine use has stopped per patient, nutrition labs appropriate Review of Systems: No F/C. No CP/SOB. Past Medical History: Diagnosis Date Chronic pain Degenerative arthritis of spine Spinal stenosis Past Surgical History: Procedure Laterality Date FLAP MUSCLE/MYOCUTANEOUS/FASCIOCUTANEOUS TRUNK Bilateral 09/28/2022 Laterality: Bilateral; Surgeon: Walt West MD; Location: [facility] MAIN OR I&D POSTOPERATIVE WOUND Midline 09/22/2022 Laterality: Midline; Surgeon: Bina Jerome MD; Location: [facility] MAIN OR FUSION POSTERIOR CERVICAL Midline 08/21/2022 Laterality: Midline; Surgeon: Bina Jerome MD; Location: [facility] MAIN OR ARTHROSCOPY KNEE W/ MENISCUS REPAIR Right CERVICAL FUSION C3-6 and C6-7 by report ROTATOR CUFF REPAIR Right No Known Allergies Outpatient Medications Prior to Visit Medication Sig Dispense Refill acetaminophen 325 MG tablet Take 2 tablets by mouth every 4 hours. 0 amLODIPine 2.5 MG tablet Take 1 tablet by mouth daily. 30 tablet 0 B Complex Vitamins (Vitamin B-Complex) tablet Take by mouth. cholecalciferol 50 MCG (2000 UNIT) tablet Take 1 tablet by mouth daily. 30 tablet 0 doxycycline hyclate 100 MG capsule Take 1 capsule by mouth 2 times daily. 60 capsule 2 gabapentin 600 MG tablet Take 1 tablet by mouth 3 times daily. oxyCODONE-acetaminophen 5-325 MG per tablet Take 2 tablets by mouth every 6 hours as needed for Moderate Pain or Severe Pain. Selenium 200 MCG tablet Take 1 tablet by mouth daily. 30 tablet 0 Sulfamethoxazole-trimethoprim 800-160 MG per tablet Take 1 tablet by mouth 2 times daily. 60 tablet2 vitamin A 3 MG (98452 UT) capsule Take 2 capsules by mouth daily for 5 days. 10 capsule 0 zinc sulfate 220 MG capsule Take 1 capsule by mouth every morning before breakfast. 30 capsule 0 No facility-administered medications prior to visit. Social History Tobacco Use Smoking status: Former Types: Cigarettes Smokeless tobacco: Current Types: Snuff Vaping Use Vaping Use: Former Substance Use Topics Alcohol use: Yes Alcohol/week: 5.0 - 6.0 standard drinks Types: 5 - 6 Cans of beer per week Drug use: Not Currently Types: Marijuana Comment: Medical marijuana Family History Problem Relation Age of Onset Hypertension Mother Hypertension Father Negative for problems with anesthesia, surgery, bleeding, or wound healing problems. Physical Examination vitals were not taken for this visit. Estimated body mass index is 20.66 kg/m as calculated from the following: Height as of 12/17/22: 1.753 m (5' 9 ). Weight as of 12/17/22: 63.5 kg (139 lb 14.4 oz). General: NAD, well appearing HEENT: NC/AT, CN 2-12 grossly intact, wearing a mask Chest: unlabored breathing on room air Back: midline cervical spine incision clean and dry and largely intact with wound at mid-point of incision. Wound measures < 1 cm but undermines 1.5 cm from 10:00-2:00. Scant serous drainage, no erythema or other signs of infection or fluid collection. Bony prominences easily palpable under thinperi-incisional skin, no other skin changes or breakdown. Assessment, Plan Dr. West and I reviewed the planned procedure with the patient. I reviewed the incisions/scars, duration, recovery time, postoperative restrictions, and follow-up. Risks that were discussed include surgical (bleeding, infection, hematoma, seroma, delayed wound healing or dehiscence, need for further surgery, pain, injury to surrounding structures, sensation changes, asymmetry, unfavorable scar appearance, donor site morbidity) and medical (heart attack, pneumonia, DVT/PE, ). All of the patient's questions/concerns were addressed. The patient understands all of these things, wishes to proceed, and signed the consent form with Dr. West. [facility] Surgical operation note* Luisa Jiménez RN - 01/03/2023 5:41 AM EDT Pt denies any history of chemo, radiation, stroke, or diabetes. Pt does have rods and screws in neck and back. [facility]03-08-2023 History and physical note* Nargis Langston PA-C - 12/29/2022 9:30 AM EST Plastic and Reconstructive Surgery H&P HPI: Mr. Howell is a 57 y.o. male PMHx tobacco use, alcohol use disorder, longstanding cervical spine degenerative disease and spinal stenosis (s/p C4-C7 ACDF in 2006 and C5-T1 cervical decompression and fusion 08/21/[address] Jerome). This most recent fusion was complicated by superficial dehiscence requiring a washout and debridement with orthopedic surgery on 09/22/2022, cultures grew MRSE and cutibacterium acne. The patient was treated with 6 weeks of Vancomycin followed by suppressive therapy. He then underwent closure with elevation and advancement of bilateral paraspinal muscle flaps on 09/28/[address] West, and cultures taken during this operation were negative. Admitted 12/17/2022 to orthopedic surgery due to a wound dehiscence, present x 1 week. Was still chewing tobacco earlier that month, but reports after signs of a small ulceration at our plastic surgery clinic visit, he stopped completely and has now been almost 4 weeks without chewing tobacco or replacement nicotine products. Is drinking Ensure Max Protein several times daily and wants to do everything possible to ensure he can definitively heal from this. They present preoperatively for planned: debridement midline back wound with adjacent tissue rearrangement, possible muscle flap, possible wound vac placement Scheduled for: 01/03/2023 at [facility] The following changes in health status or surgical plan are noted since the patient was last seen: - as per HPI, patient admitted for dehiscence in November without ortho plans for intervention - nicotine use has stopped per patient, nutrition labs appropriate Review of Systems: No F/C. No CP/SOB. Past Medical History: Diagnosis Date Chronic pain Degenerative arthritis of spine Spinal stenosis Past Surgical History: Procedure Laterality Date FLAP MUSCLE/MYOCUTANEOUS/FASCIOCUTANEOUS TRUNK Bilateral 09/28/2022 Laterality: Bilateral; Surgeon: Walt West MD; Location: [facility] MAIN OR I&D POSTOPERATIVE WOUND Midline 09/22/2022 Laterality: Midline; Surgeon: Bina Jerome MD; Location: [facility] MAIN OR FUSION POSTERIOR CERVICAL Midline 08/21/2022 Laterality: Midline; Surgeon: Bina Jerome MD; Location: [facility] MAIN OR ARTHROSCOPY KNEE W/ MENISCUS REPAIR Right CERVICAL FUSION C3-6 and C6-7 by report ROTATOR CUFF REPAIR Right No Known Allergies Outpatient Medications Prior to Visit Medication Sig Dispense Refill acetaminophen 325 MG tablet Take 2 tablets by mouth every 4 hours. 0 amLODIPine 2.5 MG tablet Take 1 tablet by mouth daily. 30 tablet 0 B Complex Vitamins (Vitamin B-Complex) tablet Take by mouth. cholecalciferol 50 MCG (2000 UNIT) tablet Take 1 tablet by mouth daily. 30 tablet 0 doxycycline hyclate 100 MG capsule Take 1 capsule by mouth 2 times daily. 60 capsule 2 gabapentin 600 MG tablet Take 1 tablet by mouth 3 times daily. oxyCODONE-acetaminophen 5-325 MG per tablet Take 2 tablets by mouth every 6 hours as needed for Moderate Pain or Severe Pain. Selenium 200 MCG tablet Take 1 tablet by mouth daily. 30 tablet 0 Sulfamethoxazole-trimethoprim 800-160 MG per tablet Take 1 tablet by mouth 2 times daily. 60 tablet2 vitamin A 3 MG (47301 UT) capsule Take 2 capsules by mouth daily for 5 days. 10 capsule 0 zinc sulfate 220 MG capsule Take 1 capsule by mouth every morning before breakfast. 30 capsule 0 No facility-administered medications prior to visit. Social History Tobacco Use Smoking status: Former Types: Cigarettes Smokeless tobacco: Current Types: Snuff Vaping Use Vaping Use: Former Substance Use Topics Alcohol use: Yes Alcohol/week: 5.0 - 6.0 standard drinks Types: 5 - 6 Cans of beer per week Drug use: Not Currently Types: Marijuana Comment: Medical marijuana Family History Problem Relation Age of Onset Hypertension Mother Hypertension Father Negative for problems with anesthesia, surgery, bleeding, or wound healing problems. Physical Examination vitals were not taken for this visit. Estimated body mass index is 20.66 kg/m as calculated from the following: Height as of 12/17/22: 1.753 m (5' 9 ). Weight as of 12/17/22: 63.5 kg (139 lb 14.4 oz). General: NAD, well appearing HEENT: NC/AT, CN 2-12 grossly intact, wearing a mask Chest: unlabored breathing on room air Back: midline cervical spine incision clean and dry and largely intact with wound at mid-point of incision. Wound measures < 1 cm but undermines 1.5 cm from 10:00-2:00. Scant serous drainage, no erythema or other signs of infection or fluid collection. Bony prominences easily palpable under thinperi-incisional skin, no other skin changes or breakdown. Assessment, Plan Dr. West and I reviewed the planned procedure with the patient. I reviewed the incisions/scars, duration, recovery time, postoperative restrictions, and follow-up. Risks that were discussed include surgical (bleeding, infection, hematoma, seroma, delayed wound healing or dehiscence, need for further surgery, pain, injury to surrounding structures, sensation changes, asymmetry, unfavorable scar appearance, donor site morbidity) and medical (heart attack, pneumonia, DVT/PE, ). All of the patient's questions/concerns were addressed. The patient understands all of these things, wishes to proceed, and signed the consent form with Dr. West. [facility] Work Phone: [phone] History and physical note* Nargis Langston PA-C - 12/29/2022 9:30 AM EST Plastic and Reconstructive Surgery H&P HPI: Mr. Howell is a 57 y.o. male PMHx tobacco use, alcohol use disorder, longstanding cervical spine degenerative disease and spinal stenosis (s/p C4-C7 ACDF in 2006 and C5-T1 cervical decompression and fusion 08/21/[address] Jerome). This most recent fusion was complicated by superficial dehiscence requiring a washout and debridement with orthopedic surgery on 09/22/2022, cultures grew MRSE and cutibacterium acne. The patient was treated with 6 weeks of Vancomycin followed by suppressive therapy. He then underwent closure with elevation and advancement of bilateral paraspinal muscle flaps on 09/28/[address] West, and cultures taken during this operation were negative. Admitted 12/17/2022 to orthopedic surgery due to a wound dehiscence, present x 1 week. Was still chewing tobacco earlier that month, but reports after signs of a small ulceration at our plastic surgery clinic visit, he stopped completely and has now been almost 4 weeks without chewing tobacco or replacement nicotine products. Is drinking Ensure Max Protein several times daily and wants to do everything possible to ensure he can definitively heal from this. They present preoperatively for planned: debridement midline back wound with adjacent tissue rearrangement, possible muscle flap, possible wound vac placement Scheduled for: 01/03/2023 at [facility] The following changes in health status or surgical plan are noted since the patient was last seen: - as per HPI, patient admitted for dehiscence in November without ortho plans for intervention - nicotine use has stopped per patient, nutrition labs appropriate Review of Systems: No F/C. No CP/SOB. Past Medical History: Diagnosis Date Chronic pain Degenerative arthritis of spine Spinal stenosis Past Surgical History: Procedure Laterality Date FLAP MUSCLE/MYOCUTANEOUS/FASCIOCUTANEOUS TRUNK Bilateral 09/28/2022 Laterality: Bilateral; Surgeon: Walt West MD; Location: [facility] MAIN OR I&D POSTOPERATIVE WOUND Midline 09/22/2022 Laterality: Midline; Surgeon: Bina Jerome MD; Location: [facility] MAIN OR FUSION POSTERIOR CERVICAL Midline 08/21/2022 Laterality: Midline; Surgeon: Bina Jerome MD; Location: [facility] MAIN OR ARTHROSCOPY KNEE W/ MENISCUS REPAIR Right CERVICAL FUSION C3-6 and C6-7 by report ROTATOR CUFF REPAIR Right No Known Allergies Outpatient Medications Prior to Visit Medication Sig Dispense Refill acetaminophen 325 MG tablet Take 2 tablets by mouth every 4 hours. 0 amLODIPine 2.5 MG tablet Take 1 tablet by mouth daily. 30 tablet 0 B Complex Vitamins (Vitamin B-Complex) tablet Take by mouth. cholecalciferol 50 MCG (2000 UNIT) tablet Take 1 tablet by mouth daily. 30 tablet 0 doxycycline hyclate 100 MG capsule Take 1 capsule by mouth 2 times daily. 60 capsule 2 gabapentin 600 MG tablet Take 1 tablet by mouth 3 times daily. oxyCODONE-acetaminophen 5-325 MG per tablet Take 2 tablets by mouth every 6 hours as needed for Moderate Pain or Severe Pain. Selenium 200 MCG tablet Take 1 tablet by mouth daily. 30 tablet 0 Sulfamethoxazole-trimethoprim 800-160 MG per tablet Take 1 tablet by mouth 2 times daily. 60 tablet2 vitamin A 3 MG (78248 UT) capsule Take 2 capsules by mouth daily for 5 days. 10 capsule 0 zinc sulfate 220 MG capsule Take 1 capsule by mouth every morning before breakfast. 30 capsule 0 No facility-administered medications prior to visit. Social History Tobacco Use Smoking status: Former Types: Cigarettes Smokeless tobacco: Current Types: Snuff Vaping Use Vaping Use: Former Substance Use Topics Alcohol use: Yes Alcohol/week: 5.0 - 6.0 standard drinks Types: 5 - 6 Cans of beer per week Drug use: Not Currently Types: Marijuana Comment: Medical marijuana Family History Problem Relation Age of Onset Hypertension Mother Hypertension Father Negative for problems with anesthesia, surgery, bleeding, or wound healing problems. Physical Examination vitals were not taken for this visit. Estimated body mass index is 20.66 kg/m as calculated from the following: Height as of 12/17/22: 1.753 m (5' 9 ). Weight as of 12/17/22: 63.5 kg (139 lb 14.4 oz). General: NAD, well appearing HEENT: NC/AT, CN 2-12 grossly intact, wearing a mask Chest: unlabored breathing on room air Back: midline cervical spine incision clean and dry and largely intact with wound at mid-point of incision. Wound measures < 1 cm but undermines 1.5 cm from 10:00-2:00. Scant serous drainage, no erythema or other signs of infection or fluid collection. Bony prominences easily palpable under thinperi-incisional skin, no other skin changes or breakdown. Assessment, Plan Dr. West and I reviewed the planned procedure with the patient. I reviewed the incisions/scars, duration, recovery time, postoperative restrictions, and follow-up. Risks that were discussed include surgical (bleeding, infection, hematoma, seroma, delayed wound healing or dehiscence, need for further surgery, pain, injury to surrounding structures, sensation changes, asymmetry, unfavorable scar appearance, donor site morbidity) and medical (heart attack, pneumonia, DVT/PE, ). All of the patient's questions/concerns were addressed. The patient understands all of these things, wishes to proceed, and signed the consent form with Dr. West. [facility] History of Present illness Narrative* Rabia Wright MA - 12/29/2022 9:30 AM EST Plastic Surgery Post-op Issac Howell ([id number]) 57 y.o. male presenting for a post-op visit. Vitals: Smoking Status Former Estimated body mass index is 20.66 kg/m as calculated from the following: Height as of 12/17/22: 1.753 m (5' 9 ). Weight as of 12/17/22: 63.5 kg (139 lb 14.4 oz). Surgery: FLAP MUSCLE/MYOCUTANEOUS/FASCIOCUTANEOUS TRUNK - Bilateral DOS 09/28/22 Surgeon: Dr. West New concerns: patient states wondering how we are going to close the hole in his back. He also states his back hurts and his legs feel tight. [facility] History of Present illness Narrative* Steven Henry RN - 11/24/2022 10:00 AM EST Pt being seen today for follow up for FLAP MUSCLE/MYOCUTANEOUS/FASCIOCUTANEOUS TRUNK - Bilateral with Walt West MD on 09/28/2022 Pt reports a dull achy pain in right up back. Pt denies any signs or symptoms of infection. No other concerns. Medical team aware of high blood pressure. Suggest follow up with PCP to patient. [facility] History of Present illness Narrative* Nilson Wong - 11/02/2022 10:00 AM EST This MA verified the patients name and date of . * Puneet Blair MD - 11/02/2022 10:00 AM EST INFECTIOUS DISEASES CONSULT NOTE Impression / Discussion: Post surgical cervical site infection (hardware in place) Hx C5-T1 decompression and instrumented fusion-08/01/2022 History of myelopathy 57 year old male with a PMH of myelopathy with resulting lower extremity weakness / numbness underwent multiple cervical surgeries. Initial surgery C3-6 spinal surgery in 2006 & C6-7 spinal surgery in 10/2021 ([facility]). More recently underwent posterior cervical decompression and instrument fusion on 08/21/22. No prior history of surgical infections but patient states that after 08/21 surgery, his wound never completely closed. Two weeks later he noted some serosanguineous drainage. Patient received course of Keflex which did not help and presented to the hospital with concern forsurgical site infection. He had been taking Keflex up until admission. He is Now s/p I&D on 09/22/22 with growth of Staphylococcus epidermidis and Cutibacterium. Closure & drain placement on 09/28/22 with intraoperative negative cultures. Currently on Vancomycin to complete 6 week course on 11/03/22/tomorrow. Patient doing well. Drain removed and stitches remain. Discussed suppressive therapy with the patient due to hardware which he is agreeable to. Plan for at least 6 months Doxycycline + Bactrim, which he's tolerated in the past. Discussed side effects and clinical monitoring. Recommendations: Diagnostics: Follow up CMP in 2 weeks (can obtain this at his PCP or at [facility] after plastic surgery appointment on11/17/22) Therapeutics: Stop Vancomycin 11/03/22 and can remove PICC After completing last dose of vancomycin, start Bactrim DS tablet BID + if all goes well then starton Doxycycline 100 mg BID. Can stagger the start of these medications to reduce initial difficulty starting both abx. Follow up 3 months for telemedicine visit. Interval history Patient doing well. Denies fevers, chills, chest pain, SOB, abdominal pain, N/V. Does have 2 episodes of diarrhea daily but semi-formed. NO issues with vancomycin therapy and PICC site looks good. Still has some neck pain but no drainage, erythema, warmth or purulence. Review of Systems - GENERAL: Patient denies fever, chills, weight loss, fatigue, night sweats EYES: Patient denies blurry vision, eye pain HENT: Patient denies headache, hearing loss, sore throat, dysphagia, sinus pain CARDIO: Patient denies chest pain, palpitations, orthopnea PULM: Patient denies shortness of breath, wheezing, cough, sputum, hemoptysis GI: Patient denies nausea, vomiting, diarrhea, abdominal pain, blood in stool : Patient denies urinary frequency, urgency, dysuria, urethral discharge MSK: Patient denies joint pain, back pain, swelling SKIN: Patient denies rash, redness HEME: Patient denies easy bruising, bleeding Past Medical History Past Medical History: Diagnosis Date Chronic pain Degenerative arthritis of spine Spinal stenosis Past Surgical History Past Surgical History: Procedure Laterality Date FLAP MUSCLE/MYOCUTANEOUS/FASCIOCUTANEOUS TRUNK Bilateral 09/28/2022 Laterality: Bilateral; Surgeon: Walt West MD; Location: [facility] MAIN OR I&D POSTOPERATIVE WOUND Midline 09/22/2022 Laterality: Midline; Surgeon: Bina Jerome MD; Location: [facility] MAIN OR FUSION POSTERIOR CERVICAL Midline 08/21/2022 Laterality: Midline; Surgeon: Bina Jerome MD; Location: [facility] MAIN OR ARTHROSCOPY KNEE W/ MENISCUS REPAIR Right CERVICAL FUSION C3-6 and C6-7 by report ROTATOR CUFF REPAIR Right Past Social History Social History Socioeconomic History Marital status: Tobacco Use Smoking status: Former Types: Cigarettes Smokeless tobacco: Current Types: Snuff Vaping Use Vaping Use: Former Substance and Sexual Activity Alcohol use: Yes Alcohol/week: 5.0 - 6.0 standard drinks Types: 5 - 6 Cans of beer per week Drug use: Not Currently Types: Marijuana Comment: Medical marijuana Family History Family History Problem Relation Age of Onset Hypertension Mother Hypertension Father Allergies: No Known Allergies Physical Examination Vitals: 11/02/22 0936 BP: 126/88 Pulse: 72 Temp: 98 F (36.7 C) GEN: Awake, resting comfortably EYES: EOMI, no scleral icterus HENT: MMM. No oral lesions. Fair dentition. NECK: Supple, no cervical lymphadenopathy or meningismus. CARDIO: RRR, no murmur. PULM/CHEST: CTAB. No increased work of breathing ABD: Soft, not tender or distended MSK: no obvious effusion, swelling, increased warmth, or erythema of major joints. No pedal edema. SKIN: Cervical site incision with stitches in place. Some mild erythema to the lower portion of theincision site but no fluctuance, warmth, drainage or purulence. NEURO: AOx3. Moves all four extremities. Diagnostic Data: CBC Lab Results Component Value Date WBC 7.4 10/19/2022 HGB 12.3 10/19/2022 HCT 36.9 10/19/2022 PLATELET 410 10/19/2022 MCV 93.2 09/30/2022 Lab Results Component Value Date RBCDISTRIBU 11.9 09/30/2022 GRNLOCYT 46.7 09/30/2022 LYMPHOCYT 21.6 09/30/2022 MONOCYTELEC 13.6 09/30/2022 EOSINOPHILS 17.1 09/30/2022 BASOPHILS 0.8 09/30/2022 LYMPHOCYTABS 1.89 09/30/2022 EOSINOPHLABS 1.50 (H) 09/30/2022 PLATELET 410 10/19/2022 MPV 9.1 09/30/2022 BMP: Lab Results Component Value Date SODIUM 142 10/19/2022 POTASSIUM 4.0 10/19/2022 CHLORIDE 98 09/30/2022 CO2 29 09/30/2022 BUN 14 10/19/2022 CREATSERUM 0.85 10/19/2022 GLUCOSE 111 (H) 09/28/2022 Hepatic: Lab Results Component Value Date ALT 31 08/20/2022 AST 37 08/20/2022 ALKPHOS 123 08/20/2022 BILITOTAL 0.4 08/20/2022 BILIDIRECT 0.1 08/20/2022 Microbiology and Other Significant ID Labs: (personally reviewed) Relevant Data: Cultures: 09/28/22: Closure intraoperative : NGTD 09/23/22: Bcx; NGTD 09/22/22 intraoperative cultures A: deep tissue: Staph epidermidis B Deep tissue Staph epidermidis C: Deep tissue Staph epidermidis / Cutibacterium D: Deep tissue Cutibacterium (S minocycline) Susceptibility Methicillin Resistant Staphylococcus epidermidis Clindamycin >=4 ug/mL R Daptomycin 0.5 ug/mL S Oxacillin >=4 ug/mL R Tetracycline >=16 ug/mL R Trimethoprim/Sulf. <=10 ug/mL S Vancomycin Susc 2 ug/mL S Thank you for allowing us to participate in the care of this patient. Puneet Blair MD Infectious Diseases Fellow 11:26 AM 11/02/2022 Pager #[phone] Attending Physician Note (GE) I have repeated and verified Dr. Blair's history and performed a physical examination independently today. I agree with the assessment and plan and medical decision making. 57 yr old WM presents to the ID Clinic as an OPAT EOT visit as vanco is ending tomorrow due to cervical spine fusion infection after operation on 08/21/2022. He was readmitted to [facility], 09/21-10/01/22 with a hx of prior 08/21 decompression and fusion post operatively and wound dehiscence. Operative procedure of I and D on 09/22 grew Cutibacteria and Staph epi. Sadly, Staph epi is NOT S to tetracycline. He then had plastic surgery closure on 09/28/2022 w/ closure of the cervical wound, elevation and advancement of B paraspinal mm flaps of a 15cm incision. He is without any symptoms of pain other than the C spine hard collar, PICC is doing well and vancois going fine. does dressing changes daily and some times the tape makes his skin very itchy; anxous to get stitches out. PE: thin M in NAD wearing hard C collar, HEENT OK, posterior neck incision is about 15 cm with wellapproximated skin, no purulence, no drainage and mild inferior erythema surrounding the distal partof the incsion. (Pt reports when he sleeps, base of C collar hits there). Lungs: clear, CV: RRR, abd: NTND, ext: RUE PICC site is aok. C spinal fusion infection postoperatively and hardware has remained in place: he will complete vanco tomorrow; will start on bactrim DS PO BID (for Staph) and doxy 100 mg PO BID (for the Cutibacteria). Will need to get labs in two weeks, Chem 6 and CBC and then once per month at his PCP as [place]2 [place] away from [place]. Will arrange for a telehealth visit in 3 months here at [place]. Will stagger initiation of the doxy andbactrim to assure he can tolerate both. I have amended the above note to be consistent with my findings and thoughts on this patient; I have collaborated in the formulation of both the diagnostics and therapeutic plan outlined within this note. Seema Villalba MD documented in this [facility]12-21-2022 History of Present illness Narrative* Rabia Wright MA - 10/13/2022 1:30 PM EST Plastic Surgery Post-op Issac Howell ([id number]) 57 y.o. male presenting for a post-op visit. Vitals: Smoking Status Former Estimated body mass index is 22.3 kg/m as calculated from the following: Height as of 09/21/22: 1.753 m (5' 9 ). Weight as of 10/06/22: 68.5 kg (151 lb). Surgery: FLAP MUSCLE/MYOCUTANEOUS/FASCIOCUTANEOUS TRUNK - Bilateral DOS 09/28/2022 Surgeon: Dr. West New concerns: none yet patient did state one of the drains came out- Pt has been logging the other drain... Drains: Date Drain 1 10/10 18 ml 10/11 13 ml 10/12 8 ml * Walt West MD - 10/13/2022 1:30 PM EST Reason for Visit H/o tobacco abuse, alcohol abuse, marijuana use, HTN, cervical stenosis, DDD, and cervical spine wound over prior C5-T2 fusion () S/p washout/debridement of cervical wound dehiscence (Ta) 09/22/2022 S/p bilateral paraspinous flaps and complex closure of cervical neck wound (Brett) on 09/28/2022 Postoperative assessment HPI Patient presents for previously scheduled visit. Was last seen in the office 1 week ago. Had 2 drains in the back, output shown in nursing notes; one of the drains was accidentally pulled out yesterday by the patient. On vancomycin (through 11/03/22) and cefepime for MRSE, ID following, will need 6 months of suppressive therapy (Bactrim likely). Taking pain medication (oxy)prescribed by ortho. He reports bilateral lower extremity swelling. This is symmetrical and without pain Review of systems: No fevers/chills. Physical Exam There were no vitals filed for this visit. General: well appearing, NAD Back: C collar and dressing removed to reveal midline incision c/d/i and healing well with nylons appreciated,no dehiscence or drainage. Mild dory-incisional erythema, improved. No other signs of infection or fluid collection. Drains: sites clean and dry with serous output in drain bulb Extremities: bilateral 1+ pitting edema, negative Nehemias's sign Assessment Doing well 2 weeks s/p paraspinal muscle flap closure of cervical spine wound. Drain output low. Progressing appropriately. Discussed LE US for DVT rule out given new lower extremity swelling. Plan Drain output low, remaining drain removed Continue sutures, covered with mepilex AG Continue antibiotics per ID Activity restrictions reviewed Follow up in 2 weeks BL LE US placed to rule out DVT Patient instructed to call office with any questions or concerns before next appointment [facility] History of Present illness Narrative* Steven Henry RN - 10/06/2022 3:00 PM EST Pt being seen for FLAP MUSCLE/MYOCUTANEOUS/FASCIOCUTANEOUS TRUNK - Bilateral with Walt West MD on 09/28/2022 Date Drain Super Drain Deep 10/03 45ml 20ml 10/04 30ml 10ml 10/05 50ml 30ml Drain 1 Drain 2 Color Pt states pain on average with medication pain is 7/10 which is tolerable. Pt denies any recent fevers or chills or signs of infection. [facility] Miscellaneous Notes* Nursing Notes - Kami Will RN - 08/27/2022 12:13 PM EDT Reviewed AVS with family and patient. All questions answered. IV removed and pressure dressing applied. Patient stable at time of discharge. Exited unit in w/c with belongings, staff HOUSE FELLOW, and . * Plan of Care - Lori Garcia RN - 08/26/2022 4:47 PM EDT Problem: Patient Care Overview Goal: Plan of Care Review Outcome: Ongoing Goal: Individualization & Mutuality Outcome: Ongoing Goal: Discharge Needs Assessment Outcome: Ongoing Goal: Interdisciplinary Rounds/Family Conf Outcome: Ongoing Problem: PT - Transfers Goal: Supine <-> Sit Description: Pt will perform bed mobility with flat bed & no rail with modified independence inorder to improve functional mobility and safety. Outcome: Ongoing Goal: Sit <-> Stand Description: Pt will perform sit to/from stand transfers with supervision with least restrictive device in order to improve functional mobility and safety. Outcome: Ongoing Goal: Strength/ROM Description: Pt will perform 2 sets of 12 repetitions of lower bilateral extremity exercises with independence in order to improve strength, maintain ROM, necessary for functional mobility. Outcome: Ongoing Goal: Bracing Description: Pt will demonstrate donning/doffing brace with independence in order to improve safetyat discharge destination. Outcome: Ongoing Goal: Other Description: Pt will meet the MCID on the payton balance assessment to reduce fall risk at home Outcome: Ongoing Problem: Infection, Risk/Actual (Adult) Goal: Identify Related Risk Factors and Signs and Symptoms Description: Related risk factors and signs and symptoms are identified upon initiation of Human Response Clinical Practice Guideline (CPG) Outcome: Ongoing Goal: Infection Prevention/Resolution Description: Patient will demonstrate the desired outcomes by discharge/transition of care. Outcome: Ongoing Problem: Pain, Acute (Adult) Goal: Identify Related Risk Factors and Signs and Symptoms Description: Related risk factors and signs and symptoms are identified upon initiation of Human Response Clinical Practice Guideline (CPG) Outcome: Ongoing Goal: Acceptable Pain Control/Comfort Level Description: Patient will demonstrate the desired outcomes by discharge/transition of care. Outcome: Ongoing Problem: Surgery Nonspecified (Adult) Goal: Signs and Symptoms of Listed Potential Problems Will be Absent, Minimized or Managed (SurgeryNonspecified) Description: Signs and symptoms of listed potential problems will be absent, minimized or managed by discharge/transition of care (reference Surgery Nonspecified (Adult) CPG). Outcome: Ongoing Goal: Anesthesia/Sedation Recovery Outcome: Ongoing Problem: Nutrition, Imbalanced: Inadequate Oral Intake (Adult) Goal: Improved Oral Intake Description: Patient will demonstrate the desired outcomes by discharge/transition of care. Outcome: Ongoing * Plan of Care - Antonio Douglass PT - 08/26/2022 1:15 PM EDT Problem: PT - Mobility Goal: Ambulation Description: Pt will ambulate 150 feet with least restrictive device with standby assistance to improve ability to navigate home environment. Outcome: Progressing Toward Goal Problem: PT - Transfers Goal: Supine <-> Sit Description: Pt will perform bed mobility with flat bed & no rail with modified independence inorder to improve functional mobility and safety. Outcome: Progressing Toward Goal Goal: Sit <-> Stand Description: Pt will perform sit to/from stand transfers with supervision with least restrictive device in order to improve functional mobility and safety. Outcome: Progressing Toward Goal Goal: Bracing Description: Pt will demonstrate donning/doffing brace with independence in order to improve safetyat discharge destination. Outcome: Progressing Toward Goal Goal: Other Description: Pt will meet the MCID on the payton balance assessment to reduce fall risk at home Outcome: Progressing Toward Goal * Plan of Care - Antonio Douglass PT - 08/25/2022 1:35 PM EDT Problem: PT - Mobility Goal: Ambulation Description: Pt will ambulate 150 feet with least restrictive device with standby assistance to improve ability to navigate home environment. Outcome: Progressing Toward Goal Problem: PT - Transfers Goal: Supine <-> Sit Description: Pt will perform bed mobility with flat bed & no rail with modified independence inorder to improve functional mobility and safety. Outcome: Progressing Toward Goal Goal: Sit <-> Stand Description: Pt will perform sit to/from stand transfers with supervision with least restrictive device in order to improve functional mobility and safety. Outcome: Progressing Toward Goal Goal: Bracing Description: Pt will demonstrate donning/doffing brace with independence in order to improve safetyat discharge destination. Outcome: Progressing Toward Goal * Plan of Care - Elaina Cruz OT - 08/25/2022 9:41 AM EDT Problem: OT - Balance Goal: Balance - Standing Description: Pt will perform 8 minutes of functional ADL task in standing with contact guard assistance and balance level of contact guard to promote safety and improved balance required for self-care activities. Outcome: Ongoing Problem: OT - Other Goal: Don/Doff Splint/Brace Description: Pt will be able verbalized/instruct on caregiver and staff with [place] and modified independence and demonstrate knowledge of wear schedule for improved safety at discharge destination. Outcome: Ongoing * Nursing Notes - Rae Mcgrath RN - 08/25/2022 6:08 AM EDT Vesta Mosqueda MD [id number] [facility] 824 Dante: pt is in some pretty bad pain, and were an hour out from any pain medications. do you think we could get a one time dose of something to bridge this gap? thanks Teresa [phone] * Plan of Care - Antonio Douglass PT - 08/24/2022 1:33 PM EDT Problem: PT - Transfers Goal: Supine <-> Sit Description: Pt will perform bed mobility with flat bed & no rail with modified independence inorder to improve functional mobility and safety. Outcome: Ongoing Problem: PT - Transfers Goal: Bracing Description: Pt will demonstrate donning/doffing brace with independence in order to improve safetyat discharge destination. Outcome: Progressing Toward Goal * Plan of Care - HITESH Dietrich - 08/24/2022 11:09 AM EDT Nutrition Plan of Care: 1. Continue current diet order. 2. Will provide chasidy Ensure Plus High Protein (350 kcal, 20 g PRO each) TID with all meals. 3. Monitor for significant weight changes. 4. Monitor and encourage po intakes with goal of average po being 75-100%. 5. studio technician video operator to follow. * Plan of Care - Saray Benavides RN - 08/24/2022 5:50 AM EDT Problem: Patient Care Overview Goal: Plan of Care Review Outcome: Ongoing Goal: Individualization & Mutuality Outcome: Ongoing Goal: Discharge Needs Assessment Outcome: Ongoing Problem: Patient Care Overview Goal: Individualization & Mutuality Outcome: Ongoing Problem: Pain, Acute (Adult) Goal: Identify Related Risk Factors and Signs and Symptoms Description: Related risk factors and signs and symptoms are identified upon initiation of Human Response Clinical Practice Guideline (CPG) Outcome: Ongoing Goal: Acceptable Pain Control/Comfort Level Description: Patient will demonstrate the desired outcomes by discharge/transition of care. Outcome: Ongoing * Plan of Care - Keesha Cleveland RN - 08/23/2022 9:00 PM EDT Problem: Patient Care Overview Goal: Plan of Care Review Outcome: Ongoing Problem: Infection, Risk/Actual (Adult) Goal: Identify Related Risk Factors and Signs and Symptoms Description: Related risk factors and signs and symptoms are identified upon initiation of Human Response Clinical Practice Guideline (CPG) Outcome: Ongoing Problem: Pain, Acute (Adult) Goal: Identify Related Risk Factors and Signs and Symptoms Description: Related risk factors and signs and symptoms are identified upon initiation of Human Response Clinical Practice Guideline (CPG) Outcome: Ongoing * Nursing Notes - Julia Parikh RN - 08/23/2022 5:20 PM EDT B8S, 0824/A, Dante, Info: Pts dressing is saturated from pulling the hemovac drain out earlier. Itsnot a lot but I just wanted to ask if you would like for me to change the dressing? Thanks in advance, Julia Felipe RN, Ph: #[phone] [facility] [employer] Paged Dr. Delong * Plan of Care - Julia Parikh RN - 08/23/2022 1:38 PM EDT Problem: Patient Care Overview Goal: Plan of Care Review Outcome: Ongoing Goal: Individualization & Mutuality Outcome: Ongoing Goal: Discharge Needs Assessment Outcome: Ongoing Goal: Interdisciplinary Rounds/Family Conf Outcome: Ongoing Problem: Infection, Risk/Actual (Adult) Goal: Identify Related Risk Factors and Signs and Symptoms Description: Related risk factors and signs and symptoms are identified upon initiation of Human Response Clinical Practice Guideline (CPG) Outcome: Ongoing Goal: Infection Prevention/Resolution Description: Patient will demonstrate the desired outcomes by discharge/transition of care. Outcome: Ongoing Problem: Pain, Acute (Adult) Goal: Identify Related Risk Factors and Signs and Symptoms Description: Related risk factors and signs and symptoms are identified upon initiation of Human Response Clinical Practice Guideline (CPG) Outcome: Ongoing Goal: Acceptable Pain Control/Comfort Level Description: Patient will demonstrate the desired outcomes by discharge/transition of care. Outcome: Ongoing Problem: Surgery Nonspecified (Adult) Goal: Signs and Symptoms of Listed Potential Problems Will be Absent, Minimized or Managed (SurgeryNonspecified) Description: Signs and symptoms of listed potential problems will be absent, minimized or managed by discharge/transition of care (reference Surgery Nonspecified (Adult) CPG). Outcome: Ongoing Goal: Anesthesia/Sedation Recovery Outcome: Ongoing * Plan of Care - Elaina Cruz OT - 08/23/2022 10:27 AM EDT Problem: OT - Dressing Goal: Lower Body Dressing Description: Pt will complete LE dressing tasks with modified independence for improved ability to complete self-care activities. Outcome: Ongoing Problem: OT - ADLs Goal: Toileting Description: Pt will complete toileting task including clothing management with SBA for improved ability to safely complete self-care activities. Outcome: Ongoing Goal: Bathing Description: Pt will perform full body bathing routine with modified independence while sitting forimproved ability to complete self-care activities. Outcome: Ongoing Problem: OT - Balance Goal: Balance - Standing Description: Pt will perform 8 minutes of functional ADL task in standing with contact guard assistance and balance level of contact guard to promote safety and improved balance required for self-care activities. Outcome: Ongoing Problem: OT - Other Goal: Don/Doff Splint/Brace Description: Pt will be able verbalized/instruct on caregiver and staff with [place] and modified independence and demonstrate knowledge of wear schedule for improved safety at discharge destination. Outcome: Ongoing * Plan of Care - Antonio Douglass PT - 08/23/2022 9:30 AM EDT Problem: PT - Mobility Goal: Ambulation Description: Pt will ambulate 150 feet with least restrictive device with standby assistance to improve ability to navigate home environment. Outcome: Ongoing Problem: PT - Transfers Goal: Supine <-> Sit Description: Pt will perform bed mobility with flat bed & no rail with modified independence inorder to improve functional mobility and safety. Outcome: Ongoing Goal: Sit <-> Stand Description: Pt will perform sit to/from stand transfers with supervision with least restrictive device in order to improve functional mobility and safety. Outcome: Ongoing Goal: Strength/ROM Description: Pt will perform 2 sets of 12 repetitions of lower bilateral extremity exercises with independence in order to improve strength, maintain ROM, necessary for functional mobility. Outcome: Ongoing Goal: Bracing Description: Pt will demonstrate donning/doffing brace with independence in order to improve safetyat discharge destination. Outcome: Ongoing Goal: Other Description: Pt will meet the MCID on the payton balance assessment to reduce fall risk at home Outcome: Ongoing * Significant Event - Roslyn Vang MD - 08/23/2022 3:30 AM EDT Overnight Call: Previous Progress Notes and/or H&P Reviewed. Informed of pts elevated blood pressures throughout this hospital stay. Pt has no documented hx of HTN and has has SBP 180s. D/w bedside RN and pt appears to have pain that is not controlled despite dilaudid and oxycodone as PRNs. Advised RN to give pts PRN oxycodone now vs 1 hr from now and to recheck BP in 1hr. Of note, pt also had PRN hydralazine for BP which has not reduced his BP. 446AM Repeat BP 158/93, still reporting 9/10 pain however, but per pt he takes 20 mg Percocet for his back pain and thus his current pain despite 15mg oxycodone with dialudid is not covering his pain per the pt. And his BP is affected, which seems refractory given his hx of etoh dependence. Roslyn Vang MD Overnight cross covering physician [phone] * Plan of Care - Kirby Gasca RN - 08/23/2022 1:15 AM EDT Problem: Pain, Acute (Adult) Goal: Identify Related Risk Factors and Signs and Symptoms Description: Related risk factors and signs and symptoms are identified upon initiation of Human Response Clinical Practice Guideline (CPG) Outcome: Progressing Toward Goal Goal: Acceptable Pain Control/Comfort Level Description: Patient will demonstrate the desired outcomes by discharge/transition of care. Outcome: Progressing Toward Goal Problem: Surgery Nonspecified (Adult) Goal: Signs and Symptoms of Listed Potential Problems Will be Absent, Minimized or Managed (SurgeryNonspecified) Description: Signs and symptoms of listed potential problems will be absent, minimized or managed by discharge/transition of care (reference Surgery Nonspecified (Adult) CPG). Outcome: Progressing Toward Goal Goal: Anesthesia/Sedation Recovery Outcome: Progressing Toward Goal * Plan of Care - Julia Parikh RN - 08/22/2022 3:50 PM EDT Problem: Patient Care Overview Goal: Plan of Care Review Outcome: Ongoing Goal: Individualization & Mutuality Outcome: Ongoing Goal: Discharge Needs Assessment Outcome: Ongoing Goal: Interdisciplinary Rounds/Family Conf Outcome: Ongoing Problem: Infection, Risk/Actual (Adult) Goal: Identify Related Risk Factors and Signs and Symptoms Description: Related risk factors and signs and symptoms are identified upon initiation of Human Response Clinical Practice Guideline (CPG) Outcome: Ongoing Goal: Infection Prevention/Resolution Description: Patient will demonstrate the desired outcomes by discharge/transition of care. Outcome: Ongoing Problem: Pain, Acute (Adult) Goal: Identify Related Risk Factors and Signs and Symptoms Description: Related risk factors and signs and symptoms are identified upon initiation of Human Response Clinical Practice Guideline (CPG) Outcome: Ongoing Goal: Acceptable Pain Control/Comfort Level Description: Patient will demonstrate the desired outcomes by discharge/transition of care. Outcome: Ongoing * Nursing Notes - Julia Parikh RN - 08/22/2022 11:20 AM EDT hey I just wanted to let you know that his bp has consistently been in the 170's/90-100's despite pain interventions. SecureChat to Dr. Milton Felipe RN * Op Note - Bina Jerome MD - 08/21/2022 6:10 PM EDT DATE OF PROCEDURE: 08/21/2022 PREOPERATIVE DIAGNOSES: 1. Cervical myelopathy. 2. Multilevel cervical stenosis. 3. Previous C4-C7 anterior cervical discectomy and fusion. PROCEDURES: 1. C5-T1 decompression. 2. C5-T2 posterior instrumentation. 3. C5-T2 posterior arthrodesis. 4. Application of locally harvested bone graft. 5. Application of DBM product. 6. Use of intraoperative fluoroscopy. 7. Use of intraoperative neuromonitoring. SURGEON(S): Bina Jerome MD. FASHION SHOW DIRECTOR: Tono Petersen MD/fellow. ANESTHESIA: General endotracheal. ESTIMATED BLOOD LOSS: 150 cc. COMPLICATIONS: None. SPECIMENS: None. INSTRUMENTATION: DePuy Synthes Symphony and ViviGen allograft. INDICATIONS FOR PROCEDURE: This is a 57-year-old male who was admitted for progressive issues with gait ataxia. MRI series demonstrated severe stenosis from C5-6 to C7- T1. He does have a previous C5-C7 ACDF. We discussed the risks and benefits of aspiration versus posterior decompression. Specific risks we discussed included but were not limited to infection, wound healing issues, spinal cord injury, nerve root injury, C5 palsy, dural injury, CSF leak, pseudoarthrosis, need for subsequent surgery as well as medical complications during surgery as well as his postoperative recovery. DESCRIPTION OF PROCEDURE: I met with the patient in the preoperative holding area. The surgical site was signed. He was then transferred to the operative suite by the anesthesia team. A time-out was held identifying the correct patient as well as the correct procedure. He was then placed under general endotracheal anesthesia without complication. An A-line was placed for intraoperative blood pressure monitoring with a map goal of 80. Neuromonitoring leads were placed in a standard fashion. A preincision timeout was held, identifying the correct patient as well as correct procedure. We thenused anatomic landmarks in order to align our midline incision over the C4 to T2 spinous processes. The bilateral paraspinal musculature was then elevated using Bovie electrocautery. We did localize using fluoroscopy. Following this, we used a 3 mm ana to drill area relief pilot holes for our lateral mass screws. We then used a 12 mm drill to complete this. All the screw tracts had appropriate bony containment. Following this, we then placed instrumentation at T1 and T2. A 3 mm ana was used to perforate the dorsal cortex, and the pedicles of these levels were then cannulated using a gear shift. We placed 5 mm screws of appropriate length at T1 and T2. We confirmed appropriate placement using fluoroscopy. We did extend the screws and found that they had appropriate resistance. Following this, the interspinous ligaments were then taken down at C4-C5 as well as at C7-T1. A 3 mm ana was used to create our laminectomy troughs. He had an auto fusion between the lamina of C4 and C5. This was carefully thinned using a ana, and we completed the residual resection using a series of Kerrison punch rongeurs. We then removed the C5 and C6 lamina en bloc. We then removed the C7 lamina in a similar fashion. We did perform a dome laminectomy at T1 in order to preserve our bone for our fusion mass. After this, we then irrigated the wound with copious saline. We performed our decortication from C5 to T2 using a 3 mm ana. We placed 3.5 mm x 14 mm screws in the lateral masses at C5 and C6. We then placed appropriate sized 3.5 mm titanium rods. Following this, these were final tightened using the molecular spectroscopist's specifications. The combination of locally harvested autograft as well as allograft was then placed in the arthrodesis site. We then placed a subfascial drain in the standard fashion. The wound was then closed in layers using 0, 2-0, and 3-0 Vicryl. At the end of the procedure, all counts were correct. His neuromonitoring signals did seem to improve. He was then placed supine on a gurney. His Augustine headholder was removed without problem. He was then extubated without issue and taken to the PACU in stable condition. On my postop exam, he had intact strength as well as sensation in his bilateral upper extremities. (DOC:[id number]) * Nursing Notes - Berenice Walker RN - 08/21/2022 4:56 PM EDT Pt discharged per PACU criteria; Sign-out received; no changes to previous assessment; Report called to Susan Omer RN; Pt returned to room via bed per HOUSE FELLOW; [facility] updated. * Nursing Notes - Berenice Walker RN - 08/21/2022 3:15 PM EDT Pt arrived to PACU; Report received from surgery and anesthesia. No labs or imaging needed while ptin PACU per surgery. * Plan of Care - Tono Petersen MD - 08/21/2022 3:00 PM EDT Assessment 57 y.o. male, Day of Surgery S/P C5-T2 posterior cervical decompression and fusion with Dr. Jerome on 08/21/22. Plan Activity: As tolerated, [place] J at all times Antibiotics: Ancef for 24 hours postoperatively or when drain is in place Blood: Hemoglobin, Glucose control with goal of <120 Brace: [place] J Cultures: None Diet: Liquid diet and progress to regular diet Drain: Hemovac drain sewn in place, monitor output Dressing: Dry dressing, change POD2 DVT Prophylaxis: SCD's, ambulation Exercise: IS 10x/hr while awake, PT for mobilization (w/ or w/o walker TID), (walking QID with brace) [place]: Goal to remove POD1-2 Pain Regimen: Multimodal Xrays: AP/Lateral cervical spine in brace standing Dispo: Anticipate discharge home in next 1-2 days. Appreciate SW assistance in placement and PT recs. Follow-up: Follow up with Dr. Jerome team 2 weeks from surgery for wound check * Brief Op Note - Tono Petersen MD - 08/21/2022 2:59 PM EDT Issac Howell ([id number]) PRE OPERATIVE DIAGNOSIS Cervical stenosis of spinal canal [M48.02] POST OPERATIVE DIAGNOSIS Post-Op Diagnosis Codes: * Cervical stenosis of spinal canal [M48.02] PROCEDURE PERFORMED Procedure(s) (LRB): FUSION POSTERIOR CERVICAL (Midline) PRIMARY CLOSURE Yes INTRAOPERATIVE FINDINGS No significant abnormalities SURGEON Surgeon(s) and Role: * Bina Jerome MD - Primary ANESTHESIOLOGIST Anesthesiologist: Caty Sloan MD Faith Doctor Assisting: Alex Herman MD SURGICAL STAFF Test And Research Reactor Operator: Sneha Griffin RN Relief Test And Research Reactor Operator: Florina Todd RN Relief Scrub: Lorenza Conde Scrub Person: Caitie Ortiz Fellow: Tono Petersen MD COMPLICATIONS None ESTIMATED BLOOD LOSS 100 ml SPECIMENS No specimen sent * No specimens in log * Tono Petersen MD August 21, 2022 2:59 PM * Plan of Care - Elaina Cruz OT - 08/20/2022 8:51 AM EDT Problem: OT - Dressing Goal: Lower Body Dressing Description: Pt will complete LE dressing tasks with modified independence for improved ability to complete self-care activities. Outcome: Ongoing Problem: OT - ADLs Goal: Toileting Description: Pt will complete toileting task including clothing management with standby assistance for improved ability to safely complete self-care activities. Outcome: Ongoing Goal: Bathing Description: Pt will perform full body bathing routine with modified independence while sitting forimproved ability to complete self-care activities. Outcome: Ongoing Problem: OT - Balance Goal: Balance - Standing Description: Pt will perform 5 minutes of functional ADL task in standing with contact guard assistance and balance level of contact guard to promote safety and improved balance required for self-care activities. Outcome: Ongoing * Plan of Care - Antonio Douglass PT - 08/20/2022 7:37 AM EDT Problem: PT - Mobility Goal: Ambulation Description: Pt will ambulate 200 feet with least restrictive device with standby assistance to improve ability to navigate home environment. Outcome: Ongoing Problem: PT - Transfers Goal: Sit <-> Stand Description: Pt will perform sit to/from stand transfers with independence with least restrictive device in order to improve functional mobility and safety. Outcome: Ongoing Goal: Strength/ROM Description: Pt will perform 2 sets of 12 repetitions of lower bilateral extremity exercises with independence in order to improve strength, maintain ROM, necessary for functional mobility. Outcome: Ongoing Goal: Other Description: Pt will meet the MCID on the pay[place] balance assessment to reduce fall risk. Outcome: Ongoing * Certification - Steven Monreal MD - 08/19/2022 6:30 PM EDT I certify that this patient requires inpatient services at this time. I anticipate the expected length of stay will include at least two midnights. Inpatient services are due to the following medicalconcerns spinal stenosis with suspected myelopathy, falls. Current treatment plan includes Orthopedic Surgery consult, fall precautions, pain control. Plans for post hospitalization care will be discharge to home with home health or long-term facility. Steven Monreal MD * Nursing Notes - Ellen Guzman RN - 08/19/2022 4:39 PM EDT Paged day shift hospitalist: re: 8[facility] 14 [address]. Direct admit arrived two hours ago. No new orders placed. Please advise, thanks! Prisca [id number] [facility]* Nursing Notes - Kami Will RN - 08/27/2022 12:13 PM EDT Reviewed AVS with family and patient. All questions answered. IV removed and pressure dressing applied. Patient stable at time of discharge. Exited unit in w/c with belongings, staff HOUSE FELLOW, and . [facility] History of Present illness Narrative* OSWALD Delacruz - 08/27/2022 11:40 AM EDT Final Discharge Planning Final Discharge Planning Discharge Disposition: Home Selected Continued Care - Admitted Since 08/19/2022 No services have been selected for the patient. Community Agency Name(s) For Handoff: N/A Additional Community Agency Name(s): no Plan Plan: Discharge home Patient/Family In Agreement With Plan: yes AVS is complete per CM's viewpoint. Pt is now declining IPR and wants to discharge home with support from his family. Pt to schedule follow-up orthopedics appointment. No other CM needs at this time. SHELLY Carlos Body Joiner [phone] * OSWALD Goncalves - 08/27/2022 10:07 AM EDT [employer] met with patient and spouse at bedside. Patient informed that he will discharge home. Patient declines IPR at this time. Patient informed he has family support and a relative that is a occupational therapist who will be assisting him. [employer] cancelled IPR referrals in [place]. OSWALD Armando Maintenance Welder [facility] 8th floor [phone] * Errol Tolentino MD - 08/27/2022 5:28 AM EDT Orthopaedic Spine Surgery Progress Note: Issac Howell is a 57 y.o. male who is 6 Days Post-Op from C5-T2 posterior cervical decompression and fusion with Dr. Jerome. Last 24 hours No acute events overnight. Patient examined at bedside resting comfortably. No new numbness or tingling, chest pain, SOB. Vitals Vitals: 08/27/22 0335 BP: 138/80 Pulse: 99 Resp: 16 Temp: 98.8 F (37.1 C) Physical Exam GEN: AOx3, resting in bed, NAD HEENT: NCAT, PERRLA, EOMI CV: normotensive LUNGS: non-labored breathing Spine Exam Incision: Dressing/incision c/d/i. Cervical collar in place. Neuro: Upper Extremity Strength: Right Left Deltoids C5 4+/5 painful 4+/5 Painful Biceps C6 5/5 5/5 Wrist Extensors 5/5 5/5 Triceps C7 5/5 5/5 Finger Flexors C8 5/5 5/5 First Dorsal Interossei 5/5 5/5 Lower Extremity Strength: Right Left Hip Flexors L2 5/5 5/5 Quadriceps L3 5/5 5/5 Anterior Tibialis L4 5/5 5/5 EHL L5 5/5 5/5 Hamstrings 5/5 5/5 Gastrocsoleus S1 5/5 5/5 Sensation to light touch in the upper and lower extremities is grossly intact. Laboratory Studies Lab Results Component Value Date WBC 8.96 08/25/2022 HGB 11.9 (L) 08/25/2022 HCT 34.4 (L) 08/25/2022 PLATELET 323 08/25/2022 MCV 93.2 08/25/2022 Lab Results Component Value Date SODIUM 134 (L) 08/26/2022 POTASSIUM 4.7 08/26/2022 CHLORIDE 92 (L) 08/26/2022 CO2 36 (H) 08/26/2022 BUN 18 08/26/2022 CREATSERUM 0.74 08/26/2022 GLUCOSE 102 (H) 08/20/2022 Lab Results Component Value Date INR 0.9 08/20/2022 PT 12.1 08/20/2022 Imaging/Cultures/Drains New Imaging: Cervical x-rays show instrumentation with no evidence of loosening or failure Cultures: None Drains: HV removed 08/23 Assessment Issac Howell is a 57 y.o. male who is POD#6 from C5-T2 posterior cervical decompression and fusion with Dr. Jerome. Plan Activity: As tolerated, [place] at all times Antibiotics: Ancef complete Blood: Hemoglobin, Glucose control with goal of <120 Brace: [place] Cultures: None Diet: Regular Drain: Hemovac removed 08/23 Dressing: Ok for nursing to perform dressing changes as needed with gauze and paper, medipore or foam tape DVT Prophylaxis: SCD's, ambulation; no chemoprophylaxis Exercise: IS 10x/hr while awake, PT for mobilization (w/ or w/o walker TID), (walking QID with brace) Harrison: None Pain Regimen: Multimodal, try to wean off IV pain medications Xrays: AP/Lateral cervical spine in brace standing - complete Dispo: Anticipate discharge home pending pain control. Appreciate SW assistance in placement and PTrecs. Follow-up: Follow up with Dr. Jerome team 2 weeks from surgery for wound check Errol Tolentino MD * Steven Balderrama - 08/26/2022 1:16 PM EDT Acute Physical Therapy Treatment Prior to Admission [facility] score(s): PRIOR LEVEL AM-PAC Mobility Raw Score: 24 PRIOR LEVEL AM-PAC Activity Raw Score: 24 Current AM-PAC score(s): CURRENT AM-PAC Mobility Raw Score: 17 Based on the above AM-PAC score(s) and PT clinical judgment, patient is a good candidate for discharge to Inpatient Rehab Facility (Pt showing much better tolerance to therapy today) Supporting Factors (would benefit from skilled therapy services): Impaired balance, Decreased strength, Fall risk Mobility equipment available at home: straight cane, 2 wheeled walker, axillary crutches ADL equipment available at home: shower chair, hand held shower hose Equipment needed for discharge: to be determined Current therapy frequency recommendation in acute: Therapy Frequency: 5 times a week Precautions and Weightbearing Status: Existing Precautions/Restrictions: fall, spinal Patient Safety Communication Prior to Visit: Nursing Current brace/orthoses: Kari Olson (ATC) Subjective: Pt agreeable to therapy, eager to get up and walk to relieve pain Pain: General Pain Documentation (Adult, OB, Peds) Presence of Pain: complains of pain/discomfort Pain Location: neck DVPRS (Defense and Veterans Pain Rating Scale) DVPRS: Rest: 9- severe pain DVPRS: Activity: 10- severe pain Objective/Observation: Respiratory Status O2 Device: room air Cognition Overall Cognitive Status: Within Functional Limits Arousal/Alertness: Appropriate responses to stimuli Orientation Level: Oriented X4 Following Commands: Follows all commands and directions without difficulty Safety Judgment: Good awareness of safety precautions Awareness of Errors: Good awareness of errors made Deficits: Fully aware of deficits Balance: Sitting Balance Static Sitting-Level of Assistance: Standby Dynamic Sitting-Level of Assistance: Standby Skilled Rationale: Verbal cues, Maintain precautions Sitting Balance Skilled Intervention/Details: pt sat EOB total 6min with minimal cueing Standing Balance Static Standing-Level of Assistance: Contact guard Dynamic Standing-Level of Assistance: Contact guard Standing-Balance Support: Gait belt, 2 wheeled walker Skilled Rationale: Positioning, Sequencing, Hand placement, Verbal cues, Full extension to upright positioning/posture, Cues for increased safety, Maintain precautions Standing Balance Skilled Intervention/Details: pt cued on communications project manager of walker, pt veterans service officer very firmly while compensating for pain in neck. Needs cueing to relax posture. Mobility Assessment/Intervention: Rolling/Turning Mobility [place] Level: Rolling/Turning: supervision Bed Features/Set-up: Rolling/Turning: Flat Skilled Rationale: Positioning, Hand placement, Sequencing, Verbal cues, Tactile cues, Technique ofactivity, Maintain precautions Skilled Intervention/Details: Rolling/Turning: pt cued on log rolling to maintain precautions Supine to Sit Mobility [place] Level: Supine->Sit: minimum assist (75% patient effort) Bed Features/Set-up: Supine->Sit: Head of bed elevated Skilled Rationale: Positioning, Sequencing, Hand placement, Verbal cues, Tactile cues, Technique ofactivity, Maintain precautions Skilled Intervention/Details: Supine->Sit: pt reports he is too weak to push into sitting from sidelying, has been practicing with in room supervision. Cueing on log roll. Sit to Supine Mobility [place] Level: Sit->Supine: supervision Bed Features/Set-up: Sit->Supine: Head of bed elevated Skilled Rationale: Positioning, Sequencing, Hand placement, Verbal cues, Technique of activity, Maintain precautions Skilled Intervention/Details: Sit->Supine: pt cued on log rolling to maintain precautions Transfer Assessment/Intervention: Sit to Stand Transfer [place] Level: Sit->Stand: contact guard assist Assistive Device: Sit->Stand: gait belt, 2 wheeled walker Skilled Rationale: Positioning, Sequencing, Hand placement, Verbal cues, Full extension to upright positioning/posture, Technique of activity, Maintain precautions Skilled Intervention/Details: Sit->Stand: pt cued about hand placement on bed and ww when standing. sit to stand x3. Gait/Functional Mobility Assessment/Intervention: Gait Assessment [place] Level: Gait: contact guard assist Assistive Device: Gait: gait belt, 2 wheeled walker Ambulation Distance (Feet): 200 Gait Deviations Identified: decreased gait speed, antalgic, flexed posture Gait Skilled Rationale: verbal Skilled Intervention/Details - Gait: pt reports he has to communications project manager ww tight to compensate for neck pain, cued on pushing ww like shopping cart rather than bearing down on handles Outcome Score(s): CURRENT [facility] Basic Mobility Inpatient Short Form Turning over in bed: 3 - A Little Assistance Sitting/standing from chair: 3 - A Little Assistance Moving from lying on back to sittin - A Little Assistance Moving to and from bed to chair: 3 - A Little Assistance Walk in hospital room: 3 - A Little Assistance Climbing 3-5 steps with a railin - A Lot of Assistance CURRENT [facility] Mobility Raw Score: 17 CURRENT [facility] Mobility Functional Limitation/Modifier: 50.57% Currently Impaired in Basic Mobility- CK Interventions: Intervention 1 Intervention Name: Bed mobility Sets/Reps/Duration: 5min Details: pt educated and trained on efficiency and tolerance of bed mobility such as supine to sit,sit to stand, and reverse while maintaining precautions Assessment & Plan: Pt shows improvement in overall activity tolerance. Timed therapy session with pain meds given by RN which proved to be effective. Pt ambulated well and reported he felt better as he was up and moving. Progress shown during bed mobility training as well. Pt reports same amount of pain during mobility but better understanding of precautions and technique of activity. Patient Instruction/Education this session: Pt educated on spinal precautions and benefit of movement in order to progress to discharge Plan for next session: gait training and activity tolerance with pain management Acute PT Goals Plan of Care by Antonio Douglass PT at 08/26/2022 1:15 PM Version 1 of 1 Problem: PT - Mobility Goal: Ambulation Description: Pt will ambulate 150 feet with least restrictive device with standby assistance to improve ability to navigate home environment. Outcome: Progressing Toward Goal Problem: PT - Transfers Goal: Supine <-> Sit Description: Pt will perform bed mobility with flat bed & no rail with modified independence inorder to improve functional mobility and safety. Outcome: Progressing Toward Goal Goal: Sit <-> Stand Description: Pt will perform sit to/from stand transfers with supervision with least restrictive device in order to improve functional mobility and safety. Outcome: Progressing Toward Goal Goal: Bracing Description: Pt will demonstrate donning/doffing brace with independence in order to improve safetyat discharge destination. Outcome: Progressing Toward Goal Goal: Other Description: Pt will meet the MCID on the payton balance assessment to reduce fall risk at home Outcome: Progressing Toward Goal PT treatment consisted of Therapeutic Activity and Gait/Stair Training to work and progress towardsabove goal(s). Treating Therapist: Steven Balderrama Additional Details: Co-evaluation/co-treatment performed?: No simultaneous skilled care performed - I was assisted by MARGARETTE Shah for today's session. and I used facemask, protective eye shield, and gloves in today's patient interaction. Patient location at end of session: bed with head of bed elevated and RN aware Alarms on at end of session: RN aware Needs in reach. Time In: 1316 Time Out: 1341 Total Visit Time: 25 minutes Total Treatment Time (skilled, billable minutes): 25 minutes Upon discontinuation of Acute Care Physical Therapy Services or patient discharge from the hospitalthis note represents the current Physical Therapy Discharge Summary. Associated attestation - Antonio Douglass PT - 08/26/2022 2:20 PM EDT IAntonio PT, provided direct guidance in the room during this patient care session. I attestthat all documentation reflects accurate skilled clinical decisions and judgements. Pablo Douglass, PT, DPT License Number # [id number] Pager # [phone] * Hughosiel Payne Patrick, DO - 08/26/2022 11:27 AM EDT [facility] Medicine Daily Progress Note Patient: Issac Howell, 1965, IMPRESSION / PLAN Issac Howell is a 57 y.o. male with PMH significant for degenerative spinal disease s/p cervical fusion x2, chronic pain, tobacco abuse, alcohol dependence who was transferred from OSH with concern forfalls and spinal stenosis with suspected myelopathy. Spinal stenosis, cervical and lumbar, with myelopathy s/p posterior decompression and fusion C5-T1 (08/21) -OSH MRIs available in [place]. -Consult ortho spine, s/p OR 08/21 for posterior decompression and fusion -Consult PT/OT. -Pain control w/ APAP, gabapentin scheduled and oxycodone, valium, and dilaudid PRN. 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 Treated for alcohol withdrawal at OSH which appears to be resolved. Tobacco use -Counseled on importance of tobacco cessation. Anxiety - Atarax PRN Anemia - likely acute blood loss related to surgery - CTM Hyponatremia - monitor normal weight (BMI 18-24.9) based on BMI of 18.2 DVT prophylaxis with holding for OR Dispo: IPR when off IV pain medications Code status is Full Code INTERVAL HISTORY / SUBJECTIVE Patient doing ok today, still noting severe pain, discussed need to wean off IV pain meds, which heis agreeable. Weaning IV meds today OBJECTIVE Temp 98.3 F (36.8 C) Pulse 92 Resp 16 BP 145/89 SaO2 97 % Weight 55.9 kg (123 lb 3.2 oz) PHYSICAL EXAM Gen: A, A, NAD ENT: MMM, in cervical colar Resp: CTA & P bilat, normal effort Cardio: RRR, normal S1, S2, No SOLA GI: S/NT/ND, NABS Psych: Ox3, appropriate affect and cognition DATA REVIEW Na/K+/Phos/Mg/Ca: 134/4.7/--/--/-- (08/26) Bun/Creat/Cl/CO2/Glucose: 18/0.74/92/36/-- (08/26 0000) * Errol Tolentino MD - 08/26/2022 7:22 AM EDT Orthopaedic Spine Surgery Progress Note: Issac Howell is a 57 y.o. male who is 5 Days Post-Op from C5-T2 posterior cervical decompression and fusion with Dr. Jerome. Last 24 hours No acute events overnight. Patient was evaluated at bedside with Dr. Jerome and resting comfortably. Patient stating that his pain is getting better. We told him that we would like to start to wean him off his iv pain medication. Vitals Vitals: 08/26/22 0311 BP: 135/88 Pulse: 89 Resp: 16 Temp: 98 F (36.7 C) Physical Exam GEN: AOx3, resting in bed, NAD HEENT: NCAT, PERRLA, EOMI CV: normotensive LUNGS: non-labored breathing Spine Exam Incision: Dressing/incision c/d/i. Cervical collar in place. Neuro: Upper Extremity Strength: Right Left Deltoids C5 4-/5 painful 4-/5 Painful Biceps C6 5/5 5/5 Wrist Extensors 5/5 5/5 Triceps C7 5/5 5/5 Finger Flexors C8 5/5 5/5 First Dorsal Interossei 5/5 5/5 Lower Extremity Strength: Right Left Hip Flexors L2 5/5 5/5 Quadriceps L3 5/5 5/5 Anterior Tibialis L4 5/5 5/5 EHL L5 5/5 5/5 Hamstrings 5/5 5/5 Gastrocsoleus S1 5/5 5/5 Sensation to light touch in the upper and lower extremities is grossly intact. Laboratory Studies Lab Results Component Value Date WBC 8.96 08/25/2022 HGB 11.9 (L) 08/25/2022 HCT 34.4 (L) 08/25/2022 PLATELET 323 08/25/2022 MCV 93.2 08/25/2022 Lab Results Component Value Date SODIUM 134 (L) 08/26/2022 POTASSIUM 4.7 08/26/2022 CHLORIDE 92 (L) 08/26/2022 CO2 36 (H) 08/26/2022 BUN 18 08/26/2022 CREATSERUM 0.74 08/26/2022 GLUCOSE 102 (H) 08/20/2022 Lab Results Component Value Date INR 0.9 08/20/2022 PT 12.1 08/20/2022 Imaging/Cultures/Drains New Imaging: Cervical x-rays show instrumentation with no evidence of loosening or failure Cultures: None Drains: HV removed 08/23 Assessment Issac Howell is a 57 y.o. male who is POD#5 from C5-T2 posterior cervical decompression and fusion with Dr. Jerome. Plan Activity: As tolerated, [place] at all times Antibiotics: Ancef complete Blood: Hemoglobin, Glucose control with goal of <120 Brace: [place] Cultures: None Diet: Regular Drain: Hemovac removed 08/23 Dressing: Ok for nursing to perform dressing changes as needed with gauze and paper, medipore or foam tape DVT Prophylaxis: SCD's, ambulation; no chemoprophylaxis Exercise: IS 10x/hr while awake, PT for mobilization (w/ or w/o walker TID), (walking QID with brace) Harrison: None Pain Regimen: Multimodal, try to wean off IV pain medications Xrays: AP/Lateral cervical spine in brace standing - complete Dispo: Anticipate discharge home today vs tomorrow. Appreciate assistance in placement and PT recs. Follow-up: Follow up with Dr. Jerome team 2 weeks from surgery for wound check Errol Tolentino MD * OSWALD Delacruz - 08/25/2022 3:45 PM EDT Progression of Care Note Expected Discharge Date: Medical Milestones Remaining: Pt continues to require IV pain medications. Assessment and Discharge Plan as of 08/25/2022 3:45 PM SNF versus IPR when Pt is medically stable. Anticipated discharge disposition: Inpatient Rehab Facility Anticipated Services at Discharge: Physical Therapy, Occupational Therapy, Outpatient follow up SHELLY Carlos Body Joiner [phone] Explanation of Barriers: Medical Readmission Risk Score Risk of Readmission: 2.7 Category Reference: High:16-100 Mod-High:10-16 Mod-Low: 5-10 Low: 0-5 * OSWALD Goncalves - 08/25/2022 2:04 PM EDT Placement Plan Expected Discharge Date: Referred Level of Care: IPR Patient Choice for Post-Acute Providers Barriers: medical stability, pain control, precert Current Referrals and Status [facility] Available, currently full pending bed when patient ready [facility] Available, no bed until weekend at [facility] Under Review, pending bed availability when patient ready [employer] reviewed referral status in [facility]. Patients first choice is [facility] and they have no bed available this week. [employer] to follow up on patients second choice. Pending patients pain control, precert,and bed availability at [facility] when patient ready. [employer] to continue following. OSWALD Armando Maintenance [employer]der [facility] 8th floor [phone] * Steven Tacos - 08/25/2022 1:35 PM EDT Acute Physical Therapy Treatment Prior to Admission [facility] score(s): PRIOR LEVEL AM-PAC Mobility Raw Score: 24 PRIOR LEVEL AM-PAC Activity Raw Score: 24 Current AM-PAC score(s): CURRENT AM-PAC Mobility Raw Score: 17 Based on the above AM-PAC score(s) and PT clinical judgment, patient is a good candidate for discharge to [facility] Facility (pt shows decreased acitivity tolerance due to pain) Supporting Factors (would benefit from skilled therapy services): Impaired balance, Decreased strength, Fall risk Mobility equipment available at home: straight cane, 2 wheeled walker, axillary crutches ADL equipment available at home: shower chair, hand held shower hose Equipment needed for discharge: to be determined Current therapy frequency recommendation in acute: Therapy Frequency: 5 times a week Precautions and Weightbearing Status: Existing Precautions/Restrictions: fall, spinal Patient Safety Communication Prior to Visit: Nursing Current brace/orthoses: Kari Olson (ATC) Subjective: Pt agreeable to therapy, eager to work with PT this session Pain: General Pain Documentation (Adult, OB, Peds) Presence of Pain: complains of pain/discomfort Pain Location: neck DVPRS (Defense and Veterans Pain Rating Scale) DVPRS: Rest: 9- severe pain DVPRS: Activity: 9- severe pain Objective/Observation: Respiratory Status O2 Device: room air Cognition Overall Cognitive Status: Impaired Arousal/Alertness: Appropriate responses to stimuli Orientation Level: Oriented X4 Following Commands: Follows all commands and directions without difficulty Safety Judgment: Decreased awareness of need for assistance, Decreased awareness of need for safety Awareness of Errors: Assistance required to identify errors made, Assistance required to correct errors made Deficits: Decreased awareness of deficits Balance: Sitting Balance Static Sitting-Level of Assistance: Standby Dynamic Sitting-Level of Assistance: Standby Skilled Rationale: Positioning, Verbal cues, Cues for increased safety, Maintain precautions Sitting Balance Skilled Intervention/Details: pt sat EOB for 2min during session, complains of extreme pain in this position and impulsive to move into lying or standing to relieve pain Standing Balance Static Standing-Level of Assistance: Contact guard Dynamic Standing-Level of Assistance: Contact guard Standing-Balance Support: Gait belt, 2 wheeled walker Skilled Rationale: Positioning, Sequencing, Hand placement, Verbal cues, Technique of activity, Cues for increased safety, Maintain precautions Standing Balance Skilled Intervention/Details: pt cued on use of ww when standing Mobility Assessment/Intervention: Supine to Sit Mobility [place] Level: Supine->Sit: minimum assist (75% patient effort) Bed Features/Set-up: Supine->Sit: Head of bed elevated Skilled Rationale: Positioning, Sequencing, Hand placement, Verbal cues, Tactile cues, Technique ofactivity, Cues for increased safety, Maintain precautions Skilled Intervention/Details: Supine->Sit: pt cued on maintaining precautions during log rollingto get to EOB. pt complains of extreme pain during this transition and is impulsive to move into next position Transfer Assessment/Intervention: Sit to Stand Transfer [place] Level: Sit->Stand: minimum assist (75% patient effort) Assistive Device: Sit->Stand: gait belt, 2 wheeled walker Skilled Rationale: Positioning, Sequencing, Hand placement, Verbal cues, Tactile cues, Technique ofactivity, Cues for increased safety, Maintain precautions Skilled Intervention/Details: Sit->Stand: pt impulsive to stand without gait belt or ww at first, cued on maintaining precautions while attempting to stand Bed-Chair Transfer [place] Level: Bed<->Chair: minimum assist (75% patient effort) Assistive Device: Bed<->Chair: gait belt, 2 wheeled walker Skilled Rationale: Positioning, Sequencing, Hand placement, Verbal cues, Tactile cues, Cues for increased safety, Maintain precautions Skilled Intervention/Details: Bed<->Chair: pt cued on stand and pivot transfer technique and reminded to take time between positions in order to maintain precautions Gait/Functional Mobility Assessment/Intervention: Gait Assessment [place] Level: Gait: contact guard assist Physical Assist: Gait: chair follow Assistive Device: Gait: gait belt Ambulation Distance (Feet): 125 Gait Deviations Identified: decreased gait speed, knee buckling, decreased step length Gait Skilled Rationale: verbal, tactile, increase step length, proximity of assistive device Skilled Intervention/Details - Gait: pt presents with fluctuating gait speed and inconsistent step length, pt impulsive to sit in chair without ww in proximity and without reaching back for arm rests Outcome Score(s): CURRENT [facility] Basic Mobility Inpatient Short Form Turning over in bed: 3 - A Little Assistance Sitting/standing from chair: 3 - A Little Assistance Moving from lying on back to sittin - A Little Assistance Moving to and from bed to chair: 3 - A Little Assistance Walk in hospital room: 3 - A Little Assistance Climbing 3-5 steps with a railin - A Lot of Assistance CURRENT [facility] Mobility Raw Score: 17 CURRENT [facility] Mobility Functional Limitation/Modifier: 50.57% Currently Impaired in Basic Mobility- CK Assessment & Plan: Pt shows improvement in activity tolerance and ambulation distance but still limited to pain. During gait, pt able to maintain upright prosture and correct deviations throughout. Pt progressed gait to show less BLE buckling and to CGA. Shows more impulsivity today during duration of session. PT explained how pt would need to show better tolerance to therapy in order to discharge to [facility]. Pt understood that new recommendations for PT would include discharge to SNF. Patient Instruction/Education this session: Pt educated on correlation of movement to improvements in pain post-op and how much therapy would be required at IPR vs SNF Plan for next session: continue to improve activity tolerance and ambulation distance, education onmaintainence of spinal precautions Acute PT Goals Plan of Care by Antonio Douglass PT at 08/25/2022 1:35 PM Version 1 of 1 Problem: PT - Mobility Goal: Ambulation Description: Pt will ambulate 150 feet with least restrictive device with standby assistance to improve ability to navigate home environment. Outcome: Progressing Toward Goal Problem: PT - Transfers Goal: Supine <-> Sit Description: Pt will perform bed mobility with flat bed & no rail with modified independence inorder to improve functional mobility and safety. Outcome: Progressing Toward Goal Goal: Sit <-> Stand Description: Pt will perform sit to/from stand transfers with supervision with least restrictive device in order to improve functional mobility and safety. Outcome: Progressing Toward Goal Goal: Bracing Description: Pt will demonstrate donning/doffing brace with independence in order to improve safetyat discharge destination. Outcome: Progressing Toward Goal PT treatment consisted of Gait/Stair Training and Brace Fitting to work and progress towards above goal(s). Treating Therapist: Steven Balderrama Additional Details: Co-evaluation/co-treatment performed?: No simultaneous skilled care performed - I was assisted by MARGARETTE Shah for today's session. and I used facemask, protective eye shield, and gloves in today's patient interaction. Patient location at end of session: bed with head of bed elevated and RN aware Alarms on at end of session: bed alarm and RN aware Needs in reach. Time In: 1335 Time Out: 1353 Total Visit Time: 18 minutes Total Treatment Time (skilled, billable minutes): 18 minutes Upon discontinuation of Acute Care Physical Therapy Services or patient discharge from the hospitalthis note represents the current Physical Therapy Discharge Summary. Associated attestation - Antonio Douglass PT - 08/25/2022 2:48 PM EDT I, Antonio Douglass PT, provided direct guidance in the room during this patient care session. I attestthat all documentation reflects accurate skilled clinical decisions and judgements. Pablo Douglass PT, DPT License Number # [id number] Pager # [phone] * Mercy Rose MD - 08/25/2022 11:43 AM EDT [facility] Medicine Daily Progress Note Patient: Issac Howell, 1965, IMPRESSION / PLAN Issac Howell is a 57 y.o. male with PMH significant for degenerative spinal disease s/p cervical fusion x2, chronic pain, tobacco abuse, alcohol dependence who was transferred from OSH with concern forfalls and spinal stenosis with suspected myelopathy. Spinal stenosis, cervical and lumbar, with myelopathy s/p posterior decompression and fusion C5-T1 (08/21) -OSH MRIs available in [place]. -Consult ortho spine, s/p OR 08/21 for posterior decompression and fusion -Consult PT/OT. -Pain control w/ APAP, gabapentin scheduled and oxycodone, valium, and dilaudid PRN. Bowel regimen. 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 Treated for alcohol withdrawal at OSH which appears to be resolved. Tobacco use -Counseled on importance of tobacco cessation. Anxiety - Atarax PRN Anemia - likely acute blood loss related to surgery - CTM Hyponatremia - monitor normal weight (BMI 18-24.9) based on BMI of 18.2 DVT prophylaxis with holding for OR Dispo: IPR when off IV pain medications Code status is Full Code INTERVAL HISTORY / SUBJECTIVE Pt reports his pain is better controlled today and he is eager to work with PT. He has not had a BMyet. SO at bedside, updated on plan of care OBJECTIVE Temp 98.1 F (36.7 C) Pulse 92 Resp 16 BP 128/89 SaO2 98 % Weight 55.9 kg (123 lb 3.2 oz) PHYSICAL EXAM Gen: well appearing, NAD. Pleasant and conversational HENT: NCAT, MMM, no scleral icterus, [place] collar in place Chest: No increased WOB, lungs CTAB w/o w/r/r CV: RRR, no murmurs appreciated, no peripheral edema Abd: SNTND NABS Ext: WWP, symmetric Neuro: Alert, oriented x3, THIERRY with 5/5 strength throughout Psych: appropriate, goal-directed DATA REVIEW WBC/Hgb/Hct/Plts: 8.96/11.9/34.4/323 (08/25 0129) Na/K+/Phos/Mg/Ca: 131/3.9/--/--/-- (08/25 129) Bun/Creat/Cl/CO2/Glucose: 14/0.70/90/35/-- (08/25 129) * Elaina Cruz, OT - 08/25/2022 9:50 AM EDT Acute Occupational Therapy Treatment Prior to Admission AM-PAC Score: PRIOR LEVEL AM-PAC Activity Raw Score: 24 PRIOR LEVEL AM-PAC Mobility Raw Score: 24 Current AM-PAC score(s): CURRENT AM-PAC Activity Raw Score: 17 Based on the above AM-PAC score(s), and OT clinical judgment, discharge destination recommendation is: Inpatient Rehab Facility Supporting Factors (would benefit from skilled therapy services): Impaired balance, Decreased endurance, Fall risk, Recent decline in functional mobility Mobility equipment available at home: straight cane, 2 wheeled walker, axillary crutches ADL equipment available at home: shower chair, hand held shower hose Equipment recommendations for discharge: to be determined Current therapy frequency recommendation(s) in acute: 5 times a week Precautions and Weightbearing Status: OT Existing Precautions/Restrictions: fall, spinal Patient Safety Communication Prior to Visit: Nursing Current brace/orthoses: Kari Olson (ATC) Subjective: I feel like if my pain were controlled I could do more Pain: General Pain Documentation (Adult, OB, Peds) Presence of Pain: complains of pain/discomfort Pain Location: neck DVPRS (Defense and Veterans Pain Rating Scale) DVPRS: Rest: 9- severe pain DVPRS: Activity: 10- severe pain Objective/Observation: Vitals/Vitals Responses to Treatment: WFL Respiratory Status O2 Device: room air Cognition Overall Cognitive Status: Within Functional Limits Arousal/Alertness: Appropriate responses to stimuli Orientation Level: Oriented X4 Following Commands: Follows all commands and directions without difficulty Safety Judgment: Good awareness of safety precautions Awareness of Errors: Assistance required to identify errors made, Assistance required to correct errors made Cognition Comments: pain limited, slightly anxious of movement due to fear of pain ADL Assessment/Intervention: UE Dressing Assistance: Modified independent (Hermes/yomaira Olson) Extremity Assessments: See OT Evaluation flowsheet for Extremity Measurement updates. Balance: Sitting Balance Static Sitting-Level of Assistance: Standby Dynamic Sitting-Level of Assistance: Standby Skilled Rationale: Positioning, Sequencing Standing Balance Static Standing-Level of Assistance: Contact guard Dynamic Standing-Level of Assistance: Contact guard Standing-Balance Support: Gait belt, 2 wheeled walker Mobility Assessment/Intervention: Supine to Sit Mobility [place] Level: Supine->Sit: minimum assist (75% patient effort) Bed Features/Set-up: Supine->Sit: Flat, Use of bed rail Skilled Rationale: Positioning, Sequencing, Hand placement, Technique of activity, Maintain precautions Skilled Intervention/Details: Supine->Sit: cues on log roll technique Sit to Supine Mobility [place] Level: Sit->Supine: contact guard assist Bed Features/Set-up: Sit->Supine: Flat Skilled Rationale: Positioning Skilled Intervention/Details: Sit->Supine: cues provided for reverse log roll technique Transfer Assessment/Intervention: Sit to Stand Transfer [place] Level: Sit->Stand: minimum assist (75% patient effort) Assistive Device: Sit->Stand: gait belt, 2 wheeled walker Skilled Rationale: Positioning, Sequencing, Hand placement Skilled Intervention/Details: Sit->Stand: x1 from EOB, cues provided for use of swing momentum to assist with ease in transition into standing Stand to Sit Transfer [place] Level: Stand->Sit: contact guard assist Assistive Device: Stand->Sit: gait belt, 2 wheeled walker Functional Mobility: Functional Mobility [place] Level: Functional Mobility/Gait: contact guard assist Assistive Device: Functional Mobility/Gait: 2 wheeled walker Functional Mobility Distance: Distance needed to access restroom Functional Mobility Deficits: Activity tolerance, Pain Outcome Score(s): CURRENT [facility] Daily Activity Inpatient Short Form Putting on/Taking Off Lower Body Clothin - A Lot of Assistance Bathin - A Lot of Assistance Toiletin - A Little Assistance Putting on/Taking Off Upper Body Clothin - A Little Assistance Groomin - A Little Assistance Eatin - No Assistance CURRENT [facility] Activity Raw Score: 17 CURRENT [facility] Activity Functional Limitation/Modifier: 50.11% Currently Impaired in Daily Activity- CK Interventions: Intervention 1 Intervention Name: Family and pt hands on training for Kari Olson Details: Extensive education provided on application to hermes and yomaira as demo demonstrated initially of safe technique and patient handling while in supine to change pads and apply collar. Therapist completed demo, and then completed teach back and donned [place] with modified independene Intervention 2 Intervention Name: Delia Collar education Details: Education provided on use of delia collar and purpose. Both pt and verbalized understanding Assessment & Plan: GOOD progression made toward goals, as pt this date able to display increased tolerance with functional mobility, and safety and application of collar. At this time pts biggest barrier to completing ADLs safely and with highest level of function is pain and limited activity tolerance. Pt would benefit from continued skilled OT to increase safety and maximize independence with ADLs and functional mobility. Patient Instruction/Education this session: Patient Instruction: Role of OT and plan of care Plan for next session: acitivity tolerance, Lb dressing/tioleting ADL Acute OT Goals Plan of Care by Elaina Cruz OT at 08/25/2022 9:41 AM Version 1 of 1 Problem: OT - Balance Goal: Balance - Standing Description: Pt will perform 8 minutes of functional ADL task in standing with contact guard assistance and balance level of contact guard to promote safety and improved balance required for self-care activities. Outcome: Ongoing Problem: OT - Other Goal: Don/Doff Splint/Brace Description: Pt will be able verbalized/instruct on caregiver and staff with [place] and modified independence and demonstrate knowledge of wear schedule for improved safety at discharge destination. Outcome: Ongoing OT treatment consisted of energy conservation/endurance training and orthotic fitting/training to work and progress towards above goal(s). Treating Therapist: Elaina Cruz OT Additional Details: Co-evaluation/co-treatment performed?: No simultaneous skilled care performed I used facemask, protective eye shield, and gloves in today's patient interaction. Patient location at end of session: bed with head of bed elevated Alarms on at end of session: bed alarm Needs in reach. Time In: 903 Time Out: 926 Total Visit Time: 23 minutes Total Treatment Time (skilled, billable minutes): 23 minutes Upon discontinuation of Acute Care Occupational Therapy Services or patient discharge from the hospital this note represents the current Occupational Therapy Discharge Summary. * Errol Tolentino MD - 08/25/2022 6:11 AM EDT Orthopaedic Spine Surgery Progress Note: Issac Howell is a 57 y.o. male who is 4 Days Post-Op from C5-T2 posterior cervical decompression and fusion with Dr. Jerome. Last 24 hours No acute events overnight. Patient was evaluated at bedside and resting comfortably. Patient stating that his pain is getting better. Vitals Vitals: 08/25/22 0417 BP: 151/82 Pulse: 94 Resp: 16 Temp: 98.9 F (37.2 C) Physical Exam GEN: AOx3, resting in bed, NAD HEENT: NCAT, PERRLA, EOMI CV: normotensive LUNGS: non-labored breathing Spine Exam Incision: Dressing/incision c/d/i. Cervical collar in place. Neuro: Upper Extremity Strength: Right Left Deltoids C5 4/5 Painful 4/5 Painful Biceps C6 5/5 5/5 Wrist Extensors 5/5 5/5 Triceps C7 5/5 5/5 Finger Flexors C8 5/5 5/5 First Dorsal Interossei 5/5 5/5 Lower Extremity Strength: Right Left Hip Flexors L2 5/5 5/5 Quadriceps L3 5/5 5/5 Anterior Tibialis L4 5/5 5/5 EHL L5 5/5 5/5 Hamstrings 5/5 5/5 Gastrocsoleus S1 5/5 5/5 Sensation to light touch in the upper and lower extremities is grossly intact. Laboratory Studies Lab Results Component Value Date WBC 8.96 08/25/2022 HGB 11.9 (L) 08/25/2022 HCT 34.4 (L) 08/25/2022 PLATELET 323 08/25/2022 MCV 93.2 08/25/2022 Lab Results Component Value Date SODIUM 131 (L) 08/25/2022 POTASSIUM 3.9 08/25/2022 CHLORIDE 90 (L) 08/25/2022 CO2 35 (H) 08/25/2022 BUN 14 08/25/2022 CREATSERUM 0.70 08/25/2022 GLUCOSE 102 (H) 08/20/2022 Lab Results Component Value Date INR 0.9 08/20/2022 PT 12.1 08/20/2022 Imaging/Cultures/Drains New Imaging: Cervical x-rays show instrumentation with no evidence of loosening or failure Cultures: None Drains: HV removed 08/23 Assessment Issac Howell is a 57 y.o. male who is POD#4 from C5-T2 posterior cervical decompression and fusion with Dr. Jerome. Plan Activity: As tolerated, Kari Olson at all times Antibiotics: Ancef complete Blood: Hemoglobin, Glucose control with goal of <120 Brace: Kari Olson Cultures: None Diet: Regular Drain: Hemovac removed 08/23 Dressing: Ok for nursing to perform dressing changes as needed with gauze and paper, medipore or foam tape DVT Prophylaxis: SCD's, ambulation; no chemoprophylaxis Exercise: IS 10x/hr while awake, PT for mobilization (w/ or w/o walker TID), (walking QID with brace) [place]: None Pain Regimen: Multimodal Xrays: AP/Lateral cervical spine in brace standing - complete Dispo: Anticipate discharge home today vs tomorrow. Appreciate SW assistance in placement and PT recs. Follow-up: Follow up with Dr. Jerome team 2 weeks from surgery for wound check Errol Tolentino * Antonio Douglass, PT - 08/24/2022 1:33 PM EDT Acute Physical Therapy Treatment Prior to Admission [facility] score(s): PRIOR LEVEL AM-PAC Mobility Raw Score: 24 PRIOR LEVEL AM-PAC Activity Raw Score: 24 Current AM-PAC score(s): CURRENT AM-PAC Mobility Raw Score: 12 Based on the above AM-PAC score(s) and PT clinical judgment, patient is a good candidate for discharge to [facility] for [facility] (will assess next visit due to poor pt activity tolerance today) Supporting Factors (would benefit from skilled therapy services): Impaired balance, Decreased strength, Fall risk Mobility equipment available at home: straight cane, 2 wheeled walker, axillary crutches ADL equipment available at home: shower chair, hand held shower hose Equipment needed for discharge: to be determined Current therapy frequency recommendation in acute: Therapy Frequency: 6 times a week Precautions and Weightbearing Status: Existing Precautions/Restrictions: fall Patient Safety Communication Prior to Visit: Nursing Current brace/orthoses: Kari Olson (ATC) Subjective: Pt agreeable to trying new collar and sitting EOB. Pain: General Pain Documentation (Adult, OB, Peds) Presence of Pain: complains of pain/discomfort Pain Location: neck DVPRS (Defense and Veterans Pain Rating Scale) DVPRS: Rest: 10- severe pain DVPRS: Activity: 10- severe pain Objective/Observation: Vitals/Vitals Responses to Treatment: WNL Cognition Overall Cognitive Status: Within Functional Limits Arousal/Alertness: Appropriate responses to stimuli Orientation Level: Oriented X4 Following Commands: Follows all commands and directions without difficulty Safety Judgment: Decreased awareness of need for assistance Awareness of Errors: Assistance required to identify errors made, Assistance required to correct errors made Deficits: Decreased awareness of deficits Cognition Comments: pain limited Extremity Assessments: See PT Evaluation flowsheet for Extremity Measurement updates. Balance: Sitting Balance Static Sitting-Level of Assistance: Standby Dynamic Sitting-Level of Assistance: Standby Skilled Rationale: Positioning, Verbal cues Sitting Balance Skilled Intervention/Details: EOB x1' before the pt requesting to return to supine due to pain. Mobility Assessment/Intervention: Rolling/Turning Mobility [place] Level: Rolling/Turning: contact guard assist Bed Features/Set-up: Rolling/Turning: Flat Skilled Rationale: Positioning, Verbal cues Skilled Intervention/Details: Rolling/Turning: cueing on log roll for spinal precautions Supine to Sit Mobility [place] Level: Supine->Sit: moderate assist (50% patient effort) Bed Features/Set-up: Supine->Sit: Flat, Use of bed rail Skilled Rationale: Positioning, Sequencing, Verbal cues Skilled Intervention/Details: Supine->Sit: Cueing on log roll, assist for trunk to midline Sit to Supine Mobility [place] Level: Sit->Supine: contact guard assist Bed Features/Set-up: Sit->Supine: Flat Skilled Rationale: Positioning, Verbal cues Skilled Intervention/Details: Sit->Supine: cueing on reverse log roll Transfer Assessment/Intervention: Sit to Stand Transfer [place] Level: Sit->Stand: unable to assess (due to pain) Outcome Score(s): CURRENT [facility] Basic Mobility Inpatient Short Form Turning over in bed: 3 - A Little Assistance Sitting/standing from chair: 2 - A Lot of Assistance Moving from lying on back to sittin - A Lot of Assistance Moving to and from bed to chair: 2 - A Lot of Assistance Walk in hospital room: 2 - A Lot of Assistance Climbing 3-5 steps with a railin - Total Assistance CURRENT [facility] Mobility Raw Score: 12 CURRENT [facility] Mobility Functional Limitation/Modifier: 68.66% Currently Impaired in Basic Mobility- CL Interventions: Fitted with short anterior piece and continued education regarding fit and application of the collar. Pt still requires max A to fit collar due to pain. Slight improvement in fit but did not improve pt's neck pain. Assessment & Plan: Unable to progress pt as he has 10/10 pain with any upright activity. Pt is unable to tolerate upright activity and requires immediate transfer back to supine. Patient Instruction/Education this session: spinal precautions, fit and application of the collar Plan for next session: progress OOB activity tolerance as able. Acute PT Goals Plan of Care by Antonio Douglass PT at 08/24/2022 1:33 AM Version 1 of 1 Problem: PT - Transfers Goal: Supine <-> Sit Description: Pt will perform bed mobility with flat bed & no rail with modified independence inorder to improve functional mobility and safety. Outcome: Ongoing Problem: PT - Transfers Goal: Bracing Description: Pt will demonstrate donning/doffing brace with independence in order to improve safetyat discharge destination. Outcome: Progressing Toward Goal PT treatment consisted of Ortho fitting to work and progress towards above goal(s). Treating Therapist: Antonio Douglass PT Additional Details: Co-evaluation/co-treatment performed?: No simultaneous skilled care performed - I used facemask, protective eye shield, and gloves in today's patient interaction. Patient location at end of session: bed - flat Alarms on at end of session: bed alarm Needs in reach. Time In: 1333 Time Out: 1345 Total Visit Time: 12 minutes Total Treatment Time (skilled, billable minutes): 12 minutes Upon discontinuation of Acute Care Physical Therapy Services or patient discharge from the hospitalthis note represents the current Physical Therapy Discharge Summary. * Mercy Rose MD - 08/24/2022 11:06 AM EDT [facility] Medicine Daily Progress Note Patient: Issac Howell, 1965, IMPRESSION / PLAN Issac Howell is a 57 y.o. male with PMH significant for degenerative spinal disease s/p cervical fusion x2, chronic pain, tobacco abuse, alcohol dependence who was transferred from [facility] with concern forfalls and spinal stenosis with suspected myelopathy. Spinal stenosis, cervical and lumbar, with myelopathy s/p posterior decompression and fusion C5-T1 (08/21) -OSH MRIs available in [place]. -Consult ortho spine, s/p OR 08/21 for posterior decompression and fusion -Consult PT/OT. -Pain control w/ APAP, gabapentin scheduled and oxycodone, valium, and dilaudid PRN. Bowel regimen. Alcohol dependence - Last drink ~10 days ago by report. Treated for alcohol withdrawal at OSH which appears to be resolved. Tobacco use -Counseled on importance of tobacco cessation. Anxiety - Atarax PRN Leukocytosis - likely reactive post-op - CTM Anemia - likely acute blood loss related to surgery - CTM Hyponatremia, resolved - monitor normal weight (BMI 18-24.9) based on BMI of 18.2 DVT prophylaxis with holding for OR Dispo: IPR when off IV pain medications Code status is Full Code INTERVAL HISTORY / SUBJECTIVE Pt reports his pain was not controlled overnight. No numbness or weakness. OBJECTIVE Temp 98.2 F (36.8 C) Pulse 94 Resp 16 BP 127/84 SaO2 98 % Weight 55.9 kg (123 lb 3.2 oz) PHYSICAL EXAM Gen: well appearing, NAD. Pleasant and conversational HENT: NCAT, MMM, no scleral icterus, [place] J collar in place Chest: No increased WOB, lungs CTAB w/o w/r/r CV: RRR, no murmurs appreciated, no peripheral edema Abd: SNTND NABS Ext: WWP, symmetric Neuro: Alert, oriented x3, THIERRY with 5/5 strength although UE strength somewhat limited due to pain Psych: appropriate, goal-directed DATA REVIEW * HITESH Dietrich - 08/24/2022 11:05 AM EDT NUTRITION RISK SCREENING NOTE Nutrition Plan of Care: 1. Continue current diet order. 2. Will provide chasidy Ensure Plus High Protein (350 kcal, 20 g PRO each) TID with all meals. 3. Monitor for significant weight changes. 4. Monitor and encourage po intakes with goal of average po being 75-100%. 5. studio technician video operator to follow. Issac Howell is a 57 y.o. male admitted with concerns for falls and spinal stenosis with suspended myelopathy. Met with patient today at bedside wearing mask and eye protection. Patient Biller Screening Pt's appetite is good. Pt with no nausea, vomiting, diarrhea or constipation. Pt with no issues with chewing and/or swallowing. Pt with wt fluctuating between 123 lbs and 125 lbs over the past several years. Nutrition Risk Screening (MST) Has patient lost weight recently without trying?: 1- 2 to 13 lb weight loss Have you been eating poorly because of decreased appetite?: 1- Yes Malnutrition Screening Tool Score: 2 Past History Past medical, surgical, family, and social histories have been reviewed and are located elsewhere in the medical record. Height: 175.3 cm (5' 9 ) Admit wt: 123 lb 3.2 oz IBW: 160 lb %IBW: 77% BMI: 18.2 UBW:125 lb %UBW:98% Wt Readings from Last 10 Encounters: 08/19/22 55.9 kg (123 lb 3.2 oz) Pt without significant weight changes Current Diet Orders Procedures DIET REGULAR Standing Status: Standing Number of Occurrences: 1 Food Allergies reviewed:NKFA Cultural or Judaism Restrictions/Preferences: none Skin Wali Score: 20 STAND skin bundle not initiated Active Wounds: Wound Incision 08/21/22 1212 Posterior Cervical Spine (3) Edema: - Summary Pt is at nutrition risk due to current admit, chronic conditions, low wt for ht. Pt reporting a good appetite, states has been thin for many years, denied recent wt changes. I offered oral supplements to optimize nutrition, agreed to Ensure Plus HP with every meal. Will monitor for tolerance. HITESH DietrichR Pager:[phone] * Tono Petersen MD - 08/24/2022 6:58 AM EDT Orthopaedic Spine Surgery Progress Note: Issac Howell is a 57 y.o. male who is 3 Days Post-Op from C5-T2 posterior cervical decompression and fusion with Dr. Jerome. Last 24 hours States that pre-operative extremity symptoms are better but still dealing with surgical site pain. Vitals Vitals: 08/24/22 0341 BP: (!) 165/98 Pulse: 96 Resp: 18 Temp: 99.3 F (37.4 C) Physical Exam GEN: AOx3, resting in bed, NAD HEENT: NCAT, PERRLA, EOMI CV: normotensive LUNGS: non-labored breathing Spine Exam Incision: Dressing/incision c/d/i. Cervical collar in place. Neuro: Upper Extremity Strength: Right Left Deltoids C5 5/5 Painful 5/5 Painful Biceps C6 5/5 5/5 Wrist Extensors 5/5 5/5 Triceps C7 5/5 5/5 Finger Flexors C8 5/5 5/5 First Dorsal Interossei 5/5 5/5 Lower Extremity Strength: Right Left Hip Flexors L2 5/5 5/5 Quadriceps L3 5/5 5/5 Anterior Tibialis L4 5/5 5/5 EHL L5 5/5 5/5 Hamstrings 5/5 5/5 Gastrocsoleus S1 5/5 5/5 Sensation to light touch in the upper and lower extremities is grossly intact. Laboratory Studies Lab Results Component Value Date WBC 13.39 (H) 08/23/2022 HGB 12.7 (L) 08/23/2022 HCT 36.1 (L) 08/23/2022 PLATELET 273 08/23/2022 MCV 93.3 08/23/2022 Lab Results Component Value Date SODIUM 135 08/22/2022 POTASSIUM 3.9 08/22/2022 CHLORIDE 100 08/22/2022 CO2 28 08/22/2022 BUN 8 08/22/2022 CREATSERUM 0.81 08/22/2022 GLUCOSE 102 (H) 08/20/2022 Lab Results Component Value Date INR 0.9 08/20/2022 PT 12.1 08/20/2022 Imaging/Cultures/Drains New Imaging: Cervical x-rays show instrumentation with no evidence of loosening or failure Cultures: None Drains: HV removed 08/23 Assessment Issac Howell is a 57 y.o. male who is POD#3 from C5-T2 posterior cervical decompression and fusion with Dr. Jerome. Plan Activity: As tolerated, Kari Olson at all times Antibiotics: Ancef complete Blood: Hemoglobin, Glucose control with goal of <120 Brace: [place] Wesley Cultures: None Diet: Regular Drain: Hemovac removed 08/23 Dressing: Ok for nursing to perform dressing changes as needed with gauze and paper, medipore or foam tape DVT Prophylaxis: SCD's, ambulation; no chemoprophylaxis Exercise: IS 10x/hr while awake, PT for mobilization (w/ or w/o walker TID), (walking QID with brace) Harrison: None Pain Regimen: Multimodal Xrays: AP/Lateral cervical spine in brace standing - complete Dispo: Anticipate discharge home today vs tomorrow. Appreciate SW assistance in placement and PT recs. Follow-up: Follow up with Dr. Jerome team 2 weeks from surgery for wound check Tono Petersen MD Orthopaedic Surgery Spine Fellow * OSWALD Goncalves - 08/23/2022 3:43 PM EDT Placement Plan Expected Discharge Date: Referred Level of Care: [facility] Patient Choice for Post-Acute Providers Barriers: medical stability, facility acceptance/choice, precert, transport Current Referrals and Status [facility] -sent pending review [facility] -sent pending review [facility]-sent pending review [facility]-sent pending review [employer] met with patient and family at bedside to discuss recommended level of care. Patient agreeable to [facility] referrals being sent. Preference is [facility]. [employer] sent referrals via [employer]. [employer] to continue following. OSWALD Armando Maintenance [employer] [facility] 8th floor [phone] * OSWALD Delacruz - 08/23/2022 2:35 PM EDT Progression of Care Note Expected Discharge Date: Medical Milestones Remaining: Pt continues to require IV pain medications. Assessment and Discharge Plan as of 08/23/2022 2:35 PM Anticipate that Pt will discharge to [facility] when medically stable. Anticipated discharge disposition: Inpatient Rehab Facility Anticipated Services at Discharge: Physical Therapy, Occupational Therapy, Outpatient follow up SHELLY Carlos [employer] [phone] Explanation of Barriers: Medical Readmission Risk Score Risk of Readmission: 2.1 Category Reference: High:16-100 Mod-High:10-16 Mod-Low: 5-10 Low: 0-5 * Elaina Cruz OT - 08/23/2022 12:04 PM EDT Acute Occupational Therapy Re-Evaluation Prior to Admission AM-PAC Score: PRIOR LEVEL AM-PAC Activity Raw Score: 24 PRIOR LEVEL AM-PAC Mobility Raw Score: 24 Current AM-PAC score(s): CURRENT AM-PAC Activity Raw Score: 17 Based on the above AM-PAC score(s) and OT clinical judgment, discharge destination recommendation is: Inpatient Rehab Facility. Supporting Factors (would benefit from skilled therapy services): Impaired balance, Decreased endurance, Fall risk, Recent decline in functional mobility Mobility equipment available at home: straight cane, 2 wheeled walker, axillary crutches ADL equipment available at home: shower chair, hand held shower hose Equipment recommendations for discharge: to be determined Current therapy frequency recommendation(s) in acute: 5 times a week Precautions and Weightbearing Status: OT Existing Precautions/Restrictions: fall, spinal Patient Safety Communication Prior to Visit: Nursing Current brace/orthoses: [place] Wesley (ATC) Respiratory Status O2 Device: room air Subjective: Agreeable to therapy session, my legs feel better, Im just in a lot of pain Pain: Pain Location: neck DVPRS (Defense and Veterans Pain Rating Scale) DVPRS: Rest: 9- severe pain DVPRS: Activity: 9- severe pain Home Setting Residence: House Lives With: spouse, parents First floor setup: bedroom, tub shower Number of stairs to enter home: 3 Number of stairs in home: 0 Stair Railings at Home: entry - with rail Mobility Equipment Available: straight cane, 2 wheeled walker, axillary crutches ADL Equipment Available: shower chair, hand held shower hose Home Environment Details: pt lives in a one story house with and parents. mother recently had hip surgery therfore has some equipment already Previous Level of Function Prior level ADL Overview: Independent with all ADLs Dominant Hand: Right Bed Mobility/Transfers: independent Ambulation Skills: independent Assistive Device: none used Level of Ambulation: community Prior Level of Function Details: pt reports he was driving and going to the grocery store on his own, independently in all ADLs/iADLs. However, in the last month pt states he has had 10 falls due to his legs giving out and feeling numb Objective/Observation: Vitals/Vitals Responses to Treatment: WFL Cognition Arousal/Alertness: Appropriate responses to stimuli Orientation Level: Oriented X4 Following Commands: Follows one step commands with increased time Safety Judgment: Decreased awareness of need for assistance, Decreased awareness of need for safety Awareness of Errors: Assistance required to identify errors made, Assistance required to correct errors made ADLs: ADL Anticipated Performance (ADLs not directly observed this session): Eating, Grooming, Bathing, UE Dressing, LE Dressing, Toileting Eating Assistance: Independent Grooming Assistance: Contact guard assist Bathing Assistance: Moderate UE Dressing Assistance: Contact guard assist LE Dressing Assistance: Moderate Toilet Assistance: Minimal Extremity Assessments: RUE Assessment RUE Assessment: Within Functional Limits LUE Assessment LUE Assessment: Within Functional Limits Balance: Sitting Balance Static Sitting-Level of Assistance: Independent Dynamic Sitting-Level of Assistance: Independent Standing Balance Static Standing-Level of Assistance: Contact guard Dynamic Standing-Level of Assistance: Contact guard Standing-Balance Support: Gait belt, 2 wheeled walker Skilled Rationale: Positioning, Hand placement Neuro: Sensation Sensation Comments: reports improved sensation in bilat LEs Mobility Assessment: Supine to Sit Mobility [place] Level: Supine->Sit: stand-by assist Bed Features/Set-up: Supine->Sit: Flat, Use of bed rail Skilled Rationale: Sequencing, Hand placement, Technique of activity, Maintain precautions (cues provided for log roll technique) Sit to Supine Mobility [place] Level: Sit->Supine: contact guard assist Bed Features/Set-up: Sit->Supine: Flat Skilled Rationale: Positioning, Sequencing, Hand placement Skilled Intervention/Details: Sit->Supine: cues provided for reverse log roll Transfer Assessment: Sit to Stand Transfer [place] Level: Sit->Stand: contact guard assist Assistive Device: Sit->Stand: gait belt, 2 wheeled walker Skilled Rationale: Positioning, Sequencing, Hand placement Skilled Intervention/Details: Sit->Stand: x2 stands from various surfaces Stand to Sit Transfer [place] Level: Stand->Sit: contact guard assist Assistive Device: Stand->Sit: gait belt, armed chair Skilled Rationale: Controlled descent for sitting, Positioning, Sequencing, Hand placement Functional Mobility: Functional Mobility [place] Level: Functional Mobility/Gait: contact guard assist Assistive Device: Functional Mobility/Gait: 2 wheeled walker, gait belt Functional Mobility Distance: Distance needed to access restroom Functional Mobility Deficits: Activity tolerance, Balance Functional Mobility Skilled Rationale: Tactile cues, Hand placement Outcome Score(s): CURRENT [facility] Daily Activity Inpatient Short Form Putting on/Taking Off Lower Body Clothin - A Lot of Assistance Bathin - A Lot of Assistance Toiletin - A Little Assistance Putting on/Taking Off Upper Body Clothin - A Little Assistance Groomin - A Little Assistance Eatin - No Assistance CURRENT [facility] Activity Raw Score: 17 CURRENT [facility] Activity Functional Limitation/Modifier: 50.11% Currently Impaired in Daily Activity- CK Interventions: Intervention 1 Intervention Name: [place] collar Education Details: Cervical collar handout provided for education, and education provided on wear protocol and spinal precautions Assessment & Plan: Pt previously evaluated by Occupational Therapy on 08/20. Patient now with functional status changesecondary to s/p cervical surgery, necessitating re- evaluation. Previous established Occupational Therapy Plan of Care revised to reflect patient's current functional status. These impairments contribute to occupational performance limitations including bathing, dressing, toileting, functional mobility, ADL transfers. Patient Instruction/Education this session: Patient Instruction: Role of OT and plan of care Plan for next session: activity tolerance/ Lb dressing/tioleting ADL Acute OT Goals Plan of Care by Elaina Cruz OT at 08/23/2022 10:27 AM Version 1 of 1 Problem: OT - Dressing Goal: Lower Body Dressing Description: Pt will complete LE dressing tasks with modified independence for improved ability to complete self-care activities. Outcome: Ongoing Problem: OT - ADLs Goal: Toileting Description: Pt will complete toileting task including clothing management with SBA for improved ability to safely complete self-care activities. Outcome: Ongoing Goal: Bathing Description: Pt will perform full body bathing routine with modified independence while sitting forimproved ability to complete self-care activities. Outcome: Ongoing Problem: OT - Balance Goal: Balance - Standing Description: Pt will perform 8 minutes of functional ADL task in standing with contact guard assistance and balance level of contact guard to promote safety and improved balance required for self-care activities. Outcome: Ongoing Problem: OT - Other Goal: Don/Doff Splint/Brace Description: Pt will be able verbalized/instruct on caregiver and staff with [place] and modified independence and demonstrate knowledge of wear schedule for improved safety at discharge destination. Outcome: Ongoing Evaluating Therapist: Elaina Cruz OT Additional Details: Co-evaluation/co-treatment performed?: Yes, simultaneous billable skilled care This co-evaluation session performed between OT and PT was beneficial, necessary and provided distinct services in establishing this person's individual plan of care. Medical complexity with functional deficits necessitated two skilled therapy disciplines working concurrently to determine each discipline's goals. This co-treatment was medically necessary due to patient's: Cognitive issues and Coordination issues I used facemask, protective eye shield, and gloves in today's patient interaction. Time In: 930 Time Out: 946 Total Visit Time: 16 minutes Total Treatment Time (skilled, billable minutes): 16 minutes Patient location at end of session: bed with head of bed elevated Alarms on at end of session: bed alarm Needs in reach. Upon discontinuation of Acute Care Occupational Therapy Services or patient discharge from the hospital this note represents the current Occupational Therapy Discharge Summary. * Mercy Rose MD - 08/23/2022 10:53 AM EDT [facility] Medicine Daily Progress Note Patient: Issac Howell, 1965, IMPRESSION / PLAN Issac Howell is a 57 y.o. male with PMH significant for degenerative spinal disease s/p cervical fusion x2, chronic pain, tobacco abuse, alcohol dependence who was transferred from OSH with concern forfalls and spinal stenosis with suspected myelopathy. Spinal stenosis, cervical and lumbar, with myelopathy s/p posterior decompression and fusion C5-T1 (08/21) -OSH MRIs available in [place]. -Consult ortho spine, s/p OR 08/21 for posterior decompression and fusion -Consult PT/OT. -Pain control w/ APAP, gabapentin scheduled and oxycodone, flexeril, and dilaudid PRN. Bowel regimen. Alcohol dependence - Last drink ~10 days ago by report. Treated for alcohol withdrawal at OSH which appears to be resolved. Tobacco use -Counseled on importance of tobacco cessation. Anxiety - Atarax PRN Leukocytosis - likely reactive post-op - CTM Anemia - likely acute blood loss related to surgery - CTM Hyponatremia, resolved - monitor normal weight (BMI 18-24.9) based on BMI of 18.2 DVT prophylaxis with holding for OR Dispo: IPR vs home pending clinical course Code status is Full Code INTERVAL HISTORY / SUBJECTIVE Pt reports his pain is well controlled when resting, but needs more pain meds when moving around. Would like to add a muscle relaxant. Eager to work with therapy today. Still requiring IV pain meds OBJECTIVE Temp 98.6 F (37 C) Pulse 97 Resp 17 BP 174/89 SaO2 95 % Weight 55.9 kg (123 lb 3.2 oz) PHYSICAL EXAM Gen: well appearing, NAD. Pleasant and conversational HENT: NCAT, MMM, no scleral icterus, [place] J collar in place Chest: No increased WOB, lungs CTAB w/o w/r/r CV: RRR, no murmurs appreciated, no peripheral edema Abd: SNTND NABS Ext: WWP, symmetric Neuro: Alert, oriented x3, THIERRY with 5/5 strength although UE strength somewhat limited due to pain Psych: appropriate, goal-directed DATA REVIEW WBC/Hgb/Hct/Plts: 13.39/12.7/36.1/273 (08/23 40) * Antonio Douglass, PT - 08/23/2022 9:30 AM EDT Acute Physical Therapy Re-Evaluation Prior to Admission [facility] score(s): PRIOR LEVEL AM-PAC Mobility Raw Score: 24 PRIOR LEVEL AM-PAC Activity Raw Score: 24 Current AM-PAC score(s): CURRENT AM-PAC Mobility Raw Score: 17 Based on the above AM-PAC score(s) and PT clinical judgment, patient is a good candidate for discharge to Inpatient Rehab Facility Supporting Factors (would benefit from skilled therapy services): Impaired balance, Decreased strength, Fall risk Mobility equipment available at home: straight cane, 2 wheeled walker, axillary crutches ADL equipment available at home: shower chair, hand held shower hose Equipment needed for discharge: to be determined Current therapy frequency recommendation in acute: Therapy Frequency: 6 times a week Precautions and Weightbearing Status: Existing Precautions/Restrictions: fall Patient Safety Communication Prior to Visit: Nursing Current brace/orthoses: Kari Olson (ATC) Respiratory Status O2 Device: room air Subjective: Pt agreeable to therapy. Pain: General Pain Documentation (Adult, OB, Peds) Presence of Pain: complains of pain/discomfort Pain Location: neck DVPRS (Defense and Veterans Pain Rating Scale) DVPRS: Rest: 9- severe pain DVPRS: Activity: 10- severe pain Home Setting Residence: House Lives With: spouse, parents First floor setup: bedroom, tub shower Number of stairs to enter home: 3 Number of stairs in home: 0 Stair Railings at Home: entry - with rail Mobility Equipment Available: straight cane, 2 wheeled walker, axillary crutches ADL Equipment Available: shower chair, hand held shower hose Home Environment Details: pt lives in a one story house with and parents. mother recently had hip surgery therfore has some equipment already Previous Level of Function Prior level ADL Overview: Independent with all ADLs Dominant Hand: Right Bed Mobility/Transfers: independent Ambulation Skills: independent Assistive Device: none used Level of Ambulation: community Prior Level of Function Details: pt reports he was driving and going to the grocery store on his own, independently in all ADLs/iADLs. However, in the last month pt states he has had 10 falls due to his legs giving out and feeling numb Objective/Observation: Vitals/Vitals Responses to Treatment: WNL Cognition Overall Cognitive Status: Within Functional Limits Arousal/Alertness: Appropriate responses to stimuli Orientation Level: Oriented X4 Following Commands: Follows all commands and directions without difficulty Safety Judgment: Good awareness of safety precautions Awareness of Errors: Decreased awareness of errors, Assistance required to correct errors made Deficits: Decreased awareness of deficits Vision Screen Currently wearing corrective lenses: Reading only Speech Speech: no gross deficits noted Hearing Hearing: no gross deficits noted Extremity Assessments: RUE Assessment RUE Assessment: Within Functional Limits LUE Assessment LUE Assessment: Within Functional Limits RLE Assessment RLE Assessment: AROM WFL, Strength Impaired Right LE Assessment Details: functionally weak Strength RLE R Hip Flexion: 4/5 R Knee Extension: 5/5 R Ankle Dorsiflexion: 5/5 R Ankle Plantar Flexion: 5/5 LLE Assessment LLE Assessment: Within Functional Limits Sensation Overall Sensation: Impaired Sensation Comments: improved sensation to light touch and 2-point discrimination Proprioception Proprioception: shows deficit Proprioception - narrative: impaired LE's Mobility Assessment: Supine to Sit Mobility [place] Level: Supine->Sit: contact guard assist Bed Features/Set-up: Supine->Sit: Flat, Use of bed rail Skilled Rationale: Sequencing, Positioning, Verbal cues Skilled Intervention/Details: Supine->Sit: cueing on log roll technique Balance: Sitting Balance Static Sitting-Level of Assistance: Supervision Dynamic Sitting-Level of Assistance: Supervision Standing Balance Static Standing-Level of Assistance: Contact guard Dynamic Standing-Level of Assistance: Contact guard Standing-Balance Support: 2 wheeled walker, Gait belt Skilled Rationale: Positioning, Verbal cues Standing Balance Skilled Intervention/Details: standing activity tolerance limited due to pain Transfer Assessment: Sit to Stand Transfer [place] Level: Sit->Stand: contact guard assist Assistive Device: Sit->Stand: gait belt, 2 wheeled walker Skilled Rationale: Positioning, Verbal cues Skilled Intervention/Details: Sit->Stand: x2 stands Gait/Functional Mobility: Gait Assessment [place] Level: Gait: contact guard assist Assistive Device: Gait: gait belt, 2 wheeled walker Ambulation Distance (Feet): 10 Gait Deviations Identified: antalgic, decreased donnie, decreased gait speed, decreased step length Gait Skilled Rationale: verbal Skilled Intervention/Details - Gait: gait distance limited by pain Outcome Score(s): CURRENT [facility] Basic Mobility Inpatient Short Form Turning over in bed: 3 - A Little Assistance Sitting/standing from chair: 3 - A Little Assistance Moving from lying on back to sittin - A Little Assistance Moving to and from bed to chair: 3 - A Little Assistance Walk in hospital room: 3 - A Little Assistance Climbing 3-5 steps with a railin - A Lot of Assistance CURRENT [facility] Mobility Raw Score: 17 CURRENT [facility] Mobility Functional Limitation/Modifier: 50.57% Currently Impaired in Basic Mobility- CK Interventions: Educated on brace application and fit - handout provided Assessment & Plan: Pt previously evaluated by Physical Therapy on 08/23/22. Pt now with functional status change secondary to s/p C5-T2 posterior cervical decompression and fusion with Kari Olson ATC, necessitating a re-evaluation. Previously established Physical Therapy Plan of Care revised to reflect patient's currentfunctional status. Re-exam findings include impairments in: Strength, Balance, Transfers, Gait/Locomotion, Posture, Pain, Aerobic capacity/endurance. These impairments contribute to functional limitations including Increased fall risk, Decreased ambulation distance/endurance, Decreased functional mobility, Difficultywith transfers. Planned Therapy Interventions: balance training, bed mobility training, functional activity tolerance, endurance, gait training, postural re-education, strengthening, transfer training, orthotic fitting/training Plan for next session: progress standing tolerance and gait distance, brace application Acute PT Goals Plan of Care by Antonio Douglass PT at 08/23/2022 9:30 AM Version 1 of 1 Problem: PT - Mobility Goal: Ambulation Description: Pt will ambulate 150 feet with least restrictive device with standby assistance to improve ability to navigate home environment. Outcome: Ongoing Problem: PT - Transfers Goal: Supine <-> Sit Description: Pt will perform bed mobility with flat bed & no rail with modified independence inorder to improve functional mobility and safety. Outcome: Ongoing Goal: Sit <-> Stand Description: Pt will perform sit to/from stand transfers with supervision with least restrictive device in order to improve functional mobility and safety. Outcome: Ongoing Goal: Strength/ROM Description: Pt will perform 2 sets of 12 repetitions of lower bilateral extremity exercises with independence in order to improve strength, maintain ROM, necessary for functional mobility. Outcome: Ongoing Goal: Bracing Description: Pt will demonstrate donning/doffing brace with independence in order to improve safetyat discharge destination. Outcome: Ongoing Goal: Other Description: Pt will meet the MCID on the payton balance assessment to reduce fall risk at home Outcome: Ongoing Evaluating Therapist: Antonio Douglass PT Additional Details: Co-evaluation/co-treatment performed?: Yes, simultaneous billable skilled care This co-evaluation session performed between PT and OT was beneficial, necessary and provided distinct services in establishing this person's individual plan of care. Medical complexity with functional deficits necessitated two skilled therapy disciplines working concurrently to determine each discipline's goals. This co-treatment was medically necessary due to patient's: initial safety assessment I used facemask, protective eye shield, and gloves in today's patient interaction. Time In: 929 Time Out: 947 Total Visit Time: 18 minutes Total Treatment Time (skilled, billable minutes): 18 minutes Patient location at end of session: bed with head of bed elevated Alarms on at end of session: bed alarm Needs in reach. Upon discontinuation of Acute Care Physical Therapy Services or patient discharge from the hospitalthis note represents the current Physical Therapy Discharge Summary. * Tono Petersen MD - 08/23/2022 6:05 AM EDT Orthopaedic Spine Surgery Progress Note: Issac Howell is a 57 y.o. male who is 2 Days Post-Op from C5-T2 posterior cervical decompression and fusion with Dr. Jerome. Last 24 hours Working on pain control this morning. Denies any significant changes to his hands or legs, denies any new symptoms. Vitals Vitals: 08/23/22 0524 BP: 165/89 Pulse: 96 Resp: 16 Temp: 99.7 F (37.6 C) Physical Exam GEN: AOx3, resting in bed, NAD HEENT: NCAT, PERRLA, EOMI CV: normotensive LUNGS: non-labored breathing Spine Exam Incision: Dressing/incision c/d/i. Cervical collar in place. Neuro: Upper Extremity Strength: Right Left Deltoids C5 5/5 Painful 5/5 Painful Biceps C6 5/5 5/5 Wrist Extensors 5/5 5/5 Triceps C7 5/5 5/5 Finger Flexors C8 5/5 5/5 First Dorsal Interossei 5/5 5/5 Lower Extremity Strength: Right Left Hip Flexors L2 5/5 5/5 Quadriceps L3 5/5 5/5 Anterior Tibialis L4 5/5 5/5 EHL L5 5/5 5/5 Hamstrings 5/5 5/5 Gastrocsoleus S1 5/5 5/5 Sensation to light touch in the upper and lower extremities is grossly intact. Laboratory Studies Lab Results Component Value Date WBC 13.39 (H) 08/23/2022 HGB 12.7 (L) 08/23/2022 HCT 36.1 (L) 08/23/2022 PLATELET 273 08/23/2022 MCV 93.3 08/23/2022 Lab Results Component Value Date SODIUM 135 08/22/2022 POTASSIUM 3.9 08/22/2022 CHLORIDE 100 08/22/2022 CO2 28 08/22/2022 BUN 8 08/22/2022 CREATSERUM 0.81 08/22/2022 GLUCOSE 102 (H) 08/20/2022 Lab Results Component Value Date INR 0.9 08/20/2022 PT 12.1 08/20/2022 Imaging/Cultures/Drains New Imaging: Cervical x-rays show instrumentation with no evidence of loosening or failure Cultures: None Drains: HV x1 w/ 30 cc output Assessment Issac Howell is a 57 y.o. male who is POD#2 from C5-T2 posterior cervical decompression and fusion with Dr. Jerome. Plan Activity: As tolerated, Kari Olson at all times Antibiotics: Ancef for 24 hours postoperatively or while drain is in place Blood: Hemoglobin, Glucose control with goal of <120 Brace: [place] Cultures: None Diet: Liquid diet and progress to regular diet Drain: Hemovac drain sewn in place, monitor output Dressing: Dry dressing, change POD2 DVT Prophylaxis: SCD's, ambulation; no chemoprophylaxis Exercise: IS 10x/hr while awake, PT for mobilization (w/ or w/o walker TID), (walking QID with brace) Harrison: Ok to remove once patient mobilizing adequately Pain Regimen: Multimodal Xrays: AP/Lateral cervical spine in brace standing - complete Dispo: Anticipate discharge home today vs tomorrow. Appreciate SW assistance in placement and PT recs. Follow-up: Follow up with Dr. Jerome team 2 weeks from surgery for wound check Tono Petersen MD Orthopaedic Surgery Spine Fellow * Bina Jerome MD - 08/22/2022 11:47 AM EDT I independently met with and examined the patient this morning. He has intact strength and sensation in his bilateral upper extremities. He does report some neck pain but overall appears to be doing well. We will leave the drain in until tomorrow. All questions were answered. (DOC:[id number]) * Mercy Rose MD - 08/22/2022 8:52 AM EDT [facility] Medicine Daily Progress Note Patient: Issac Howell, 1965, IMPRESSION / PLAN Issac Howell is a 57 y.o. male with PMH significant for degenerative spinal disease s/p cervical fusion x2, chronic pain, tobacco abuse, alcohol dependence who was transferred from OSH with concern forfalls and spinal stenosis with suspected myelopathy. Spinal stenosis, cervical and lumbar, with myelopathy s/p posterior decompression and fusion C5-T1 (08/21) -OSH MRIs available in [place]. -Consult ortho spine, s/p OR 08/21 for posterior decompression and fusion -Consult PT/OT. -Pain control w/ APAP, gabapentin scheduled and oxycodone, dilaudid PRN. Bowel regimen. Alcohol dependence - Last drink ~10 days ago by report. Treated for alcohol withdrawal at OSH which appears to be resolved. Tobacco use -Counseled on importance of tobacco cessation. Anxiety - Atarax PRN Leukocytosis - likely reactive post-op - CTM Anemia - likely acute blood loss related to surgery - CTM Hyponatremia, resolved - monitor normal weight (BMI 18-24.9) based on BMI of 18.2 DVT prophylaxis with holding for OR Dispo: IPR pending clinical course Code status is Full Code INTERVAL HISTORY / SUBJECTIVE Pt reports his pain is not well controlled, he would like increased pain doses. He is otherwise feeling well. He is breathing fine, swallowing and tolerating PO. He denies fevers. Family member and bedside rn are present at bedside and updated on plan of care OBJECTIVE Temp 98.6 F (37 C) Pulse 89 Resp 16 BP 180/90 (md notified at bedside) SaO2 97 % Weight 55.9 kg (123 lb 3.2 oz) PHYSICAL EXAM Gen: well appearing, NAD. Pleasant and conversational HENT: NCAT, MMM, no scleral icterus, [place] J collar in place Chest: No increased WOB, lungs CTAB w/o w/r/r CV: RRR, no murmurs appreciated, no peripheral edema Abd: SNTND NABS Ext: WWP, symmetric Neuro: Alert, oriented x3, THIERRY with 4/5 strength to BLE hip flexors but 5/5 distally, deferred UE strength test due to pain Psych: appropriate, goal-directed DATA REVIEW WBC/Hgb/Hct/Plts: 10.71/12.4/35.1/249 (08/22 315) Na/K+/Phos/Mg/Ca: 135/3.9/--/--/-- (08/22 315) Bun/Creat/Cl/CO2/Glucose: 8/0.81/100/28/-- (08/22 315) * Tono Petersen MD - 08/22/2022 7:22 AM EDT Orthopaedic Spine Surgery Progress Note: Issac Howell is a 57 y.o. male who is 1 Day Post-Op from C5-T2 posterior cervical decompression and fusion with Dr. Jerome. Overnight Doing ok this morning. Having post-operative pain that fluctuates. Vitals Vitals: 08/22/22 0307 BP: (!) 172/100 Pulse: 84 Resp: 16 Temp: 99 F (37.2 C) Physical Exam GEN: AOx3, resting in bed, NAD HEENT: NCAT, PERRLA, EOMI CV: normotensive LUNGS: non-labored breathing Spine Exam Incision: Dressing c/d/i. Cervical collar in place. Neuro: Upper Extremity Strength: Right Left Deltoids C5 5/5 Painful 5/5 Painful Biceps C6 5/5 5/5 Wrist Extensors 5/5 5/5 Triceps C7 5/5 5/5 Finger Flexors C8 5/5 5/5 First Dorsal Interossei 5/5 5/5 Lower Extremity Strength: Right Left Hip Flexors L2 5/5 5/5 Quadriceps L3 5/5 5/5 Anterior Tibialis L4 5/5 5/5 EHL L5 5/5 5/5 Hamstrings 5/5 5/5 Gastrocsoleus S1 5/5 5/5 Sensation to light touch in the upper and lower extremities is grossly intact. Laboratory Studies Lab Results Component Value Date WBC 10.71 (H) 08/22/2022 HGB 12.4 (L) 08/22/2022 HCT 35.1 (L) 08/22/2022 PLATELET 249 08/22/2022 MCV 94.1 08/22/2022 Lab Results Component Value Date SODIUM 135 08/22/2022 POTASSIUM 3.9 08/22/2022 CHLORIDE 100 08/22/2022 CO2 28 08/22/2022 BUN 8 08/22/2022 CREATSERUM 0.81 08/22/2022 GLUCOSE 102 (H) 08/20/2022 Lab Results Component Value Date INR 0.9 08/20/2022 PT 12.1 08/20/2022 Imaging/Cultures/Drains New Imaging: Pending Cultures: None Drains: HV x1 w/ 60 cc output Assessment Issac Howell is a 57 y.o. male who is POD#1 from C5-T2 posterior cervical decompression and fusion with Dr. Jerome. Plan Activity: As tolerated, [place] at all times Antibiotics: Ancef for 24 hours postoperatively or while drain is in place Blood: Hemoglobin, Glucose control with goal of <120 Brace: [place] Cultures: None Diet: Liquid diet and progress to regular diet Drain: Hemovac drain sewn in place, monitor output Dressing: Dry dressing, change POD2 DVT Prophylaxis: SCD's, ambulation Exercise: IS 10x/hr while awake, PT for mobilization (w/ or w/o walker TID), (walking QID with brace) Harrison: Goal to remove POD1-2 Pain Regimen: Multimodal Xrays: AP/Lateral cervical spine in brace standing Dispo: Anticipate discharge home in next 1-2 days. Appreciate SW assistance in placement and PT recs. Follow-up: Follow up with Dr. Jerome team 2 weeks from surgery for wound check Tono Petersen MD Orthopaedic Surgery Spine Fellow * Tono Petersen MD - 08/21/2022 3:15 PM EDT Orthopaedic Spine Surgery Progress Note: Issac Howell is a 57 y.o. male who is Day of Surgery from C5-T2 posterior cervical decompression and fusion with Dr. Jerome. Since surgery Working on pain control. Having burning pain. Vitals Vitals: 08/21/22 1030 BP: (!) 153/93 Pulse: 76 Resp: 12 Temp: 98.2 F (36.8 C) Physical Exam GEN: AOx3, resting in bed, NAD HEENT: NCAT, PERRLA, EOMI CV: normotensive LUNGS: non-labored breathing Spine Exam Incision: Dressing c/d/i Neuro: Upper Extremity Strength: Right Left Deltoids C5 5/5 5/5 Biceps C6 5/5 5/5 Wrist Extensors 5/5 5/5 Triceps C7 5/5 5/5 Finger Flexors C8 5/5 5/5 First Dorsal Interossei 5/5 5/5 Lower Extremity Strength: Right Left Hip Flexors L2 5/5 5/5 Quadriceps L3 5/5 5/5 Anterior Tibialis L4 5/5 5/5 EHL L5 5/5 5/5 Hamstrings 5/5 5/5 Gastrocsoleus S1 5/5 5/5 Sensation to light touch in the upper and lower extremities is grossly intact. Laboratory Studies Lab Results Component Value Date WBC 9.81 08/20/2022 HGB 13.9 08/20/2022 HCT 40.3 08/20/2022 PLATELET 228 08/20/2022 MCV 94.6 (H) 08/20/2022 Lab Results Component Value Date SODIUM 134 (L) 08/21/2022 POTASSIUM 4.0 08/21/2022 CHLORIDE 100 08/21/2022 CO2 23 08/21/2022 BUN 12 08/21/2022 CREATSERUM 0.68 (L) 08/21/2022 GLUCOSE 102 (H) 08/20/2022 Lab Results Component Value Date INR 0.9 08/20/2022 PT 12.1 08/20/2022 Imaging/Cultures/Drains New Imaging: Pending Cultures: None Drains: HV x1 Assessment Issac Howell is a 57 y.o. male who is Day of Surgery from C5-T2 posterior cervical decompression and fusion with Dr. Jerome. Plan Activity: As tolerated, [place] at all times Antibiotics: Ancef for 24 hours postoperatively or when drain is in place Blood: Hemoglobin, Glucose control with goal of <120 Brace: [place] Cultures: None Diet: Liquid diet and progress to regular diet Drain: Hemovac drain sewn in place, monitor output Dressing: Dry dressing, change POD2 DVT Prophylaxis: SCD's, ambulation Exercise: IS 10x/hr while awake, PT for mobilization (w/ or w/o walker TID), (walking QID with brace) Harrison: Goal to remove POD1-2 Pain Regimen: Multimodal Xrays: AP/Lateral cervical spine in brace standing Dispo: Anticipate discharge home in next 1-2 days. Appreciate SW assistance in placement and PT recs. Follow-up: Follow up with Dr. Jerome team 2 weeks from surgery for wound check Tono Petersen MD Orthopaedic Surgery Spine Fellow * Bina Jerome MD - 08/21/2022 2:50 PM EDT I independently met with the patient today. I have reviewed his situation with him. He does have cord compression from C6-C7-T1. He does describe progressive issues with gait ataxia and has fallen multiple times, approximately 15 times in the past month. I do believe that he is describing cervical myelopathic symptoms. We did discuss risks and benefits associated with the posterior cervical decompression. These included, but not limited to infection, wound healing issues, injury, CSF leak, nerve root injury, as well as pseudoarthrosis and . (DOC:[id number]) * Mercy Rose MD - 08/21/2022 12:45 PM EDT Hospital Medicine Daily Progress Note Patient: Issac Howell, 1965, IMPRESSION / PLAN Issac Howell is a 57 y.o. male with PMH significant for degenerative spinal disease s/p cervical fusion x2, chronic pain, tobacco abuse, alcohol dependence who was transferred from OSH with concern forfalls and spinal stenosis with suspected myelopathy. Spinal stenosis, cervical and lumbar, with myelopathy -OSH MRIs available in [place]. -Consult ortho spine, plan for OR 08/21 for posterior decompression and fusion -Consult PT/OT. -Pain control w/ APAP and oxycodone, dilaudid PRN. Bowel regimen. [id number] pain - Reportedly on Percocet 10mg-325mg as an outpatient although I do not see a fill history in [facility]. -Pain control as above. Alcohol dependence - Last drink ~10 days ago by report. Treated for alcohol withdrawal at OSH which appears to be resolved. Tobacco use -Counseled on importance of tobacco cessation. Anxiety - Atarax PRN Hyponatremia - monitor normal weight (BMI 18-24.9) based on BMI of 18.2 DVT prophylaxis with holding for OR Dispo: IPR pending clinical course Code status is Full Code INTERVAL HISTORY / SUBJECTIVE Pt reports his weakness and numbness are stable today. He is ready for OR this morning OBJECTIVE Temp 98.2 F (36.8 C) Pulse 76 Resp 12 BP (!) 153/93 SaO2 100 % Weight 55.9 kg (123 lb 3.2 oz) PHYSICAL EXAM Gen: well appearing, NAD. Pleasant and conversational HENT: NCAT, MMM, no scleral icterus Chest: No increased WOB, lungs CTAB w/o w/r/r CV: RRR, no murmurs appreciated, no peripheral edema Abd: SNTND NABS Ext: WWP, symmetric Neuro: Alert, oriented x3, THIERRY with 4/5 strength to BLE hip flexors but 5/5 distally and 5/5 BUE Psych: appropriate, goal-directed DATA REVIEW Na/K+/Phos/Mg/Ca: 134/4.0/--/--/-- (08/21 55) Bun/Creat/Cl/CO2/Glucose: 12/0.68/100/23/-- (08/21 55) * Tono Petersen MD - 08/21/2022 7:11 AM EDT Orthopaedic Spine Surgery Progress Note: Issac Howell is a 57 y.o. male with PMH significant for degenerative spinal disease s/p cervical fusion x2 first one believed to be anterior C3-C6 in 2006 followed by revision this past October to include C7, chronic pain, tobacco abuse, alcohol dependence who was transferred from [facility] with concern for falls and spinal stenosis with suspected myelopathy. Last 24 Hours No acute events overnight. Resting in bed. Symptoms unchanged. Feels ready for surgery. Vitals Vitals: 08/21/22 0402 BP: (!) 127/95 Pulse: 80 Resp: 16 Temp: 97.7 F (36.5 C) Physical Exam GEN: AOx3, resting in bed, NAD HEENT: NCAT, PERRLA, EOMI CV: normotensive LUNGS: non-labored breathing Spine Exam Incision: Healed Neuro: Upper Extremity Strength: Right Left Deltoids C5 5/5 5/5 Biceps C6 5/5 5/5 Wrist Extensors 5/5 5/5 Triceps C7 5/5 5/5 Finger Flexors C8 5/5 5/5 First Dorsal Interossei 5/5 5/5 Lower Extremity Strength: Right Left Hip Flexors L2 4/5 4/5 Quadriceps L3 5/5 5/5 Anterior Tibialis L4 5/5 5/5 EHL L5 5/5 5/5 Hamstrings 5/5 5/5 Gastrocsoleus S1 5/5 5/5 Sensation to light touch in the upper and lower extremities is grossly intact with diffusely diminished sensation nondermatomally in bilateral legs as well as the left small and ring fingers. Special Tests: Clonus (R/L): 2-4 beats / 2-4 beats Hoffmans(R/L): negative / negative Babinksi (R/L): down / down Straight leg raise (R/L): negative / + Laboratory Studies None Imaging/Cultures/Drains New Imaging: MRI w/o con of the C/T/L Spine ([place]): C spine MRI reveals evidence of prior C3-C7 hardware. Thereis loss of fluid signal at C7-T1 with possible small increase in signal cord intensity within the cord that may represent a focal area of myelomalacia. No significant thoracic abnormalities. In the lumbar spine there is evidence of central herniations at L1-L2, with right sided herniation at L2-L3 and L3-L4. Cultures: None Drains: None Assessment Issac Howell is a 57 y.o. male with PMH significant for degenerative spinal disease s/p cervical fusion x2 first one believed to be anterior C3-C6 in 2006 followed by revision this past October to include C7, chronic pain, tobacco abuse, alcohol dependence who was transferred from OSH with concern for falls and spinal stenosis with suspected myelopathy. Plan To the OR today for C5-T1 posterior cervical decompression and fusion with Dr. Ta Petersen MD Orthopaedic Surgery Spine Fellow * Mercy Rose MD - 08/20/2022 11:34 AM EDT [facility] Medicine Daily Progress Note Patient: Issac Howell, 1965, IMPRESSION / PLAN Issac Howell is a 57 y.o. male with PMH significant for degenerative spinal disease s/p cervical fusion x2, chronic pain, tobacco abuse, alcohol dependence who was transferred from OSH with concern forfalls and spinal stenosis with suspected myelopathy. Spinal stenosis, cervical and lumbar, with myelopathy -OSH MRIs available in [place]. -Consult ortho spine, plan for OR 08/20 for posterior decompression and fusion -Consult PT/OT. -Pain control w/ APAP and oxycodone prn. Bowel regimen. Uemzj-jl-jpafkyc pain - Reportedly on Percocet 10mg-325mg as an outpatient although I do not see a fill history in [facility]. -Pain control as above. Alcohol dependence - Last drink ~10 days ago by report. Treated for alcohol withdrawal at OSH which appears to be resolved. Tobacco use -Counseled on importance of tobacco cessation. Anxiety - Atarax PRN Hyponatremia - monitor normal weight (BMI 18-24.9) based on BMI of 18.2 DVT prophylaxis with holding for OR Dispo: IPR pending clinical course Code status is Full Code INTERVAL HISTORY / SUBJECTIVE Pt reports his weakness and numbness are stable today. He is agreeable to surgery tomorrow. Pain iswell controlled. He is feeling anxious. OBJECTIVE Temp 98.2 F (36.8 C) Pulse 87 Resp 16 BP (!) 139/98 SaO2 100 % Weight 55.9 kg (123 lb 3.2 oz) PHYSICAL EXAM Gen: well appearing, NAD. Pleasant and conversational HENT: NCAT, MMM, no scleral icterus Chest: No increased WOB, lungs CTAB w/o w/r/r CV: RRR, no murmurs appreciated, no peripheral edema Abd: SNTND NABS Ext: WWP, symmetric Neuro: Alert, oriented x3, THIERRY with 4/5 strength to BLE and 5/5 BUE Psych: appropriate, goal-directed DATA REVIEW WBC/Hgb/Hct/Plts: 9.81/13.9/40.3/228 (08/20 457) Na/K+/Phos/Mg/Ca: 134/3.7/--/2.1/-- (08/20 457) Bun/Creat/Cl/CO2/Glucose: 11/0.80/95/31/102 (08/20 457) Ptt/Pt/Inr: 27.5/12.1/0.9 (08/20 457) * Abbie Hurtado - 08/20/2022 9:34 AM EDT Acute Occupational Therapy Evaluation Prior to Admission AM-PAC Score: PRIOR LEVEL AM-PAC Activity Raw Score: 24 Current AM-PAC score(s): CURRENT AM-PAC Activity Raw Score: 16 Based on the above AM-PAC score(s) and OT clinical judgment, discharge destination recommendation is: Inpatient Rehab Facility (will re-assess post-op) Supporting Factors (would benefit from skilled therapy services): Impaired balance, Decreased endurance, Fall risk, Recent decline in functional mobility Mobility equipment available at home: straight cane, 2 wheeled walker, axillary crutches ADL equipment available at home: shower chair, hand held shower hose Equipment recommendations for discharge: to be determined Current therapy frequency recommendation(s) in acute: 5 times a week Precautions and Weightbearing Status: OT Existing Precautions/Restrictions: fall Telemetry Patient Safety Communication Prior to Visit: Nursing Subjective: Pt agreeable to skilled OT services today Pain: General Pain Documentation (Adult, OB, Peds) Presence of Pain: complains of pain/discomfort Pain Location: hip, right, hip, left, shoulder, left, leg, right, leg, left DVPRS (Defense and Veterans Pain Rating Scale) DVPRS: Rest: 5- moderate pain DVPRS: Activity: 5- moderate pain Home Setting Residence: House Lives With: spouse, parents First floor setup: bedroom, tub shower Number of stairs to enter home: 3 Number of stairs in home: 0 Stair Railings at Home: entry - with rail Mobility Equipment Available: straight cane, 2 wheeled walker, axillary crutches ADL Equipment Available: shower chair, hand held shower hose Home Environment Details: pt lives in a one story house with and parents. mother recently had hip surgery therfore has some equipment already Previous Level of Function Prior level ADL Overview: Independent with all ADLs Dominant Hand: Right Bed Mobility/Transfers: independent Ambulation Skills: independent Assistive Device: none used Level of Ambulation: community Prior Level of Function Details: pt reports he was driving and going to the grocery store on his own, independently in all ADLs/iADLs. However, in the last month pt states he has had 10 falls due to his legs giving out and feeling numb Objective/Observation: Vitals/Vitals Responses to Treatment: WFL Respiratory Status O2 Device: room air Vision Screen Currently wearing corrective lenses: No (reports reading glasses) Speech Speech: no gross deficits noted Hearing Hearing: no gross deficits noted Cognition Overall Cognitive Status: Within Functional Limits Arousal/Alertness: Appropriate responses to stimuli Orientation Level: Oriented X4 Following Commands: Follows one step commands without difficulty Safety Judgment: Decreased awareness of need for safety, Decreased awareness of need for assistance Awareness of Errors: Assistance required to identify errors made Deficits: (aware of deficits) ADLs: ADL Anticipated Performance (ADLs not directly observed this session): Eating, Grooming, Bathing, UE Dressing, LE Dressing, Toileting Eating Assistance: Independent Grooming Assistance: Contact guard assist Bathing Assistance: Minimal UE Dressing Assistance: Contact guard assist LE Dressing Assistance: Moderate Toilet Assistance: Moderate Extremity Assessments: RUE Assessment RUE Assessment: Within Functional Limits LUE Assessment LUE Assessment: Within Functional Limits Left UE Assessment Details: pt reports feeling stronger on left side > right side Balance: Sitting Balance Static Sitting-Level of Assistance: Independent Dynamic Sitting-Level of Assistance: Supervision Skilled Rationale: Positioning, Verbal cues Sitting Balance Skilled Intervention/Details: pt engaged in 5-6 minutes of static/dynamic EOB sitting Standing Balance Static Standing-Level of Assistance: Contact guard Dynamic Standing-Level of Assistance: Moderate assistance without DME, Standing-Balance Support: Gait belt, 2 wheeled walker Skilled Rationale: Positioning, Hand placement, Sequencing, Verbal cues, Tactile cues, Technique ofactivity Standing Balance Skilled Intervention/Details: pt tolerated 5 minutes of static/dyanmic standing with use of 2ww and additional assist needed during dynamic standing due to weakness and sensory deficits in BLE impacting balance and proprioception Neuro: Sensation Overall Sensation: Impaired Sensation Comments: pt able to identify light touch in all extremities but unable to localize 2 point discrimination in BLEs. pt reports left side feels stronger than right side when completing sensation assessment Proprioception Proprioception: shows deficit Proprioception - narrative: pt demonstrates significant proprioceptive deficits in bilat LEs with sensory impairments impacting motor function Mobility Assessment: Supine to Sit Mobility [place] Level: Supine->Sit: independent Bed Features/Set-up: Supine->Sit: Head of bed elevated, Use of bed rail Skilled Rationale: Positioning, Hand placement, Verbal cues, Tactile cues, Initiation and executionof task, Technique of activity Skilled Intervention/Details: Supine->Sit: pt completed supine to sit independently with use of bedrial to help properl trunk forwards towards EOB Transfer Assessment: Sit to Stand Transfer [place] Level: Sit->Stand: contact guard assist Assistive Device: Sit->Stand: gait belt Skilled Rationale: Positioning, Sequencing, Hand placement, Verbal cues, Tactile cues Skilled Intervention/Details: Sit->Stand: pt completed x1 sit to stand from EOB with CGA for balance support Stand to Sit Transfer [place] Level: Stand->Sit: contact guard assist Assistive Device: Stand->Sit: gait belt Skilled Rationale: Positioning, Hand placement, Sequencing, Verbal cues, Tactile cues, Controlled descent for sitting Skilled Intervention/Details: Stand->Sit: pt provided verbal cues for hand placement into armed chair for controlled descent Functional Mobility: Functional Mobility [place] Level: Functional Mobility/Gait: moderate assist (50% patient effort) Assistive Device: Functional Mobility/Gait: 2 wheeled walker, gait belt Functional Mobility Distance: Distance needed for common household mobility Functional Mobility Deficits: Balance, Narrow base of support, Generalized weakness, Decreased steplength Functional Mobility Skilled Rationale: Facilitate positioning, Facilitate postural control, Tactilecues, Verbal cues, Technique of activity, Walker management/safety Skilled Intervention/Details - Functional Mobility/Gait: pt ambulated x1 around the hallway with significant proprioceptive deficits. pt began walking without walker with noticeable narrow [place], decreased step length, and swaying. pt provided 2ww with slightly improved balance due to BUE strength but exhibited circumduction of BLE hips with scissoring/crossing of legs over eachother to ambulate and dragging of bilateral feet on the ground Outcome Score(s): CURRENT [facility] Daily Activity Inpatient Short Form Putting on/Taking Off Lower Body Clothin - A Lot of Assistance Bathin - A Lot of Assistance Toiletin - A Lot of Assistance Putting on/Taking Off Upper Body Clothin - A Little Assistance Groomin - A Little Assistance Eatin - No Assistance CURRENT [facility] Activity Raw Score: 16 CURRENT [facility] Activity Functional Limitation/Modifier: 53.32% Currently Impaired in Daily Activity- CK Assessment & Plan: Patient is a 57 y.o. male with PMH significant for degenerative spinal disease s/p cervical fusion x2 first one believed to be anterior C3-C6 in 2006 followed by revision this past October to includeC7, chronic pain, tobacco abuse, alcohol dependence who was transferred from [facility] with concern for falls and spinal stenosis with suspected myelopathy and seen for therapy evaluation related to generalized weakness, sensory and proprioception deficits, pain, and decreased standing balance impacting occupational performance and participation. Exam findings include impairments in: balance, endurance, muscle performance, pain, sensation, transfers. These impairments contribute to occupational performance limitations including bathing, dressing, toileting, functional mobility, ADL transfers. The following factors impact the plan of care: none Patient will benefit from skilled occupational therapy to address these impairments, occupational performance limitations, and participation restrictions. Patient's rehab potential is: good, to achieve stated therapy goals. Planned Therapy Interventions (OT Eval): ADL retraining, balance training, functional activity tolerance, transfer training Patient Instruction/Education this session: Patient Instruction: Role of OT and plan of care Plan for next session: standing balance, toileting, LE dressing Acute OT Goals Plan of Care by Elaina Cruz OT at 08/20/2022 8:51 AM Version 1 of 1 Problem: OT - Dressing Goal: Lower Body Dressing Description: Pt will complete LE dressing tasks with modified independence for improved ability to complete self-care activities. Outcome: Ongoing Problem: OT - ADLs Goal: Toileting Description: Pt will complete toileting task including clothing management with standby assistance for improved ability to safely complete self-care activities. Outcome: Ongoing Goal: Bathing Description: Pt will perform full body bathing routine with modified independence while sitting forimproved ability to complete self-care activities. Outcome: Ongoing Problem: OT - Balance Goal: Balance - Standing Description: Pt will perform 5 minutes of functional ADL task in standing with contact guard assistance and balance level of contact guard to promote safety and improved balance required for self-care activities. Outcome: Ongoing Evaluating Therapist: Abbie Hurtado Additional Details: Co-evaluation/co-treatment performed?: Yes, simultaneous billable skilled care This co-evaluation session performed between OT and PT was beneficial, necessary and provided distinct services in establishing this person's individual plan of care. Medical complexity with functional deficits necessitated two skilled therapy disciplines working concurrently to determine each discipline's goals. This co-treatment was medically necessary due to patient's: Postural control and Sensory deficits and Decreased balance I used facemask, protective eye shield, and gloves in today's patient interaction. OT Evaluation Complexity Occupational Profile and Client History: High - extensive history Assessment of Occupational Performance: Moderate (3-5 performance deficits) Clinical Decision/Performance Deficits: Moderate (detailed assessments w/several treatment options) Time In: 0740 Time Out: 08 Total Visit Time: 22 minutes Total Treatment Time (skilled, billable minutes): 22 minutes Patient location at end of session: chair Alarms on at end of session: chair alarm Needs in reach. Upon discontinuation of Acute Care Occupational Therapy Services or patient discharge from the hospital this note represents the current Occupational Therapy Discharge Summary. Associated attestation - Elaina Cruz OT - 08/21/2022 1:31 PM EDT I, as the supervising practitioner have read, edited, and agreed with the documentation stated above. Elaina Cruz OTR/L License #: [id number] Pager#: [phone] Upon discontinuation of Acute Care Occupational Therapy Services or patient discharge from the hospital this note represents the current Occupational Therapy Discharge Summary. * OSWALD Delacruz - 08/20/2022 9:32 AM EDT Focused Assessment for Discharge Planning Patient is here for posterior cervical decompression and fusion. Initial Discharge Planning Anticipated discharge disposition: Inpatient Rehab Facility Transportation Available for Discharge: Ambulance Anticipated DME: none Anticipated Services at Discharge: Physical Therapy, Occupational Therapy, Outpatient follow up Patient Assessment Completed: Focused Advanced Care Planning Assessment Advanced Care Planning Has the patient completed Advance Directives?: Not Completed Referral to Social Work for Advance Care Planning? : Patient Declines HCPOA Agent(s): N/A Legal Next of Kin: 1. Dayana HowellUpbwr-mvec-[phone] 2. Aleksey BelloXdswb-hgw-[phone] Financial Resources Insurance: Yes Prescription Coverage: Yes Resources Needed: No Resources Provided: Living Environment and Support System Pt lives at home with his and parents. Patient Resources Prior to Admission Post-acute Services: no Community Resources: no DME: no Patient's goal for discharge is to await recommendations from PT and OT. For Case Management assistance for the weekend, please contact CM for assistance as needed (8:00am-4:30pm) [facility]: [phone] [facility]: [phone] [facility]: [phone] Ross: [phone] * Antonio Douglass PT - 08/20/2022 7:37 AM EDT Acute Physical Therapy Evaluation Prior to Admission [facility] score(s): PRIOR LEVEL AM-PAC Mobility Raw Score: 24 Current AM-PAC score(s): CURRENT AM-PAC Mobility Raw Score: 17 Based on the above AM-PAC score(s) and PT clinical judgment, patient is a good candidate for discharge to (Will update discharge recs following surgery) Mobility equipment available at home: straight cane, 2 wheeled walker, axillary crutches ADL equipment available at home: shower chair, hand held shower hose Equipment needed for discharge: to be determined Current therapy frequency recommendation in acute: Therapy Frequency: 5 times a week Precautions and Weightbearing Status: Existing Precautions/Restrictions: fall Telemetry Patient Safety Communication Prior to Visit: Nursing Subjective: Pt agreeable to therapy. Mid-session, Dr. Jerome arrived and notified pt of plan for spine surgery. Pain: General Pain Documentation (Adult, OB, Peds) Presence of Pain: complains of pain/discomfort Pain Location: leg, right, leg, left DVPRS (Defense and Veterans Pain Rating Scale) DVPRS: Rest: 6- moderate pain DVPRS: Activity: 6- moderate pain Home Setting Residence: House Lives With: spouse, parents First floor setup: bedroom, tub shower Number of stairs to enter home: 3 Number of stairs in home: 0 Stair Railings at Home: entry - with rail Mobility Equipment Available: straight cane, 2 wheeled walker, axillary crutches ADL Equipment Available: shower chair, hand held shower hose Home Environment Details: pt lives in a one story house with and parents. mother recently had hip surgery therfore has some equipment already Previous Level of Function Prior level ADL Overview: Independent with all ADLs Dominant Hand: Right Bed Mobility/Transfers: independent Ambulation Skills: independent Assistive Device: none used Level of Ambulation: community Prior Level of Function Details: pt reports he was driving and going to the grocery store on his own, independently in all ADLs/iADLs. However, in the last month pt states he has had 10 falls due to his legs giving out and feeling numb Objective/Observation: Vitals/Vitals Responses to Treatment: WNL Respiratory Status O2 Device: room air Cognition Overall Cognitive Status: Within Functional Limits Arousal/Alertness: Appropriate responses to stimuli Orientation Level: Oriented X4 Following Commands: Follows all commands and directions without difficulty Safety Judgment: Decreased awareness of need for safety Awareness of Errors: Assistance required to correct errors made Deficits: Fully aware of deficits Vision Screen Currently wearing corrective lenses: Reading only Speech Speech: no gross deficits noted Hearing Hearing: no gross deficits noted Extremity Assessments: RUE Assessment RUE Assessment: Within Functional Limits LUE Assessment LUE Assessment: Within Functional Limits RLE Assessment RLE Assessment: AROM WFL, Strength Impaired Right LE Assessment Details: functionally weak Strength RLE R Hip Flexion: 3+/5 R Knee Extension: 5/5 R Ankle Dorsiflexion: 5/5 R Ankle Plantar Flexion: 5/5 LLE Assessment LLE Assessment: AROM WFL, Strength Impaired Strength LLE L Hip Flexion: 3+/5 L Knee Extension: 4/5 L Ankle Dorsiflexion: 4/5 L Ankle Plantar Flexion: 4/5 Sensation Overall Sensation: Impaired Sensation Comments: Reports numbness in LE's but can feel light touch; overall diminished. Pt with decreased 2-point discrimination in UE's/LE's Proprioception Proprioception: shows deficit Proprioception - narrative: LE's Mobility Assessment: Supine to Sit Mobility [place] Level: Supine->Sit: independent Bed Features/Set-up: Supine->Sit: Head of bed elevated Balance: Sitting Balance Static Sitting-Level of Assistance: Supervision Dynamic Sitting-Level of Assistance: Supervision Skilled Rationale: Positioning, Verbal cues Standing Balance Static Standing-Level of Assistance: Contact guard Dynamic Standing-Level of Assistance: Moderate assistance Standing-Balance Support: Gait belt, 2 wheeled walker Skilled Rationale: Positioning, Verbal cues, Full extension to upright positioning/posture Standing Balance Skilled Intervention/Details: LE buckling during gait. Decreased awareness of LE's Transfer Assessment: Sit to Stand Transfer [place] Level: Sit->Stand: contact guard assist Assistive Device: Sit->Stand: gait belt, 2 wheeled walker Skilled Rationale: Positioning, Verbal cues Gait/Functional Mobility: Gait Assessment [place] Level: Gait: moderate assist (50% patient effort) Assistive Device: Gait: gait belt, 2 wheeled walker Ambulation Distance (Feet): 125 Gait Deviations Identified: decreased donnie, decreased gait speed, decreased step length, steppage, scissoring, knee buckling Gait Skilled Rationale: verbal, upright posture, improve foot placement Skilled Intervention/Details - Gait: Poor awareness of LE positioning and step accuracy. Pt would have intermittent buckling requiring mod A to correct. Outcome Score(s): CURRENT [facility] Basic Mobility Inpatient Short Form Turning over in bed: 4 - No Assistance Sitting/standing from chair: 3 - A Little Assistance Moving from lying on back to sittin - No Assistance Moving to and from bed to chair: 3 - A Little Assistance Walk in hospital room: 2 - A Lot of Assistance Climbing 3-5 steps with a railin - Total Assistance CURRENT [facility] Mobility Raw Score: 17 CURRENT [facility] Mobility Functional Limitation/Modifier: 50.57% Currently Impaired in Basic Mobility- CK Assessment & Plan: Patient was admitted for myelopathy and seen for therapy evaluation related to LE weakness, sensorydeficit, and impaired proprioception. Exam findings include impairments in: Strength, Balance, Posture, Transfers, Gait/Locomotion, Aerobic capacity/endurance. These impairments contribute to functional limitations including Increased fall risk, Difficulty stair climbing/descent, Decreased ambulation distance/endurance, Decreased functional mobility, Difficulty with transfers. Current clinical presentation is Evolving - changing/inconsistent clinical characteristics (Moderate). Patient history factors impacting Plan Of Care include recent decline in LE strength. Patient will benefit from skilled physical therapy to address these impairments, functional limitations, and pa rticipation restrictions and has excellent rehab potential to achieve therapy goals. Planned Therapy Interventions: balance training, functional activity tolerance, endurance, gait training, strengthening, transfer training Plan for next session: gait and balance training Acute PT Goals Plan of Care by Antonio Douglass PT at 08/20/2022 7:37 AM Version 1 of 1 Problem: PT - Mobility Goal: Ambulation Description: Pt will ambulate 200 feet with least restrictive device with standby assistance to improve ability to navigate home environment. Outcome: Ongoing Problem: PT - Transfers Goal: Sit <-> Stand Description: Pt will perform sit to/from stand transfers with independence with least restrictive device in order to improve functional mobility and safety. Outcome: Ongoing Goal: Strength/ROM Description: Pt will perform 2 sets of 12 repetitions of lower bilateral extremity exercises with independence in order to improve strength, maintain ROM, necessary for functional mobility. Outcome: Ongoing Goal: Other Description: Pt will meet the MCID on the payton balance assessment to reduce fall risk. Outcome: Ongoing Evaluating Therapist: Antonio Douglass PT Additional Details: Co-evaluation/co-treatment performed?: Yes, simultaneous billable skilled care This co-evaluation session performed between PT and OT was beneficial, necessary and provided distinct services in establishing this person's individual plan of care. Medical complexity with functional deficits necessitated two skilled therapy disciplines working concurrently to determine each discipline's goals. This co-treatment was medically necessary due to patient's: initial safety assessment I used facemask, protective eye shield, and gloves in today's patient interaction. Evaluation Complexity Components History: Moderate (1-2 personal factors and/or comorbidities) Body Systems Review: Moderate (Addressing a total of 3 or more elements) Clinical Presentation: Evolving - changing/inconsistent clinical characteristics (Moderate) Clinical Decision Making: Moderate Time In: 0737 Time Out: 0800 Total Visit Time: 23 minutes Total Treatment Time (skilled, billable minutes): 23 minutes Patient location at end of session: chair Alarms on at end of session: chair alarm Needs in reach. Upon discontinuation of Acute Care Physical Therapy Services or patient discharge from the hospitalthis note represents the current Physical Therapy Discharge Summary. * Tono Petersen MD - 08/20/2022 5:05 AM EDT Orthopaedic Spine Surgery Progress Note: Issac Howell is a 57 y.o. male with PMH significant for degenerative spinal disease s/p cervical fusion x2 first one believed to be anterior C3-C6 in 2006 followed by revision this past October to include C7, chronic pain, tobacco abuse, alcohol dependence who was transferred from [facility] with concern for falls and spinal stenosis with suspected myelopathy. Last 24 Hours No acute events overnight. Slept on/off. States that symptoms are largely unchanged. Vitals Vitals: 08/20/22 0345 BP: 148/83 Pulse: 77 Resp: Temp: 98.1 F (36.7 C) Physical Exam GEN: AOx3, resting in bed, NAD HEENT: NCAT, PERRLA, EOMI CV: normotensive LUNGS: non-labored breathing Spine Exam Incision: Healed Neuro: Upper Extremity Strength: Right Left Deltoids C5 5/5 5/5 Biceps C6 5/5 5/5 Wrist Extensors 5/5 5/5 Triceps C7 5/5 5/5 Finger Flexors C8 5/5 5/5 First Dorsal Interossei 5/5 5/5 Lower Extremity Strength: Right Left Hip Flexors L2 4/5 4/5 Quadriceps L3 5/5 5/5 Anterior Tibialis L4 5/5 5/5 EHL L5 5/5 5/5 Hamstrings 5/5 5/5 Gastrocsoleus S1 5/5 5/5 Sensation to light touch in the upper and lower extremities is grossly intact with diffusely diminished sensation nondermatomally in bilateral legs as well as the left small and ring fingers. Special Tests: Clonus (R/L): 2-4 beats / 2-4 beats Hoffmans(R/L): negative / negative Babinksi (R/L): down / down Straight leg raise (R/L): negative / + Laboratory Studies None Imaging/Cultures/Drains New Imaging: MRI w/o con of the C/T/L Spine (LETICIA): C spine MRI reveals evidence of prior C3-C7 hardware. Thereis loss of fluid signal at C7-T1 with possible small increase in signal cord intensity within the cord that may represent a focal area of myelomalacia. No significant thoracic abnormalities. In the lumbar spine there is evidence of central herniations at L1-L2, with right sided herniation at L2-L3 and L3-L4. Cultures: None Drains: None Assessment Issac Howell is a 57 y.o. male with PMH significant for degenerative spinal disease s/p cervical fusion x2 first one believed to be anterior C3-C6 in 2006 followed by revision this past October to include C7, chronic pain, tobacco abuse, alcohol dependence who was transferred from [facility] with concern for falls and spinal stenosis with suspected myelopathy. Plan No emergent orthopedic surgery intervention MRI does demonstrate stenosis at the C7-T1 level that is likely contributing to his symptoms At this time we recommend obtaining the upright cervical spine films (ordered) Patient ok for diet from orthopedic perspective Activity as tolerated Given progressive myelopathic symptoms we will add for posterior cervical decompression and fusion with Dr. Jerome for 08/21. Patient to be NPO at midnight tonight in anticipation for surgery. Pleasehold lovenox dose for today. Tono Petersen MD Orthopaedic Surgery Spine Fellow * Prisca Valencia RN - 08/19/2022 4:52 PM EDT Paged critical events officer re: Issac Howell. [phone]. This patient has been admitted as a direct admit3 hours ago. Paged assigned attending and admitting attending. No orders have been placed. Patient is in extreme pain and [place] [id number] * Prisca Valencia RN - 08/19/2022 4:13 PM EDT On admission to [facility], from outside facility a dual RN initial assessment of skin condition was performed by Prisca Valencia RN and Ellen Guzman. Skin Assessment: Skin within defined limits:Yes Wali Score: 19 LDA Added: No Prisca Valencia RN * Prisca Valencia RN - 08/19/2022 2:28 PM EDT Vesta OROSCO: Eri Issac Howell [phone]. Patient is here as a direct admit. Please place orders. LELA Hammer [id number] documented [facility] Hospital course Narrative* Chanell Hart DO - 08/27/2022 10:53 AM EDT Discharge Summary Name: Issac Howell Age: 57 y.o. Birthday: 1965 Admit Date: 08/19/2022 1:30 PM Discharge Date: 08/27/22 Admission Information Admitting Physician: Elsy Maurer MD Discharge Information Discharge Physician: Chanell Hart DO Problem List Active Hospital Problems Diagnosis Electrolyte disorder (K, Cl, or Na) Myelopathy Spinal stenosis Chronic pain Falls Uncomplicated alcohol dependence Tobacco abuse Resolved Hospital Problems No resolved problems to display. Hospital Medicine Discharge Summary Primary Diagnoses Spinal stenosis s/p c5-t2 posterior cervical decompression Action Items Follow up ortho surgery Dear Doctors, I recently had the opportunity to care for Issac Howell during his recent hospital stay at [facility]. As you may know, 57 y.o. male with PMH significant for degenerative spinal disease s/p cervical fusion x2, chronic pain, tobacco abuse, alcohol dependence who was transferred from OSH with concern for falls and spinal stenosis with suspected myelopathy. Seen by ortho spine. Taken to surgery 08/21. Patient in severe pain post-op which required IV pain meds, slowly weaned to PO. He will be discharged on oxycodone 30mg q 4 hours (4 days worth). He has been on high dose narcotics in the past which likely leads to a high tolerance. He sees his PCP Dr. Conroy who normally prescribes him oxycodone 5mg. He will contact their office for further refills. Upon discharge the patient's code was Full Code Please see the remainder of this document for relevant data from this admission as well as the patient's discharge instructions and follow-up appointments.. An electronic copy of the patient's records can be obtained via [facility] at [email or web address] It has been my pleasure participating in this patient's care. Please contact me with any questions or concerns regarding his hospital stay. The total time of discharge was 45 minutes. Sincerely, Chanell Hart DO Division of [facility] Medicine Relevant Data from this Admission Vitals BP: (!) 156/97 (Kami informed) Pulse (Heart Rate): 100 Resp Rate: 20 Temp: 98.4 F (36.9 C) O2 Sat (%): 99 % Weight: 55.9 kg (123 lb 3.2 oz) Physical Exam on Discharge Resp: lungs clear to auscultation bilaterally, normal work of breathing CV: RRR, normal S1 and S2, No SOLA Psych: Ox3, appropriate affect and cognition Recent Labs 08/25/22 0129 08/26/22 0000 WBC 8.96 -- HGB 11.9* -- PLATELET 323 -- SODIUM 131* 134* POTASSIUM 3.9 4.7 CO2 35* 36* ANIONGAP 10 11 BUN 14 18 CREATSERUM 0.70 0.74 XR SPINE CERVICAL 2 VIEWS Final Result IMPRESSION: Postoperative changes from posterior fusion C5-T2. No acute complication. FLUORO < 1 HOUR OR XR SPINE SCOLIOSIS 2/3 VIEWS Final Result IMPRESSION: Straightening of the thoracic and lumbar curvatures. Slight dextroscoliosis of the lumbar spine. Minimal left superior pelvic tilt. Patient Instructions on Discharge No future appointments. Bina Jerome MD [address] [place] [address] Follow up Please call to schedule 2 week follow-up appointment. Medication List START taking these medications gabapentin 100 MG CAPS Commonly known as: NEURONTIN Take 2 capsules by mouth 3 times daily. oxyCODONE 30 MG TABS Commonly known as: ROXICODONE Take 1 tablet by mouth every 4 hours as needed for up to 4 days. Where to Get Your Medications These medications were sent to [id number] [place] [address] - [address] [place] [address] gabapentin 100 MG CAPS oxyCODONE 30 MG TABS documented in this [facility]11-[facility] Note* Plan of Care - Lori Garcia RN - 08/26/2022 4:47 PM EDT Problem: Patient Care Overview Goal: Plan of Care Review Outcome: Ongoing Goal: Individualization & Mutuality Outcome: Ongoing Goal: Discharge Needs Assessment Outcome: Ongoing Goal: Interdisciplinary Rounds/Family Conf Outcome: Ongoing Problem: PT - Transfers Goal: Supine <-> Sit Description: Pt will perform bed mobility with flat bed & no rail with modified independence inorder to improve functional mobility and safety. Outcome: Ongoing Goal: Sit <-> Stand Description: Pt will perform sit to/from stand transfers with supervision with least restrictive device in order to improve functional mobility and safety. Outcome: Ongoing Goal: Strength/ROM Description: Pt will perform 2 sets of 12 repetitions of lower bilateral extremity exercises with independence in order to improve strength, maintain ROM, necessary for functional mobility. Outcome: Ongoing Goal: Bracing Description: Pt will demonstrate donning/doffing brace with independence in order to improve safetyat discharge destination. Outcome: Ongoing Goal: Other Description: Pt will meet the MCID on the payton balance assessment to reduce fall risk at home Outcome: Ongoing Problem: Infection, Risk/Actual (Adult) Goal: Identify Related Risk Factors and Signs and Symptoms Description: Related risk factors and signs and symptoms are identified upon initiation of Human Response Clinical Practice Guideline (CPG) Outcome: Ongoing Goal: Infection Prevention/Resolution Description: Patient will demonstrate the desired outcomes by discharge/transition of care. Outcome: Ongoing Problem: Pain, Acute (Adult) Goal: Identify Related Risk Factors and Signs and Symptoms Description: Related risk factors and signs and symptoms are identified upon initiation of Human Response Clinical Practice Guideline (CPG) Outcome: Ongoing Goal: Acceptable Pain Control/Comfort Level Description: Patient will demonstrate the desired outcomes by discharge/transition of care. Outcome: Ongoing Problem: Surgery Nonspecified (Adult) Goal: Signs and Symptoms of Listed Potential Problems Will be Absent, Minimized or Managed (SurgeryNonspecified) Description: Signs and symptoms of listed potential problems will be absent, minimized or managed by discharge/transition of care (reference Surgery Nonspecified (Adult) CPG). Outcome: Ongoing Goal: Anesthesia/Sedation Recovery Outcome: Ongoing Problem: Nutrition, Imbalanced: Inadequate Oral Intake (Adult) Goal: Improved Oral Intake Description: Patient will demonstrate the desired outcomes by discharge/transition of care. Outcome: Ongoing [facility]11-03-2022 Note* Plan of Care - Antonio Douglass PT - 08/26/2022 1:15 PM EDT Problem: PT - Mobility Goal: Ambulation Description: Pt will ambulate 150 feet with least restrictive device with standby assistance to improve ability to navigate home environment. Outcome: Progressing Toward Goal Problem: PT - Transfers Goal: Supine <-> Sit Description: Pt will perform bed mobility with flat bed & no rail with modified independence inorder to improve functional mobility and safety. Outcome: Progressing Toward Goal Goal: Sit <-> Stand Description: Pt will perform sit to/from stand transfers with supervision with least restrictive device in order to improve functional mobility and safety. Outcome: Progressing Toward Goal Goal: Bracing Description: Pt will demonstrate donning/doffing brace with independence in order to improve safetyat discharge destination. Outcome: Progressing Toward Goal Goal: Other Description: Pt will meet the MCID on the payton balance assessment to reduce fall risk at home Outcome: Progressing Toward Goal [facility]11-02-2022 Note* Plan of Care - Antonio Douglass PT - 08/25/2022 1:35 PM EDT Problem: PT - Mobility Goal: Ambulation Description: Pt will ambulate 150 feet with least restrictive device with standby assistance to improve ability to navigate home environment. Outcome: Progressing Toward Goal Problem: PT - Transfers Goal: Supine <-> Sit Description: Pt will perform bed mobility with flat bed & no rail with modified independence inorder to improve functional mobility and safety. Outcome: Progressing Toward Goal Goal: Sit <-> Stand Description: Pt will perform sit to/from stand transfers with supervision with least restrictive device in order to improve functional mobility and safety. Outcome: Progressing Toward Goal Goal: Bracing Description: Pt will demonstrate donning/doffing brace with independence in order to improve safetyat discharge destination. Outcome: Progressing Toward Goal [facility]11-02-2022 Note* Plan of Care - Elaina Cruz OT - 08/25/2022 9:41 AM EDT Problem: OT - Balance Goal: Balance - Standing Description: Pt will perform 8 minutes of functional ADL task in standing with contact guard assistance and balance level of contact guard to promote safety and improved balance required for self-care activities. Outcome: Ongoing Problem: OT - Other Goal: Don/Doff Splint/Brace Description: Pt will be able verbalized/instruct on caregiver and staff with [place] and modified independence and demonstrate knowledge of wear schedule for improved safety at discharge destination. Outcome: Ongoing [facility]11-02-2022 Note* Nursing Notes - Rae Mcgrath RN - 08/25/2022 6:08 AM EDT Vesta Mosqueda MD [address] [facility] 8[address] Dante: pt is in some pretty bad pain, and were an hour out from any pain medications. do you think we could get a one time dose of something to bridge this gap? thanks Teresa [phone] [facility]11-01-2022 Note* Plan of Care - Antonio Douglass PT - 08/24/2022 1:33 PM EDT Problem: PT - Transfers Goal: Supine <-> Sit Description: Pt will perform bed mobility with flat bed & no rail with modified independence inorder to improve functional mobility and safety. Outcome: Ongoing Problem: PT - Transfers Goal: Bracing Description: Pt will demonstrate donning/doffing brace with independence in order to improve safetyat discharge destination. Outcome: Progressing Toward Goal [facility]11-01-2022 Note* Plan of Care - HITESH Dietrich - 08/24/2022 11:09 AM EDT Nutrition Plan of Care: 1. Continue current diet order. 2. Will provide chasidy Ensure Plus High Protein (350 kcal, 20 g PRO each) TID with all meals. 3. Monitor for significant weight changes. 4. Monitor and encourage po intakes with goal of average po being 75-100%. 5. studio technician video operator to follow. [facility]11-01-2022 Note* Plan of Care - Saray Benavides RN - 08/24/2022 5:50 AM EDT Problem: Patient Care Overview Goal: Plan of Care Review Outcome: Ongoing Goal: Individualization & Mutuality Outcome: Ongoing Goal: Discharge Needs Assessment Outcome: Ongoing Problem: Patient Care Overview Goal: Individualization & Mutuality Outcome: Ongoing Problem: Pain, Acute (Adult) Goal: Identify Related Risk Factors and Signs and Symptoms Description: Related risk factors and signs and symptoms are identified upon initiation of Human Response Clinical Practice Guideline (CPG) Outcome: Ongoing Goal: Acceptable Pain Control/Comfort Level Description: Patient will demonstrate the desired outcomes by discharge/transition of care. Outcome: Ongoing [facility]10-31-2022 Note* Plan of Care - Keesha Cleveland RN - 08/23/2022 9:00 PM EDT Problem: Patient Care Overview Goal: Plan of Care Review Outcome: Ongoing Problem: Infection, Risk/Actual (Adult) Goal: Identify Related Risk Factors and Signs and Symptoms Description: Related risk factors and signs and symptoms are identified upon initiation of Human Response Clinical Practice Guideline (CPG) Outcome: Ongoing Problem: Pain, Acute (Adult) Goal: Identify Related Risk Factors and Signs and Symptoms Description: Related risk factors and signs and symptoms are identified upon initiation of Human Response Clinical Practice Guideline (CPG) Outcome: Ongoing [facility]10-31-2022 Note* Nursing Notes - Julia Parikh RN - 08/23/2022 5:20 PM EDT Petar, 0824/Marya, Dante, Info: Pts dressing is saturated from pulling the hemovac drain out earlier. Itsnot a lot but I just wanted to ask if you would like for me to change the dressing? Thanks in advance, Julia Felipe RN, Ph: #[phone] [facility] [employer] Paged Dr. Delong [facility]10-31-2022 Note* Plan of Care - Julia Parikh RN - 08/23/2022 1:38 PM EDT Problem: Patient Care Overview Goal: Plan of Care Review Outcome: Ongoing Goal: Individualization & Mutuality Outcome: Ongoing Goal: Discharge Needs Assessment Outcome: Ongoing Goal: Interdisciplinary Rounds/Family Conf Outcome: Ongoing Problem: Infection, Risk/Actual (Adult) Goal: Identify Related Risk Factors and Signs and Symptoms Description: Related risk factors and signs and symptoms are identified upon initiation of Human Response Clinical Practice Guideline (CPG) Outcome: Ongoing Goal: Infection Prevention/Resolution Description: Patient will demonstrate the desired outcomes by discharge/transition of care. Outcome: Ongoing Problem: Pain, Acute (Adult) Goal: Identify Related Risk Factors and Signs and Symptoms Description: Related risk factors and signs and symptoms are identified upon initiation of Human Response Clinical Practice Guideline (CPG) Outcome: Ongoing Goal: Acceptable Pain Control/Comfort Level Description: Patient will demonstrate the desired outcomes by discharge/transition of care. Outcome: Ongoing Problem: Surgery Nonspecified (Adult) Goal: Signs and Symptoms of Listed Potential Problems Will be Absent, Minimized or Managed (SurgeryNonspecified) Description: Signs and symptoms of listed potential problems will be absent, minimized or managed by discharge/transition of care (reference Surgery Nonspecified (Adult) CPG). Outcome: Ongoing Goal: Anesthesia/Sedation Recovery Outcome: Ongoing [facility]10-31-2022 Note* Plan of Care - Elaina Cruz OT - 08/23/2022 10:27 AM EDT Problem: OT - Dressing Goal: Lower Body Dressing Description: Pt will complete LE dressing tasks with modified independence for improved ability to complete self-care activities. Outcome: Ongoing Problem: OT - ADLs Goal: Toileting Description: Pt will complete toileting task including clothing management with SBA for improved ability to safely complete self-care activities. Outcome: Ongoing Goal: Bathing Description: Pt will perform full body bathing routine with modified independence while sitting forimproved ability to complete self-care activities. Outcome: Ongoing Problem: OT - Balance Goal: Balance - Standing Description: Pt will perform 8 minutes of functional ADL task in standing with contact guard assistance and balance level of contact guard to promote safety and improved balance required for self-care activities. Outcome: Ongoing Problem: OT - Other Goal: Don/Doff Splint/Brace Description: Pt will be able verbalized/instruct on caregiver and staff with [place] and modified independence and demonstrate knowledge of wear schedule for improved safety at discharge destination. Outcome: Ongoing [facility]10-31-2022 Note* Plan of Care - Antonio Douglass, PT - 08/23/2022 9:30 AM EDT Problem: PT - Mobility Goal: Ambulation Description: Pt will ambulate 150 feet with least restrictive device with standby assistance to improve ability to navigate home environment. Outcome: Ongoing Problem: PT - Transfers Goal: Supine <-> Sit Description: Pt will perform bed mobility with flat bed & no rail with modified independence inorder to improve functional mobility and safety. Outcome: Ongoing Goal: Sit <-> Stand Description: Pt will perform sit to/from stand transfers with supervision with least restrictive device in order to improve functional mobility and safety. Outcome: Ongoing Goal: Strength/ROM Description: Pt will perform 2 sets of 12 repetitions of lower bilateral extremity exercises with independence in order to improve strength, maintain ROM, necessary for functional mobility. Outcome: Ongoing Goal: Bracing Description: Pt will demonstrate donning/doffing brace with independence in order to improve safetyat discharge destination. Outcome: Ongoing Goal: Other Description: Pt will meet the MCID on the payton balance assessment to reduce fall risk at home Outcome: Ongoing [facility]10-31-2022 Note* Significant Event - Roslyn Vang MD - 08/23/2022 3:30 AM EDT Overnight Call: Previous Progress Notes and/or H&P Reviewed. Informed of pts elevated blood pressures throughout this hospital stay. Pt has no documented hx of HTN and has has SBP 180s. D/w bedside RN and pt appears to have pain that is not controlled despite dilaudid and oxycodone as PRNs. Advised RN to give pts PRN oxycodone now vs 1 hr from now and to recheck BP in 1hr. Of note, pt also had PRN hydralazine for BP which has not reduced his BP. 446AM Repeat BP 158/93, still reporting 9/10 pain however, but per pt he takes 20 mg Percocet for his back pain and thus his current pain despite 15mg oxycodone with dialudid is not covering his pain per the pt. And his BP is affected, which seems refractory given his hx of etoh dependence. Roslyn Vang MD Overnight cross covering physician [phone] [facility] Work Phone: [phone] Note* Plan of Care - Kirby Gasca RN - 08/23/2022 1:15 AM EDT Problem: Pain, Acute (Adult) Goal: Identify Related Risk Factors and Signs and Symptoms Description: Related risk factors and signs and symptoms are identified upon initiation of Human Response Clinical Practice Guideline (CPG) Outcome: Progressing Toward Goal Goal: Acceptable Pain Control/Comfort Level Description: Patient will demonstrate the desired outcomes by discharge/transition of care. Outcome: Progressing Toward Goal Problem: Surgery Nonspecified (Adult) Goal: Signs and Symptoms of Listed Potential Problems Will be Absent, Minimized or Managed (SurgeryNonspecified) Description: Signs and symptoms of listed potential problems will be absent, minimized or managed by discharge/transition of care (reference Surgery Nonspecified (Adult) CPG). Outcome: Progressing Toward Goal Goal: Anesthesia/Sedation Recovery Outcome: Progressing Toward Goal [facility]10-30-2022 Note* Plan of Care - Julia Parikh RN - 08/22/2022 3:50 PM EDT Problem: Patient Care Overview Goal: Plan of Care Review Outcome: Ongoing Goal: Individualization & Mutuality Outcome: Ongoing Goal: Discharge Needs Assessment Outcome: Ongoing Goal: Interdisciplinary Rounds/Family Conf Outcome: Ongoing Problem: Infection, Risk/Actual (Adult) Goal: Identify Related Risk Factors and Signs and Symptoms Description: Related risk factors and signs and symptoms are identified upon initiation of Human Response Clinical Practice Guideline (CPG) Outcome: Ongoing Goal: Infection Prevention/Resolution Description: Patient will demonstrate the desired outcomes by discharge/transition of care. Outcome: Ongoing Problem: Pain, Acute (Adult) Goal: Identify Related Risk Factors and Signs and Symptoms Description: Related risk factors and signs and symptoms are identified upon initiation of Human Response Clinical Practice Guideline (CPG) Outcome: Ongoing Goal: Acceptable Pain Control/Comfort Level Description: Patient will demonstrate the desired outcomes by discharge/transition of care. Outcome: Ongoing [facility]10-30-2022 Note* Nursing Notes - Julia Parikh RN - 08/22/2022 11:20 AM EDT hey I just wanted to let you know that his bp has consistently been in the 170's/90-100's despite pain interventions. SecureChat to Dr. Milton Felipe, RN [facility]10-29-2022 Note* Op Note - Bina Jerome MD - 08/21/2022 6:10 PM EDT DATE OF PROCEDURE: 08/21/2022 PREOPERATIVE DIAGNOSES: 1. Cervical myelopathy. 2. Multilevel cervical stenosis. 3. Previous C4-C7 anterior cervical discectomy and fusion. PROCEDURES: 1. C5-T1 decompression. 2. C5-T2 posterior instrumentation. 3. C5-T2 posterior arthrodesis. 4. Application of locally harvested bone graft. 5. Application of DBM product. 6. Use of intraoperative fluoroscopy. 7. Use of intraoperative neuromonitoring. SURGEON(S): Bina Jerome MD. FASHION SHOW DIRECTOR: Tono Petersen MD/fellow. ANESTHESIA: General endotracheal. ESTIMATED BLOOD LOSS: 150 cc. COMPLICATIONS: None. SPECIMENS: None. INSTRUMENTATION: DePuy Synthes Symphony and ViviGen allograft. INDICATIONS FOR PROCEDURE: This is a 57-year-old male who was admitted for progressive issues with gait ataxia. MRI series demonstrated severe stenosis from C5-6 to C7- T1. He does have a previous C5-C7 ACDF. We discussed the risks and benefits of aspiration versus posterior decompression. Specific risks we discussed included but were not limited to infection, wound healing issues, spinal cord injury, nerve root injury, C5 palsy, dural injury, CSF leak, pseudoarthrosis, need for subsequent surgery as well as medical complications during surgery as well as his postoperative recovery. DESCRIPTION OF PROCEDURE: I met with the patient in the preoperative holding area. The surgical site was signed. He was then transferred to the operative suite by the anesthesia team. A time-out was held identifying the correct patient as well as the correct procedure. He was then placed under general endotracheal anesthesia without complication. An A-line was placed for intraoperative blood pressure monitoring with a map goal of 80. Neuromonitoring leads were placed in a standard fashion. A preincision timeout was held, identifying the correct patient as well as correct procedure. We thenused anatomic landmarks in order to align our midline incision over the C4 to T2 spinous processes. The bilateral paraspinal musculature was then elevated using Bovie electrocautery. We did localize using fluoroscopy. Following this, we used a 3 mm ana to drill area relief pilot holes for our lateral mass screws. We then used a 12 mm drill to complete this. All the screw tracts had appropriate bony containment. Following this, we then placed instrumentation at T1 and T2. A 3 mm ana was used to perforate the dorsal cortex, and the pedicles of these levels were then cannulated using a gear shift. We placed 5 mm screws of appropriate length at T1 and T2. We confirmed appropriate placement using fluoroscopy. We did extend the screws and found that they had appropriate resistance. Following this, the interspinous ligaments were then taken down at C4-C5 as well as at C7-T1. A 3 mm ana was used to create our laminectomy troughs. He had an auto fusion between the lamina of C4 and C5. This was carefully thinned using a ana, and we completed the residual resection using a series of Kerrison punch rongeurs. We then removed the C5 and C6 lamina en bloc. We then removed the C7 lamina in a similar fashion. We did perform a dome laminectomy at T1 in order to preserve our bone for our fusion mass. After this, we then irrigated the wound with copious saline. We performed our decortication from C5 to T2 using a 3 mm ana. We placed 3.5 mm x 14 mm screws in the lateral masses at C5 and C6. We then placed appropriate sized 3.5 mm titanium rods. Following this, these were final tightened using the molecular spectroscopist's specifications. The combination of locally harvested autograft as well as allograft was then placed in the arthrodesis site. We then placed a subfascial drain in the standard fashion. The wound was then closed in layers using 0, 2-0, and 3-0 Vicryl. At the end of the procedure, all counts were correct. His neuromonitoring signals did seem to improve. He was then placed supine on a gurney. His Augustine headholder was removed without problem. He was then extubated without issue and taken to the PACU in stable condition. On my postop exam, he had intact strength as well as sensation in his bilateral upper extremities. (DOC:[id number]) [facility]10-29-2022 Note* Nursing Notes - Berenice Walker RN - 08/21/2022 4:56 PM EDT Pt discharged per PACU criteria; Sign-out received; no changes to previous assessment; Report called to Susan Omer RN; Pt returned to room via bed per HOUSE FELLOW; [facility] updated. [facility]10-29-2022 Note* Nursing Notes - Berenice Walker RN - 08/21/2022 3:15 PM EDT Pt arrived to PACU; Report received from surgery and anesthesia. No labs or imaging needed while ptin PACU per surgery. [facility]10-29-2022 Nurse Surgical operation note* Florina Todd RN - 08/21/2022 3:06 PM EDT Report given to recovery room, Alok Hua RN. Pt extubated, breathing responsively, on oxygen, transported in hospital bed with Dr. Regino Herman. [facility]10-29-2022 Nurse Note* Florina Todd RN - 08/21/2022 3:06 PM EDT Report given to recovery room, Alok Hua RN. Pt extubated, breathing responsively, on oxygen, transported in hospital bed with Dr. Regino Herman. [facility]* Plan of Care - Tono Petersen MD - 08/21/2022 3:00 PM EDT Assessment 57 y.o. male, Day of Surgery S/P C5-T2 posterior cervical decompression and fusion with Dr. Jerome on 08/21/22. Plan Activity: As tolerated, [place] J at all times Antibiotics: Ancef for 24 hours postoperatively or when drain is in place Blood: Hemoglobin, Glucose control with goal of <120 Brace: [place] J Cultures: None Diet: Liquid diet and progress to regular diet Drain: Hemovac drain sewn in place, monitor output Dressing: Dry dressing, change POD2 DVT Prophylaxis: SCD's, ambulation Exercise: IS 10x/hr while awake, PT for mobilization (w/ or w/o walker TID), (walking QID with brace) Harrison: Goal to remove POD1-2 Pain Regimen: Multimodal Xrays: AP/Lateral cervical spine in brace standing Dispo: Anticipate discharge home in next 1-2 days. Appreciate SW assistance in placement and PT recs. Follow-up: Follow up with Dr. Jerome team 2 weeks from surgery for wound check [facility]10-29-[facility] Note* Brief Op Note - Tono Petersen MD - 08/21/2022 2:59 PM EDT Issac Dante ([id number]) PRE OPERATIVE DIAGNOSIS Cervical stenosis of spinal canal [M48.02] POST OPERATIVE DIAGNOSIS Post-Op Diagnosis Codes: * Cervical stenosis of spinal canal [M48.02] PROCEDURE PERFORMED Procedure(s) (LRB): FUSION POSTERIOR CERVICAL (Midline) PRIMARY CLOSURE Yes INTRAOPERATIVE FINDINGS No significant abnormalities SURGEON Surgeon(s) and Role: * Bina Jerome MD - Primary ANESTHESIOLOGIST Anesthesiologist: Caty Sloan MD Faith Doctor Assisting: Alex Herman MD SURGICAL STAFF Test And Research Reactor Operator: Sneha Griffin RN Relief Test And Research Reactor Operator: Florina Todd RN Relief Scrub: Lorenza Conde Scrub Person: Caitie Ortiz Fellow: Tono Petersen MD COMPLICATIONS None ESTIMATED BLOOD LOSS 100 ml SPECIMENS No specimen sent * No specimens in log * Tono Petersen MD August 21, 2022 2:59 PM [facility]10-28-20[facility] Hospital Discharge instructions* Discharge Instructions* Phil Silva RN - 08/20/2022 11:11 AM EDT Patient Experience Survey Reminder You may receive a survey in the mail within a few weeks regarding your hospitalization. This helps us to improve the care and services we provide at [facility]. We truly appreciate you taking the time to fill this out. We particularly welcome any specific comments you may have (good or bad!) regarding your experienceat [facility] so that we may use them to continue to strive towards excellence for our patients. * Discharge Instr - Activity* Chanell Hart DO - 08/27/2022 10:26 AM EDT As tolerated * Discharge Instr - Diet* Chanell Hart DO - 08/27/2022 10:26 AM EDT As tolerated * Discharge Instr - Notify* Chanell Hart DO - 08/27/2022 10:27 AM EDT Please return to hospital if you have fevers, chest pain, uncontrolled abdominal pain, severe nausea or vomiting, severe diarrhea. Please keep all appointments as scheduled. If you need other refills or have questions about your medications please contact your primary physician or the prescribing physician. Please take all medications as prescribed. [facility]* Plan of Care - Elaina Cruz OT - 08/20/2022 8:51 AM EDT Problem: OT - Dressing Goal: Lower Body Dressing Description: Pt will complete LE dressing tasks with modified independence for improved ability to complete self-care activities. Outcome: Ongoing Problem: OT - ADLs Goal: Toileting Description: Pt will complete toileting task including clothing management with standby assistance for improved ability to safely complete self-care activities. Outcome: Ongoing Goal: Bathing Description: Pt will perform full body bathing routine with modified independence while sitting forimproved ability to complete self-care activities. Outcome: Ongoing Problem: OT - Balance Goal: Balance - Standing Description: Pt will perform 5 minutes of functional ADL task in standing with contact guard assistance and balance level of contact guard to promote safety and improved balance required for self-care activities. Outcome: Ongoing [facility]10-28-2022 Note* Plan of Care - Antonio Douglass PT - 08/20/2022 7:37 AM EDT Problem: PT - Mobility Goal: Ambulation Description: Pt will ambulate 200 feet with least restrictive device with standby assistance to improve ability to navigate home environment. Outcome: Ongoing Problem: PT - Transfers Goal: Sit <-> Stand Description: Pt will perform sit to/from stand transfers with independence with least restrictive device in order to improve functional mobility and safety. Outcome: Ongoing Goal: Strength/ROM Description: Pt will perform 2 sets of 12 repetitions of lower bilateral extremity exercises with independence in order to improve strength, maintain ROM, necessary for functional mobility. Outcome: Ongoing Goal: Other Description: Pt will meet the MCID on the payton balance assessment to reduce fall risk. Outcome: Ongoing [facility]10-28-2022 Consult note* Tono Ying MD - 08/20/2022 12:13 AM EDTAssociated Order(s): IP CONSULT TO SURGERY - ORTHOPAEDICS Orthopaedic Spine Consult Note Reason for consult: Cervical +/- lumbar spinal stenosis with myelopathy, falls Chief Complaint: weakness in my legs, cant walk well SUBJECTIVE HPI: Issac Howell is a 57 y.o. male with PMH significant for degenerative spinal disease s/p cervical fusion x2 first one believed to be anterior C3-C6 in 2006 followed by revision this past October to include C7, chronic pain, tobacco abuse, alcohol dependence who was transferred from [facility] with concern for falls and spinal stenosis with suspected myelopathy. He reports long-standing chronic neck pain related to degenerative spinal disease. He reports however that this has never really caused him much difficulty, no hand clumsiness, no gait instability, no upper extremity paresthesias, etc. As noted above, he has previously undergone two cervical spine fusions. About two weeks ago he reports he was picking up a 4x4 piece of plywood when he twisted andfelt a twinge in his back. He reports that after this twinge he began to develop bilateral decreased leg sensation, bilateral radicular pain, and weakness in his legs that led to imbalance and difficulty with ambulating resulting in falls. He reports he was not having these issues prior to the twisting injury of his back. Issac Howell describes the pain as (Axial 80% / Extremity 20 %) and originating in his lumbar spine. He denies Upper but endorses lower extremity paresthesias. He denies bowel/bladder incontinence, butdoes feel like the inside of his thighs are numb. Denies hand clumsiness. Notes changes in gait related to what he feels like is weakness. Denies fevers and chills He was seen and admitted to his local hospital where MRIs reportedly revealed cervical and spinal stenosis with concern for myelopathy. While awaiting transfer here he was treated for alcohol withdrawal Review of Symptoms: Pertinent items are noted in the HPI. Denies any chest pain, SOB, nausea, vomiting, abdominal pain Operative Risk Assessment: Prior history of DVT/PE: denies Family history of DVT/PE: denies Prior history of coagulopathy: denies Prior complications with anesthesia: denies Anticoagulation use: denies SHx: Social History Tobacco Use Smoking status: Every Day Types: Cigarettes Smokeless tobacco: Current Types: Snuff Substance Use Topics Alcohol use: Yes Alcohol/week: 5.0 - 6.0 standard drinks Types: 5 - 6 Cans of beer per week Occupation: disability Patient lives at home. Ambulatory Status: Patient is able to ambulate at baseline without assistive devices. SHx reviewed and patient denies any further SHx pertinent to the current presenting illness/injury than what is listed above FHx: Family History Problem Relation Age of Onset Hypertension Mother Hypertension Father FHx reviewed and patient denies any further FHx pertinent to the current presenting illness/injury than what is listed above PMHx: Past Medical History: Diagnosis Date Chronic pain Degenerative arthritis of spine Spinal stenosis PMHx reviewed and patient denies any further PMHx pertinent to the current presenting illness/injury than what is listed above PSHx: Past Surgical History: Procedure Laterality Date ARTHROSCOPY KNEE W/ MENISCUS REPAIR Right CERVICAL FUSION C3-6 and C6-7 by report ROTATOR CUFF REPAIR Right PSHx reviewed and patient denies any further PSHx pertinent to the current presenting illness/injury than what is listed above Medications: enoxaparin 40 mg Subcutaneous Q24H senna 8.6 mg Oral Q12H Allergies: No Known Allergies PMHx, PSHx, Meds, Allergies, SocHx and FamHx were reviewed and patient denies any additional hx pertinent to the current presenting illness/injury other than what's mentioned in the HPI above. OBJECTIVE Physical Exam: Vitals: 08/19/22 1713 08/19/22 1939 08/19/22 2126 08/19/22 2217 BP: 128/77 (!) 174/95 (!) 185/94 152/80 Pulse: 88 90 92 80 Resp: 16 16 Temp: 98.1 degrees F (36.7 degrees C) 97.8 degrees F (36.6 degrees C) 98 degrees F (36.7 degrees C) TempSrc: Oral Oral Oral SpO2: 97% 97% 96% 97% Weight: Height: Gen: AAOx3. NAD. Appears stated age. HEENT: NC/AT Abd: Nondistended. Psych: Normal speech and thought content. Spine Exam: Inspection: No gross abnormalities. No draining wounds ROM: cervical spine is wWNL in flexion, extension, lateral bending and rotation. Lumbar spine is ful in flexion, extension, lateral bending, and rotation. Palpation: no tenderness to palpation in the cervical, thoracic or lumbar midline. no step off deformities noticed. Upper Extremity: Strength: Right Left C5 Deltoids 5/5 5/5 C6 Biceps 5/5 5/5 Wrist Extensors 5/5 5/5 C7 Triceps 5/5 5/5 C8 Finger Flexors 5/5 5/5 First Dorsal Interossei 5/5 5/5 Sensory Right Left C5 Lateral Deltoid Intact Intact C6 Radial Forearm Intact Intact C7 Middle Finger Intact Intact C8 Ulnar Forearm Intact Intact T1 Medial Arm Intact Intact Right Left Biceps C5 2+ 2+ Triceps C7 2+ 2+ Brachioradialis C6 2+ 2+ Other - RUE: No erythema, edema, abrasions or gross deformity. Radial pulse is 2+, capillary refill < 2 seconds. - LUE: No erythema, edema, abrasions or gross deformity. Radial pulse is 2+, capillary refill < 2 seconds. Lower Extremity Strength: Right Left Hip Flexors L2 4-/5 4-/5 Quadriceps L3 4/5 4/5 Anterior Tibialis L4 5/5 5/5 EHL L5 5/5 5/5 Hamstrings 4/5 4/5 Gastrocsoleus S1 5/5 5/5 Peroneals 5/5 5/5 Sensory Right Left L2 ant/med thigh diminished to light touch diminished to light touch L3 lat thigh diminished to light touch diminished to light touch L4 medial leg diminished to light touch diminished to light touch L5 lateral leg diminished to light touch diminished to light touch S1 posterior leg diminished to light touch diminished to light touch S2 plantar foot diminished to light touch diminished to light touch Reflexes: Patellar L4 3+ 2+ Achilles S1 2+ 2+ Other RLE: No erythema, edema, abrasions or gross deformity. Dorsalis pedis pulse is 2+, posterior tibialpulse is 2+, capillary refill < 2 seconds. LLE: No erythema, edema, abrasions or gross deformity. Dorsalis pedis pulse is 2+, posterior tibialpulse is 2+, capillary refill < 2 seconds. Special Tests: Clonus (R/L): 2-4 beats / 2-4 beats Hoffmans(R/L): negative / negative Babinksi (R/L): down / down Straight leg raise (R/L): negative / + Neuro Other: Rectal tone: resting and volitional tone intact Perianal sensation: dull to light touch in all 4 quadrants Gait: Gait: unsteady IMAGING - Independent review. XR SPINE CERVICAL 2 VIEWS (Results Pending) XR SPINE THORACIC 2 VIEWS (Results Pending) XR SPINE LUMBOSACRAL AP AND LATERAL (Results Pending) XR SPINE SCOLIOSIS (Results Pending) XR of the C/T/L Spine: pending MRI w/out con of the C/T/L Spine: C spine MRI reveals evidence of prior C3-C7 hardware. There is loss of fluid signal at C7-T1 with possible small increase in signal cord intensity within the cord that may represent a focal area of myelomalacia. No significant thoracic abnormalities. In the lumbar spine there is evidence of central herniations at L1-L2, with right sided herniation at L2- L3 and L3-L4. ASSESSMENT 1. 57 y.o. male with two weeks of acute weakness and sensory changes in the bilateral lower extremities concerning for compressive related changes that followed the onset of his injuries two weeks ago given the presence of weakness or instability prior to this reported episode. PLAN: - No urgent operative orthopaedic intervention indicated at this time as the patient is unlikely tobenefit from acute surgical decompression given his compressive symptoms have been present for approximately 2 weeks. - Recommend aggressive PT/OT to work on rehabilitation, strength building, coordination, and motor function. - Will obtain standing AP, Lateral C/T/L/Scoli XR of the spine - Patient can otherwise FU in clinic with Dr. Jerome for ongoing discussion of treatment options This consult was discussed with attending Dr. jerome. Patient will be followed by orthopaedic surgery spine team and further recs may follow. Thank you for allowing Orthopaedic Surgery to participate in this patient's care. Please do not hesitate to call the on-call resident with any questions. Tono Ying MD Resident, PGY-2 Dept. of Orthopaedic Surgery [facility] Work Phone: [phone] Consult note* Tono Ying MD - 08/20/2022 12:13 AM EDTAssociated Order(s): IP CONSULT TO SURGERY - ORTHOPAEDICS Orthopaedic Spine Consult Note Reason for consult: Cervical +/- lumbar spinal stenosis with myelopathy, falls Chief Complaint: weakness in my legs, cant walk well SUBJECTIVE HPI: Issac Howell is a 57 y.o. male with PMH significant for degenerative spinal disease s/p cervical fusion x2 first one believed to be anterior C3-C6 in 2006 followed by revision this past October to include C7, chronic pain, tobacco abuse, alcohol dependence who was transferred from [facility] with concern for falls and spinal stenosis with suspected myelopathy. He reports long-standing chronic neck pain related to degenerative spinal disease. He reports however that this has never really caused him much difficulty, no hand clumsiness, no gait instability, no upper extremity paresthesias, etc. As noted above, he has previously undergone two cervical spine fusions. About two weeks ago he reports he was picking up a 4x4 piece of plywood when he twisted andfelt a twinge in his back. He reports that after this twinge he began to develop bilateral decreased leg sensation, bilateral radicular pain, and weakness in his legs that led to imbalance and difficulty with ambulating resulting in falls. He reports he was not having these issues prior to the twisting injury of his back. Issac Howell describes the pain as (Axial 80% / Extremity 20 %) and originating in his lumbar spine. He denies Upper but endorses lower extremity paresthesias. He denies bowel/bladder incontinence, butdoes feel like the inside of his thighs are numb. Denies hand clumsiness. Notes changes in gait related to what he feels like is weakness. Denies fevers and chills He was seen and admitted to his local hospital where MRIs reportedly revealed cervical and spinal stenosis with concern for myelopathy. While awaiting transfer here he was treated for alcohol withdrawal Review of Symptoms: Pertinent items are noted in the HPI. Denies any chest pain, SOB, nausea, vomiting, abdominal pain Operative Risk Assessment: Prior history of DVT/PE: denies Family history of DVT/PE: denies Prior history of coagulopathy: denies Prior complications with anesthesia: denies Anticoagulation use: denies SHx: Social History Tobacco Use Smoking status: Every Day Types: Cigarettes Smokeless tobacco: Current Types: Snuff Substance Use Topics Alcohol use: Yes Alcohol/week: 5.0 - 6.0 standard drinks Types: 5 - 6 Cans of beer per week Occupation: disability Patient lives at home. Ambulatory Status: Patient is able to ambulate at baseline without assistive devices. SHx reviewed and patient denies any further SHx pertinent to the current presenting illness/injury than what is listed above FHx: Family History Problem Relation Age of Onset Hypertension Mother Hypertension Father FHx reviewed and patient denies any further FHx pertinent to the current presenting illness/injury than what is listed above PMHx: Past Medical History: Diagnosis Date Chronic pain Degenerative arthritis of spine Spinal stenosis PMHx reviewed and patient denies any further PMHx pertinent to the current presenting illness/injury than what is listed above PSHx: Past Surgical History: Procedure Laterality Date ARTHROSCOPY KNEE W/ MENISCUS REPAIR Right CERVICAL FUSION C3-6 and C6-7 by report ROTATOR CUFF REPAIR Right PSHx reviewed and patient denies any further PSHx pertinent to the current presenting illness/injury than what is listed above Medications: enoxaparin 40 mg Subcutaneous Q24H senna 8.6 mg Oral Q12H Allergies: No Known Allergies PMHx, PSHx, Meds, Allergies, SocHx and FamHx were reviewed and patient denies any additional hx pertinent to the current presenting illness/injury other than what's mentioned in the HPI above. OBJECTIVE Physical Exam: Vitals: 08/19/22 1713 08/19/22 1939 08/19/22 2126 08/19/22 2217 BP: 128/77 (!) 174/95 (!) 185/94 152/80 Pulse: 88 90 92 80 Resp: 16 16 Temp: 98.1 degrees F (36.7 degrees C) 97.8 degrees F (36.6 degrees C) 98 degrees F (36.7 degrees C) TempSrc: Oral Oral Oral SpO2: 97% 97% 96% 97% Weight: Height: Gen: AAOx3. NAD. Appears stated age. HEENT: NC/AT Abd: Nondistended. Psych: Normal speech and thought content. Spine Exam: Inspection: No gross abnormalities. No draining wounds ROM: cervical spine is wWNL in flexion, extension, lateral bending and rotation. Lumbar spine is ful in flexion, extension, lateral bending, and rotation. Palpation: no tenderness to palpation in the cervical, thoracic or lumbar midline. no step off deformities noticed. Upper Extremity: Strength: Right Left C5 Deltoids 5/5 5/5 C6 Biceps 5/5 5/5 Wrist Extensors 5/5 5/5 C7 Triceps 5/5 5/5 C8 Finger Flexors 5/5 5/5 First Dorsal Interossei 5/5 5/5 Sensory Right Left C5 Lateral Deltoid Intact Intact C6 Radial Forearm Intact Intact C7 Middle Finger Intact Intact C8 Ulnar Forearm Intact Intact T1 Medial Arm Intact Intact Right Left Biceps C5 2+ 2+ Triceps C7 2+ 2+ Brachioradialis C6 2+ 2+ Other - RUE: No erythema, edema, abrasions or gross deformity. Radial pulse is 2+, capillary refill < 2 seconds. - LUE: No erythema, edema, abrasions or gross deformity. Radial pulse is 2+, capillary refill < 2 seconds. Lower Extremity Strength: Right Left Hip Flexors L2 4-/5 4-/5 Quadriceps L3 4/5 4/5 Anterior Tibialis L4 5/5 5/5 EHL L5 5/5 5/5 Hamstrings 4/5 4/5 Gastrocsoleus S1 5/5 5/5 Peroneals 5/5 5/5 Sensory Right Left L2 ant/med thigh diminished to light touch diminished to light touch L3 lat thigh diminished to light touch diminished to light touch L4 medial leg diminished to light touch diminished to light touch L5 lateral leg diminished to light touch diminished to light touch S1 posterior leg diminished to light touch diminished to light touch S2 plantar foot diminished to light touch diminished to light touch Reflexes: Patellar L4 3+ 2+ Achilles S1 2+ 2+ Other RLE: No erythema, edema, abrasions or gross deformity. Dorsalis pedis pulse is 2+, posterior tibialpulse is 2+, capillary refill < 2 seconds. LLE: No erythema, edema, abrasions or gross deformity. Dorsalis pedis pulse is 2+, posterior tibialpulse is 2+, capillary refill < 2 seconds. Special Tests: Clonus (R/L): 2-4 beats / 2-4 beats Hoffmans(R/L): negative / negative Babinksi (R/L): down / down Straight leg raise (R/L): negative / + Neuro Other: Rectal tone: resting and volitional tone intact Perianal sensation: dull to light touch in all 4 quadrants Gait: Gait: unsteady IMAGING - Independent review. XR SPINE CERVICAL 2 VIEWS (Results Pending) XR SPINE THORACIC 2 VIEWS (Results Pending) XR SPINE LUMBOSACRAL AP AND LATERAL (Results Pending) XR SPINE SCOLIOSIS (Results Pending) XR of the C/T/L Spine: pending MRI w/out con of the C/T/L Spine: C spine MRI reveals evidence of prior C3-C7 hardware. There is loss of fluid signal at C7-T1 with possible small increase in signal cord intensity within the cord that may represent a focal area of myelomalacia. No significant thoracic abnormalities. In the lumbar spine there is evidence of central herniations at L1-L2, with right sided herniation at L2- L3 and L3-L4. ASSESSMENT 1. 57 y.o. male with two weeks of acute weakness and sensory changes in the bilateral lower extremities concerning for compressive related changes that followed the onset of his injuries two weeks ago given the presence of weakness or instability prior to this reported episode. PLAN: - No urgent operative orthopaedic intervention indicated at this time as the patient is unlikely tobenefit from acute surgical decompression given his compressive symptoms have been present for approximately 2 weeks. - Recommend aggressive PT/OT to work on rehabilitation, strength building, coordination, and motor function. - Will obtain standing AP, Lateral C/T/L/Scoli XR of the spine - Patient can otherwise FU in clinic with Dr. Jerome for ongoing discussion of treatment options This consult was discussed with attending Dr. jerome. Patient will be followed by orthopaedic surgery spine team and further recs may follow. Thank you for allowing Orthopaedic Surgery to participate in this patient's care. Please do not hesitate to call the on-call resident with any questions. Tono Ying MD Resident, PGY-2 Dept. of Orthopaedic Surgery [facility]* Certification - Steven Monreal MD - 08/19/2022 6:30 PM EDT I certify that this patient requires inpatient services at this time. I anticipate the expected length of stay will include at least two midnights. Inpatient services are due to the following medicalconcerns spinal stenosis with suspected myelopathy, falls. Current treatment plan includes Orthopedic Surgery consult, fall precautions, pain control. Plans for post hospitalization care will be discharge to home with home health or long-term facility. [facility] History and physical note* Steven Monreal MD - 08/19/2022 6:15 PM EDT Hospital Medicine Admission History & Physical Patient: Issac Howell, 1965, [id number] Physician: Steven Monreal MD, Attending Physician, 6 service Date of face to face patient encounter: 08/19/2022 IMPRESSION/PLAN Issac Howell is a 57 y.o. male with PMH significant for degenerative spinal disease s/p cervical fusion x2, chronic pain, tobacco abuse, alcohol dependence who was transferred from OSH with concern forfalls and spinal stenosis with suspected myelopathy. Spinal stenosis, cervical and lumbar, with myelopathy -Consult Orthopedic Surgery Spine. OSH MRIs available in [place]. -Consult PT/OT. -Fall precautions. -Pain control w/ APAP and oxycodone prn. Bowel regimen. Dvbdt-[id number] pain - Reportedly on Percocet 10mg-325mg as an outpatient although I do not see a fill history in [facility]. -Pain control as above. Alcohol dependence - Last drink ~10 days ago by report. Treated for alcohol withdrawal at OSH whichappears to be resolved. -Counseled on importance of alcohol cessation. Tobacco abuse -Counseled on importance of tobacco cessation. DVT prophylaxis with Lovenox. Disposition: TBD. Consult PT/OT. Code status is Full Code. CHIEF COMPLAINT Falls, worsening back pain, weakness, numbness/tingling HISTORY OF PRESENT ILLNESS Issac Howell is a 57 y.o. male that has been admitted to [facility]. He reports long-standing chronic back pain related to degenerative spinal disease. He has previously undergone two cervical spine fusions. About one week ago he began having worsening midline lower back pain. He also noticed bilateral leg > bilateral arm weakness resulting in recurrent falls. Associated symptoms include numbness and tingling in all extremities and left shoulder pain. He reports diminished sensation in his perineal region but he is able to urinate and defecate without issue. He was seen and admitted to his local hospital where MRIs reportedly revealed cervical and spinal stenosis with concern for myelopathy. While awaiting transfer here he was treated for alcohol withdrawal. He states his shakes have resolved. MEDICAL HISTORY Past Medical History: Diagnosis Date Chronic pain Degenerative arthritis of spine Spinal stenosis Past Surgical History: Procedure Laterality Date ARTHROSCOPY KNEE W/ MENISCUS REPAIR Right CERVICAL FUSION C3-6 and C6-7 by report ROTATOR CUFF REPAIR Right SOCIAL HISTORY Social History Tobacco Use Smoking status: Every Day Types: Cigarettes Smokeless tobacco: Current Types: Snuff Substance Use Topics Alcohol use: Yes Alcohol/week: 5.0 - 6.0 standard drinks Types: 5 - 6 Cans of beer per week Social History Substance and Sexual Activity Drug Use Yes Types: Marijuana Comment: Medical marijuana FAMILY HISTORY family history includes Hypertension in his father and mother. MEDICATIONS Personally reviewed. Reports only Percocet 10mg-325mg. ALLERGIES No Known Allergies REVIEW OF SYSTEMS Constitutional (no fever, chills, weight changes) Eyes (negative for vision changes) ENT (no ringing, loss of hearing) Cardiovascular (no LE edema or leg pain with walking, PND, orthopnea) Respiratory (no cough, SOB) Gastrointestinal (no abd pain, constipation, diarrhea) Genitourinary (no dysuria, gross hematuria) Integumentary (no rash) Musculoskeletal (no joint deformity, joint pains) Psych: (no depressed mood) Remainder of a comprehensive ROS otherwise negative except as per HPI. PHYSICAL EXAM Vitals: 08/19/22 1713 BP: 128/77 Pulse: 88 Resp: 16 Temp: 98.1 F (36.7 C) O2 Device: room air (08/19/22 1357) Gen: Sitting in chair, NAD, pleasant HEENT: PERRL, EOMI, no scleral icterus, MMM CV: RRR, no m/r/g, no JVD, no edema, intact pulses Resp: CTAb, no w/r/r, no accessory muscle use GI: +BS, soft, ND, NT MSK: No cyanosis or clubbing Skin: Warm, dry, no rashes Neuro: AAOx3, LUE strength 4/5, RUE strength 5/5, BLE strength 4/5, knee and ankle reflexes 3/4, noclonus, diminished sensation perineum DATA REVIEW Body mass index is 18.19 kg/m . OSH Labs (08/18/22): Na 133, K 3.9, Cl 95, CO2 29, BUN 9, Cr 0.79, Glu 95, Ca 9.7 WBC 9.6, Hgb 13.8, Plt 194 OSH Imaging: MRI brain/cervical/thoracic/lumbar available in [place]. Signed, Steven Monreal MD Division of Hospital Medicine [facility] History and physical note* Steven Monreal MD - 08/19/2022 6:15 PM EDT Hospital Medicine Admission History & Physical Patient: Issac Howell, 1965, [id number] Physician: Steevn Monreal MD, Attending Physician, 6 service Date of face to face patient encounter: 08/19/2022 IMPRESSION/PLAN Issac Howell is a 57 y.o. male with PMH significant for degenerative spinal disease s/p cervical fusion x2, chronic pain, tobacco abuse, alcohol dependence who was transferred from OSH with concern forfalls and spinal stenosis with suspected myelopathy. Spinal stenosis, cervical and lumbar, with myelopathy -Consult Orthopedic Surgery Spine. OSH MRIs available in [place]. -Consult PT/OT. -Fall precautions. -Pain control w/ APAP and oxycodone prn. Bowel regimen. Dkpal-dx-qjhralw pain - Reportedly on Percocet 10mg-325mg as an outpatient although I do not see a fill history in [facility]. -Pain control as above. Alcohol dependence - Last drink ~10 days ago by report. Treated for alcohol withdrawal at OSH whichappears to be resolved. -Counseled on importance of alcohol cessation. Tobacco abuse -Counseled on importance of tobacco cessation. DVT prophylaxis with Lovenox. Disposition: TBD. Consult PT/OT. Code status is Full Code. CHIEF COMPLAINT Falls, worsening back pain, weakness, numbness/tingling HISTORY OF PRESENT ILLNESS Issac Howell is a 57 y.o. male that has been admitted to [facility]. He reports long-standing chronic back pain related to degenerative spinal disease. He has previously undergone two cervical spine fusions. About one week ago he began having worsening midline lower back pain. He also noticed bilateral leg > bilateral arm weakness resulting in recurrent falls. Associated symptoms include numbness and tingling in all extremities and left shoulder pain. He reports diminished sensation in his perineal region but he is able to urinate and defecate without issue. He was seen and admitted to his local hospital where MRIs reportedly revealed cervical and spinal stenosis with concern for myelopathy. While awaiting transfer here he was treated for alcohol withdrawal. He states his shakes have resolved. MEDICAL HISTORY Past Medical History: Diagnosis Date Chronic pain Degenerative arthritis of spine Spinal stenosis Past Surgical History: Procedure Laterality Date ARTHROSCOPY KNEE W/ MENISCUS REPAIR Right CERVICAL FUSION C3-6 and C6-7 by report ROTATOR CUFF REPAIR Right SOCIAL HISTORY Social History Tobacco Use Smoking status: Every Day Types: Cigarettes Smokeless tobacco: Current Types: Snuff Substance Use Topics Alcohol use: Yes Alcohol/week: 5.0 - 6.0 standard drinks Types: 5 - 6 Cans of beer per week Social History Substance and Sexual Activity Drug Use Yes Types: Marijuana Comment: Medical marijuana FAMILY HISTORY family history includes Hypertension in his father and mother. MEDICATIONS Personally reviewed. Reports only Percocet 10mg-325mg. ALLERGIES No Known Allergies REVIEW OF SYSTEMS Constitutional (no fever, chills, weight changes) Eyes (negative for vision changes) ENT (no ringing, loss of hearing) Cardiovascular (no LE edema or leg pain with walking, PND, orthopnea) Respiratory (no cough, SOB) Gastrointestinal (no abd pain, constipation, diarrhea) Genitourinary (no dysuria, gross hematuria) Integumentary (no rash) Musculoskeletal (no joint deformity, joint pains) Psych: (no depressed mood) Remainder of a comprehensive ROS otherwise negative except as per HPI. PHYSICAL EXAM Vitals: 08/19/22 1713 BP: 128/77 Pulse: 88 Resp: 16 Temp: 98.1 F (36.7 C) O2 Device: room air (08/19/22 1357) Gen: Sitting in chair, NAD, pleasant HEENT: PERRL, EOMI, no scleral icterus, MMM CV: RRR, no m/r/g, no JVD, no edema, intact pulses Resp: CTAb, no w/r/r, no accessory muscle use GI: +BS, soft, ND, NT MSK: No cyanosis or clubbing Skin: Warm, dry, no rashes Neuro: AAOx3, LUE strength 4/5, RUE strength 5/5, BLE strength 4/5, knee and ankle reflexes 3/4, noclonus, diminished sensation perineum DATA REVIEW Body mass index is 18.19 kg/m . OSH Labs (08/18/22): Na 133, K 3.9, Cl 95, CO2 29, BUN 9, Cr 0.79, Glu 95, Ca 9.7 WBC 9.6, Hgb 13.8, Plt 194 OSH Imaging: MRI brain/cervical/thoracic/lumbar available in [place]. Signed, Steven Monreal MD Division of Hospital Medicine [facility]* Nursing Notes - Ellen Guzman RN - 08/19/2022 4:39 PM EDT Paged day shift hospitalist: re: [facility] [address]. Direct admit arrived two hours ago. No new orders placed. Please advise, thanks! 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 I have offered the opportunity of physical therapy which he will consider and let us know. Otherwise we will see him back in about 2 months with repeat set of x-rays. 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 We will see the patient back on his regular scheduled appointment. [facility] Other 01-07-2022 Evaluation note* Encounter Date Diagnosis Assessment Notes Treatment Notes Treatment Clinical Notes Oct, Herniation of cervical intervertebral disc with radiculopathy (ICD-10 - M50.10) Our plan is to proceed with an anterior cervical discectomy and fusion at C6-7. We will try to use the 0 profile system or not remove the plate or worst only have to remove the lower screws in the lower part of the plate. Patient appears understand the risks and benefits the operative procedure including but not limited to the risk of bleeding, infection, increased, recurrent, residual neurologic deficit such as numbness, tingling, pain, weakness, hoarseness, difficulty swallowing, failed construct and ultimate need for reoperation. At this time the patient wishes to proceed with surgical intervention. [facility] Other 12-03-2021 Evaluation note* Encounter Date Diagnosis Assessment Notes Treatment Notes Treatment Clinical Notes Sep, Herniation of cervical intervertebral disc with radiculopathy (ICD-10 - M50.10) Given the patient's findings and the amount of profound weakness he has, I think he needs to be considered for an anterior cervical discectomy and fusion at C6-7. I would do this with a low-profile system so as not to have to remove his previous hardware. Sep, Scoliosis of lumbar region due to degenerative disease of spine in adult (ICD-10 - M41.86) Once his neck has been taken care of we can follow him for his lower back and see if he needs to have surgical intervention there. Unfortunate that would probably require an entire L1-S1 fusion. Sep, Spondylolisthesis, lumbosacral region (ICD-10 - M43.17) [facility] Other evaluation noteNo InformationNort [employer] Other evaluation note* Diagnosis Spinal stenosis of cervical region- Primary Spinal stenosis in cervical region Myelopathy Unspecified disease of spinal cord Spinal stenosis Spinal stenosis, unspecified region other than cervical Chronic pain Other chronic pain Falls Unspecified fall Uncomplicated alcohol dependence Other and unspecified alcohol dependence, unspecified drinking behavior Tobacco abuse Tobacco use disorder Electrolyte disorder (K, Cl, or Na) Electrolyte and fluid disorders not elsewhere classified [facility] Diagnosis S/P cervical spinal fusion- Primary Arthrodesis status Spinal stenosis of cervical region Spinal stenosis in cervical region [facility] Diagnosis Infection- Primary Unspecified infectious and parasitic diseases [facility] Diagnosis Infection- Primary Unspecified infectious and parasitic diseases Localized swelling of both lower legs [facility] Diagnosis Surgical site infection- Primary [facility] Diagnosis S/P flap graft- Primary Other postprocedural status Cervical vertebral fusion Klippel-Feil syndrome [facility] Diagnosis S/P cervical spinal fusion- Primary Arthrodesis status [facility] Diagnosis Neck pain Cervicalgia [facility] Diagnosis Wound dehiscence- Primary Disruption of external operation (surgical) wound Cervical vertebral fusion Klippel-Feil syndrome Wound dehiscence Disruption of external operation (surgical) wound [facility] Diagnosis Wound of back, unspecified laterality, sequela- Primary Wound dehiscence Disruption of external operation (surgical) wound Back wound Open wound of back, without mention of complication [facility] Diagnosis Encounter for follow-up care involving plastic surgery- Primary Wound dehiscence Disruption of external operation (surgical) wound [facility] Diagnosis Encounter for follow-up care involving plastic surgery- Primary Seroma of musculoskeletal structure after musculoskeletal system procedure [facility] Diagnosis Tobacco abuse- Primary Tobacco use disorder Wound dehiscence Disruption of external operation (surgical) wound [facility] Diagnosis Onset Date Resolution Status Cervical disc disorder at C4-C5 level with myelopathy acute Essential (primary) hypertension acute Spinal stenosis [facility] Work Phone: Evaluation note* Diagnosis Onset Date Resolution Status Lumbar radiculopathy, chronic acute Spinal stenosis acute Uncontrolled hypertension [facility] Work Phone: Evaluation note* Diagnosis Onset Date Resolution Status Situational anxiety acute [facility] Work Phone: History general Narrative - Reported* Type Description Date Medical History Arthritis Medical History osteoporosis Surgical History cervical fusion Surgical History rotator cuff right Surgical History knee miniscus [facility] [email or web address] Other History general Narrative - Reported* Type Description Date Medical History Arthritis Medical History osteoporosis Surgical History cervical fusion Surgical History rotator cuff right Surgical History knee miniscus Hospitalization History See Above [facility] [email or web address] Other [place] general Narrative - [facility] [email or web address] Other InstructionsNot on filedocumented in this encounter [facility] Consultation (Routine) - New Request Specialty Diagnoses / Procedures Referred By Contac t Referred To Contact Orthopaedic Surgery Diagnoses Spinal stenosis of cervical region Chanell Hart DO [address] [place] [address] Referral ID Status Reason Start Date Expiration Date V isits Requested Visits Authorized [id number] New Request 08/27/2022 09/21/2023 1 1 * (Routine) - New Request Specialty Diagnoses / Procedures Referred By Contac t Referred To Contact Procedures LOW RISK - NO PHARMACOLOGICAL DVT PROPHYLAXIS Bina Jerome MD [address] [place] [address] Referral ID Status Reason Start Date Expiration Date V isits Requested Visits Authorized [id number] New Request 08/20/2022 09/14/2023 1 1 * (Routine) - New Request Specialty Diagnoses / Procedures Referred By Contac t Referred To Contact Procedures DVT/VTE RISK ASSESSMENT Bina Jerome MD [address] [place] [address] Referral ID Status Reason Start Date Expiration Date V isits Requested Visits Authorized [id number] New Request 08/20/2022 09/14/2023 1 1 [facility] for visit Narrative* Auth/Cert Specialty Diagnoses / Procedures Referred By Conttess t Referred To Contact Diagnoses Cervical myopathy Elsy Maurer MD [address] [place] [address] [facility] [address] [place] [address] Referral ID Status Reason Start Date Expiration Date Visits Re quested Visits Authorized [id number] 1 1 [facility] for visit Narrative* Auth/Cert Specialty Diagnoses / Procedures Referred By Conttess t Referred To Contact Diagnoses Wound dehiscence Wound dehiscence [T81.30XA] Procedures TX DEBRIDEMENT, SKIN, SUB-Q TISSUE,MUSCLE,EACH ADD 20 SQ CM TX ADJ TISS XFER ANY AREA,30.1-60 SQCM TX MUSCLE-SKIN FLAP,TRUNK DEBRIDEMENT FASCIA MUSCLE ADD-ON PX TRANSFER/REARRANGEMENT ADJACENT TISSUE TRUNK FLAP MUSCLE/MYOCUTANEOUS/FASCIO CUTANEOUS TRUNK Walt West MD [address] [facility] [address] [place] [address] [facility] [address] [place] [address] Referral ID Status Reason Start Date Expiration Date Visits Re quested Visits Authorized [id number] 1 1 [facility] Summary Purpose Family History Relationship Condition Age at Onset Recorded Date/T sariah father Hypertension Unknown Malignant neoplasm of prostate Unknown Not Specified Hypertension Unknown Dementia Unknown Relationship Condition Age at Onset Recorded Date/T sariah father Hypertension Unknown Malignant neoplasm of prostate Unknown mother Hypertension Unknown Dementia Unknown Advance Directives Latest Code Status on File Code Status Date Activated Date Inactivated Comments Full Code 08/19/2022 5:03 PM Latest Code Status on File Code Status Date Activated Date Inactivated Comments Full Code 08/19/2022 5:03 PM Latest Code Status on File Code Status Date Activated Date Inactivated Comments Full Code 09/21/2022 8:04 PM Code Status History Code Status Date Activated Date Inactivated Comments Full Code 08/19/2022 5:03 PM 09/21/2022 8:04 PM Latest Code Status on File Code Status Date Activated Date Inactivated Comments Full Code 09/21/2022 8:04 PM Code Status History Code Status Date Activated Date Inactivated Comments Full Code 08/19/2022 5:03 PM 09/21/2022 8:04 PM Latest Code Status on File Code Status Date Activated Date Inactivated Comments Full Code 12/17/2022 3:00 PM Code Status History Code Status Date Activated Date Inactivated Comments Full Code 09/21/2022 8:04 PM 12/17/2022 3:00 PM Full Code 08/19/2022 5:03 PM 09/21/2022 8:04 PM Latest Code Status on File Code Status Date Activated Date Inactivated Comments Full Code 01/03/2023 12:01 PM Code Status History Code Status Date Activated Date Inactivated Comments Full Code 01/03/2023 5:23 AM 01/03/2023 12:01 PM Full Code 12/17/2022 3:00 PM 01/03/2023 5:23 AM Full Code 09/21/2022 8:04 PM 12/17/2022 3:00 PM Full Code 08/19/2022 5:03 PM 09/21/2022 8:04 PM Latest Code Status on File Code Status Date Activated Date Inactivated Comments Full Code 01/03/2023 12:01 PM Code Status History Code Status Date Activated Date Inactivated Comments Full Code 01/03/2023 5:23 AM 01/03/2023 12:01 PM Full Code 12/17/2022 3:00 PM 01/03/2023 5:23 AM Full Code 09/21/2022 8:04 PM 12/17/2022 3:00 PM Full Code 08/19/2022 5:03 PM 09/21/2022 8:04 PM Advance Directive Response Recorded Date/ Time Advance Directives No August 27, 2021 12:10pm Advance Directive Response Recorded Date/ Time Advance Directives No August 27, 2021 11:10am Date Activated Date Inactivated Comments 08/13/2022 11:28 PM 08/19/2022 12:44 PM Reason for Referral Specialty Diagnoses / Procedures Referred By Contac t Referred To Contact Procedures PLATELET MONITORING PER PROTOCOL Walt West MD [address] [place] [address] Referral ID Status Reason Start Date Expiration Date V isits Requested Visits Authorized [id number] New Request 01/03/2023 01/28/2024 1 1 Specialty Diagnoses / Procedures Referred By Contac t Referred To Contact Procedures DVT/VTE RISK ASSESSMENT Walt West MD [address] [place] [address] Referral ID Status Reason Start Date Expiration Date V isits Requested Visits Authorized [id number] New Request 01/03/2023 01/28/2024 1 1 Specialty Diagnoses / Procedures Referred By Contac t Referred To Contact Diagnoses Wound dehiscence Procedures NO MECHANICAL DVT PROPHYLAXIS Darcie Jeffery PA-C [address] [place] [address] Referral ID Status Reason Start Date Expiration Date V isits Requested Visits Authorized [id number] New Request 01/03/2023 01/28/2024 1 1 Specialty Diagnoses / Procedures Referred By Contac t Referred To Contact Diagnoses Wound dehiscence Procedures LOW RISK - NO PHARMACOLOGICAL DVT PROPHYLAXIS Darcie Jeffery PA-C [address] [place] [address] Referral ID Status Reason Start Date Expiration Date V isits Requested Visits Authorized [id number] New Request 01/03/2023 01/28/2024 1 1 Specialty Diagnoses / Procedures Referred By Contac t Referred To Contact Diagnoses Wound dehiscence Procedures DVT/VTE RISK ASSESSMENT Darcie Jeffery PA-C [address] [place] [address] Referral ID Status Reason Start Date Expiration Date V isits Requested Visits Authorized [id number] New Request 01/03/2023 01/28/2024 1 1 Specialty Diagnoses / Procedures Referred By Contac t Referred To Contact Procedures DIRECT ADMIT REQUEST DIRECT ADMIT REQUEST Bina Jerome MD [address] [facility] [address] [place] [address] Referral ID Status Reason Start Date Expiration Date V isits Requested Visits Authorized [id number] New Request 12/09/2022 01/03/2024 1 1 Specialty Diagnoses / Procedures Referred By Contac t Referred To Contact Diagnoses Localized swelling of both lower legs Procedures VASC DUPLEX VENOUS EXTREMITY LOWER BILATERAL Walt West MD [address] [facility] [address] [place] [address] Referral ID Status Reason Start Date Expiration Date V isits Requested Visits Authorized [id number] New Request 10/27/2022 11/21/2023 1 1 Chief Complaint and Reason for Visit Chief Complaint Amb Documentation 3 Month Check Up Amb Documentation medication check up Reason for Visit Cervical disc disord er at C4-C5 level with myelopathy Essential (primary) hypertension Spinal stenosis Chief Complaint Amb Documentation medication check up 3 month follow up Reason for Visit Lumbar radiculopathy , chronic Spinal stenosis Uncontrolled hypertension Chief Complaint 3 month follow up [phone] anxiety Reason for Visit Lumbar radiculopathy , chronic Spinal stenosis Uncontrolled hypertension Chief Complaint [phone] anxiety 3 month f/u Reason for Visit Situational anxiety Chief Complaint Admit Date 3 month f/u June 26, 2024 9:30am 3 month f/u September 03, 2024 9:28am Reason for Visit Admit Date Lumbar radiculopathy, chronic June 26, 2024 9:30am Spinal stenosis June 26, 2024 9:30am Uncontrolled hypertension June 26, 2024 9:30am Chief Complaint Admit Date 3 month f/u June 26, 2024 9:30am 3 month f/u September 03, 2024 9:28am Stomach Issues September 07, 2024 10:37am Reason for Visit Admit Date Lumbar radiculopathy, chronic June 26, 2024 9:30am Spinal stenosis June 26, 2024 9:30am Uncontrolled hypertension June 26, 2024 9:30am Epigastric abdominal pain September 07, 2024 10:37am Essential (primary) hypertension Novembe r 2023 10:37am Fatigue September 07, 2024 10:37am Nausea and vomiting September 07, 2024 10:37am Additional Source Comments REASON FOR VISIT (unrecogniz ed section and content) Reason Comments New Patient Specialty Diagnoses / Procedures Referred By Rui mosley Referred To Contact Orthopaedic Surgery Diagnoses Spinal stenosis of cervical region Chanell Hart, [address] [facility] [address] [place] [address] Referral ID Status Reason Start Date Expiration Date V isits Requested Visits Authorized [id number] New Request 08/27/2022 09/21/2023 1 1 Reason Comments Post Op Visit Reason Comments Follow-up Post op follow up Reason Comments Follow-up Reason Comments Post Op Visit Follow-up Reason Comments Post Op Visit S/P flap graft Reason Comments Post Op Visit Debridement Reason Comments Follow-up Follow up Reason Onset Date Comments NEW PATIENT REFERRAL 05/04/2024 (unrecognized sect ion and content) No Status Records FoundNo Status Records FoundNo Status Records FoundNo Status Records FoundNo Status Records FoundNo Status Records Found INFORMATION SOURCE (unrecogn ized section and content) DATE CREATED AUTHOR 08/25/2022 [facility] DATE CREATED AUTHOR AUTHOR'S ORGANIZ ATION 10/26/2022 Sayda Paz spiana laura DATE CREATED AUTHOR AUTHOR'S ORGANIZ ATION [facility] DATE CREATED AUTHOR AUTHOR'S ORGANIZ ATION 11/27/2022 [facility] DATE CREATED AUTHOR AUTHOR'S ORGANIZ ATION 01/06/2023 [facility] DATE CREATED AUTHOR AUTHOR'S ORGANIZ ATION 04/02/2023 [facility] Scheduled Active and Recently Administ ered Medications (unrecognized section and content) Medication Order 08/25/2022 08/26/2022 08/27/2022 acetaminophen (TYLENOL) tablet 975 mg 975 mg, Oral, EVERY 8 HOURS (0800/1600/2200), First dose on 08/21/22 at 2200, Until Discontinued, Maximum dose of acetaminophen is 4000 mg from all sources in 24 hours., Post-op/Post-Proc 0753 (Given - Provider: Jenny Brewer RN)1616 (Given - Provider: Luba Jones, LELA)2042 (Given - Provider: Luba Jones, LELA) 0833 (Given - Provider: Lori Garcia RN)1619 (Given - Provider: Lori Garcia RN)2133 (Given - Provider: Lori Garcia RN) 0810 (Given - Provider: Kami Will RN) gabapentin (NEURONTIN) capsule 100 mg 100 mg, Oral, 3 TIMES DAILY, First dose on 08/21/22 at 2100, Until Discontinued, Post-op/Post-Proc 0753 (Given - Provider: Jenny Brewer RN)1354 (Given - Provider: Jenny Brewer RN)2042 (Given - Provider: Luba Jones RN) 0834 (Given - Provider: Lori Garcia RN)1302 (Given - Provider: Lori Garcia RN)1927 (Given - Provider: Lori Garcia RN) 0810 (Given - Provider: Kami Will RN)1400 (Canceled Entry - Provider: System Discharge - Comment: Automatically canceled at discontinue of medication order) HYDROmorphone (DILAUDID) injection 0.5 mg (COMPLETED) 0.5 mg, Intravenous, ONCE, 1 dose, On Tue08/25/22 at 0645 0632 (Given - Provider: Mariangel Silva, LELA) polyethylene glycol (MIRALAX) packet 17 g 17 g, Oral, DAILY, First dose (after last modification) on Tue08/22/22 at 0900, Until Discontinued 0753 (Given - Provider: Jenny Brewer RN) 0903 (Not Given - Provider: Lori Garcia RN - Reason: Patient/family refused) 0812 (Not Given - Provider: Kami Will RN - Reason: Patient/family refused) senna (SENOKOT) tablet 8.6 mg 8.6 mg, Oral, EVERY 12 HOURS, First dose on Ирина 08/19/22 at 2100, Until Discontinued 0753 (Given - Provider: Jenny Brewer RN)1948 (Not Given - Provider: Luba Jones RN - Reason: Patient with symptoms) 09 (Not Given - Provider: Lori Garcia RN - Reason: Patient/family refused)210 (Not Given - Provider: Lori Garcia RN - Reason: Patient/family refused) 0813 (Not Given - Provider: Kami Will RN - Reason: Patient/family refused) PRN Medication Order 08/25/2022 08/26/2022 08/27/2022 alum/mag hydrox.-simethicone oral suspension 30 mL 30 mL, Oral, EVERY 6 HOURS NEEDED, Starting on Ирина 08/19/22 at 1702, Until Tue08/27/22 at 1414, Indigestion, Per 5 mL is equivalent to: (Alum-Mag Hydroxide 200-225 mg and Simethicone 20 mg) and (Alum-Mag Hydroxide 200-200 mg and Simethicone 20 mg) diazepam (VALIUM) tablet 5 mg 5 mg, Oral, EVERY 8 HOURS NEEDED, Starting on Tue08/24/22 at 1017, Until Tue08/27/22 at 1414, Muscle spasms 0122 (Given - Provider: Rae Mcgrath RN)1043 (Given - Provider: Jenny Brewer, LELA)1948 (Given - Provider: Luba Jones, LELA) 0833 (Given - Provider: Lori Garcia RN)1636 (Given - Provider: Lori Garcia RN) 0009 (Given - Provider: Maria L Zhou RN)0809 (Given - Provider: Kami Will, RN) guaiFENesin (ROBITUSSIN) oral solution 200 mg 200 mg, Oral, EVERY 6 HOURS NEEDED, Starting on Tue08/20/22 at 0953, Until Tue08/27/22 at 1414, Cough hydrALAZINE (APRESOLINE) tablet 25 mg 25 mg, Oral, EVERY 8 HOURS NEEDED, Starting on Tue08/22/22 at 1122, Until Tue08/27/22 at 1414, Other, SBP >180 HYDROmorphone (DILAUDID) injection 0.5 mg(Linked Group 1) 0.5 mg, Intravenous, EVERY 6 HOURS NEEDED, Starting on Ирина 08/26/22 at 1103, Until Tue08/27/22 at 1414, Severe Pain, Use as initial dose. Higher dose may be administered if lower dose was previously documented as ineffective and did not result in adverse effects (RR<10, decrease in level of consciousness). For severe pain IF patient unable to tolerate PO., Post-op/Post-Proc 1302 (Given - Provider: Lori Garcia RN)1927 (Given - Provider: Lori Garcia RN) 0254 (Given - Provider: Maria L Zhou, RN)1133 (Given - Provider: Kami Will RN) HYDROmorphone (DILAUDID) injection 1 mg (CANCELED) 1 mg, Intravenous, EVERY 3 HOURS NEEDED, Starting on e 08/24/22 at 1825, Until Ирина 08/26/22 at 1102, Severe Pain, Higher dose may be administered if lower dose was previously documented as ineffective and did not result in adverse effects (RR<10, decrease in level of consciousness). Decrease back to lower dose if patient has adverse effects, or no PRN used in previous 12 hours. For severe pain IF patient unable to tolerate PO., Post-op/Post-Proc 0427 (Given - Provider: Rae Mcgrath RN)0929 (Given - Provider: Jenny Brewer, RN)1354 (Given - Provider: Jenny Brewer, RN)1809 (Given - Provider: Luba Jones, LELA)2202 (Given - Provider: Luba Jones, RN) 0311 (Given - Provider: Rae Mcgrath, RN)0654 (Given - Provider: Rae Mcgrath, RN) HYDROmorphone (DILAUDID) injection 1 mg(Linked Group 1) 1 mg, Intravenous, EVERY 6 HOURS NEEDED, Starting on Ирина 08/26/22 at 1103, Until Tue08/27/22 at 1414, Severe Pain, Higher dose may be administered if lower dose was previously documented as ineffective and did not result in adverse effects (RR<10, decrease in level of consciousness). Decrease back to lower dose if patient has adverse effects, or no PRN used in previous 12 hours. For severe pain IF patient unable to tolerate PO., Post-op/Post-Proc 1302 (See Alternative - Provider: Lori Garcia RN)1927 (See Alternative - Provider: Lori Garcia RN) 0254 (See Alternative - Provider: Maria L Zhou RN)1133 (See Alternative - Provider: Kami Will RN) hydrophil petrolatum-mineral oil (AQUAPHOR) ointment 1 Application 1 Application, Topical, NEEDED, Starting on Tue08/26/22 at 1342, Until Tue08/27/22 at 1414, Other, itch, Apply toaffected area. AVOID mouth or nostril areas IF patient on oxygen therapy due to flammable substance risk (OK to use Surgilube) Patient may self-administer. hydrOXYzine hcl (ATARAX) tablet 10 mg 10 mg, Oral, 3 TIMES DAILY NEEDED, Starting on Tue08/20/22 at 0953, Until Tue08/27/22 at 1414, Anxiety magnesium oxide (MAG-OX) tablet 800 mg(Linked Group 2) 800 mg, Oral, ADMINISTER DIRECTED, Starting on Tue08/19/22 at 1702, Until Tue08/27/22 at 1414, See admin instructions, Medicine Electrolyte Replacement Protocol, Administer for magnesium level of 1.6-1.9 mg/dL. NOT APPROPRIATE for Dialysis Patients, those with CrCl less than 30 mL/min, weight less than 50 kg; or for history of renal transplant. Draw magnesium level with next day morning labs. magnesium oxide (MAG-OX) tablet 800 mg(Linked Group 2) 800 mg, Per NG tube, ADMINISTER DIRECTED, Starting on Tue08/19/22 at 1702, Until Tue08/27/22 at 1414, See admin instructions, Medicine Electrolyte Replacement Protocol, Administer for magnesium level of 1.6-1.9 mg/dL. NOT APPROPRIATE for Dialysis Patients, those with CrCl less than 30 mL/min, weight less than 50 kg; or for history of renal transplant. Draw magnesium level with next day morning labs. Magnesium Sulfate 4 g in sterile water 50 ml premix IVPB(Linked Group 2) 4 g, Intravenous, Administer over 4 Hours, ADMINISTER DIRECTED, Starting on Tue08/19/22 at 1702, Until Tue08/27/22 at 1414, Other, Medicine Electrolyte Replacement Protocol, Administer for Magnesium level less than or equal to 1.5 mg/dL. NOT APPROPRIATE for Dialysis Patients, those with CrCl less than 30 mL/min, weight less than 50 kg; or for history of renal transplant. Repeat Magnesium level eight (8) hours after each infusion if most recent magnesium level is less than 1.3 mg/dL. Draw with next day morning labs after replacements for previous magnesium levels between 1.3-1.9 mg/dL. melatonin tablet 6 mg 6 mg, Oral, DAILY AT BEDTIME NEEDED, Starting on Tue08/19/22 at 1702, Until Tue08/27/22 at 1414, Insomnia ondansetron (ZOFRAN) tablet 4 mg(Linked Group 3) 4 mg, Oral, EVERY 6 HOURS NEEDED, Starting on Ирина 08/19/22 at 1702, Until Tue08/27/22 at 1414, Nausea / Vomiting, 1st line for Nausea/Vomiting ondansetron 4mg/2ml (ZOFRAN) injection 4 mg(Linked Group 3) 4 mg, Intravenous, EVERY 6 HOURS NEEDED, Starting on Ирина 08/19/22 at 1702, Until Tue08/27/22 at 1414, Nausea / Vomiting, 1st line for Nausea/Vomiting oxyCODONE HCl (ROXICODONE) tablet 10 mg(Linked Group 4) 10 mg, Oral, EVERY 4 HOURS NEEDED, Starting on Tue08/26/22 at 1103, Until Tue08/27/22 at 1414, Moderate Pain, Severe Pain, Use as initial dose. Higher dose may be administered if lower dose was previously documented as ineffective and did not result in adverse effects (RR<10, negative change in RASS of 2 or more)., Post-op/Post-Proc 1412 (See Alternative - Provider: Lori Garcia RN)1820 (See Alternative - Provider: Lori Garcia RN)2229 (See Alternative - Provider: Lori Garcia RN) 0453 (See Alternative - Provider: Maria L Zhou RN)0914 (See Alternative - Provider: Kami Will, RN)0922 (See Alternative - Provider: Kami Will, RN) oxyCODONE HCl (ROXICODONE) tablet 20 mg (CANCELED) 20 mg, Oral, EVERY 4 HOURS NEEDED, Starting on Tue08/24/22 at 0712, Until Tue08/26/22 at 1103, Moderate Pain, Severe Pain, Higher dose may be administered if lower dose was previously documented as ineffective and did not result in adverse effects (RR<10, negative change in RASS of 2 or more). Decrease back to lower dose if patient has adverse effects or no PRN use in previous 12 hours. Hold for sedation. 0254 (Given - Provider: Mariangel Silva, LELA)0753 (Given - Provider: Jenny Brewer, RN)1159 (Given - Provider: Mxaine Carias, RN)1616 (Given - Provider: Luba Jones, RN)2042 (Given - Provider: Luba Jones, RN) 0133 (Given - Provider: Rae Mcgrath, RN)0555 (Given - Provider: Rae Mcgrath, RN)1003 (Given - Provider: Lori Garcia, LELA) oxyCODONE HCl (ROXICODONE) tablet 25 mg(Linked Group 4) 25 mg, Oral, EVERY 4 HOURS NEEDED, Starting on Ирина 08/26/22 at 1103, Until Tue08/27/22 at 1414, Moderate Pain, Severe Pain, Higher dose may be administered if lower dose was previously documented as ineffective and did not result in adverse effects (RR<10, negative change in RASS of 2 or more). Decrease back to lower dose if patient has adverse effects or no PRN use in previous 12 hours. Hold for sedation., Post-op/Post-Proc 1412 (Given - Provider: Lori Garcia RN)1820 (Given - Provider: Lori Garcia RN)2229 (Given - Provider: Lori Garcia, LELA) 0453 (Given - Provider: Maria L Zhou RN)0914 (Canceled Entry - Provider: Kami Will RN - Comment: Removed 10mg but patient wanted 25 due to pain. Went to [facility] and got a 15 to add to the 10mg)0922 (Given - Provider: Kami Will, LELA) Potassium Bicarb-Citric Acid (Effer-K) 20 MEQ effervescent tablets for oral solution 40-60 mEq(Linked Group 5) 40-60 mEq, Per NG tube, ADMINISTER DIRECTED, Starting on Ирина 08/19/22 at 1702, Until Tue08/27/22 at 1414, Other, Medicine Electrolyte Replacement Protocol - Non-Cardiology Replacement - see administration instructions, NOT APPROPRIATE for Dialysis Patients, those with CrCl less than 30 mL/min, weight less than 50 kg; or for history of renal transplant. Check magnesium level and administer magnesium prior to potassium replacement if indicated. For potassium level 3 - 3.5 mmol/L administer 40 mEq. Recheck potassium level with morning labs next day. For potassium level less than 3 mmol/L administer 60 mEq. Recheck potassium level 8 hours after dose administered. Do not swallow whole. Dissolve completely in 3-4 ounces of water or cold juice before drinking. If administering via J tube, dilute in sterile water, wait for tablet to stop fizzing, swirl the solution and draw into a syringe suitable for attaching to the tube. After administration, flush tube with 15-30 ml water. potassium chloride (K-DUR) tablet ER 40-60 mEq(Linked Group 5) 40-60 mEq, Oral, ADMINISTER DIRECTED, Starting on Ирина 08/19/22 at 1702, Until Tue08/27/22 at 1414, See admin instructions, Medicine Electrolyte Replacement Protocol - Non-Cardiology Replacement, NOT APPROPRIATE for Dialysis Patients, those with CrCl less than 30 mL/min, weight less than 50 kg; or for history of renal transplant. Check magnesium level and administer magnesium prior to potassium replacement if indicated. For potassium level 3 - 3.5 mmol/L administer 40 mEq. Recheck potassium level with morning labs next day. For potassium level less than 3 mmol/L administer 60 mEq. Recheck potassium level 8 hours after dose administered. sodium chloride 0.9% IV solution 250 mL Intravenous, at 20 mL/hr, NEEDED, Starting on Ирина 08/19/22 at 1701, Until Tue08/27/22 at 1414, Carrier Fluid - See Admin. Inst, 250mL 0.9NS to be used as carrier fluid for intermittent small volume or piggyback medication administration as needed. Infusion rate of the carrier fluid should be set at 20 mL/hr unless the rate as the intermittent medication is less than 20 mL/hr. For intermittent medications with a rate less than 20 mL/hr set the carrier fluid at that rate of the intermittent or piggy back medication. Linked Groups Order Group 1: HYDROmorphone (DILAUDID) injection 0.5 mgJump to med 0.5 mg, Intravenous, EVERY 6 HOURS NEEDED, Starting on Ирина 08/26/22 at 1103, Until Tue08/27/22 at 1414, Severe Pain
Use as initial dose. Higher dose may be administered if lower dose was previously documented as ineffective and did not result in adverse effects (RR<10, decrease in level of consciousness). For severe pain IF patient unable to tolerate PO.
Post-op/Post-Proc Or HYDROmorphone (DILAUDID) injection 1 mgJump to med 1 mg, Intravenous, EVERY 6 HOURS NEEDED, Starting on Ирина 08/26/22 at 1103, Until Tue08/27/22 at 1414, Severe Pain
Higher dose may be administered if lower dose was previously documented as ineffective and did not result in adverse effects (RR<10, decrease in level of consciousness). Decrease back to lower dose if patient has adverse effects, or no PRN used in previous 12 hours. For severe pain IF patient unable to tolerate PO.
Post-op/Post-Proc Group 2: magnesium oxide (MAG-OX) tablet 800 mgJump to med 800 mg, Oral, ADMINISTER DIRECTED, Starting on Ирина 08/19/22 at 1702, Until Tue08/27/22 at 1414, See admin instructions, Medicine Electrolyte Replacement Protocol
Administer for magnesium level of 1.6-1.9 mg/dL. NOT APPROPRIATE for Dialysis Patients, those with CrCl less than 30 mL/min, weight less than 50 kg; or for history of renal transplant. Draw magnesium level with next day morning labs.
Or magnesium oxide (MAG-OX) tablet 800 mgJump to med 800 mg, Per NG tube, ADMINISTER DIRECTED, Starting on Ирина 08/19/22 at 1702, Until Tue08/27/22 at 1414, See admin instructions, Medicine Electrolyte Replacement Protocol
Administer for magnesium level of 1.6-1.9 mg/dL. NOT APPROPRIATE for Dialysis Patients, those with CrCl less than 30 mL/min, weight less than 50 kg; or for history of renal transplant. Draw magnesium level with next day morning labs.
Or Magnesium Sulfate 4 g in sterile water 50 ml premix IVPBJump to med 4 g, Intravenous, Administer over 4 Hours, ADMINISTER DIRECTED, Starting on Ирина 08/19/22 at 1702, Until Tue08/27/22 at 1414, Other, Medicine Electrolyte Replacement Protocol
Administer for Magnesium level less than or equal to 1.5 mg/dL. NOT APPROPRIATE for Dialysis Patients, those with CrCl less than 30 mL/min, weight less than 50 kg; or for history of renal transplant. Repeat Magnesium level eight (8) hours after each infusion if most recent magnesium level is less than 1.3 mg/dL. Draw with next day morning labs after replacements for previous magnesium levels between 1.3-1.9 mg/dL.
Group 3: ondansetron 4mg/2ml (ZOFRAN) injection 4 mgJump to med 4 mg, Intravenous, EVERY 6 HOURS NEEDED, Starting on Ирина 08/19/22 at 1702, Until Tue08/27/22 at 1414, Nausea / Vomiting, 1st line for Nausea/Vomiting Or ondansetron (ZOFRAN) tablet 4 mgJump to med 4 mg, Oral, EVERY 6 HOURS NEEDED, Starting on Ирина 08/19/22 at 1702, Until Tue08/27/22 at 1414, Nausea / Vomiting, 1st line for Nausea/Vomiting Group 4: oxyCODONE HCl (ROXICODONE) tablet 10 mgJump to med 10 mg, Oral, EVERY 4 HOURS NEEDED, Starting on Ирина 08/26/22 at 1103, Until Tue08/27/22 at 1414, Moderate Pain, Severe Pain
Use as initial dose. Higher dose may be administered if lower dose was previously documented as ineffective and did not result in adverse effects (RR<10, negative change in RASS of 2 or more).
Post-op/Post-Proc Or oxyCODONE HCl (ROXICODONE) tablet 25 mgJump to med 25 mg, Oral, EVERY 4 HOURS NEEDED, Starting on Ирина 08/26/22 at 1103, Until Tue08/27/22 at 1414, Moderate Pain, Severe Pain
Higher dose may be administered if lower dose was previously documented as ineffective and did not result in adverse effects (RR<10, negative change in RASS of 2 or more). Decrease back to lower dose if patient has adverse effects or no PRN use in previous 12 hours. Hold for sedation.
Post-op/Post-Proc Group 5: potassium chloride (K-DUR) tablet ER 40-60 mEqJump to med 40-60 mEq, Oral, ADMINISTER DIRECTED, Starting on Ирина 08/19/22 at 1702, Until Tue08/27/22 at 1414, See admin instructions, Medicine Electrolyte Replacement Protocol - Non-Cardiology Replacement
NOT APPROPRIATE for Dialysis Patients, those with CrCl less than 30 mL/min, weight less than 50 kg; or for history of renal transplant. Check magnesium level and administer magnesium prior to potassium replacement if indicated. For potassium level 3 - 3.5 mmol/L administer 40 mEq. Recheck potassium level with morning labs next day. For potassium level less than 3 mmol/L administer 60 mEq. Recheck potassium level 8 hours after dose administered.
Or Potassium Bicarb-Citric Acid (Effer-K) 20 MEQ effervescent tablets for oral solution 40-60 mEqJump to med 40-60 mEq, Per NG tube, ADMINISTER DIRECTED, Starting on Ирина 08/19/22 at 1702, Until Tue08/27/22 at 1414, Other, Medicine Electrolyte Replacement Protocol - Non-Cardiology Replacement - see administration instructions
NOT APPROPRIATE for Dialysis Patients, those with CrCl less than 30 mL/min, weight less than 50 kg; or for history of renal transplant. Check magnesium level and administer magnesium prior to potassium replacement if indicated. For potassium level 3 - 3.5 mmol/L administer 40 mEq. Recheck potassium level with morning labs next day. For potassium level less than 3 mmol/L administer 60 mEq. Recheck potassium level 8 hours after dose administered. Do not swallow whole. Dissolve completely in 3-4 ounces of water or cold juice before drinking. If administering via J tube, dilute in sterile water, wait for tablet to stop fizzing, swirl the solution and draw into a syringe suitable for attaching to the tube. After administration, flush tube with 15-30 ml water.
Scheduled Medication Order 01/02/2023 01/03/2023 01/04/2023 Docusate (COLACE) capsule 100 mg 100 mg, Oral, 2 TIMES DAILY, First dose on Tue01/03/23 at 1215, Until Discontinued, Hold for diarrhea., Post-op/Post-Proc 1234 (Given - Provider: Vero Rao RN)1323 (Given - Provider: Vero Rao RN - Comment: was leisa previously) 0859 (Given - Provider: Elizabeth Banks RN) Enoxaparin Sodium (LOVENOX) injection 40 mg 40 mg, Subcutaneous, EVERY 24 HOURS, First dose on Tue01/04/23 at 0000, Until Discontinued, , Indications: DVT/PE prophylaxis, Post-op/Post-Proc 2354 (Given - Provider: Zuleyka Holland RN) Gabapentin (NEURONTIN) capsule 600 mg 600 mg, Oral, 3 TIMES DAILY, First dose on Tue01/03/23 at 1400, Until Discontinued, Post-op/Post-Proc 1334 (Given - Provider: Vero Rao RN)202 (Given - Provider: Zuleyka Holland RN) 0859 (Given - Provider: Elizabeth Banks RN) Senna (SENOKOT) tablet 8.6 mg 8.6 mg, Oral, DAILY WITH DINNER, First dose on Tue01/03/23 at 1700, Until Discontinued, Post-op/Post-Proc 1603 (Given - Provider: Vero Rao RN) Continuous Medication Order 01/02/2023 01/03/2023 01/04/2023 Lactated ringers IV solution (CANCELED) Intravenous, at 20 mL/hr, CONTINUOUS, Starting on Tue01/03/23 at 0530, Until Tue01/03/23 at 1207, Pre-op/Pre-Proc 0554 ($$New Bag$$ - Provider: Luisa Jiménez RN) Lactated ringers IV solution Intravenous, at 50 mL/hr, CONTINUOUS, Starting on Tue01/03/23 at 1000, Until Tue01/04/23 at 1353, Post-op/Post-Proc 1026 ($$New Bag$$ - Provider: Sarah Beth Arthur RN)1609 (Paused - Provider: Zuleyka Holland RN)1609 (Paused - Provider: Zuleyka Holland RN)1640 (Restarted - Provider: Zuleyka Holland RN)2204 (Rate/Dose Verify - Provider: Zuleyka Holland RN) 0612 (Rate/Dose Verify - Provider: Zuleyka Holland RN)0701 (Stopped - Provider: Zuleyka Holland RN) PRN Medication Order 01/02/2023 01/03/2023 01/04/2023 Acetaminophen (TYLENOL) tablet 650 mg 650 mg, Oral, EVERY 4 HOURS NEEDED, 6 doses, Starting on Tue01/03/23 at 1201, Until Tue01/04/23 at 1353, Mild Pain, Administer as first line for mild pain. If pain unrelieved one hour after administration may administer ibuprofen if ordered., Post-op/Post-Proc 0153 (Given - Provid er: Zuleyka Holland RN)0623 (Given - Provider: Zuleyka Holland RN) alum/mag hydrox.-simethicone oral suspension 30 mL 30 mL, Oral, EVERY 6 HOURS NEEDED, Starting on Tue01/03/23 at 1201, Until Tue01/04/23 at 1353, Indigestion, Per 5 mL is equivalent to: (Alum-Mag Hydroxide 200-225 mg and Simethicone 20 mg) and (Alum-Mag Hydroxide 200-200 mg and Simethicone 20 mg), Post-op/Post-Proc bisacodyl (DULCOLAX) suppository 10 mg 10 mg, Rectal, DAILY NEEDED, Starting on Tue01/03/23 at 1201, Until Tue01/04/23 at 1353, Constipation 1st Line, Post-op/Post-Proc ceFAZolin (ANCEF) 2 g in dextrose 100 mL premix IVPB (COMPLETED) 2 g, Intravenous, Administer over 30 Minutes, NATIONAL COVERAGE SPECIALIST TO PROCEDURE, 1 dose, Starting on Tue01/03/23 at 0523, Until Discontinued, Other, surgical prophylaxis, Initiate antibiotic administration 30-60 minutes prior to surgical incision and complete administration prior to surgical incision., Pre-op/Pre-Proc 726 (Given - Provider: Eric Garcia, APPRENTICE JOCKEY-CONCRETE RUBBER) hydrALAZINE (APRESOLINE) injection 5 mg 5 mg, Intravenous, EVERY 6 HOURS NEEDED, Starting on Tue01/03/23 at 1350, Until Tue01/04/23 at 1353, SBP > 160 mmHg 1513 (Given - Provider: Vero Rao, RN) 0343 (Given - Provider: Zuleyka Holland, LELA) HYDROmorphone (DILAUDID) injection 0.5 mg (CANCELED) 0.5 mg, Intravenous, EVERY 5 MINUTES NEEDED, Starting on Tue01/03/23 at 0842, Until Tue01/03/23 at 1207, Moderate Pain, Severe Pain, Higher dose may be administered if lower dose did not result in adverse effects (RR<10, decrease in level of consciousness) and was previously documented as ineffective. Decrease back to lower dose if patient has adverse effects, or no PRN used in previous 30 minutes. May give a total of 4mg in PACU ., Recovery 0953 (Given - Provider: Rashel Li RN)1053 (Given - Provider: Rashel Li, LELA) Ibuprofen (MOTRIN) tablet 600 mg 600 mg, Oral, EVERY 6 HOURS NEEDED, Starting on Tue01/03/23 at 1201, Until Tue01/04/23 at 1353, Mild Pain, May administer for mild pain if pain unrelieved one hour after administration of acetaminophen if ordered., Post-op/Post-Proc 0341 (Given - Provid er: Zuleyka Holland RN) Labetalol (NORMODYNE) injection 10 mg 10 mg, Intravenous, EVERY 6 HOURS NEEDED, Starting on Tue01/03/23 at 1656, Until Tue01/04/23 at 1353, SBP > 160 mmHg with HR >60 bpm, 1st line, Administration duration: up to 20 mg over 2 minutes. Telemetry required except for ANALYTICAL DATA MINER patients on [address] 6 and 7. For vials: labetalol should be treated as a SINGLE USE VIAL. Discard remaining contents after one use. 0450 (Given - Provid er: Zuleyka Holland RN) Ondansetron (ZOFRAN) tablet 4 mg(Linked Group 1) 4 mg, Oral, EVERY 6 HOURS NEEDED, Starting on Tue01/03/23 at 1201, Until Tue01/04/23 at 1353, Refractory Nausea Vomiting, unrelieved by Promethazine, Post-op/Post-Proc Ondansetron 4mg/2ml (ZOFRAN) injection 4 mg(Linked Group 1) 4 mg, Intravenous, EVERY 6 HOURS NEEDED, Starting on Tue01/03/23 at 1201, Until Tue01/04/23 at 1353, Refractory Nausea Vomiting, unrelieved by Promethazine, Post-op/Post-Proc oxyCODONE (ROXICODONE) tablet 5 mg 5 mg, Oral, EVERY 3 HOURS NEEDED, Starting on Tue01/03/23 at 1201, Until Tue01/04/23 at 1353, Severe Pain, Post-op/Post-Proc 1233 (Given - Provider: Vero Rao, RN)1603 (Given - Provider: Vero Rao, RN)2021 (Given - Provider: Zuleyka Holland, RN)2357 (Given - Provider: Zuleyka Holland, LELA) 0341 (Given - Provider: Zuleyka Holland RN)0623 (Given - Provider: Zuleyka Holland, LELA)0900 (Given - Provider: Elizabeth Banks RN) Phenol (CHLORASEPTIC) 1.4 % oral spray 1-2 spray 1-2 spray, Mouth/Throat, NEEDED, Starting on Tue01/03/23 at 1201, Until Tue01/04/23 at 1353, Sore Throat, Patient may self-administer., Post-op/Post-Proc Prochlorperazine (COMPAZINE) injection 10 mg(Linked Group 2) 10 mg, Intravenous, EVERY 6 HOURS NEEDED, Starting on Tue01/03/23 at 1201, Until Tue01/04/23 at 1353, Nausea / Vomiting, For IV route: dilute dose with 10mL normal saline and give by slow IV push at a rate of 5mg/min. Maximum of 40mg/day., Post-op/Post-Proc Promethazine (PHENERGAN) suppository 25 mg(Linked Group 2) 25 mg, Rectal, EVERY 6 HOURS NEEDED, Starting on Tue01/03/23 at 1201, Until Tue01/04/23 at 1353, Nausea / Vomiting, Post-op/Post-Proc Promethazine (PHENERGAN) tablet 25 mg(Linked Group 2) 25 mg, Oral, EVERY 6 HOURS NEEDED, Starting on Tue01/03/23 at 1201, Until Tue01/04/23 at 1353, Nausea / Vomiting, Post-op/Post-Proc Sterile water irrigation (CANCELED) NEEDED, Starting on Tue01/03/23 at 0813, Until Tue01/03/23 at 0853, Intra-op/Intra-Proc 0813 (Given - Provider: Walt West MD - Comment: 450mL bottle containing 0.05% CHG in sterile water, LONG-TERM (99.95%))) Linked Groups Order Group 1: Ondansetron 4mg/2ml (ZOFRAN) injection 4 mgJump to med 4 mg, Intravenous, EVERY 6 HOURS NEEDED, Starting on Tue01/03/23 at 1201, Until Tue01/04/23 at 1353, Refractory Nausea Vomiting, unrelieved by Promethazine, Post-op/Post-Proc Or Ondansetron (ZOFRAN) tablet 4 mgJump to med 4 mg, Oral, EVERY 6 HOURS NEEDED, Starting on Tue01/03/23 at 1201, Until Tue01/04/23 at 1353, Refractory Nausea Vomiting, unrelieved by Promethazine, Post-op/Post-Proc Group 2: Prochlorperazine (COMPAZINE) injection 10 mgJump to med 10 mg, Intravenous, EVERY 6 HOURS NEEDED, Starting on Tue01/03/23 at 1201, Until Tue01/04/23 at 1353, Nausea / Vomiting
For IV route: dilute dose with 10mL normal saline and give by slow IV push at a rate of 5mg/min. Maximum of 40mg/day.
Post-op/Post-Proc Or Promethazine (PHENERGAN) tablet 25 mgJump to med 25 mg, Oral, EVERY 6 HOURS NEEDED, Starting on Tue01/03/23 at 1201, Until Tue01/04/23 at 1353, Nausea / Vomiting, Post-op/Post-Proc Or Promethazine (PHENERGAN) suppository 25 mgJump to med 25 mg, Rectal, EVERY 6 HOURS NEEDED, Starting on Tue01/03/23 at 1201, Until Tue01/04/23 at 1353, Nausea / Vomiting, Post-op/Post-Proc Care Teams (unrecognized sec tion and content) Team Status: Active Member Role Status Dates Eden Conroy MD Primary Care Provider Active Team Status: Inactive Member Role Status Dates Eden Conroy MD Primary Care Provide r, Attending Provider Active Start: March 22, 2024 End: March 22, 2024 Team Status: Inactive Member Role Status Dates Eden Conroy MD Primary Care Provide r, Attending Provider Active Start: May 03, 2024 End: May 03, 2024 Object Oriented Developer Relationship Specialty Start Date End Date Eden Conroy MD [address] [place] [address] [place] [address] PCP - General Family Medicine 09/06/22 Object Oriented Developer Relationship Specialty Start Date End Date Eden Conroy MD [address] [place] [address] [place] [address] PCP - General Family Medicine 09/06/22 Object Oriented Developer Relationship Specialty Start Date End Date Eden Conroy MD [address] [place] [address] [place] [address] PCP - General Family Medicine 09/06/22 Object Oriented Developer Relationship Specialty Start Date End Date Eden Conroy MD [address] [place] [address] [place] [address] PCP - General Family Medicine 09/06/22 Object Oriented Developer Relationship Specialty Start Date End Date Eden Conroy MD [address] [place] [address] [place] [address] PCP - General Family Medicine 09/06/22 Object Oriented Developer Relationship Specialty Start Date End Date Eden Conroy MD [address] [place] [address] [place] [address] PCP - General Family Medicine 09/06/22 Object Oriented Developer Relationship Specialty Start Date End Date Eden Conroy MD [address] [place] [address] [place] [address] PCP - General Family Medicine 09/06/22 Object Oriented Developer Relationship Specialty Start Date End Date Eden Conroy MD [address] [place] [address] [place] [address] PCP - General Family Medicine 09/06/22 Object Oriented Developer Relationship Specialty Start Date End Date Eden Conroy MD [address] [place] [id number] PCP - General Family Medicine 09/06/22 Object Oriented Developer Relationship Specialty Start Date End Date Eden Conroy MD [address] [place] [id number] PCP - General Family Medicine 09/06/22 Team Status: Active Member Role Status Dates Eden Conroy MD Primary Care Provider Active Start: December 16, 2023 AISSATOU Owens Attending Provider Active Start : December 16, 2023 Team Status: Inactive Member Role Status Dates Eden Conroy MD Primary Care Provide r, Attending Provider Active Start: December 22, 2023 End: December 22, 2023 Team Status: Active Member Role Status Dates Eden Conroy MD Primary Care Provide r, Attending Provider Active Start: January 13, 2024 Team Status: Inactive Member Role Status Dates Eden Conroy MD Primary Care Provide r, Attending Provider Active Start: January 16, 2024 End: January 16, 2024 Team Status: Inactive Member Role Status Dates Eden Conroy MD Primary Care Provide r, Attending Provider Active Start: June 26, 2024 End: June 26, 2024 Team Status: Inactive Member Role Status Dates Eden Conroy MD Primary Care Provide r, Attending Provider Active Start: September 03, 2024 End: September 03, 2024 Team Status: Inactive Member Role Status Dates Eden Conroy MD Primary Care Provide r, Attending Provider Active Start: September 07, 2024 End: September 07, 2024 Object Oriented Developer Relationship Specialty Start Date End Date Eden Conroy MD [address] [place] [address] [id number] PCP - General 03/29/17 Goals (unrecognized section and content) Goals may be documented in a n alternate section FOR RECORDS PERTAINING TO PATIENTS WHO ARE OR HAVE BEEN ENROLLED IN A CHEMICAL DEPENDENCY/SUBSTANCEABUSE PROGRAM, SOME INFORMATION MAY BE OMITTED. This clinical summary was aggregated from multiple sources. Caution should be exercised in using it in the provision of clinical care. This summary normalizes information from multiple sources, and as a consequence, information in this document may materially change the coding, format and clinical context of patient data. In addition, data may be omitted in some cases. CLINICAL DECISIONS SHOULD BE BASED ON THE PRIMARY CLINICAL RECORDS. [facility] [employer] [facility]. provides no warranty or guarantee of the accuracy or completeness of information in this document.
[2025-01-03 12:04] LABS: Basophils Absolute Auto 0.1 10^3/uL (0.0-0.1); Basophils Percent Auto 1.8 % (0.2-2.0); Eosinophils Percent Auto 18.2 % (0.9-7.0); Hematocrit 40.7 % (42.0-54.0); Hemoglobin 13.7 g/dL (14.0-18.0); Immature Granulocytes Abs Auto 0.01 10^3/uL (0.00-0.03); Immature Granulocytes Pct Auto 0.2 % (0.0-0.5); Lymphocytes Absolute Auto 1.8 10^3/uL (1.2-3.8); Lymphocytes Percent Auto 32.5 % (20.5-60.0); Mean Corpuscular HGB Conc 33.7 g/dL (29.9-35.2); Mean Corpuscular Hemoglobin 30.1 pg (25.9-34.0); Mean Corpuscular Volume 89.5 fL (80.0-94.0); Mean Platelet Volume 8.9 fL (9.5-13.5); Monocytes Absolute Auto 0.7 10^3/uL (0.3-0.8); Monocytes Percent Auto 13.4 % (1.7-12.0); Neutrophils Absolute Auto 1.9 10^3/uL (1.4-6.5); Neutrophils Percent Auto 33.9 % (43.0-75.0); Platelet Count 343 10^3/uL (150-450); Red Blood Count 4.55 10^6/uL (4.70-6.10); Red Cell Distribution Width 12.3 % (11.0-15.0); White Blood Count 5.5 10^3/uL (4.0-11.0)
[2025-01-03 12:29] LABS: Estimated Average Glucose 108 mg/dL; Glycohemoglobin A1C 5.4 % (4.5-6.2)
[2025-01-03 12:53] LABS: Alanine Aminotransferase 19 U/L (16-63); Albumin Globulin Ratio 1.2; Albumin Level 4.4 g/dL (3.4-5.0); Alkaline Phosphatase 122 U/L (46-116); Anion Gap 9.2; Aspartate Amino Transferase 22 U/L (15-37); Bilirubin Total 0.3 mg/dL (0.2-1.0); Calcium 9.8 mg/dL (8.5-10.1); Carbon Dioxide 33.7 mmol/L (21.0-32.0); Chloride 101 mmol/L (98-107); Estimated GFR (African America >60 (>=60 mL/min/1.73m^2); Estimated GFR (Non-African Ame >60 (>=60 mL/min/1.73m^2); Globulin 3.8 g/dL; Glucose 88 mg/dL (74-106); Potassium 3.9 mmol/L (3.5-5.1); Sodium 140 mmol/L (136-145); Total Protein 8.2 g/dL (6.4-8.2)
[2025-01-03 14:18] LABS: Prostate Specific Antigen Scrn 1.37 ng/mL (<=4.00)
[2025-01-04 04:07] LABS: Vitamin B12 1096 pg/mL (232-1245)
== END 2025-01-03 11:35 | disposition home or self-care (01) ==
PROVIDERS: PCP Family Medicine; Visit Provider Family Medicine
DX: Z00.00 Encounter for general adult medical examination without abnormal findings (principal); D64.9 Anemia, unspecified; I10 Essential (primary) hypertension; E55.9 Vitamin D deficiency, unspecified; Z12.5 Encounter for screening for malignant neoplasm of prostate; R73.09 Other abnormal glucose
CPT/HCPCS: 36415; 80053; 82306; 82607; 82728; 82746; 83036; 85025; G0103

== ENCOUNTER 2025-01-23 14:45 | Emergency (ER) | payer MEDICARE, SELFPAY ==
[2025-01-23 14:53] VITALS: BP 146/91; PULSE 77; TEMP 36.9; O2SAT 98; BMI 22.2
--- NOTE | 2025-01-23 15:05 | ED.ABDPAIN1 ---
HPI - Abdominal Pain General Chief Complaint: Abdominal Pain Stated Complaint: R GROIN PAIN Time Seen by Provider: 01/23/25 14:46 Source: patient Mode of arrival: walk-in History of Present Illness HPI narrative: Patient is a 59-year-old male who presents to the emergency department for the evaluation of right lower quadrant/right groin pain that has been ongoing and progressively worsening for the last week. Patient feels he is mildly constipated. He has had no fevers, chills, cough or congestion. No vomiting or diarrhea. He states his urination is slow but he has not had any dysuria or hematuria. No medications taken prior to arrival. He states he is due to have an MRI of his low back tomorrow so he wanted to make sure everything was okay before he goes to get that test. He denies any previous abdominal surgeries. He denies any scrotal swelling or pain Related Data Home Medications ?Medication ?Instructions ?Recorded ?Confirmed amlodipine 5 mg tablet 5 mg PO DAILY 01/23/25 01/23/25 diclofenac potassium 50 mg tablet 50 mg PO DAILY 01/23/25 01/23/25 losartan 50 mg tablet 50 mg PO DAILY 01/23/25 01/23/25 Previous Rx's ?Medication ?Instructions ?Recorded magnesium citrate (Citrate of 296 ml PO DAILY constipation #296 01/23/25 Magnesia oral) mL ondansetron 4 mg disintegrating 4 mg PO Q6H PRN nausea and 01/23/25 tablet vomiting #12 tabs tamsulosin 0.4 mg capsule (Flomax) 0.4 mg PO DAILY #7 caps 01/23/25 Allergies Allergy/AdvReac Type Severity Reaction Status Date / Time No Known Drug Allergies Allergy Verified 01/23/25 14:51 Review of Systems ROS Constitutional Denies: fever or chills Ears, nose, mouth, and throat Denies: throat pain or nasal congestion Cardiovascular Denies: chest pain Respiratory Denies: shortness of breath or cough Gastrointestinal Reports: abdominal pain and constipation; Denies: nausea, vomiting or diarrhea Genitourinary Reports: urinary hesitancy Musculoskeletal Denies: back pain Integumentary/Breast Denies: rash Neurological Denies: numbness in extremities or weakness in extremities Hematologic/Lymphatic Denies: easy bruising or easy bleeding PFSH PFSH Social History Little interest or pleasure in doing things: not at all Feeling down, depressed, or hopeless: not at all Exam Narrative Exam Narrative: Gen.: Awake, alert, in no distress Head: Normocephalic, atraumatic ENT: Moist mucous membranes Respiratory: No respiratory distress Gastrointestinal: Abdomen is soft, mildly tender in the right lower quadrant. No guarding or rebound no palpable hernia Extremities: Moves extremities equally Psych: Normal mood and affect Neuro: No focal neuro deficit Skin: Warm, dry, intact Constitutional Vital Signs, click to edit/add: Last Vital Signs Temp 98.5 F 01/23/25 14:53 Pulse 77 01/23/25 14:53 Resp 20 01/23/25 14:53 BP 146/91 H 01/23/25 14:53 Pulse Ox 98 01/23/25 14:53 O2 Del Method Room Air 01/23/25 14:53 Course Vital Signs Vital signs: Vital Signs Temperature 98.5 F 01/23/25 14:53 Pulse Rate 77 01/23/25 14:53 Respiratory Rate 20 01/23/25 14:53 Blood Pressure 146/91 H 01/23/25 14:53 Pulse Oximetry 98 01/23/25 14:53 Oxygen Delivery Method Room Air 01/23/25 14:53 Temperature 98.5 F 01/23/25 14:53 Pulse Rate 77 01/23/25 14:53 Respiratory Rate 20 01/23/25 14:53 Blood Pressure 146/91 H 01/23/25 14:53 Pulse Oximetry 98 01/23/25 14:53 Oxygen Delivery Method Room Air 01/23/25 14:53 MDM - Abdominal Pain MDM Narrative Medical decision making narrative: Patient was treated with IV Toradol, he had no other significant pain complaints or nausea or vomiting in the ER. Lab studies are stable. Urine specimen is negative and CT shows the patient has enlarged prostate and bladder wall thickening, which is consistent with his historical complaint of slow urination. He has significant formed stool in the entire colon with a normal appendix. There was also noted to be a single hepatic lesion with nonemergent follow-up ultrasound suggested. Patient was made aware of all of these findings and he will be placed on magnesium citrate, Flomax and Zofran for home. He was instructed to take the magnesium citrate after his MRI of the lumbar spine tomorrow. Increase fluids. Flomax given for enlarged prostate. No evidence of UTI or cystitis on urine specimen. He was instructed to follow-up with Dr. Nair. Return to the ER if symptoms change or worsen SUPERVISED APC VISIT, PHYSICIAN ATTESTATION: Based on the medical record the care appears appropriate. ? Medical Records Attestation: I reviewed the patient's medical records. Lab Data Attestation: I reviewed the patient's lab results. Labs: Lab Results 01/23/25 01/23/25 Range/Units 15:11 15:45 WBC 6.7 (4.0-11.0) 10^3/uL RBC 4.28 L (4.70-6.10) 10^6/uL Hgb 12.8 L (14.0-18.0) g/dL Hct 37.7 L (42.0-54.0) % MCV 88.1 (80.0-94.0) fL MCH 29.9 (25.9-34.0) pg MCHC 34.0 (29.9-35.2) g/dL RDW 12.6 (11.0-15.0) % Plt Count 374 (150-450) 10^3/uL MPV 9.3 L (9.5-13.5) fL Neut % (Auto) 36.9 L (43.0-75.0) % Lymph % (Auto) 33.2 (20.5-60.0) % [place] % (Auto) 12.2 H (1.7-12.0) % Eos % (Auto) 15.9 H (0.9-7.0) % Baso % (Auto) 1.8 (0.2-2.0) % Neut # (Auto) 2.5 (1.4-6.5) 10^3/uL Lymph # (Auto) 2.2 (1.2-3.8) 10^3/uL [place] # (Auto) 0.8 (0.3-0.8) 10^3/uL Eos # (Auto) 1.1 H (0.0-0.7) 10^3/uL Baso # (Auto) 0.1 (0.0-0.1) 10^3/uL Abs Immat Gran (auto) 0.00 (0.00-0.03) 10^3/uL Imm/Tot Granulo (auto) 0.0 (0.0-0.5) % PT 10.4 (9.0-11.6) sec INR 0.98 Sodium 135 L (136-145) mmol/L Potassium 3.9 (3.5-5.1) mmol/L Chloride 99 (98-107) mmol/L Carbon Dioxide 31.3 (21.0-32.0) mmol/L Anion Gap 8.6 BUN 20.0 H (7.0-18.0) mg/dL Creatinine 1.10 (0.70-1.30) mg/dL Est GFR ( Amer) >60 (>=60 mL/min/1.73m^2) Est GFR (Non-Af Amer) >60 (>=60 mL/min/1.73m^2) BUN/Creatinine Ratio 18.2 Glucose 99 (74-106) mg/dL Lactate 0.9 (0.4-2.0) mmol/L Calcium 9.3 (8.5-10.1) mg/dL Total Bilirubin 0.2 (0.2-1.0) mg/dL AST 20 (15-37) U/L ALT 27 (16-63) U/L Alkaline Phosphatase 124 H (46-116) U/L Total Protein 7.9 (6.4-8.2) g/dL Albumin 3.9 (3.4-5.0) g/dL Globulin 4.0 g/dL Albumin/Globulin Ratio 1.0 Lipase 22.0 (16.0-77.0) U/L Urine Color Lt. yellow (YELLOW) Urine Clarity Clear (CLEAR) Urine pH 6.5 (5.0-9.0) Ur Specific [place] <=1.005 A (1.005-1.025) Urine Protein Negative (NEG/TRACE) mg/dL Urine Glucose (UA) Negative (NEGATIVE) mg/dL Urine Ketones Negative (NEGATIVE) mg/dL Urine Occult Blood Negative (NEGATIVE) Urine Nitrite Negative (NEGATIVE) Urine Bilirubin Negative (NEGATIVE) Urine Urobilinogen 0.2 (0.2-1.0) EU/dL Ur Leukocyte Esterase Negative (NEGATIVE) Urine RBC 0-2 (0-2) #/HPF Urine WBC 0-2 A (NONE SEEN) #/HPF Ur Squamous Epith Cells Rare (NONE/RARE) #/LPF Urine Crystals None seen (None Seen) #/HPF Urine Bacteria None seen (NONE SEEN) #/HPF Urine Casts None seen (NONE SEEN) #/LPF Urine Mucus None seen (NONE SEEN) Ur Culture Indicated? No Imaging Data CT scan - abdomen: Attestation: I have reviewed the pertinent imaging results. Discharge Plan Discharge Chief Complaint: Abdominal Pain Clinical Impression: Abdominal pain, Constipation, Enlarged prostate Patient Disposition: Home, Self-Care Time of Disposition Decision: 16:05 Condition: Good Prescriptions / Home Meds: New magnesium citrate [Citrate of Magnesia] Solution 296 ml PO DAILY Qty: 296 0RF Rx Instructions: Take half of the bottle with 8 oz of water, take the other half after 1 hour with 8 oz of water tamsulosin [Flomax] 0.4 mg capsule 0.4 mg PO DAILY Qty: 7 0RF ondansetron 4 mg tablet,disintegrating 4 mg PO Q6H PRN (Reason: nausea and vomiting) Qty: 12 0RF No Action amlodipine 5 mg tablet 5 mg PO DAILY losartan 50 mg tablet 50 mg PO DAILY diclofenac potassium 50 mg tablet 50 mg PO DAILY Print Language: French Instructions: Constipation (ED), Enlarged Prostate (BPH) (ED) Additional Instructions: Please take the magnesium citrate with fluids AFTER your MRI tomorrow Please follow up with Dr. Nair for any additional evaluation of your liver that is needed Referrals: Abigail Landis MD [Physician] - As needed Itzel Nair MD [Primary Care Provider] - 1 week
[2025-01-23] MEDS: KETOROLAC TROMETHAMINE 30 MG/ML VIAL IVP (15:16)
[2025-01-23 15:18] LABS: Basophils Absolute Auto 0.1 10^3/uL (0.0-0.1); Basophils Percent Auto 1.8 % (0.2-2.0); Eosinophils Absolute Auto 1.1 10^3/uL (0.0-0.7); Eosinophils Percent Auto 15.9 % (0.9-7.0); Hematocrit 37.7 % (42.0-54.0); Hemoglobin 12.8 g/dL (14.0-18.0); Lymphocytes Absolute Auto 2.2 10^3/uL (1.2-3.8); Lymphocytes Percent Auto 33.2 % (20.5-60.0); Mean Corpuscular Hemoglobin 29.9 pg (25.9-34.0); Mean Corpuscular Volume 88.1 fL (80.0-94.0); Mean Platelet Volume 9.3 fL (9.5-13.5); Monocytes Absolute Auto 0.8 10^3/uL (0.3-0.8); Monocytes Percent Auto 12.2 % (1.7-12.0); Neutrophils Absolute Auto 2.5 10^3/uL (1.4-6.5); Neutrophils Percent Auto 36.9 % (43.0-75.0); Platelet Count 374 10^3/uL (150-450); Red Blood Count 4.28 10^6/uL (4.70-6.10); Red Cell Distribution Width 12.6 % (11.0-15.0); White Blood Count 6.7 10^3/uL (4.0-11.0)
[2025-01-23 15:33] LABS: INR 0.98; Prothrombin Time 10.4 sec (9.0-11.6)
[2025-01-23 15:38] LABS: Lactate/Lactic Acid 0.9 mmol/L (0.4-2.0)
[2025-01-23 15:50] LABS: Bilirubin Urine NEGATIVE (NEGATIVE); Blood Urine NEGATIVE (NEGATIVE); Clarity Urine CLEAR (CLEAR); Color Urine LT. YELLOW (YELLOW); Glucose Urine UA NEGATIVE (NEGATIVE); Ketones Urine NEGATIVE (NEGATIVE); Leukocyte Esterase Urine NEGATIVE (NEGATIVE); Nitrite Urine NEGATIVE (NEGATIVE); Protein Urine NEGATIVE (NEG/TRACE); Specific Gravity Urine <=1.005 (1.005-1.025); Urobilinogen Urine 0.2 EU/dL (0.2-1.0); pH Urine 6.5 (5.0-9.0)
[2025-01-23 15:55] LABS: Alanine Aminotransferase 27 U/L (16-63); Albumin Level 3.9 g/dL (3.4-5.0); Alkaline Phosphatase 124 U/L (46-116); Anion Gap 8.6; Aspartate Amino Transferase 20 U/L (15-37); BUN Creatinine Ratio 18.2; Bilirubin Total 0.2 mg/dL (0.2-1.0); Calcium 9.3 mg/dL (8.5-10.1); Carbon Dioxide 31.3 mmol/L (21.0-32.0); Chloride 99 mmol/L (98-107); Estimated GFR (African America >60 (>=60 mL/min/1.73m^2); Estimated GFR (Non-African Ame >60 (>=60 mL/min/1.73m^2); Glucose 99 mg/dL (74-106); Potassium 3.9 mmol/L (3.5-5.1); Sodium 135 mmol/L (136-145); Total Protein 7.9 g/dL (6.4-8.2)
[2025-01-23 15:57] LABS: Bacteria Urine NONE SEEN #/HPF (NONE SEEN); Cast Seen? NONE SEEN #/LPF (NONE SEEN); Crystals Seen? None Seen #/HPF (None Seen); Mucus Urine NONE SEEN (NONE SEEN); RBC Urine 0-2 #/HPF (0-2); Squamous Epithelial Cell Urine RARE #/LPF (NONE/RARE); Urine Culture Indicated NO; WBC Urine 0-2 #/HPF (NONE SEEN)
== END 2025-01-23 16:15 | disposition home or self-care (01) ==
PROVIDERS: Physician Assistant; Emergency Provider Emergency Medicine; PCP Family Medicine
DX: R10.31 Right lower quadrant pain (principal); K59.00 Constipation, unspecified; N40.0 Benign prostatic hyperplasia without lower urinary tract symptoms
CPT/HCPCS: 36415; 74177; 80053; 81001; 83605; 83690; 85025; 85610; 96374; 99285; J1885; Q9967

== ENCOUNTER 2025-01-24 12:23 | Outpatient (OUT) | payer MEDICARE, SELFPAY ==
--- NOTE | 2025-01-24 12:25 | MR_ITS ---
[address] [address] Patient Name: WILMER PASTRANA MRN: [id number] date: 1965 Sex: M Assigned Patient Location: MRI Current Patient Location: MRI Accession/Order Number: [id number] Exam Date: 01/24/2025 14:33 Report Date: 01/24/2025 14:40 At the request of: EDEN CONROY MD Procedure: MR lumbar spine wo con MRI Lumbar Spine withoutcontrast TECHNIQUE: Multiplanar T1 and T2-weighted imaging of lumbar spine obtained without contrast. HISTORY: Chronic lumbar radiculopathy. Spinal stenosis. COMPARISON: None The last fully segmented vertebral pair is operationally defined as L5/S1. POST SURGERY CHANGES: None BONE MARROW INFILTRATION: None BONE MARROW EDEMA: None BONY ALIGNMENT: Moderate scoliosis LUMBAR FRACTURE: None BONY LESIONS: None KIDNEYS: No hydronephrosis is identified. AORTA: No aortic aneurysm is seen. CONUS MEDULLARIS : The distal spinal cord is in adequate position without abnormality. Additional findings CONJOINED NERVE ROOT: None Lower thoracic level: Unremarkable L1-2 :Disc space narrowing. Small Schmorl's nodes. Diffuse disc bulge and endplate spurring. Flattening of anterior thecal sac. Severe central canal stenosis. Posterior element hypertrophy. Marked bilateral neural foraminal narrowing L2-3: Marked disc space narrowing. Modic type 1 endplate changes. Diffuse disc bulge and endplate spurring. Flattening of anterior thecal sac. Moderate to severe central canal stenosis. Posterior element hypertrophy. Marked left and moderate right neural foraminal narrowing L3-4: Moderate disc space narrowing. L3 inferior endplate Schmorl's node. Diffuse disc bulge. Flattening the intrathecal sac. Mild central canal stenosis. Posterior element hypertrophy. Mild facet diastases. Moderate bilateral neural foraminal narrowing L4-5: Marked disc space narrowing. Type II Modic endplate changes. Diffuse disc bulge. Flattening of anterior thecal sac. Mild central canal stenosis. Posterior element hypertrophy. Marked bilateral neural foraminal narrowing greater on the right. L5-S1: Disc space narrowing. 4 mm anterolisthesis. L5 pars defects. Diffuse disc bulge. Flattening of anterior thecal sac. Mild central canal stenosis. Posterior element hypertrophy. Moderate right and mild left neural foraminal narrowing MR/MR lumbar spine wo con IMPRESSION: Multilevel discovertebral degenerative changes. Multilevel regions of central canal stenosis, most prevalent and severe at the L1-2 level. Multilevel neural foraminal narrowing as above. Pre-MRI plain film assessment: None Impression dictated by: Moody William M.D.01/24/2025 2:40 PM Dictation Location: [facility] Electronically authenticated by: [id number] Y Date: 01/24/2025 14:40
== END 2025-01-24 12:24 | disposition home or self-care (01) ==
LOC: MRI 12:23
PROVIDERS: PCP Family Medicine; Visit Provider Family Medicine
DX: M54.16 Radiculopathy, lumbar region (principal); M48.00 Spinal stenosis, site unspecified; M51.369 Other intervertebral disc degeneration, lumbar region without mention of lumbar back pain or lower extremity pain
CPT/HCPCS: 72148

== ENCOUNTER 2025-02-04 10:22 | Outpatient (OUT) | payer MEDICARE, SELFPAY ==
--- NOTE | 2025-02-04 10:25 | US_ITS ---
[facility] [place] [id number] Patient Name: WILMER PASTRANA MRN: [id number] date: 1965 Sex: M Assigned Patient Location: US Current Patient Location: US Accession/Order Number: [id number] Exam Date: 02/04/2025 11:30 Report Date: 02/04/2025 11:40 At the request of: EDEN CONROY MD Procedure: US right upper quadrant LIMITED ABDOMINAL ULTRASOUND CLINICAL HISTORY: Lesion Of Liver on CT. Right upper quadrant pain. COMPARISON: CT 01/23/2025 The gallbladder is physiologically distended without shadowing calculi, wall thickening or pericholecystic fluid. No intra- or extrahepatic biliary dilatation is evident. The common duct measures 2 - 3 mm. There is coarsened, increased echogenicity of the hepatic parenchyma. Fatty infiltration is a possibility however not readily apparent on the comparison CT exam There is a peripheral hypoechoic nodular area at the left lobe measuring 1.7 x 1.0 x 1.5 cm. There is no color flow within the area however it is not definitely a simple cyst. There is appropriate hepatopetal flow within the main portal vein. The pancreas shows no significant sonographic abnormality. Cursory evaluation of the right kidney reveals no hydronephrosis or fluid within Lawrence's pouch. US/US right upper quadrant IMPRESSION: . INCREASED ECHOGENICITY OF HEPATIC PARENCHYMA. FATTY INFILTRATION IS NOT EXCLUDED. INDETERMINANT HYPOECHOIC LEFT HEPATIC NODULE. Impression dictated by: Lorenza Boo M.D.02/04/2025 11:40 AM Dictation Location: [place] [address] Electronically authenticated by: [id number] Y Date: 02/04/2025 11:40
== END 2025-02-04 10:23 | disposition home or self-care (01) ==
LOC: US 10:22
PROVIDERS: PCP Family Medicine; Visit Provider Family Medicine
DX: K76.9 Liver disease, unspecified (principal)
CPT/HCPCS: 76705